=== PATIENT | male | born 1960 | race African-American/Black ===

== ENCOUNTER 2016-07-03 15:50 | Inpatient (IN) | payer MEDICARE, OTHER ==
[~2016-07-03] VITALS: Ht 165.1 cm; Wt 59.0 kg
[2016-07-03 17:58] LABS: BASO % 1 % (0-3); EOS % 2 % (0-3); HEMATOCRIT 41.5 % (39.0-53.0); HEMOGLOBIN 13.6 g/dL (13.0-17.5); LYMPH # 2.4 x10^3/uL (1.0-4.8); LYMPH % 40 % (24-48); MEAN CORPUSCULAR HEMOGLOBIN 28 pg (25-35); MEAN CORPUSCULAR HGB CONC 33 g/dL (31-37); MEAN CORPUSCULAR VOLUME 87 fL (79-100); MONO % 9 % (0-9); NEUT % 48 % (31-73); PLATELET COUNT 214 x10^3/uL (140-400); RED CELL DISTRIBUTION WIDTH 14.3 % (11.5-14.5); WHITE BLOOD COUNT 5.9 x10^3/uL (4.0-11.0)
[2016-07-03] MEDS ORDERED: IV NORMAL SALINE 1000ML BAG 1,000 ML IV SCH ×2 (18:00→20:00)
--- NOTE | 2016-07-03 18:07 | PHYS DOC ---
Past Medical History Past Medical History: Anxiety, Constipation, CVA, Depression, GERD, High Cholesterol, Hypertension Past Surgical History: No Surgical History Alcohol Use: None Drug Use: None Adult General Chief Complaint Chief Complaint: CONSTIPATION HPI HPI Patient is a 55 year old male who presents by EMS from nursing facility for concern of ileus versus bowel obstruction. He has a few days of progressive abdominal distention as well as constipation. They have tried laxatives with some small watery stool output, but no large bowel movement. He has had 2 abdominal x-rays by outside facility documenting concern for ileus. The nursing facility and doctor have been trying to convince him to come to the hospital for the past few days, but he has been refusing until now. He denies abdominal pain, nausea or vomiting, dysuria, fever or chills, chest pain, cough. Does admit to constipation with small amounts of diarrhea after laxative medications. History was obtained from patient and his doctor. Review of Systems Review of Systems Constitutional: Denies fever or chills [] Eyes: Denies change in visual acuity, redness, or eye pain [] HENT: Denies nasal congestion or sore throat [] Respiratory: Denies cough or shortness of breath [] Cardiovascular: No additional information not addressed in HPI [] GI: Denies abdominal pain, nausea, vomiting, bloody stools or diarrhea [] : Denies dysuria or hematuria [] Musculoskeletal: Denies back pain or joint pain [] Integument: Denies rash or skin lesions [] Neurologic: Denies headache, focal weakness or sensory changes [] Endocrine: Denies polyuria or polydipsia [] Current Medications Current Medications Current Medications Medications (Trade) Dose Ordered Sig/Jm Start Time Stop Time Status Last Admin Dose Admin Sodium Chloride (Iv Sodium Chloride 0.9% 1000ml Bag) 1,000 ml @ 100 mls/hr Q10H 07/03/16 18:00 07/03/16 19:53 DC Allergies Allergies Allergies Coded Allergies Type Severity Reaction Last Updated Verified No Known Drug Allergies 07/03/16 No Physical Exam Physical Exam Constitutional: Well developed, well nourished, no acute distress, non-toxic appearance. [] HENT: Normocephalic, atraumatic, bilateral external ears normal, oropharynx moist,, nose normal. [] Eyes: PERRLA, EOMI. [] Neck: Normal range of motion, supple. [] Cardiovascular:Heart rate regular rhythm [] Lungs & Thorax: Bilateral breath sounds clear to auscultation [] Abdomen: Bowel sounds high pitched, soft, no tenderness, distended, no guarding or rebound. [] Skin: Warm, dry, no erythema, no rash. [] Back: No tenderness, no CVA tenderness. [] Extremities: Chronic contracture of RUE, weakness in all 4 limbs since CVA, no edema. [] Neurologic: Alert and oriented X 3, normal sensory function. [] Psychologic: Affect normal, judgement normal, mood normal. [] Current Patient Data Vital Signs Vital Signs Date Time Temp Pulse Resp B/P Pulse Ox O2 Delivery O2 Flow Rate FiO2 07/03/16 17:57 69 16 147/82 95 Room Air 07/03/16 15:56 98.6 98.6 Lab Values Laboratory Tests Test 07/03/16 17:45 White Blood Count 5.9x10^3/uL (4.0-11.0) Red Blood Count 4.80x10^6/uL (4.30-5.70) Hemoglobin 13.6g/dL (13.0-17.5) Hematocrit 41.5% (39.0-53.0) Mean Corpuscular Volume 87fL (79-100) Mean Corpuscular Hemoglobin 28pg (25-35) Mean Corpuscular Hemoglobin Concent 33g/dL (31-37) Red Cell Distribution Width 14.3% (11.5-14.5) Platelet Count 214x10^3/uL (140-400) Neutrophils (%) (Auto) 48% (31-73) Lymphocytes (%) (Auto) 40% (24-48) Monocytes (%) (Auto) 9% (0-9) Eosinophils (%) (Auto) 2% (0-3) Basophils (%) (Auto) 1% (0-3) Neutrophils # (Auto) 2.8x10^3uL (1.8-7.7) Lymphocytes # (Auto) 2.4x10^3/uL (1.0-4.8) Monocytes # (Auto) 0.5x10^3/uL (0.0-1.1) Eosinophils # (Auto) 0.1x10^3/uL (0.0-0.7) Basophils # (Auto) 0.0x10^3/uL (0.0-0.2) Sodium Level 146mmol/L (136-145) H Potassium Level 2.9mmol/L (3.5-5.1) *L Chloride Level 106mmol/L (98-107) Carbon Dioxide Level 31mmol/L (21-32) Anion Gap 9 (6-14) Blood Urea Nitrogen 13mg/dL (8-26) Creatinine 0.9mg/dL (0.7-1.3) Estimated GFR (Cockcroft-Gault) 105.2 Glucose Level 91mg/dL (70-99) Lactic Acid Level 1.0mmol/L (0.4-2.0) Calcium Level 9.3mg/dL (8.5-10.1) Total Bilirubin 0.6mg/dL (0.2-1.0) Direct Bilirubin 0.1mg/dL (0.0-0.2) Aspartate Amino Transferase (AST) 20U/L (15-37) Alanine Aminotransferase (ALT) 18U/L (16-63) Alkaline Phosphatase 107U/L (46-116) Total Protein 7.4g/dL (6.4-8.2) Albumin 3.8g/dL (3.4-5.0) Lipase 156U/L (73-393) Laboratory Tests 07/03/16 17:45 Laboratory Tests 07/03/16 17:45 Radiology/Procedures Radiology/Procedures CT abdomen and pelvis with IV contrast IMPRESSION 1. Severe distention of the colon to the level of sigmoid colon is present. Appearance of the sigmoid colon raises possibility of sigmoid volvulus. 2. Results discussed with emergency department staff, Dr. Mukherjee, at 1855 hours. Electronically signed by: Blayne Mason MD (Jul 03, 2016 18:56:06) Course & Med Decision Making Course & Med Decision Making Pertinent Labs and Imaging studies reviewed. (See chart for details) Laboratory evaluation significant for hypokalemia, which will be replaced IV. Imaging concerning for sigmoid volvulus as above. Discussed case with Dr. Zamarripa, general surgery, who recommends GI consultation. Discussed case with Dr. Mena, gastroenterology, who recommends placement in the ICU and he will see him tomorrow for suspicion of likely chronic intermittent volvulus related to chronic constipation. He remains asymptomatic with stable vitals at this time. Discussed case with Dr. Fox, who will admit. Dragon Disclaimer Dragon Disclaimer This electronic medical record was generated, in whole or in part, using a voice recognition dictation system. Departure Departure Impression: Primary Impression: Sigmoid volvulus Additional Impression: Hypokalemia Disposition: ADMITTED INPATIENT Condition: CRITICAL Referrals: KIRT FOX MD (PCP) Problem Qualifiers Edgar MUKHERJEE MD Jul 03, 2016 18:07
[2016-07-03] MEDS ORDERED: ACETAMINOPHEN 325 MG TABLET. PO PRN (18:15)
[2016-07-03] MEDS ORDERED: ONDANSETRON PF 4 MG/2 ML VIAL. IV PRN (18:15)
[2016-07-03 18:17] LABS: ALBUMIN 3.8 g/dL (3.4-5.0); CALCIUM 9.3 mg/dL (8.5-10.1); CREATININE 0.9 mg/dL (0.7-1.3); DIRECT BILIRUBIN 0.1 mg/dL (0.0-0.2); GFR 105.2; TOTAL BILIRUBIN 0.6 mg/dL (0.2-1.0); TOTAL PROTEIN 7.4 g/dL (6.4-8.2)
[2016-07-03 18:24] LABS: POTASSIUM 2.9 mmol/L (3.5-5.1)
[2016-07-03 18:25] LABS: BILIRUBIN,URINE NEGATIVE (NEG); GLUCOSE,URINE NEGATIVE (NEG); NITRITE,URINE NEGATIVE (NEG); PH,URINE 6.5; PROTEIN,URINE NEGATIVE (NEG-TRACE)
[2016-07-03] MEDS ORDERED: IOHEXOL 300 MG/ML 75 ML VIAL IV ONE (18:30)
[2016-07-03] MEDS ORDERED: CONTRAST GIVEN MC PRN (18:30)
[2016-07-03 18:36] LABS: BACTERIA,URINE 0 /HPF (0-FEW); RBC,URINE 0 /HPF (0-2)
--- NOTE | 2016-07-03 18:57 | RAD ---
PROCEDURE CT abdomen pelvis with intravenous contrast. HISTORY Abdominal pain and distention. TECHNIQUE After administration of intravenous contrast only, 75 mL Omnipaque 300, CT of the abdomen and pelvis was performed. Exposure: One or more of the following individualized dose reduction techniques were utilized for this examination: 1. Automated exposure control. 2. Adjustment of the mA and/or kV according to patient size. 3. Use of iterative reconstruction technique. COMPARISON None. FINDINGS Evaluation of enteric structures may be limited by lack of oral contrast. Liver, spleen, pancreas, gallbladder, and bilateral adrenal glands are unremarkable. Bilateral kidneys enhance symmetrically. Aortic atherosclerosis is seen. Urinary bladder is unremarkable. The colon is severely distended with loops of sigmoid colon measuring up to 12 centimeters in diameter. Small amount of stool is seen in the rectum which has a relatively normal size. There may be twisting and "whorling" of the distal sigmoid colon near the rectum such that sigmoid volvulus is possible. No perforation is identified at this time. Appendix is without evidence of inflammation. IMPRESSION 1. Severe distention of the colon to the level of sigmoid colon is present. Appearance of the sigmoid colon raises possibility of sigmoid volvulus. 2. Results discussed with emergency department staff, Dr. iHll, at 1855 hours. Electronically signed by: Blayne Mason MD (Jul 03, 2016 18:56:06)
--- NOTE | 2016-07-04 03:20 | ACF ---
Admit Criteria Forms Admit Criteria Forms Admit Criteria Forms HYPONATREMIA; HYPERNATREMIA; HYPOKALEMIA; HYPERKALEMIA; HYPOCALCEMIA; HYPERCALCEMIA Clinical Indications for Inpatient Care (Place 'X' for any and all applicable criteria): Ongoing inpatient care may be indicated for ANY ONE of the following [G](1)(2)(3 )(5): [ ]I. Hyponatremia with ANY ONE of the following: [ ]a) Sodium less than 130 mEq/L (mmol/L) (new) (6)(22) [ ]b) Sodium less than 135 mEq/L (mmol/L) with ANY ONE of the following: [ ]i) Severe medical etiology requiring inpatient management (eg, heart failure, hypovolemia) [ ]ii) Altered mental status [ ]iii) Seizures [ ]II. Hypernatremia with ANY ONE of the following: [ ]a) Sodium greater than 155 mEq/L (mmol/L) [ ]b) Sodium greater than 150 mEq/L (mmol/L) with ANY ONE of the following: [ ] i) Altered mental status [ ]ii) Seizures [ ]iii) Severe medical etiology (eg, hypovolemia, diabetes insipidus) [ ]iv) Severe weakness [ ]v) Severe medical etiology (eg, hemolysis, infection, drug overdose) [X]III. Hypokalemia with ANY ONE of the following: [ ]a) Potassium less than 2.5 mEq/L (mmol/L) despite outpatient and emergency treatment [X]b) Potassium less than 3.0 mEq/L (mmol/L) with ANY ONE of the following: [ ]i) Weakness [ ]ii) Cardiac abnormality (eg, arrhythmia, conduction disturbance) [ ]iii) Cardiac ischemia [ ]iv) Ileus [ ]v) Ongoing medical cause requiring inpatient management. ( e.g., acute renal wasting, SIADH) [X]vi) Other severe symptoms [ ] IV. Hyperkalemia with ANY ONE of the following: [ ]a) Potassium greater than 6.5 mEq/L (mmol/L) [ ]b) Potassium greater than 5 mEq/L (mmol/L) with ANY ONE of the following: [ ]i) Severe ECG findings [H] [ ]ii) Acute worsening of renal failure (creatinine greater than 2.5 mg/dL (221 micromoles/L) or significant elevation for age and size) [ ] V. Hypocalcemia with ANY ONE of the following: [ ]a) Calcium less than 7 mg/dL (1.75 mmol/L) despite outpatient and emergency treatment(19) [ ]b) Calcium less than 8 mg/dL (2 mmol/L) with significant symptoms or findings; examples include: [ ]i) Cardiac abnormality (eg, arrhythmia or conduction disturbance) [ ]ii) Altered mental status [ ]iii) Seizures [ ]iv) Breathing difficulty [ ]v) Muscle spasms [ ]. Hypercalcemia with ANY ONE of the following: [ ]a) Calcium greater than 14 mg/dL (3.5 mmol/L) [ ]b) Calcium greater than 12 mg/dL (3 mmol/L) with ANY ONE of the following: [ ]i) Significant dehydration or hypovolemia as indicated by ANY ONE of the following(2): [ ]1. Clinically significant dehydration as indicated by ANY ONE of the following: [ ]A. Acute loss of weight from baseline (5% of body weight in adults, 9% in pediatric patients) [ ]B. Hemodynamic instability [ ]C. Acute renal failure [ ]D. Serum sodium greater than 150 mEq/L (mmol/L) [ ]2) Dehydration that is persistent indicated by ALL of the following: [ ]A. Oral rehydration therapy not tolerated or insufficient to adequately correct dehydration [ ]B. Appropriate intravenous treatment (eg, fluids ) does not readily correct dehydration ie, after 12 to 24 hours of treatment) [ ]ii) Significant symptoms or findings; examples include: [ ]1) Altered mental status [ ]2) Cardiac abnormality (eg, arrhythmia, conduction disturbance) [ ]3) Cardiac abnormality (eg, arrhythmia, conduction disturbance) The original [facility] content created by [employer] has been revised. The portions of the content which have been revised are identified through the use of italic text or in bold, and [facility] has neither reviewed nor approved the modified material. All other unmodified content is copyright [facility] [employer] Please see references footnoted in the original [facility] edition 2015 ANJELICA MARIE Jul 04, 2016 03:20
--- NOTE | 2016-07-04 07:53 | PDOC2 ---
GI CONSULT Reason For Consult: Sigmoid volvulus HPI: HPI: Much of history from chart and staff. 55 y/ AA male brought to ER from nursing facility w/ increased abdominal distention, constipation, and possible ileus on x-rays. Apparently was given laxatives at the facility that produced watery stools. Per RN in ER (held while awaiting ICU bed), has continued w/ watery and "gritty" stools overnight. He denies abdominal pain and n/v. He tells me his usual bowel pattern is 1 stool QOD. Denies bleeding. No previous colonoscopy. PMH: PMH: CVA, HTN, HLD, anxiety/depression Social History: ALCOHOL: none Drugs: None ROS: Somewhat difficult to obtain. GEN: Denies fevers, chills, sweats HEENT: Denies sore throat CV: Denies chest pain RESP: Denies shortness of air GI: Per HPI : Denies hematuria ENDO: Denies weight changes NEURO: Denies dizziness MSK: +weakness SKIN: Denies pruritus VItals: Vitals: Vital Signs Date Time Temp Pulse Resp B/P Pulse Ox O2 Delivery O2 Flow Rate FiO2 07/04/16 06:45 95 134/75 9 Room Air 07/03/16 18:35 16 07/03/16 15:56 98.6 98.6 Labs: Labs: Laboratory Tests Test 07/03/16 17:45 07/03/16 18:12 White Blood Count 5.9x10^3/uL (4.0-11.0) Red Blood Count 4.80x10^6/uL (4.30-5.70) Hemoglobin 13.6g/dL (13.0-17.5) Hematocrit 41.5% (39.0-53.0) Mean Corpuscular Volume 87fL (79-100) Mean Corpuscular Hemoglobin 28pg (25-35) Mean Corpuscular Hemoglobin Concent 33g/dL (31-37) Red Cell Distribution Width 14.3% (11.5-14.5) Platelet Count 214x10^3/uL (140-400) Neutrophils (%) (Auto) 48% (31-73) Lymphocytes (%) (Auto) 40% (24-48) Monocytes (%) (Auto) 9% (0-9) Eosinophils (%) (Auto) 2% (0-3) Basophils (%) (Auto) 1% (0-3) Neutrophils # (Auto) 2.8x10^3uL (1.8-7.7) Lymphocytes # (Auto) 2.4x10^3/uL (1.0-4.8) Monocytes # (Auto) 0.5x10^3/uL (0.0-1.1) Eosinophils # (Auto) 0.1x10^3/uL (0.0-0.7) Basophils # (Auto) 0.0x10^3/uL (0.0-0.2) Sodium Level 146mmol/L (136-145) Potassium Level 2.9mmol/L (3.5-5.1) Chloride Level 106mmol/L (98-107) Carbon Dioxide Level 31mmol/L (21-32) Anion Gap 9 (6-14) Blood Urea Nitrogen 13mg/dL (8-26) Creatinine 0.9mg/dL (0.7-1.3) Estimated GFR (Cockcroft-Gault) 105.2 Glucose Level 91mg/dL (70-99) Lactic Acid Level 1.0mmol/L (0.4-2.0) Calcium Level 9.3mg/dL (8.5-10.1) Total Bilirubin 0.6mg/dL (0.2-1.0) Direct Bilirubin 0.1mg/dL (0.0-0.2) Aspartate Amino Transf (AST/SGOT) 20U/L (15-37) Alanine Aminotransferase (ALT/SGPT) 18U/L (16-63) Alkaline Phosphatase 107U/L (46-116) Total Protein 7.4g/dL (6.4-8.2) Albumin 3.8g/dL (3.4-5.0) Lipase 156U/L (73-393) Urine Collection Type U cath Urine Color Yellow Urine Clarity Clear Urine pH 6.5 Urine Specific [place] 1.020 Urine Protein Negativemg/dL (NEG-TRACE) Urine Glucose (UA) Negativemg/dL (NEG) Urine Ketones (Stick) Tracemg/dL (NEG) Urine Blood Negative (NEG) Urine Nitrite Negative (NEG) Urine Bilirubin Negative (NEG) Urine Urobilinogen Dipstick 1.0mg/dL (0.2 mg/dL) Urine Leukocyte Esterase Trace (NEG) Urine RBC 0/HPF (0-2) Urine WBC 1-4/HPF (0-4) Urine Transitional Epithelial Cells Few/LPF Urine Bacteria 0/HPF (0-FEW) Urine Hyaline Casts Moderate/HPF Urine Mucus Marked/LPF Allergies: Coded Allergies: No Known Drug Allergies (Unverified , 07/03/16) Medications: Current Medications Medications (Trade) Dose Ordered Sig/Mj Route PRN Reason Start Time Stop Time Status Last Admin Dose Admin Potassium Chloride/Sodium Chloride (KCl 20 Meq-NS 1,000 ml Iv Soln) 1,000 ml @ 125 mls/hr 1X ONCE IV 07/03/16 18:30 07/04/16 02:29 DC 07/03/16 18:16 Iohexol 75 ml 75 ml 1X ONCE IV 07/03/16 18:30 07/03/16 18:31 DC 07/03/16 18:23 Sodium Chloride (Iv Sodium Chloride 0.9% 1000ml Bag) 1,000 ml @ 1,000 mls/hr Q1H IV 07/03/16 20:00 07/03/16 20:59 DC 07/03/16 19:00 Imaging: Imaging: CT A/P IMPRESSION 1. Severe distention of the colon to the level of sigmoid colon is present. Appearance of the sigmoid colon raises possibility of sigmoid volvulus. PE: GEN: NAD HEENT: Atraumatic, PERRL LUNGS: CTAB anteriorly HEART: RRR ABD: BS tympanic, distended, non-tender EXTREMITY: No edema SKIN: No rashes, no jaundice NEURO/PSYCH: answers questions appropriately, somewhat difficult to understand A/P: A/P: Abd distention, constipation -noted at nursing facility w/ no relief from laxatives, brought to ER -h/o constipation -having watery stools in ER Abnormal CT A/P, possible sigmoid volvulus -as above CRC screen -no previous colonoscopy H/o CVA -- D/w Dr. Mena, GI lab. Proceed w/ tap water enemas prior to 'scope w/ possible decompression this afternoon. RANDOLPH TYSON Jul 04, 2016 07:53
--- NOTE | 2016-07-04 09:24 | PDOC2 ---
TENNILLE GUTIÉRREZ [employer] 07/04/16 0924: CONSULT Date of Consult Date of Consult DATE: 07/04/16 TIME: 09:17 Reason for Consult Reason for Consult: sigmoid volvulus Referring Physician Referring Physician: ER Identification/Chief Complaint Chief Complaint abdominal distention Source Source: Chart review, Patient History of Present Illness Reason for Visit: From [facility], had increased abdominal distention and watery stools from laxatives, xrays taken were concerning for ileus. Hx of cva, difficulty with speech. He denies pain Past Medical History Cardiovascular: HTN, Hyperlipidemia CENTRAL NERVOUS SYSTEM: CVA GI: GERD Psych: Anxiety, Depression Past Surgical History Past Surgical History: No pertinent history Family History Family History: Family History Unknown Social History No ALCOHOL: none Drugs: None Lives: [facility] Current Problem List Problem List Problems Medical Problems: (1) Abdominal pain Status: Acute (2) Hypokalemia Status: Acute (3) Ileus Status: Acute (4) Sigmoid volvulus Status: Acute Current Medications Current Medications Current Medications Sodium Chloride (Iv Sodium Chloride 0.9% 1000ml Bag) 1,000 ml @ 100 mls/hr Q10H IV ; Start 07/03/16 at 18:00; Stop 07/03/16 at 19:53; Status DC Ondansetron HCl (Zofran) 4 mg PRN Q8HRS PRN IV NAUSEA/VOMITING; Start 07/03/16 at 18:15; Stop 07/04/16 at 18:14 Acetaminophen 650 mg 650 mg PRN Q4HRS PRN PO FEVER; Start 07/03/16 at 18:15; Stop 07/04/16 at 18:14 Potassium Chloride/Sodium Chloride (KCl 20 Meq-NS 1,000 ml Iv Soln) 1,000 ml @ 125 mls/hr 1X ONCE IV Last administered on 07/03/16t 18:16; Start 07/03/16 at 18:30; Stop 07/04/16 at 02:29; Status DC Iohexol (Omnipaque 300 Mg/ml) 75 ml 1X ONCE IV Last administered on 07/03/16t 18:23; Start 07/03/16 at 18:30; Stop 07/03/16 at 18:31; Status DC Info 1 each 1 each PRN DAILY PRN MC SEE COMMENTS; Start 07/03/16 at 18:30; Stop 07/05/16 at 18:29 Sodium Chloride (Iv Sodium Chloride 0.9% 1000ml Bag) 1,000 ml @ 1,000 mls/hr Q1H IV Last administered on 07/03/16t 19:00; Start 07/03/16 at 20:00; Stop at 20:59; Status DC Allergies Allergies: Coded Allergies: No Known Drug Allergies (Unverified , 07/03/16) ROS Review of System difficult to obtain, reliability poor General: No: Chills, Other (fevers) PSYCHOLOGICAL ROS: YES: Anxiety, Depression Eyes: No Blurry vision, No Double vision HEENT: No: Heacaches, Sore Throat Hematological and Lymphatic: No: Bleeding Problems, Blood Clots Respiratory: No: Cough, Shortness of breath Cardiovascular: No Chest Pain, No Palpitations Genitourinary: No Dysuria, No Hematuria Neurological: Yes Speech Problems, No Tremors Skin: No Pruritus, No Rash Physical Exam General: Alert, Cooperative, No acute distress, Other (difficult speech, however appears to answer approriately ) HEENT: PERRLA, Mucous membr. moist/pink Lungs: Clear to auscultation, Normal air movement Heart: Regular rate, Normal S1, Normal S2, No murmurs Abdomen: Soft, Other (Distended, nontender) Extremities: No clubbing, No cyanosis Skin: No rashes, No breakdown MUSCULOSKELETAL: No deformity, No swelling Vitals VITALS Vital Signs Date Time Temp Pulse Resp B/P Pulse Ox O2 Delivery O2 Flow Rate FiO2 07/04/16 06:45 95 134/75 9 Room Air 07/03/16 18:35 16 07/03/16 15:56 98.6 98.6 Labs Labs Laboratory Tests Test 07/03/16 17:45 07/03/16 18:12 White Blood Count 5.9x10^3/uL (4.0-11.0) Red Blood Count 4.80x10^6/uL (4.30-5.70) Hemoglobin 13.6g/dL (13.0-17.5) Hematocrit 41.5% (39.0-53.0) Mean Corpuscular Volume 87fL (79-100) Mean Corpuscular Hemoglobin 28pg (25-35) Mean Corpuscular Hemoglobin Concent 33g/dL (31-37) Red Cell Distribution Width 14.3% (11.5-14.5) Platelet Count 214x10^3/uL (140-400) Neutrophils (%) (Auto) 48% (31-73) Lymphocytes (%) (Auto) 40% (24-48) Monocytes (%) (Auto) 9% (0-9) Eosinophils (%) (Auto) 2% (0-3) Basophils (%) (Auto) 1% (0-3) Neutrophils # (Auto) 2.8x10^3uL (1.8-7.7) Lymphocytes # (Auto) 2.4x10^3/uL (1.0-4.8) Monocytes # (Auto) 0.5x10^3/uL (0.0-1.1) Eosinophils # (Auto) 0.1x10^3/uL (0.0-0.7) Basophils # (Auto) 0.0x10^3/uL (0.0-0.2) Sodium Level 146mmol/L (136-145) Potassium Level 2.9mmol/L (3.5-5.1) Chloride Level 106mmol/L (98-107) Carbon Dioxide Level 31mmol/L (21-32) Anion Gap 9 (6-14) Blood Urea Nitrogen 13mg/dL (8-26) Creatinine 0.9mg/dL (0.7-1.3) Estimated GFR (Cockcroft-Gault) 105.2 Glucose Level 91mg/dL (70-99) Lactic Acid Level 1.0mmol/L (0.4-2.0) Calcium Level 9.3mg/dL (8.5-10.1) Total Bilirubin 0.6mg/dL (0.2-1.0) Direct Bilirubin 0.1mg/dL (0.0-0.2) Aspartate Amino Transf (AST/SGOT) 20U/L (15-37) Alanine Aminotransferase (ALT/SGPT) 18U/L (16-63) Alkaline Phosphatase 107U/L (46-116) Total Protein 7.4g/dL (6.4-8.2) Albumin 3.8g/dL (3.4-5.0) Lipase 156U/L (73-393) Urine Collection Type U cath Urine Color Yellow Urine Clarity Clear Urine pH 6.5 Urine Specific [place] 1.020 Urine Protein Negativemg/dL (NEG-TRACE) Urine Glucose (UA) Negativemg/dL (NEG) Urine Ketones (Stick) Tracemg/dL (NEG) Urine Blood Negative (NEG) Urine Nitrite Negative (NEG) Urine Bilirubin Negative (NEG) Urine Urobilinogen Dipstick 1.0mg/dL (0.2 mg/dL) Urine Leukocyte Esterase Trace (NEG) Urine RBC 0/HPF (0-2) Urine WBC 1-4/HPF (0-4) Urine Transitional Epithelial Cells Few/LPF Urine Bacteria 0/HPF (0-FEW) Urine Hyaline Casts Moderate/HPF Urine Mucus Marked/LPF Laboratory Tests Test 07/03/16 17:45 07/03/16 18:12 White Blood Count 5.9x10^3/uL (4.0-11.0) Red Blood Count 4.80x10^6/uL (4.30-5.70) Hemoglobin 13.6g/dL (13.0-17.5) Hematocrit 41.5% (39.0-53.0) Mean Corpuscular Volume 87fL (79-100) Mean Corpuscular Hemoglobin 28pg (25-35) Mean Corpuscular Hemoglobin Concent 33g/dL (31-37) Red Cell Distribution Width 14.3% (11.5-14.5) Platelet Count 214x10^3/uL (140-400) Neutrophils (%) (Auto) 48% (31-73) Lymphocytes (%) (Auto) 40% (24-48) Monocytes (%) (Auto) 9% (0-9) Eosinophils (%) (Auto) 2% (0-3) Basophils (%) (Auto) 1% (0-3) Neutrophils # (Auto) 2.8x10^3uL (1.8-7.7) Lymphocytes # (Auto) 2.4x10^3/uL (1.0-4.8) Monocytes # (Auto) 0.5x10^3/uL (0.0-1.1) Eosinophils # (Auto) 0.1x10^3/uL (0.0-0.7) Basophils # (Auto) 0.0x10^3/uL (0.0-0.2) Sodium Level 146mmol/L (136-145) Potassium Level 2.9mmol/L (3.5-5.1) Chloride Level 106mmol/L (98-107) Carbon Dioxide Level 31mmol/L (21-32) Anion Gap 9 (6-14) Blood Urea Nitrogen 13mg/dL (8-26) Creatinine 0.9mg/dL (0.7-1.3) Estimated GFR (Cockcroft-Gault) 105.2 Glucose Level 91mg/dL (70-99) Lactic Acid Level 1.0mmol/L (0.4-2.0) Calcium Level 9.3mg/dL (8.5-10.1) Total Bilirubin 0.6mg/dL (0.2-1.0) Direct Bilirubin 0.1mg/dL (0.0-0.2) Aspartate Amino Transf (AST/SGOT) 20U/L (15-37) Alanine Aminotransferase (ALT/SGPT) 18U/L (16-63) Alkaline Phosphatase 107U/L (46-116) Total Protein 7.4g/dL (6.4-8.2) Albumin 3.8g/dL (3.4-5.0) Lipase 156U/L (73-393) Urine Collection Type U cath Urine Color Yellow Urine Clarity Clear Urine pH 6.5 Urine Specific [place] 1.020 Urine Protein Negativemg/dL (NEG-TRACE) Urine Glucose (UA) Negativemg/dL (NEG) Urine Ketones (Stick) Tracemg/dL (NEG) Urine Blood Negative (NEG) Urine Nitrite Negative (NEG) Urine Bilirubin Negative (NEG) Urine Urobilinogen Dipstick 1.0mg/dL (0.2 mg/dL) Urine Leukocyte Esterase Trace (NEG) Urine RBC 0/HPF (0-2) Urine WBC 1-4/HPF (0-4) Urine Transitional Epithelial Cells Few/LPF Urine Bacteria 0/HPF (0-FEW) Urine Hyaline Casts Moderate/HPF Urine Mucus Marked/LPF Assessment/Plan Assessment/Plan sigmoid volvulus on CT hypokalemia--k replaced in ER Hx of CVA, HTN, hyperlipemia reviewed with GI, plans for decompression today will review with TAMMY Fisher MD 07/04/16 1136: CONSULT Allergies Allergies: Coded Allergies: No Known Drug Allergies (Unverified , 07/03/16) Assessment/Plan Assessment/Plan Reviewed, X rays reviewed; suspect colonic ileus, volvulus possible; GI consulted, planning evaluation with colonoscopy TENNILLE GUTIÉRREZ APRN Jul 04, 2016 09:24 TAMMY TOM MD Jul 04, 2016 11:36
[2016-07-04 11:15] VITALS: BP 110/73
--- NOTE | 2016-07-04 13:01 | HP ---
ADMIT DATE: 07/03/2016 HISTORY OF PRESENT ILLNESS: The patient is a 55-year-old -Serbian male patient, a resident at [facility] in [place], who apparently was noted by the nursing staff there to have extremely distended abdomen ____ he was also constipated, but there was no nausea or vomiting. The patient apparently denied any abdominal pain. We did actually investigate him at the alf and had a KUB done, which showed that he has moderate colonic dilatation consistent with ileus, small bowel loops are unremarkable. There is no soft tissue masses, significant pathological calcification. I did actually recommend that the patient be transferred to the hospital for further evaluation; however, the patient himself used to put him on a clear liquid diet, was given Dulcolax suppository as well as MiraLax and mag citrate and apparently had had multiple bowel movements; however, his abdomen continued to be markedly distended and we did repeat his KUB, which continued to be showing colonic dilatation and initially the patient has consistently refused to come to the hospital. Yesterday, he agreed and was brought to the Emergency Room of [facility] Emergency Room where he was evaluated and has had CT scan done, which apparently showed severe distention of the colon to the level of the sigmoid colon. Appearance of the sigmoid colon, there is a possibility of sigmoid volvulus. The patient was apparently kept n.p.o. and the GI and surgical consult were obtained. The patient himself has consistently denied any nausea or vomiting. Denied any abdominal pain. Apparently, had had some loose bowel movement at alf and also in the Emergency Room. PAST MEDICAL HISTORY: Significant for hypertension, cerebrovascular accident with right-sided hemiplegia, aphasia, gastroesophageal reflux disease, carotid artery stenosis with infarct, has chronic pain syndrome and insomnia. PAST SURGICAL HISTORY: Unremarkable. FAMILY HISTORY: Noncontributory. SOCIAL HISTORY: Used to live with his niece. He is an ex-smoker, heavy drinker. He used to work ____. ALLERGIES: He has no known drug allergies. MEDICATIONS: He is currently on following medications: He is on amlodipine 10 mg once a day, aspirin 81 mg once a day, atorvastatin calcium 20 mg at bedtime, baclofen 10 mg 3 times a day, bisacodyl suppositories ____ 24 hours as needed for constipation, multivitamin with mineral one tablet once a day, clonidine patch 0.2 mg 24 hours once a week, Colace 100 mg twice a day, famotidine 20 mg twice a day, Lexapro 10 mg once a day, MiraLax 17 g twice a day, omega-3 fatty acids 1 capsule twice a day, Plavix 75 mg once a day, potassium chloride extended release 20 mEq once a day, Tylenol 650 mg every 6 hours as needed, vitamin D, ergocalciferol 50,000 units once a week, every Sunday. REVIEW OF SYSTEMS: As per history of present illness. PHYSICAL EXAMINATION: GENERAL: On arrival to the Emergency Room, he looked well and was clearly in no apparent respiratory distress. He was pale, but no jaundice, cyanosis or thyromegaly. No jugular venous distention. No limb edema. VITAL SIGNS: His heart rate was 64, blood pressure was 138/82, temperature was 98.6, respiratory rate was 16, and oxygen saturation was 96%. HEAD, EYES, EARS, NOSE AND THROAT: Normocephalic, atraumatic. NECK: Supple. HEART: Showed normal first and second heart sounds. No gallop, rub or murmur. CHEST: Clear to auscultation. No crepitation or rhonchi. ABDOMEN:. Markedly distended, soft, nontender. There is no guarding or rigidity. No organomegaly. Hernial orifices intact. Bowel sounds normal. NEUROLOGIC: He is awake, alert, has expressive aphasia with right-sided hemiplegia with fixed flexion contraction of his right upper and right lower extremity. He is mostly bedbound, chair bound. LABORATORY DATA: As of yesterday showed that his serum sodium was 141, potassium 2.9, chloride 102, bicarbonate 27, glucose 134, BUN 11, creatinine 0.8, his calcium was high at 10.1. Total protein was 7.3, albumin 4.5. Total bilirubin and alkaline phosphatase were normal. AST slightly elevated. His white cell count was 5300, hemoglobin 14, hematocrit 42, MCV 83, and platelet count 266,000. The CT scan of the abdomen and pelvis showed that he has severe distention of the colon to the level of sigmoid. Appearance of the sigmoid colon, there is a possibility of sigmoid volvulus. PLAN: To consult the surgical team and keep the patient n.p.o., start him on IV fluid and replenish his potassium. KIRT JAMA MD DR: AARON/wendy JOB#: [id number] / [id number]
[2016-07-04] MEDS: POTASSIUM CL 40MEQ D5-0.45NACL 1,000 ML IV SCH (14:00)
[2016-07-04 15:00] VITALS: BP 121/83
[2016-07-04 15:26] LABS: CREATININE 0.9 mg/dL (0.7-1.3); GFR 105.2
[2016-07-04 15:30] LABS: POTASSIUM 2.5 mmol/L (3.5-5.1)
[2016-07-04] MEDS: POTASSIUM CHLORIDE 10MEQ 100 ML IV SCH ×4 (17:34→22:40)
[2016-07-04 19:30] VITALS: BP 132/84
[2016-07-04 23:09] VITALS: BP 114/86
[2016-07-05] MEDS: POTASSIUM CL 40MEQ D5-0.45NACL 1,000 ML IV SCH
[2016-07-05 03:58] VITALS: BP 100/64
[2016-07-05] MEDS ORDERED: ASPI81TA2 PO (05:32)
[2016-07-05] MEDS ORDERED: AMLO10TA2 PO (05:32)
[2016-07-05] MEDS ORDERED: CLON1PAT10 TD (05:32)
[2016-07-05] MEDS ORDERED: ATOR20TA58 PO (05:32)
[2016-07-05] MEDS ORDERED: BISA10SU2 RC (05:32)
[2016-07-05] MEDS ORDERED: BACL10TA PO (05:32)
[2016-07-05] MEDS ORDERED: DOCU-27 PO (05:32)
[2016-07-05] MEDS ORDERED: MULT-690 PO (05:32)
[2016-07-05] MEDS ORDERED: POLY17PO5 PO (05:32)
[2016-07-05] MEDS ORDERED: FAMO20TA5 PO (05:32)
[2016-07-05] MEDS ORDERED: OMEG10005 PO (05:32)
[2016-07-05] MEDS ORDERED: ESCI10TA PO (05:32)
[2016-07-05 07:00] VITALS: BP 124/80
[2016-07-05 07:00] LABS: BASO % 1 % (0-3); EOS % 2 % (0-3); HEMATOCRIT 39.7 % (39.0-53.0); HEMOGLOBIN 13.2 g/dL (13.0-17.5); LYMPH % 34 % (24-48); MEAN CORPUSCULAR HEMOGLOBIN 29 pg (25-35); MEAN CORPUSCULAR HGB CONC 33 g/dL (31-37); MEAN CORPUSCULAR VOLUME 86 fL (79-100); MONO % 11 % (0-9); NEUT % 53 % (31-73); PLATELET COUNT 188 x10^3/uL (140-400); RED BLOOD COUNT 4.63 x10^6/uL (4.30-5.70); RED CELL DISTRIBUTION WIDTH 14.2 % (11.5-14.5); WHITE BLOOD COUNT 5.9 x10^3/uL (4.0-11.0)
[2016-07-05 07:24] LABS: ALBUMIN 3.3 g/dL (3.4-5.0); CALCIUM 8.7 mg/dL (8.5-10.1); CREATININE 0.9 mg/dL (0.7-1.3); GFR 105.2; TOTAL BILIRUBIN 0.6 mg/dL (0.2-1.0); TOTAL PROTEIN 6.7 g/dL (6.4-8.2)
[2016-07-05 07:27] LABS: POTASSIUM 2.7 mmol/L (3.5-5.1)
--- NOTE | 2016-07-05 08:10 | PDOC ---
PROGRESS NOTES Subjective Subjective colonoscopy not done, not consented Objective Objective Vital Signs Date Time Temp Pulse Resp B/P Pulse Ox O2 Delivery O2 Flow Rate FiO2 07/05/16 03:58 97.9 73 20 100/64 92 Room Air 97.9 Intake and Output 07/05/16 06:59 Intake Total 0 ml Balance 0 ml Intake Oral 0 ml # Voids 6 # Bowel Movements 2 Physical Exam Physical Exam pt alert, verbalizes "yes" "no", appears comfortable; abdomen with some distension, muscle spasticity Assessment Assessment Problems Medical Problems: (1) Abdominal pain Status: Acute (2) Hemiplegia affecting dominant side Status: Acute (3) Hypokalemia Status: Acute (4) Ileus Status: Acute (5) Sigmoid volvulus Status: Acute (6) Sigmoid volvulus Status: Acute Plan Plan of Care GI following, no surgical plans Comment Review of Relevant I have reviewed the following items danilo (where applicable) has been applied. Labs Laboratory Tests Test 07/03/16 17:45 07/03/16 18:12 07/04/16 15:10 07/05/16 06:21 White Blood Count 5.9x10^3/uL (4.0-11.0) 5.9x10^3/uL (4.0-11.0) Red Blood Count 4.80x10^6/uL (4.30-5.70) 4.63x10^6/uL (4.30-5.70) Hemoglobin 13.6g/dL (13.0-17.5) 13.2g/dL (13.0-17.5) Hematocrit 41.5% (39.0-53.0) 39.7% (39.0-53.0) Mean Corpuscular Volume 87fL (79-100) 86fL (79-100) Mean Corpuscular Hemoglobin 28pg (25-35) 29pg (25-35) Mean Corpuscular Hemoglobin Concent 33g/dL (31-37) 33g/dL (31-37) Red Cell Distribution Width 14.3% (11.5-14.5) 14.2% (11.5-14.5) Platelet Count 214x10^3/uL (140-400) 188x10^3/uL (140-400) Neutrophils (%) (Auto) 48% (31-73) 53% (31-73) Lymphocytes (%) (Auto) 40% (24-48) 34% (24-48) Monocytes (%) (Auto) 9% (0-9) 11% (0-9) Eosinophils (%) (Auto) 2% (0-3) 2% (0-3) Basophils (%) (Auto) 1% (0-3) 1% (0-3) Neutrophils # (Auto) 2.8x10^3uL (1.8-7.7) 3.1x10^3uL (1.8-7.7) Lymphocytes # (Auto) 2.4x10^3/uL (1.0-4.8) 2.0x10^3/uL (1.0-4.8) Monocytes # (Auto) 0.5x10^3/uL (0.0-1.1) 0.7x10^3/uL (0.0-1.1) Eosinophils # (Auto) 0.1x10^3/uL (0.0-0.7) 0.1x10^3/uL (0.0-0.7) Basophils # (Auto) 0.0x10^3/uL (0.0-0.2) 0.0x10^3/uL (0.0-0.2) Sodium Level 146mmol/L (136-145) 147mmol/L (136-145) 147mmol/L (136-145) Potassium Level 2.9mmol/L (3.5-5.1) 2.5mmol/L (3.5-5.1) 2.7mmol/L (3.5-5.1) Chloride Level 106mmol/L (98-107) 107mmol/L (98-107) 108mmol/L (98-107) Carbon Dioxide Level 31mmol/L (21-32) 28mmol/L (21-32) 30mmol/L (21-32) Anion Gap 9 (6-14) 12 (6-14) 9 (6-14) Blood Urea Nitrogen 13mg/dL (8-26) 8mg/dL (8-26) 8mg/dL (8-26) Creatinine 0.9mg/dL (0.7-1.3) 0.9mg/dL (0.7-1.3) 0.9mg/dL (0.7-1.3) Estimated GFR (Cockcroft-Gault) 105.2 105.2 105.2 Glucose Level 91mg/dL (70-99) 99mg/dL (70-99) 121mg/dL (70-99) Lactic Acid Level 1.0mmol/L (0.4-2.0) Calcium Level 9.3mg/dL (8.5-10.1) 9.0mg/dL (8.5-10.1) 8.7mg/dL (8.5-10.1) Total Bilirubin 0.6mg/dL (0.2-1.0) 0.6mg/dL (0.2-1.0) Direct Bilirubin 0.1mg/dL (0.0-0.2) Aspartate Amino Transf (AST/SGOT) 20U/L (15-37) 12U/L (15-37) Alanine Aminotransferase (ALT/SGPT) 18U/L (16-63) 15U/L (16-63) Alkaline Phosphatase 107U/L (46-116) 100U/L (46-116) Total Protein 7.4g/dL (6.4-8.2) 6.7g/dL (6.4-8.2) Albumin 3.8g/dL (3.4-5.0) 3.3g/dL (3.4-5.0) Lipase 156U/L (73-393) Urine Collection Type U cath Urine Color Yellow Urine Clarity Clear Urine pH 6.5 Urine Specific [place] 1.020 Urine Protein Negativemg/dL (NEG-TRACE) Urine Glucose (UA) Negativemg/dL (NEG) Urine Ketones (Stick) Tracemg/dL (NEG) Urine Blood Negative (NEG) Urine Nitrite Negative (NEG) Urine Bilirubin Negative (NEG) Urine Urobilinogen Dipstick 1.0mg/dL (0.2 mg/dL) Urine Leukocyte Esterase Trace (NEG) Urine RBC 0/HPF (0-2) Urine WBC 1-4/HPF (0-4) Urine Transitional Epithelial Cells Few/LPF Urine Bacteria 0/HPF (0-FEW) Urine Hyaline Casts Moderate/HPF Urine Mucus Marked/LPF BUN/Creatinine Ratio 9 (6-20) Albumin/Globulin Ratio 1.0 (1.0-1.7) Thyroid Stimulating Hormone (TSH) 0.367uIU/mL (0.358-3.74) Laboratory Tests Test 07/04/16 15:10 07/05/16 06:21 Sodium Level 147mmol/L (136-145) 147mmol/L (136-145) Potassium Level 2.5mmol/L (3.5-5.1) 2.7mmol/L (3.5-5.1) Chloride Level 107mmol/L (98-107) 108mmol/L (98-107) Carbon Dioxide Level 28mmol/L (21-32) 30mmol/L (21-32) Anion Gap 12 (6-14) 9 (6-14) Blood Urea Nitrogen 8mg/dL (8-26) 8mg/dL (8-26) Creatinine 0.9mg/dL (0.7-1.3) 0.9mg/dL (0.7-1.3) Estimated GFR (Cockcroft-Gault) 105.2 105.2 Glucose Level 99mg/dL (70-99) 121mg/dL (70-99) Calcium Level 9.0mg/dL (8.5-10.1) 8.7mg/dL (8.5-10.1) White Blood Count 5.9x10^3/uL (4.0-11.0) Red Blood Count 4.63x10^6/uL (4.30-5.70) Hemoglobin 13.2g/dL (13.0-17.5) Hematocrit 39.7% (39.0-53.0) Mean Corpuscular Volume 86fL (79-100) Mean Corpuscular Hemoglobin 29pg (25-35) Mean Corpuscular Hemoglobin Concent 33g/dL (31-37) Red Cell Distribution Width 14.2% (11.5-14.5) Platelet Count 188x10^3/uL (140-400) Neutrophils (%) (Auto) 53% (31-73) Lymphocytes (%) (Auto) 34% (24-48) Monocytes (%) (Auto) 11% (0-9) Eosinophils (%) (Auto) 2% (0-3) Basophils (%) (Auto) 1% (0-3) Neutrophils # (Auto) 3.1x10^3uL (1.8-7.7) Lymphocytes # (Auto) 2.0x10^3/uL (1.0-4.8) Monocytes # (Auto) 0.7x10^3/uL (0.0-1.1) Eosinophils # (Auto) 0.1x10^3/uL (0.0-0.7) Basophils # (Auto) 0.0x10^3/uL (0.0-0.2) BUN/Creatinine Ratio 9 (6-20) Total Bilirubin 0.6mg/dL (0.2-1.0) Aspartate Amino Transf (AST/SGOT) 12U/L (15-37) Alanine Aminotransferase (ALT/SGPT) 15U/L (16-63) Alkaline Phosphatase 100U/L (46-116) Total Protein 6.7g/dL (6.4-8.2) Albumin 3.3g/dL (3.4-5.0) Albumin/Globulin Ratio 1.0 (1.0-1.7) Thyroid Stimulating Hormone (TSH) 0.367uIU/mL (0.358-3.74) Microbiology 07/03/16 Urine Culture - Preliminary, Resulted 07/03/16 Urine Culture Result 1 (IMELDA) - Preliminary, Resulted Medications Current Medications Sodium Chloride (Iv Sodium Chloride 0.9% 1000ml Bag) 1,000 ml @ 100 mls/hr Q10H IV ; Start 07/03/16 at 18:00; Stop 07/03/16 at 19:53; Status DC Ondansetron HCl (Zofran) 4 mg PRN Q8HRS PRN IV NAUSEA/VOMITING; Start 07/03/16 at 18:15; Stop 07/04/16 at 18:14; Status DC Acetaminophen 650 mg 650 mg PRN Q4HRS PRN PO FEVER; Start 07/03/16 at 18:15; Stop 07/04/16 at 18:14; Status DC Potassium Chloride/Sodium Chloride (KCl 20 Meq-NS 1,000 ml Iv Soln) 1,000 ml @ 125 mls/hr 1X ONCE IV Last administered on 07/03/16t 18:16; Start 07/03/16 at 18:30; Stop 07/04/16 at 02:29; Status DC Iohexol (Omnipaque 300 Mg/ml) 75 ml 1X ONCE IV Last administered on 07/03/16 18:23; Start 07/03/16 at 18:30; Stop 07/03/16 at 18:31; Status DC Info 1 each 1 each PRN DAILY PRN MC SEE COMMENTS; Start 07/03/16 at 18:30; Stop 07/05/16 at 18:29 Sodium Chloride 1,000 ml @ 1,000 mls/hr Q1H IV Last administered on 07/03/16 19:00; Start 07/03/16 at 20:00; Stop 07/03/16 at 20:59; Status DC Potassium Chloride/Dextrose/ Sod Cl 1,000 ml @ 100 mls/hr Q10H IV Last administered on 07/04/16 14:00; Start 07/04/16 at 14:00 Potassium Chloride 100 ml @ 100 mls/hr Q1H IV Last administered on 07/04/16 22:40; Start 07/04/16 at 17:00; Stop 07/04/16 at 20:59; Status DC Potassium Chloride (KCl Premix 10meq) 100 ml @ 100 mls/hr Q1H IV ; Start at 08:00; Stop 07/05/16 at 11:59 Active Scripts Active Reported [place]-3 (Verona-3 Fatty Acids) 1,000 Mg Capsule 1,000 Mg PO BID Miralax (Polyethylene Glycol 3350) 17 Gm Powd.pack 1 Packet PO BID Escitalopram Oxalate 10 Mg Tablet 1 Tab PO DAILY Famotidine 20 Mg Tablet 20 Mg PO BID Colace (Docusate Sodium) 100 Mg Capsule 1 Cap PO BID Catapres-Tts 2 (Clonidine) 1 Each Patch.tdwk 1 Each TD QWE Centrum Silver Men Tablet (Multivit-Min/FA/Lycopen/Lutein) 1 Each Tablet 1 Each PO DAILY Bisacodyl 10 Mg Supp.rect 10 Mg RC PRN DAILY PRN Baclofen 10 Mg Tablet 1 Tab PO TID Atorvastatin Calcium 20 Mg Tablet 20 Mg PO HS Aspirin 81 Mg Tab.chew 1 Tab PO DAILY Amlodipine Besylate 10 Mg Tablet 10 Mg PO DAILY Vitals/I & O Vital Sign - Last 24 Hours 07/04/16 07/04/16 07/04/1617 08:45 09:45 10:40 11:00 Pulse 62 72 73 70 Resp 18 B/P 131/80 140/84 139/78 129/74 Pulse Ox 94 93 93 93 O2 Delivery Room Air Room Air Room Air Room Air 07/04/16 07/04/16 07/04/16 07/04/16 11:15 12:34 15:00 15:36 Temp 98.7 98.5 98.7 98.5 Pulse 76 90 81 Resp B/P 110/73 121/83 Pulse Ox 94 92 95 O2 Delivery Room Air Room Air Room Air Room Air 07/04/16 07/04/16 07/05/16 19:30 23:09 03:58 Temp 98.7 98.4 97.9 98.7 98.4 97.9 Pulse 107 87 73 Resp B/P 132/84 114/86 100/64 Pulse Ox 97 95 92 O2 Delivery Room Air Room Air Room Air Intake and Output 07/04/16 07/04/16 07/05/16 14:59 22:59 06:59 Intake Total 0 ml 0 ml Balance 0 ml 0 ml TAMMY TOM MD Jul 05, 2016 08:10
[2016-07-05] MEDS: POTASSIUM CHLORIDE 10MEQ 100 ML IV SCH ×4 (08:45→11:00)
[2016-07-05] MEDS: POTASSIUM CHLORIDE 20 MEQ TABLET.ER. PO SCH ×3 (10:24→18:46)
[2016-07-05] MEDS: POTASSIUM CHLORIDE 40 MEQ in IV DEXTROSE 5% 1,000 ML IV SCH ×3 (10:24→23:00)
[2016-07-05 11:02] VITALS: BP 125/64
--- NOTE | 2016-07-05 12:46 | PDOC ---
Objective: Objective: D/w Dr. Fox this morning - ok to feed (discussed low residue diet). Per RN - jelly-like stool yesterday, none today, more distended. Per aide - holding food in mouth from breakfast. Vital Signs: Vital Signs Date Time Temp Pulse Resp B/P Pulse Ox O2 Delivery O2 Flow Rate FiO2 07/05/16 11:02 97.4 69 18 125/64 93 Room Air 97.4 Labs: Laboratory Tests Test 07/04/16 15:10 07/05/16 06:21 Sodium Level 147mmol/L 147mmol/L Potassium Level 2.5mmol/L 2.7mmol/L Chloride Level 107mmol/L 108mmol/L Carbon Dioxide Level 28mmol/L 30mmol/L Anion Gap 12 9 Blood Urea Nitrogen 8mg/dL 8mg/dL Creatinine 0.9mg/dL 0.9mg/dL Estimated GFR (Cockcroft-Gault) 105.2 105.2 Glucose Level 99mg/dL 121mg/dL Calcium Level 9.0mg/dL 8.7mg/dL White Blood Count 5.9x10^3/uL Red Blood Count 4.63x10^6/uL Hemoglobin 13.2g/dL Hematocrit 39.7% Mean Corpuscular Volume 86fL Mean Corpuscular Hemoglobin 29pg Mean Corpuscular Hemoglobin Concent 33g/dL Red Cell Distribution Width 14.2% Platelet Count 188x10^3/uL Neutrophils (%) (Auto) 53% Lymphocytes (%) (Auto) 34% Monocytes (%) (Auto) 11% Eosinophils (%) (Auto) 2% Basophils (%) (Auto) 1% Neutrophils # (Auto) 3.1x10^3uL Lymphocytes # (Auto) 2.0x10^3/uL Monocytes # (Auto) 0.7x10^3/uL Eosinophils # (Auto) 0.1x10^3/uL Basophils # (Auto) 0.0x10^3/uL BUN/Creatinine Ratio 9 Total Bilirubin 0.6mg/dL Aspartate Amino Transf (AST/SGOT) 12U/L Alanine Aminotransferase (ALT/SGPT) 15U/L Alkaline Phosphatase 100U/L Total Protein 6.7g/dL Albumin 3.3g/dL Albumin/Globulin Ratio 1.0 Thyroid Stimulating Hormone (TSH) 0.367uIU/mL PE: GEN: NAD LUNGS: CTAB HEART: RRR ABD: BS quieter, distention stable, tighter NEURO/PSYCH: mumbles, says "no" to pain A/P: Abd distention, constipation, possible sigmoid volvulus -pt/DPOA declined enemas and colonoscopy w/ decompression 07/04 -- DC per primary. RANDOLPH TYSON Jul 05, 2016 12:46
[2016-07-05 13:56] LABS: CALCIUM 8.8 mg/dL (8.5-10.1); CREATININE 0.8 mg/dL (0.7-1.3); GFR 120.6
[2016-07-05 14:41] VITALS: BP 119/86
[2016-07-05 19:00] VITALS: BP 131/83
[2016-07-05 22:46] VITALS: BP 122/75
--- NOTE | 2016-07-06 05:03 | PN ---
DATE: 07/05/2016 SUBJECTIVE: The patient is resting, slightly propped up in bed, in no apparent distress. On questioning him, he denied any complaints. He has had no nausea or vomiting, no abdominal pain. He was evaluated by the surgical team and there is no evidence of any surgical abdomen. His potassium was low and continued to be low despite giving him on 40 mEq of potassium IV at the protocol and so adding 40 mEq in his IV fluid. PHYSICAL EXAMINATION: GENERAL: When I examined him, he looked pale, but not jaundiced, cyanosis, or thyromegaly. No jugular venous distension. No limb edema. VITAL SIGNS: His heart rate was 75, blood pressure was 124/80, temperature was 97.7, respiratory rate was 18 and oxygen saturation was 96%. HEAD, EYES, EARS, NOSE AND THROAT: Showed normocephalic, atraumatic. NECK: Supple. HEART: Showed normal first and second heart sounds. No gallop, rub or murmur. CHEST: Clear to auscultation. No crepitation or rhonchi. ABDOMEN: Distended, soft, nontender. No guarding or rigidity. No organomegaly. All hernial orifices intact. Bowel sounds normal. NEUROLOGIC: He is awake, alert, has expressive aphasia, although he answers yes and no, at times he has right-sided hemiplegia. His intake over the last 24 hours was 2000, output was recorded. LABORATORY DATA: This morning showed serum sodium 147, potassium of 2.7, chloride 108, bicarbonate 30, anion gap of 9, BUN of 8, creatinine 0.9, estimated GFR was 105 mL per minute. His glucose was 121, calcium was 8.7. Total bilirubin 0.6. AST, ALT, alkaline phosphatase were normal. Total protein was 6.7, albumin 3.3. His TSH is normal at 0.367. His white cell count was 5900, hemoglobin 13.2, hematocrit 39.7, MCV 86 and platelet count of 188,000. ASSESSMENT: 1. Abdominal distention and colonic ileus, compounded obviously by hypokalemia. He was seen by Dr. Zamarripa and apparently no surgical intervention recommended. The patient refused to have enemas to prepare his colon for colonoscopy yesterday. 2. Hypokalemia, obviously compounding the colonic ileus. He has also hypernatremia; my plan is to change IV fluid to D5 with 40 mEq of potassium chloride. Continue with potassium supplement. We will check his potassium again this afternoon. Continue with supplementation until his potassium and sodium normalized. I will discuss the case with the gastroenterology and see if Relistor is something that need to be reconsidered and/or bowel preparation to be given orally. KIRT JAMA MD DR: AARON/wendy JOB#: [id number] / [id number]
[2016-07-06 05:56] LABS: ALBUMIN 3.2 g/dL (3.4-5.0); ALBUMIN/GLOBULIN RATIO 0.9 (1.0-1.7); CALCIUM 8.6 mg/dL (8.5-10.1); CREATININE 0.8 mg/dL (0.7-1.3); GFR 120.6; POTASSIUM 3.4 mmol/L (3.5-5.1); TOTAL BILIRUBIN 0.5 mg/dL (0.2-1.0); TOTAL PROTEIN 6.7 g/dL (6.4-8.2)
[2016-07-06 06:01] LABS: BASO % 1 % (0-3); EOS % 3 % (0-3); HEMATOCRIT 39.6 % (39.0-53.0); HEMOGLOBIN 13.4 g/dL (13.0-17.5); LYMPH # 2.4 x10^3/uL (1.0-4.8); LYMPH % 43 % (24-48); MEAN CORPUSCULAR HEMOGLOBIN 29 pg (25-35); MEAN CORPUSCULAR HGB CONC 34 g/dL (31-37); MEAN CORPUSCULAR VOLUME 85 fL (79-100); MONO % 12 % (0-9); NEUT % 41 % (31-73); PLATELET COUNT 196 x10^3/uL (140-400); RED BLOOD COUNT 4.69 x10^6/uL (4.30-5.70); RED CELL DISTRIBUTION WIDTH 14.1 % (11.5-14.5); WHITE BLOOD COUNT 5.5 x10^3/uL (4.0-11.0)
[2016-07-06 07:00] VITALS: BP 137/80
--- NOTE | 2016-07-06 08:48 | PDOC ---
TENNILLE GUTIÉRREZ DYER ASSISTANT 07/06/16 0847: SURGICAL PROGRESS NOTE Subjective denies pain records show several stools Vital Signs Vital Signs Date Time Temp Pulse Resp B/P Pulse Ox O2 Delivery O2 Flow Rate FiO2 07/06/16 07:00 98.3 73 18 137/80 93 Room Air 98.3 I&O Intake and Output 07/06/16 07:00 Intake Total 100 ml Balance 100 ml Intake Oral 100 ml # Voids 5 # Bowel Movements 6 General: Cooperative, No acute distress Abdomen: Soft, Other (distended, nontender) Labs Laboratory Tests Test 07/04/16 14:30 07/04/16 15:10 07/05/16 06:21 07/05/16 13:30 Clostridium difficile Toxin (PCR) Negative (Negative) Sodium Level 147mmol/L (136-145) 147mmol/L (136-145) 145mmol/L (136-145) Potassium Level 2.5mmol/L (3.5-5.1) 2.7mmol/L (3.5-5.1) 3.0mmol/L (3.5-5.1) Chloride Level 107mmol/L (98-107) 108mmol/L (98-107) 107mmol/L (98-107) Carbon Dioxide Level 28mmol/L (21-32) 30mmol/L (21-32) 30mmol/L (21-32) Anion Gap 12 (6-14) 9 (6-14) 8 (6-14) Blood Urea Nitrogen 8mg/dL (8-26) 8mg/dL (8-26) 7mg/dL (8-26) Creatinine 0.9mg/dL (0.7-1.3) 0.9mg/dL (0.7-1.3) 0.8mg/dL (0.7-1.3) Estimated GFR (Cockcroft-Gault) 105.2 105.2 120.6 Glucose Level 99mg/dL (70-99) 121mg/dL (70-99) 137mg/dL (70-99) Calcium Level 9.0mg/dL (8.5-10.1) 8.7mg/dL (8.5-10.1) 8.8mg/dL (8.5-10.1) White Blood Count 5.9x10^3/uL (4.0-11.0) Red Blood Count 4.63x10^6/uL (4.30-5.70) Hemoglobin 13.2g/dL (13.0-17.5) Hematocrit 39.7% (39.0-53.0) Mean Corpuscular Volume 86fL (79-100) Mean Corpuscular Hemoglobin 29pg (25-35) Mean Corpuscular Hemoglobin Concent 33g/dL (31-37) Red Cell Distribution Width 14.2% (11.5-14.5) Platelet Count 188x10^3/uL (140-400) Neutrophils (%) (Auto) 53% (31-73) Lymphocytes (%) (Auto) 34% (24-48) Monocytes (%) (Auto) 11% (0-9) Eosinophils (%) (Auto) 2% (0-3) Basophils (%) (Auto) 1% (0-3) Neutrophils # (Auto) 3.1x10^3uL (1.8-7.7) Lymphocytes # (Auto) 2.0x10^3/uL (1.0-4.8) Monocytes # (Auto) 0.7x10^3/uL (0.0-1.1) Eosinophils # (Auto) 0.1x10^3/uL (0.0-0.7) Basophils # (Auto) 0.0x10^3/uL (0.0-0.2) BUN/Creatinine Ratio 9 (6-20) Total Bilirubin 0.6mg/dL (0.2-1.0) Aspartate Amino Transf (AST/SGOT) 12U/L (15-37) Alanine Aminotransferase (ALT/SGPT) 15U/L (16-63) Alkaline Phosphatase 100U/L (46-116) Total Protein 6.7g/dL (6.4-8.2) Albumin 3.3g/dL (3.4-5.0) Albumin/Globulin Ratio 1.0 (1.0-1.7) Thyroid Stimulating Hormone (TSH) 0.367uIU/mL (0.358-3.74) Test 07/06/16 04:53 07/06/16 04:55 Sodium Level 144mmol/L (136-145) Potassium Level 3.4mmol/L (3.5-5.1) Chloride Level 108mmol/L (98-107) Carbon Dioxide Level 28mmol/L (21-32) Anion Gap 8 (6-14) Blood Urea Nitrogen 4mg/dL (8-26) Creatinine 0.8mg/dL (0.7-1.3) Estimated GFR (Cockcroft-Gault) 120.6 BUN/Creatinine Ratio 5 (6-20) Glucose Level 115mg/dL (70-99) Calcium Level 8.6mg/dL (8.5-10.1) Total Bilirubin 0.5mg/dL (0.2-1.0) Aspartate Amino Transf (AST/SGOT) 12U/L (15-37) Alanine Aminotransferase (ALT/SGPT) 12U/L (16-63) Alkaline Phosphatase 98U/L (46-116) Total Protein 6.7g/dL (6.4-8.2) Albumin 3.2g/dL (3.4-5.0) Albumin/Globulin Ratio 0.9 (1.0-1.7) White Blood Count 5.5x10^3/uL (4.0-11.0) Red Blood Count 4.69x10^6/uL (4.30-5.70) Hemoglobin 13.4g/dL (13.0-17.5) Hematocrit 39.6% (39.0-53.0) Mean Corpuscular Volume 85fL (79-100) Mean Corpuscular Hemoglobin 29pg (25-35) Mean Corpuscular Hemoglobin Concent 34g/dL (31-37) Red Cell Distribution Width 14.1% (11.5-14.5) Platelet Count 196x10^3/uL (140-400) Neutrophils (%) (Auto) 41% (31-73) Lymphocytes (%) (Auto) 43% (24-48) Monocytes (%) (Auto) 12% (0-9) Eosinophils (%) (Auto) 3% (0-3) Basophils (%) (Auto) 1% (0-3) Neutrophils # (Auto) 2.3x10^3uL (1.8-7.7) Lymphocytes # (Auto) 2.4x10^3/uL (1.0-4.8) Monocytes # (Auto) 0.6x10^3/uL (0.0-1.1) Eosinophils # (Auto) 0.2x10^3/uL (0.0-0.7) Basophils # (Auto) 0.0x10^3/uL (0.0-0.2) Laboratory Tests Test 07/05/16 13:30 07/06/16 04:53 07/06/16 04:55 Sodium Level 145mmol/L (136-145) 144mmol/L (136-145) Potassium Level 3.0mmol/L (3.5-5.1) 3.4mmol/L (3.5-5.1) Chloride Level 107mmol/L (98-107) 108mmol/L (98-107) Carbon Dioxide Level 30mmol/L (21-32) 28mmol/L (21-32) Anion Gap 8 (6-14) 8 (6-14) Blood Urea Nitrogen 7mg/dL (8-26) 4mg/dL (8-26) Creatinine 0.8mg/dL (0.7-1.3) 0.8mg/dL (0.7-1.3) Estimated GFR (Cockcroft-Gault) 120.6 120.6 Glucose Level 137mg/dL (70-99) 115mg/dL (70-99) Calcium Level 8.8mg/dL (8.5-10.1) 8.6mg/dL (8.5-10.1) BUN/Creatinine Ratio 5 (6-20) Total Bilirubin 0.5mg/dL (0.2-1.0) Aspartate Amino Transf (AST/SGOT) 12U/L (15-37) Alanine Aminotransferase (ALT/SGPT) 12U/L (16-63) Alkaline Phosphatase 98U/L (46-116) Total Protein 6.7g/dL (6.4-8.2) Albumin 3.2g/dL (3.4-5.0) Albumin/Globulin Ratio 0.9 (1.0-1.7) White Blood Count 5.5x10^3/uL (4.0-11.0) Red Blood Count 4.69x10^6/uL (4.30-5.70) Hemoglobin 13.4g/dL (13.0-17.5) Hematocrit 39.6% (39.0-53.0) Mean Corpuscular Volume 85fL (79-100) Mean Corpuscular Hemoglobin 29pg (25-35) Mean Corpuscular Hemoglobin Concent 34g/dL (31-37) Red Cell Distribution Width 14.1% (11.5-14.5) Platelet Count 196x10^3/uL (140-400) Neutrophils (%) (Auto) 41% (31-73) Lymphocytes (%) (Auto) 43% (24-48) Monocytes (%) (Auto) 12% (0-9) Eosinophils (%) (Auto) 3% (0-3) Basophils (%) (Auto) 1% (0-3) Neutrophils # (Auto) 2.3x10^3uL (1.8-7.7) Lymphocytes # (Auto) 2.4x10^3/uL (1.0-4.8) Monocytes # (Auto) 0.6x10^3/uL (0.0-1.1) Eosinophils # (Auto) 0.2x10^3/uL (0.0-0.7) Basophils # (Auto) 0.0x10^3/uL (0.0-0.2) Problem List Problems Medical Problems: (1) Abdominal pain Status: Acute (2) Hemiplegia affecting dominant side Status: Acute (3) Hypokalemia Status: Acute (4) Ileus Status: Acute (5) Sigmoid volvulus Status: Acute (6) Sigmoid volvulus Status: Acute Assessment/Plan ileus vs sigmoid volvulus no endoscopy plans, DPOA declined on a regular diet, having stools no surgical plans Problems: TAMMY TOM MD 07/06/16 1116: SURGICAL PROGRESS NOTE Assessment/Plan Agree with above, will sign off Problems: TENNILLE GUTIÉRREZ APRN Jul 06, 2016 08:47 TAMMY TOM MD Jul 06, 2016 11:16
[2016-07-06] MEDS: POTASSIUM CHLORIDE 40 MEQ in IV DEXTROSE 5% 1,000 ML IV SCH ×2 (10:45→23:02)
[2016-07-06 10:53] VITALS: BP 143/87
[2016-07-06] MEDS: POTASSIUM CHLORIDE 20 MEQ TABLET.ER. PO SCH ×2 (12:05→15:44)
--- NOTE | 2016-07-06 13:04 | PDOC ---
Subjective: Subjective: Per pt - no pain. Objective: Objective: Per RN - "gritty" stools, eating okay, possible DC tomorrow. Vital Signs: Vital Signs Date Time Temp Pulse Resp B/P Pulse Ox O2 Delivery O2 Flow Rate FiO2 07/06/16 10:53 97.8 88 18 143/87 97 Room Air 97.8 Labs: Laboratory Tests Test 07/05/16 13:30 07/06/16 04:53 07/06/16 04:55 Sodium Level 145mmol/L 144mmol/L Potassium Level 3.0mmol/L 3.4mmol/L Chloride Level 107mmol/L 108mmol/L Carbon Dioxide Level 30mmol/L 28mmol/L Anion Gap 8 8 Blood Urea Nitrogen 7mg/dL 4mg/dL Creatinine 0.8mg/dL 0.8mg/dL Estimated GFR (Cockcroft-Gault) 120.6 120.6 Glucose Level 137mg/dL 115mg/dL Calcium Level 8.8mg/dL 8.6mg/dL BUN/Creatinine Ratio 5 Total Bilirubin 0.5mg/dL Aspartate Amino Transf (AST/SGOT) 12U/L Alanine Aminotransferase (ALT/SGPT) 12U/L Alkaline Phosphatase 98U/L Total Protein 6.7g/dL Albumin 3.2g/dL Albumin/Globulin Ratio 0.9 White Blood Count 5.5x10^3/uL Red Blood Count 4.69x10^6/uL Hemoglobin 13.4g/dL Hematocrit 39.6% Mean Corpuscular Volume 85fL Mean Corpuscular Hemoglobin 29pg Mean Corpuscular Hemoglobin Concent 34g/dL Red Cell Distribution Width 14.1% Platelet Count 196x10^3/uL Neutrophils (%) (Auto) 41% Lymphocytes (%) (Auto) 43% Monocytes (%) (Auto) 12% Eosinophils (%) (Auto) 3% Basophils (%) (Auto) 1% Neutrophils # (Auto) 2.3x10^3uL Lymphocytes # (Auto) 2.4x10^3/uL Monocytes # (Auto) 0.6x10^3/uL Eosinophils # (Auto) 0.2x10^3/uL Basophils # (Auto) 0.0x10^3/uL PE: GEN: NAD LUNGS: CTAB HEART: RRR ABD: stable distention, BS+, non-tender NEURO/PSYCH: answers yes/no OTHER: family present A/P: Abd distention, constipation, sigmoid volvulus -pt/DPOA declined enemas and colonoscopy w/ decompression 07/04 Hypokalemia - improved -- Will add Miralax. DC per primary. RANDOLPH TYSON Jul 06, 2016 13:04
[2016-07-06 14:51] VITALS: BP 149/71
[2016-07-06] MEDS: POLYETHYLENE GLYCOL 3350 17 GM PACKET. PO SCH (15:44)
[2016-07-06 19:00] VITALS: BP 167/56
[2016-07-06 19:55] LABS: CALCIUM 9.2 mg/dL (8.5-10.1); GFR 93.2; POTASSIUM 3.4 mmol/L (3.5-5.1)
[2016-07-06 23:56] VITALS: BP 138/92
[2016-07-07 03:02] VITALS: BP 141/79
--- NOTE | 2016-07-07 04:18 | PN ---
DATE: 07/06/2016 SUBJECTIVE: The patient is resting slightly propped up the bed, no apparent distress. He denied any complaint, in particular denied any nausea, vomiting. Denied any abdominal pain. He continued to have loose bowel movement. He was started on a low residue diet and tolerating that well. Had about 50% of his breakfast this morning. His serum potassium has finally risen to within acceptable range at 3.4 and he continues to be on IV fluid with potassium. When the nursing staff did not voice any concern, he was seen by the surgical team as well as the GI and the DPOA refused bowel preparation for colonoscopy for decompression. PHYSICAL EXAMINATION: GENERAL: When I examined him this afternoon, he looked well and was clearly in no apparent respiratory distress. VITAL SIGNS: His heart rate was 88, blood pressure was 143/87, temperature was 97, respiratory rate was 18 and oxygen saturation was 97% on room air. HEAD, EYES, EARS, NOSE AND THROAT: Showed normocephalic, atraumatic. NECK: Supple. HEART: Showed normal first and second heart sounds with no gallop, rub or murmur. CHEST: Clear to auscultation. No crepitation or rhonchi. ABDOMEN: Distended, soft with tympanitic pain on percussion. There is no guarding or rigidity. No organomegaly. All hernial orifices intact. Bowel sounds normal. NEUROLOGIC: He is awake, alert, aphasic, has right-sided hemiplegia. His intake over the last 24 hours was incompletely recorded. LABORATORY DATA: Showed a serum sodium 144, potassium 3.4, chloride 108, bicarbonate 28, anion gap of 8, BUN 4, creatinine 0.8, estimated GFR was 120 mL per minute. His glucose was 115, calcium was 8.6. Total bilirubin, AST, ALT, alkaline phosphatase were normal. Total protein was 6.7, albumin 3.2. His TSH was 0.367. White cell count was 5500, hemoglobin 13, hematocrit 39, MCV 85 and platelet count of 196,000. ASSESSMENT: Colonic ileus versus sigmoid volvulus; hypokalemia, resolving; right-sided hemiplegia. The patient is tolerating his low residue diet without any problem. His potassium is up to 3.4 declined. We will replace the potassium again today and check his labs tomorrow. If he continued to tolerate his food and has no symptoms, we will discharge him back to [facility]. KIRT JAMA MD DR: AARON/wendy JOB#: [id number] / [id number]
[2016-07-07] MEDS: ONDANSETRON PF 4 MG/2 ML VIAL. IV PRN ×2 (04:54→07:37)
--- NOTE | 2016-07-07 05:31 | RAD ---
PROCEDURE KUB. HISTORY Abdominal pain, nausea, vomiting. COMPARISON CT abdomen pelvis with contrast, 4 days ago. FINDINGS Marked dilation of the colon is again seen. There are multiple air-filled small bowel loops. No obvious pneumoperitoneum. IMPRESSION Unchanged marked distention of colon. Please refer to previous CT report for further details. Electronically signed by: Michael Elliott MD (Jul 07, 2016 05:29:49)
[2016-07-07 06:20] LABS: CALCIUM 9.2 mg/dL (8.5-10.1); CREATININE 0.9 mg/dL (0.7-1.3); GFR 105.2; POTASSIUM 3.1 mmol/L (3.5-5.1)
[2016-07-07 07:00] VITALS: BP 138/85
[2016-07-07] MEDS: POLYETHYLENE GLYCOL 3350 17 GM PACKET. PO SCH (09:00)
[2016-07-07 11:00] VITALS: BP 158/98
--- NOTE | 2016-07-07 11:36 | PDOC ---
Subjective: Subjective: Seen earlier this morning. Pt alone in room, says uncomfortable. Objective: Vital Signs: Vital Signs Date Time Temp Pulse Resp B/P Pulse Ox O2 Delivery O2 Flow Rate FiO2 07/07/16 08:00 Room Air 07/07/16 07:00 99.0 97 20 138/85 90 99.0 Labs: Laboratory Tests Test 07/06/16 19:08 07/07/16 05:00 Sodium Level 145mmol/L 145mmol/L Potassium Level 3.4mmol/L 3.1mmol/L Chloride Level 107mmol/L 107mmol/L Carbon Dioxide Level 29mmol/L 27mmol/L Anion Gap 9 11 Blood Urea Nitrogen 3mg/dL 3mg/dL Creatinine 1.0mg/dL 0.9mg/dL Estimated GFR (Cockcroft-Gault) 93.2 105.2 Glucose Level 117mg/dL 105mg/dL Calcium Level 9.2mg/dL 9.2mg/dL PE: GEN: NAD LUNGS: clear anteriorly HEART: RRR ABD: more distended, firm, uncomfortable NEURO/PSYCH: alert, answers A/P: Abd distention, constipation, sigmoid volvulus -pt/DPOA declined enemas and colonoscopy w/ decompression 07/04 Vomiting -- D/w Dr. Fox - w/ increased distention and vomiting, family and pt now request colonoscopy w/ decompression. Will plan for today at 5:00 p.m. NPO, 2 tap water enemas. D/w GI lab. RANDOLPH TYSON Jul 07, 2016 11:35 TAMMY DO MD Jul 07, 2016 11:56
[2016-07-07] MEDS ORDERED: MAGNESIUM SULFATE 2GM 50 ML IV PRN (11:45)
--- NOTE | 2016-07-07 11:52 | PN ---
DATE: 07/07/2016 SUBJECTIVE: The patient is resting slightly propped up, not feeling well. He has had recurrent bouts of nausea and vomiting. He is complaining of abdominal pain. His abdomen is markedly distended, worse than yesterday. I have spoken with the radiologist and he apparently had sigmoid volvulus that requires decompression and then probably surgical intervention. I explained to his sister that they have 2 options, either to allow us to treat him aggressively and do the colonoscopy and even surgical treatment or if they want to do anything, he will eventually aspirate and . The decision is we are happy to expect that apparently her sister and himself agreed to do the barium enemas and also the colonoscopies. PHYSICAL EXAMINATION: GENERAL: When I examined him this morning, he was clearly distressed, pale, but not jaundice, cyanosis or thyromegaly. No jugular venous distention. No arm edema. VITAL SIGNS: His heart rate was 97, blood pressure 138/85, temperature was 99, respiratory rate was 20, and oxygen saturation was 90%. HEAD, EYES, EARS, NOSE AND THROAT: Showed normocephalic, atraumatic. NECK: Supple. HEART: Showed normal first and second heart sounds, no gallop, rub or murmur. CHEST: Clear to auscultation, no crepitation or rhonchi. ABDOMEN: Markedly distended with some diffuse tenderness. No guarding or rigidity. No organomegaly. Hernial orifices intact. Bowel sounds are sluggish. NEUROLOGIC: He has aphasia and right-sided hemiplegia. His intake and output incompletely recorded. His lab work this morning showed a serum sodium of 145, potassium 3.1, chloride 107, bicarbonate 27, anion gap of 11, BUN 3, creatinine 0.9, estimated GFR was 105 mL per minute. His glucose 105, calcium was 9.2. His white cell count was 5500, hemoglobin was 13.4, hematocrit 39.6, MCV 85 and platelet count ,000. ASSESSMENT: Marked distention of his abdomen due to sigmoid volvulus. The patient will be kept n.p.o., continue with IV fluids. I spoke with Dr. Mena and his sister and to the patient, and both the patient and his sister agreed to go ahead with the colonoscopy and decompression. KIRT JAMA MD DR: Teresita JOB#: [id number] / [id number]
[2016-07-07] MEDS: POTASSIUM CHLORIDE 40 MEQ in IV DEXTROSE 5% 1,000 ML IV SCH ×2 (11:56→23:12)
[2016-07-07 15:00] VITALS: BP 115/93
[2016-07-07] MEDS ORDERED: LIDOCAINE 2% PF Vial for OR 5 ML VIAL. ONE (16:52)
[2016-07-07] MEDS ORDERED: PROPOFOL 20 ML IV ONE (16:52)
--- NOTE | 2016-07-07 17:15 | PDOC4 ---
Operative Note Operative Note Colonoscopy with decompression Meds propofol per anesthesia Pre-op dx abd pain/sigmoid volvulus Post-op dx extent splenic flexure internal hemorrhoids sigmoid volvulus s/p decompression Plan miralax bowel prep for surgical resection TAMMY DO MD Jul 07, 2016 17:15
[2016-07-07] MEDS ORDERED: POLYETHYLENE GLYCOL 3350 238 GM POWDER PO ONE (17:30)
[2016-07-07] MEDS: POTASSIUM CHLORIDE 10MEQ 100 ML IV PRN ×3 (18:10→23:14)
[2016-07-07 19:00] VITALS: BP 147/90
[2016-07-07 23:44] VITALS: BP 149/86
[2016-07-08] MEDS: POTASSIUM CHLORIDE 10MEQ 100 ML IV PRN (00:54)
[2016-07-08 03:06] VITALS: BP 138/76
[2016-07-08 06:57] LABS: CALCIUM 8.5 mg/dL (8.5-10.1); CREATININE 0.8 mg/dL (0.7-1.3); GFR 120.6; POTASSIUM 3.6 mmol/L (3.5-5.1)
[2016-07-08 07:00] VITALS: BP 131/84
[2016-07-08] MEDS: POTASSIUM CHLORIDE 40 MEQ in IV DEXTROSE 5% 1,000 ML IV SCH ×2 (08:02→19:55)
[2016-07-08] MEDS: POLYETHYLENE GLYCOL 3350 17 GM PACKET. PO SCH (09:00)
[2016-07-08 11:00] VITALS: BP 142/91
--- NOTE | 2016-07-08 11:29 | PDOC ---
Subjective: Subjective: feels good. Admits to one BM since decompression Objective: Vital Signs: Vital Signs Date Time Temp Pulse Resp B/P Pulse Ox O2 Delivery O2 Flow Rate FiO2 07/08/16 07:00 98.9 77 20 131/84 97 Room Air 98.9 Labs: Laboratory Tests Test 07/08/16 06:19 Sodium Level 143mmol/L (136-145) Potassium Level 3.6mmol/L (3.5-5.1) Chloride Level 107mmol/L (98-107) Carbon Dioxide Level 28mmol/L (21-32) Anion Gap 8 (6-14) Blood Urea Nitrogen 3mg/dL (8-26) Creatinine 0.8mg/dL (0.7-1.3) Estimated GFR (Cockcroft-Gault) 120.6 Glucose Level 106mg/dL (70-99) Calcium Level 8.5mg/dL (8.5-10.1) Physical Exam: Physical Exam: GEN: NAD HEENT: OP clear CV: S1S2 without murmurs, rubs, or gallops RESP: CTAB without wheezing, rhonchi, or crackles ABD: NABS, SNT/ND EXT: No edema Assessment & Plan: Assessment : A/P: Abd distention, constipation, sigmoid volvulus resolved with enemas and colonoscopy w/ decompression 07/07 Plan: resolved volvulus Problems: VÍCTOR THACKER MD Jul 08, 2016 11:29
--- NOTE | 2016-07-08 11:52 | PDOC ---
PROGRESS NOTES Subjective Subjective feels well, having stools Objective Objective Vital Signs Date Time Temp Pulse Resp B/P Pulse Ox O2 Delivery O2 Flow Rate FiO2 07/08/16 08:30 Room Air 07/08/16 07:00 98.9 77 20 131/84 97 98.9 Intake and Output 07/08/16 07:00 Intake Total 838 ml Balance 838 ml Intake Oral 838 ml # Voids 6 # Bowel Movements 7 Physical Exam Abdomen: Soft, No tenderness General: Alert HEENT: Atraumatic, PERRLA Lungs: Clear to auscultation Assessment Assessment Problems Medical Problems: (1) Abdominal pain Status: Acute (2) Hemiplegia affecting dominant side Status: Acute (3) Hypokalemia Status: Acute (4) Ileus Status: Acute (5) Sigmoid volvulus Status: Acute (6) Sigmoid volvulus Status: Acute Plan Plan of Care Improvement after colonoscopy and decompression; agree that surgery would help prevent recurrence; I attempted to call family member Dian to discuss, left message on voicemail. Will revisit when family present. Comment Review of Relevant I have reviewed the following items danilo (where applicable) has been applied. Labs Laboratory Tests Test 07/06/16 19:08 07/07/16 05:00 07/08/16 06:19 Sodium Level 145mmol/L (136-145) 145mmol/L (136-145) 143mmol/L (136-145) Potassium Level 3.4mmol/L (3.5-5.1) 3.1mmol/L (3.5-5.1) 3.6mmol/L (3.5-5.1) Chloride Level 107mmol/L (98-107) 107mmol/L (98-107) 107mmol/L (98-107) Carbon Dioxide Level 29mmol/L (21-32) 27mmol/L (21-32) 28mmol/L (21-32) Anion Gap 9 (6-14) 11 (6-14) 8 (6-14) Blood Urea Nitrogen 3mg/dL (8-26) 3mg/dL (8-26) 3mg/dL (8-26) Creatinine 1.0mg/dL (0.7-1.3) 0.9mg/dL (0.7-1.3) 0.8mg/dL (0.7-1.3) Estimated GFR (Cockcroft-Gault) 93.2 105.2 120.6 Glucose Level 117mg/dL (70-99) 105mg/dL (70-99) 106mg/dL (70-99) Calcium Level 9.2mg/dL (8.5-10.1) 9.2mg/dL (8.5-10.1) 8.5mg/dL (8.5-10.1) Laboratory Tests Test 07/08/16 06:19 Sodium Level 143mmol/L (136-145) Potassium Level 3.6mmol/L (3.5-5.1) Chloride Level 107mmol/L (98-107) Carbon Dioxide Level 28mmol/L (21-32) Anion Gap 8 (6-14) Blood Urea Nitrogen 3mg/dL (8-26) Creatinine 0.8mg/dL (0.7-1.3) Estimated GFR (Cockcroft-Gault) 120.6 Glucose Level 106mg/dL (70-99) Calcium Level 8.5mg/dL (8.5-10.1) Microbiology 07/03/16 Urine Culture - Final, Complete 07/03/16 Urine Culture Result 1 (IMELDA) - Final, Complete Medications Current Medications Sodium Chloride (Iv Sodium Chloride 0.9% 1000ml Bag) 1,000 ml @ 100 mls/hr Q10H IV ; Start 07/03/16 at 18:00; Stop 07/03/16 at 19:53; Status DC Ondansetron HCl (Zofran) 4 mg PRN Q8HRS PRN IV NAUSEA/VOMITING; Start 07/03/16 at 18:15; Stop 07/04/16 at 18:14; Status DC Acetaminophen 650 mg 650 mg PRN Q4HRS PRN PO FEVER; Start 07/03/16 at 18:15; Stop 07/04/16 at 18:14; Status DC Potassium Chloride/Sodium Chloride (KCl 20 Meq-NS 1,000 ml Iv Soln) 1,000 ml @ 125 mls/hr 1X ONCE IV Last administered on 07/03/16t 18:16; Start 07/03/16 at 18:30; Stop 07/04/16 at 02:29; Status DC Iohexol (Omnipaque 300 Mg/ml) 75 ml 1X ONCE IV Last administered on 07/03/16 18:23; Start 07/03/16 at 18:30; Stop 07/03/16 at 18:31; Status DC Info 1 each 1 each PRN DAILY PRN MC SEE COMMENTS; Start 07/03/16 at 18:30; Stop 07/05/16 at 18:29; Status DC Sodium Chloride 1,000 ml @ 1,000 mls/hr Q1H IV Last administered on 07/03/16 19:00; Start 07/03/16 at 20:00; Stop 07/03/16 at 20:59; Status DC Potassium Chloride/Dextrose/ Sod Cl 1,000 ml @ 100 mls/hr Q10H IV Last administered on 07/04/16 14:00; Start 07/04/16 at 14:00; Stop 07/05/16 at 09:24 ; Status DC Potassium Chloride 100 ml @ 100 mls/hr Q1H IV Last administered on 07/04/16 22:40; Start 07/04/16 at 17:00; Stop 07/04/16 at 20:59; Status DC Potassium Chloride 100 ml @ 100 mls/hr Q1H IV Last administered on 07/05/16 08:45; Start 07/05/16 at 08:00; Stop 07/05/16 at 11:59; Status DC Potassium Chloride/Dextrose 1,020 ml @ 100 mls/hr [id number] IV Last administered on 07/08/16 08:02; Start 07/05/16 at 10:00 Potassium Chloride (Klor-Con) 40 meq Q2HR PO Last administered on 07/05/16 18: 46; Start 07/05/16 at 10:00; Stop 07/05/16 at 14:01; Status DC Potassium Chloride (Klor-Con) 40 meq Q3HRS PO Last administered on 07/06/16 15 :44; Start 07/06/16 at 12:00; Stop 07/06/16 at 15:01; Status DC Polyethylene Glycol (miraLAX PACKET) 17 gm DAILY PO Last administered on 15:44; Start 07/06/16 at 13:30 Ondansetron HCl 4 mg 4 mg PRN Q4HRS PRN IV NAUSEA/VOMITING Last administered on 07/07/16 07:37; Start 07/07/16 at 04:45 Potassium Chloride 100 ml @ 100 mls/hr Q1H PRN IV FOR KCL 3.0 OR LESS; Start 07/07/16 at 11:45 Magnesium Sulfate/ Dextrose 50 ml @ 25 mls/hr PRN 1X PRN IV SEE LAB; Start at 11:45 Potassium Chloride 100 ml @ 100 mls/hr Q1H PRN IV FOR KCL 3.1 - 3.5 Last administered on 07/08/16 00:54; Start 07/07/16 at 11:45; Stop 07/08/16 at 00:54 ; Status DC Propofol (Diprivan) 20 ml @ As Directed STK-MED ONCE IV ; Start 07/07/16 at 16: 52; Stop 07/07/16 at 16:53; Status DC Lidocaine HCl (Lidocaine Pf 2% Vial) 5 ml STK-MED ONCE .ROUTE ; Start 07/07/16 at 16:52; Stop 07/07/16 at 16:53; Status DC Polyethylene Glycol (miraLAX Powder BULK BOTTLE) 238 gm 1X ONCE PO Last administered on 07/07/16 20:55; Start 07/07/16 at 17:30; Stop 07/07/16 at 17:31 ; Status DC Enoxaparin Sodium (Lovenox 40mg Syringe) 40 mg Q24H SQ ; Start 07/08/16 at 10:00 Active Scripts Active Reported Tasley-3 (Tasley-3 Fatty Acids) 1,000 Mg Capsule 1,000 Mg PO BID Miralax (Polyethylene Glycol 3350) 17 Gm Powd.pack 1 Packet PO BID Escitalopram Oxalate 10 Mg Tablet 1 Tab PO DAILY Famotidine 20 Mg Tablet 20 Mg PO BID Colace (Docusate Sodium) 100 Mg Capsule 1 Cap PO BID Catapres-Tts 2 (Clonidine) 1 Each Patch.tdwk 1 Each TD QWE Centrum Silver Men Tablet (Multivit-Min/FA/Lycopen/Lutein) 1 Each Tablet 1 Each PO DAILY Bisacodyl 10 Mg Supp.rect 10 Mg RC PRN DAILY PRN Baclofen 10 Mg Tablet 1 Tab PO TID Atorvastatin Calcium 20 Mg Tablet 20 Mg PO HS Aspirin 81 Mg Tab.chew 1 Tab PO DAILY Amlodipine Besylate 10 Mg Tablet 10 Mg PO DAILY Vitals/I & O Vital Sign - Last 24 Hours 07/07/16 07/07/16 07/07/16 07/07/16 15:00 16:17 16:19 17:10 Temp 98.9 99.2 98.4 98.9 99.2 98.4 Pulse 109 104 104 94 Resp 20 20 20 B/P 115/93 114/63 Pulse Ox 91 94 94 98 O2 Delivery Room Air Room Air 07/07/16 07/07/16 07/07/16 07/07/16 17:20 17:27 17:35 19:00 Temp 98.4 98.4 98.4 97.7 98.4 98.4 98.4 97.7 Pulse 100 100 99 86 Resp 20 20 20 B/P 143/81 134/76 142/79 147/90 Pulse Ox 96 96 96 95 O2 Delivery Room Air Room Air Room Air Room Air 07/07/16 07/07/16 07/07/16 07/08/16 19:00 20:00 23:44 03:06 Temp 97.7 97.5 97.0 97.7 97.5 97.0 Pulse 86 79 82 Resp 20 18 18 B/P 147/90 149/86 138/76 Pulse Ox 95 97 93 O2 Delivery Room Air Room Air Room Air Room Air 07/08/16 07/08/16 07:00 08:30 Temp 98.9 98.9 Pulse 77 Resp 20 B/P 131/84 Pulse Ox 97 O2 Delivery Room Air Room Air Intake and Output 07/07/16 07/07/16 07/08/16 15:00 23:00 07:00 Intake Total 118 ml 0 ml 720 ml Balance 118 ml 0 ml 720 ml TAMMY TOM MD Jul 08, 2016 11:52
[2016-07-08] MEDS: ENOXAPARIN 40 MG/0.4 ML DISP.SYRIN. SQ SCH (12:26)
[2016-07-08 15:00] VITALS: BP 126/88
[2016-07-08 19:59] VITALS: BP 155/95
[2016-07-08 23:59] VITALS: BP 150/93
[2016-07-09 03:59] VITALS: BP 130/85
--- NOTE | 2016-07-09 05:51 | PN ---
DATE: 07/08/2016 SUBJECTIVE: The patient is resting slightly propped up in bed, awake, alert. His abdomen is much less distended, soft. He underwent a colonoscopy with decompression for his sigmoid volvulus. He is ____ to drink MiraLax bowel prep for surgical resection. The family was informed that without surgery this will continue to recur and apparently they are thinking about it. PHYSICAL EXAMINATION: GENERAL: When I examined him this morning, he looked well and was clearly in no apparent respiratory distress, pale, but no jaundice, cyanosis, or thyromegaly. No jugular venous distention. No limb edema. VITAL SIGNS: His heart rate was 77, blood pressure 131/84, temperature was 98.9, respiratory rate was 20, and oxygen saturation was 97% on room air. HEAD, EYES, EARS, NOSE AND THROAT: Showed normocephalic, atraumatic. NECK: Supple. HEART: Showed normal first and second heart sounds with no gallop, rub or murmur. CHEST: Clear to auscultation. No crepitation or rhonchi. ABDOMEN: Much much less distended, soft, nontender. No guarding or rigidity. No organomegaly. Hernial orifices intact. Bowel sounds normal. NEUROLOGIC: He is awake, alert, aphasic with right-sided hemiplegia. His intake over the last 24 hours was 838, output was incompletely recorded. LABORATORY DATA: This morning showed a serum sodium 143, potassium 3.6, chloride 107, bicarbonate 28, anion gap of 8, BUN 3, creatinine 0.8, estimated GFR was 120 mL per minute. His glucose 106, calcium was 8.5. His white cell count was 5500, hemoglobin 13, hematocrit 39, MCV 85 and platelet count of 196,000. ASSESSMENT: Sigmoid volvulus, status post decompression. PLAN: To keep the patient n.p.o., continue with IV fluid. I will arrange for him to have a Doppler ultrasound of both lower extremities and if there is no evidence of any DVT, will start him on SCDs. KIRT JAMA MD DR: AARON/wendy JOB#: [id number] / [id number]
[2016-07-09 06:44] LABS: BASO % 1 % (0-3); EOS % 4 % (0-3); HEMATOCRIT 40.8 % (39.0-53.0); HEMOGLOBIN 13.7 g/dL (13.0-17.5); LYMPH # 1.3 x10^3/uL (1.0-4.8); LYMPH % 32 % (24-48); MEAN CORPUSCULAR HEMOGLOBIN 28 pg (25-35); MEAN CORPUSCULAR HGB CONC 34 g/dL (31-37); MEAN CORPUSCULAR VOLUME 84 fL (79-100); MONO % 12 % (0-9); NEUT % 51 % (31-73); PLATELET COUNT 223 x10^3/uL (140-400); RED BLOOD COUNT 4.84 x10^6/uL (4.30-5.70); WHITE BLOOD COUNT 4.1 x10^3/uL (4.0-11.0)
[2016-07-09 06:57] LABS: CALCIUM 8.9 mg/dL (8.5-10.1); CREATININE 0.8 mg/dL (0.7-1.3); GFR 120.6
[2016-07-09 07:00] VITALS: BP 131/87
[2016-07-09 07:01] LABS: POTASSIUM 2.9 mmol/L (3.5-5.1)
[2016-07-09] MEDS: POTASSIUM CHLORIDE 40 MEQ in IV DEXTROSE 5% 1,000 ML IV SCH ×2 (07:46→18:39)
[2016-07-09] MEDS: POTASSIUM CHLORIDE 10MEQ 100 ML IV PRN ×4 (07:47→11:45)
[2016-07-09] MEDS: POLYETHYLENE GLYCOL 3350 17 GM PACKET. PO SCH (09:00)
--- NOTE | 2016-07-09 09:39 | PDOC ---
PROGRESS NOTES Subjective Subjective pt comfortable, denies pain Objective Objective Vital Signs Date Time Temp Pulse Resp B/P Pulse Ox O2 Delivery O2 Flow Rate FiO2 07/09/16 07:00 98.6 94 22 131/87 97 Room Air 98.6 Intake and Output 07/09/16 07:00 Intake Total 1300 ml Balance 1300 ml Intake Oral 1300 ml # Voids 8 # Bowel Movements 6 Physical Exam Abdomen: Soft, No tenderness Assessment Assessment Problems Medical Problems: (1) Abdominal pain Status: Acute (2) Hemiplegia affecting dominant side Status: Acute (3) Hypokalemia Status: Acute (4) Ileus Status: Acute (5) Sigmoid volvulus Status: Acute (6) Sigmoid volvulus Status: Acute Plan Plan of Care I was able to speak to Dian and her brother; I explained the recommendation for a sigmoid colectomy due to the volvulus, to prevent recurrence. They understand and seem inclined to proceed. They will discuss further as a family , but I will add on to OR schedule tomorrow in case they wish to proceed. Comment Review of Relevant I have reviewed the following items danilo (where applicable) has been applied. Labs Laboratory Tests Test 07/08/16 06:19 07/09/16 05:05 Sodium Level 143mmol/L (136-145) 143mmol/L (136-145) Potassium Level 3.6mmol/L (3.5-5.1) 2.9mmol/L (3.5-5.1) Chloride Level 107mmol/L (98-107) 105mmol/L (98-107) Carbon Dioxide Level 28mmol/L (21-32) 27mmol/L (21-32) Anion Gap 8 (6-14) 11 (6-14) Blood Urea Nitrogen 3mg/dL (8-26) 2mg/dL (8-26) Creatinine 0.8mg/dL (0.7-1.3) 0.8mg/dL (0.7-1.3) Estimated GFR (Cockcroft-Gault) 120.6 120.6 Glucose Level 106mg/dL (70-99) 99mg/dL (70-99) Calcium Level 8.5mg/dL (8.5-10.1) 8.9mg/dL (8.5-10.1) White Blood Count 4.1x10^3/uL (4.0-11.0) Red Blood Count 4.84x10^6/uL (4.30-5.70) Hemoglobin 13.7g/dL (13.0-17.5) Hematocrit 40.8% (39.0-53.0) Mean Corpuscular Volume 84fL (79-100) Mean Corpuscular Hemoglobin 28pg (25-35) Mean Corpuscular Hemoglobin Concent 34g/dL (31-37) Red Cell Distribution Width 14.0% (11.5-14.5) Platelet Count 223x10^3/uL (140-400) Neutrophils (%) (Auto) 51% (31-73) Lymphocytes (%) (Auto) 32% (24-48) Monocytes (%) (Auto) 12% (0-9) Eosinophils (%) (Auto) 4% (0-3) Basophils (%) (Auto) 1% (0-3) Neutrophils # (Auto) 2.1x10^3uL (1.8-7.7) Lymphocytes # (Auto) 1.3x10^3/uL (1.0-4.8) Monocytes # (Auto) 0.5x10^3/uL (0.0-1.1) Eosinophils # (Auto) 0.2x10^3/uL (0.0-0.7) Basophils # (Auto) 0.0x10^3/uL (0.0-0.2) Laboratory Tests Test 07/09/16 05:05 White Blood Count 4.1x10^3/uL (4.0-11.0) Red Blood Count 4.84x10^6/uL (4.30-5.70) Hemoglobin 13.7g/dL (13.0-17.5) Hematocrit 40.8% (39.0-53.0) Mean Corpuscular Volume 84fL (79-100) Mean Corpuscular Hemoglobin 28pg (25-35) Mean Corpuscular Hemoglobin Concent 34g/dL (31-37) Red Cell Distribution Width 14.0% (11.5-14.5) Platelet Count 223x10^3/uL (140-400) Neutrophils (%) (Auto) 51% (31-73) Lymphocytes (%) (Auto) 32% (24-48) Monocytes (%) (Auto) 12% (0-9) Eosinophils (%) (Auto) 4% (0-3) Basophils (%) (Auto) 1% (0-3) Neutrophils # (Auto) 2.1x10^3uL (1.8-7.7) Lymphocytes # (Auto) 1.3x10^3/uL (1.0-4.8) Monocytes # (Auto) 0.5x10^3/uL (0.0-1.1) Eosinophils # (Auto) 0.2x10^3/uL (0.0-0.7) Basophils # (Auto) 0.0x10^3/uL (0.0-0.2) Sodium Level 143mmol/L (136-145) Potassium Level 2.9mmol/L (3.5-5.1) Chloride Level 105mmol/L (98-107) Carbon Dioxide Level 27mmol/L (21-32) Anion Gap 11 (6-14) Blood Urea Nitrogen 2mg/dL (8-26) Creatinine 0.8mg/dL (0.7-1.3) Estimated GFR (Cockcroft-Gault) 120.6 Glucose Level 99mg/dL (70-99) Calcium Level 8.9mg/dL (8.5-10.1) Microbiology 07/03/16 Urine Culture - Final, Complete 07/03/16 Urine Culture Result 1 (IMELDA) - Final, Complete Medications Current Medications Sodium Chloride (Iv Sodium Chloride 0.9% 1000ml Bag) 1,000 ml @ 100 mls/hr Q10H IV ; Start 07/03/16 at 18:00; Stop 07/03/16 at 19:53; Status DC Ondansetron HCl (Zofran) 4 mg PRN Q8HRS PRN IV NAUSEA/VOMITING; Start 07/03/16 at 18:15; Stop 07/04/16 at 18:14; Status DC Acetaminophen 650 mg 650 mg PRN Q4HRS PRN PO FEVER; Start 07/03/16 at 18:15; Stop 07/04/16 at 18:14; Status DC Potassium Chloride/Sodium Chloride (KCl 20 Meq-NS 1,000 ml Iv Soln) 1,000 ml @ 125 mls/hr 1X ONCE IV Last administered on 07/03/16 18:16; Start 07/03/16 at 18:30; Stop 07/04/16 at 02:29; Status DC Iohexol (Omnipaque 300 Mg/ml) 75 ml 1X ONCE IV Last administered on 07/03/16 18:23; Start 07/03/16 at 18:30; Stop 07/03/16 at 18:31; Status DC Info 1 each 1 each PRN DAILY PRN MC SEE COMMENTS; Start 07/03/16 at 18:30; Stop 07/05/16 at 18:29; Status DC Sodium Chloride 1,000 ml @ 1,000 mls/hr Q1H IV Last administered on 07/03/16 19:00; Start 07/03/16 at 20:00; Stop 07/03/16 at 20:59; Status DC Potassium Chloride/Dextrose/ Sod Cl 1,000 ml @ 100 mls/hr Q10H IV Last administered on 07/04/16 14:00; Start 07/04/16 at 14:00; Stop 07/05/16 at 09:24 ; Status DC Potassium Chloride 100 ml @ 100 mls/hr Q1H IV Last administered on 07/04/16 22:40; Start 07/04/16 at 17:00; Stop 07/04/16 at 20:59; Status DC Potassium Chloride 100 ml @ 100 mls/hr Q1H IV Last administered on 07/05/16 08:45; Start 07/05/16 at 08:00; Stop 07/05/16 at 11:59; Status DC Potassium Chloride/Dextrose 1,020 ml @ 100 mls/hr [id number] IV Last administered on 07/09/16 07:46; Start 07/05/16 at 10:00 Potassium Chloride (Klor-Con) 40 meq Q2HR PO Last administered on 07/05/16 18: 46; Start 07/05/16 at 10:00; Stop 07/05/16 at 14:01; Status DC Potassium Chloride (Klor-Con) 40 meq Q3HRS PO Last administered on 07/06/16 15 :44; Start 07/06/16 at 12:00; Stop 07/06/16 at 15:01; Status DC Polyethylene Glycol (miraLAX PACKET) 17 gm DAILY PO Last administered on 15:44; Start 07/06/16 at 13:30 Ondansetron HCl 4 mg 4 mg PRN Q4HRS PRN IV NAUSEA/VOMITING Last administered on 07/07/16 07:37; Start 07/07/16 at 04:45 Potassium Chloride 100 ml @ 100 mls/hr Q1H PRN IV FOR KCL 3.0 OR LESS Last administered on 07/09/16 08:57; Start 07/07/16 at 11:45 Magnesium Sulfate/ Dextrose 50 ml @ 25 mls/hr PRN 1X PRN IV SEE LAB; Start at 11:45 Potassium Chloride 100 ml @ 100 mls/hr Q1H PRN IV FOR KCL 3.1 - 3.5 Last administered on 07/08/16 00:54; Start 07/07/16 at 11:45; Stop 07/08/16 at 00:54 ; Status DC Propofol (Diprivan) 20 ml @ As Directed STK-MED ONCE IV ; Start 07/07/16 at 16: 52; Stop 07/07/16 at 16:53; Status DC Lidocaine HCl (Lidocaine Pf 2% Vial) 5 ml STK-MED ONCE .ROUTE ; Start 07/07/16 at 16:52; Stop 07/07/16 at 16:53; Status DC Polyethylene Glycol (miraLAX Powder BULK BOTTLE) 238 gm 1X ONCE PO Last administered on 07/07/16 20:55; Start 07/07/16 at 17:30; Stop 07/07/16 at 17:31 ; Status DC Enoxaparin Sodium (Lovenox 40mg Syringe) 40 mg Q24H SQ Last administered on 12:26; Start 07/08/16 at 10:00 Active Scripts Active Reported [place]-3 ([place]-3 Fatty Acids) 1,000 Mg Capsule 1,000 Mg PO BID Miralax (Polyethylene Glycol 3350) 17 Gm Powd.pack 1 Packet PO BID Escitalopram Oxalate 10 Mg Tablet 1 Tab PO DAILY Famotidine 20 Mg Tablet 20 Mg PO BID Colace (Docusate Sodium) 100 Mg Capsule 1 Cap PO BID Catapres-Tts 2 (Clonidine) 1 Each Patch.tdwk 1 Each TD QWE Centrum Silver Men Tablet (Multivit-Min/FA/Lycopen/Lutein) 1 Each Tablet 1 Each PO DAILY Bisacodyl 10 Mg Supp.rect 10 Mg RC PRN DAILY PRN Baclofen 10 Mg Tablet 1 Tab PO TID Atorvastatin Calcium 20 Mg Tablet 20 Mg PO HS Aspirin 81 Mg Tab.chew 1 Tab PO DAILY Amlodipine Besylate 10 Mg Tablet 10 Mg PO DAILY Vitals/I & O Vital Sign - Last 24 Hours 07/08/16 07/08/16 07/08/16 07/08/16 11:00 15:00 19:59 20:00 Temp 98.2 98.4 96.6 98.2 98.4 96.6 Pulse 86 84 85 Resp 22 20 20 B/P 142/91 126/88 155/95 Pulse Ox 97 96 95 O2 Delivery Room Air Room Air Room Air Room Air 07/08/16 07/09/16 07/09/16 23:59 03:59 07:00 Temp 97.7 97.9 98.6 97.7 97.9 98.6 Pulse 79 61 94 Resp 20 20 22 B/P 150/93 130/85 131/87 Pulse Ox 96 94 97 O2 Delivery Room Air Room Air Room Air Intake and Output 07/08/16 07/08/16 07/09/16 15:00 23:00 07:00 Intake Total 360 ml 740 ml 200 ml Balance 360 ml 740 ml 200 ml TAMMY TOM MD Jul 09, 2016 09:39
[2016-07-09] MEDS: ENOXAPARIN 40 MG/0.4 ML DISP.SYRIN. SQ SCH (10:00)
[2016-07-09 11:00] VITALS: BP 142/94
[2016-07-09 11:52] LABS: MAGNESIUM 1.9 mg/dL (1.8-2.4)
[2016-07-09] MEDS: NEOMYCIN SULFATE 500 MG TABLET PO SCH ×3 (14:06→21:50)
[2016-07-09] MEDS: ERYTHROMYCIN BASE 250 MG TABLET PO SCH ×3 (14:06→21:50)
[2016-07-09 14:38] VITALS: BP 150/85
[2016-07-09] MEDS: POTASSIUM CHLORIDE 10MEQ 100 ML IV SCH ×4 (16:30→20:12)
[2016-07-09 19:00] VITALS: BP 159/118
[2016-07-09 23:00] VITALS: BP 149/99
[2016-07-10] VITALS (10 sets, daily range): BP systolic 116–168; BP diastolic 80–107
--- NOTE | 2016-07-10 02:02 | PN ---
DATE: 07/09/2016 SUBJECTIVE: The patient is resting, slightly propped up in bed, in no apparent distress. On questioning him, he denied any complaint. Nursing staff are concerned that his potassium is low at 2.9 and he is already on electrolyte replacement protocol. His family was apparently contacted and they are coming here to meet with the surgeon at around 2:30 in the afternoon. He has had a colonoscopy and decompression, but obviously without surgery this will recur. On questioning him this morning, he denied any complaint. OBJECTIVE: GENERAL: When I examined him, he looked pale, but not jaundiced, cyanosed. No thyromegaly. No jugular venous distention. No limb edema. VITAL SIGNS: His heart rate was 94, blood pressure 131/87, temperature was 98.6, respiratory rate was 22 and oxygen saturation was 97%. The rest of the clinical examination is stable. His abdomen is slightly more distended today than yesterday. He is apparently on a clear liquid diet. LABORATORY DATA: His intake was 1300, no output was recorded. His lab work this morning showed serum sodium of 143, potassium 2.9, chloride 105, bicarbonate 27, anion gap of 11, BUN 2, creatinine 0.8. Estimated GFR was 120 mL per minute. His glucose 199 and calcium was 8.9. His white cell count was 4100, hemoglobin 13.7, hematocrit 40, MCV 84 and platelet count 223,000. ASSESSMENT AND PLAN: Abdominal pain due to sigmoid volvulus, status post colonoscopy and decompression, hypertension, left-sided cerebrovascular accident, left-sided hemiplegia and aphasia and the surgeon apparently recommended sigmoid colectomy due to volvulus to prevent recurrence. The family will be meeting with the surgeon this afternoon to discuss . KIRT JAMA MD DR: AARON/wendy JOB#: [id number] / [id number]
[2016-07-10] MEDS: POTASSIUM CHLORIDE 40 MEQ in IV DEXTROSE 5% 1,000 ML IV SCH ×3 (04:16→22:43)
[2016-07-10 05:47] LABS: CALCIUM 9.2 mg/dL (8.5-10.1); CREATININE 0.8 mg/dL (0.7-1.3); GFR 120.6
[2016-07-10] MEDS: POLYETHYLENE GLYCOL 3350 17 GM PACKET. PO SCH (08:26)
[2016-07-10] MEDS: ENOXAPARIN 40 MG/0.4 ML DISP.SYRIN. SQ SCH (08:26)
[2016-07-10] MEDS: ONDANSETRON PF 4 MG/2 ML VIAL. IV PRN (08:27)
[2016-07-10] MEDS ORDERED: LIDOCAINE 2% 100 MG/5 ML DISP.SYRIN. ONE (09:16)
[2016-07-10] MEDS ORDERED: PROPOFOL 100 ML IV ONE (09:16)
[2016-07-10] MEDS ORDERED: ROCURONIUM 50 MG/5 ML VIAL. ONE (09:16)
[2016-07-10] MEDS ORDERED: FENTANYL PF 100 MCG/2 ML VIAL. ONE ×4 (09:16→13:12)
[2016-07-10] MEDS ORDERED: CEFAZOLIN 2GM PREMIX 50 ML IV ONE (09:45)
[2016-07-10] MEDS ORDERED: METRONIDAZOLE 500mg PREMIX 100 ML IV ONE (09:45)
[2016-07-10] MEDS ORDERED: DESFLURANE 61 TO 120 MINUTES IH ONE (10:20)
[2016-07-10] MEDS ORDERED: DEXAMETHASONE SOD PHOS 20 MG/5 ML VIAL. ONE (10:20)
[2016-07-10] MEDS ORDERED: PHENYLEPHRINE in 0.9% NACL PF 1 MG/10 ML DISP.SYRIN. IV ONE (10:34)
[2016-07-10] MEDS ORDERED: ONDANSETRON PF 4 MG/2 ML VIAL. ONE (11:44)
[2016-07-10] MEDS ORDERED: NEOSTIGMINE METHYLSULFATE 5 MG/5 ML SYRINGE. ONE (11:44)
[2016-07-10] MEDS ORDERED: GLYCOPYRROLATE 1 MG/5 ML VIAL. ONE (11:44)
--- NOTE | 2016-07-10 12:40 | PDOC ---
Subjective: Subjective: Out for surgery. Objective: Vital Signs: Vital Signs Date Time Temp Pulse Resp B/P Pulse Ox O2 Delivery O2 Flow Rate FiO2 07/10/16 09:16 98.2 90 17 138/89 94 Room Air 98.2 Labs: Laboratory Tests Test 07/09/16 15:00 07/10/16 04:55 Potassium Level 3.4mmol/L 4.0mmol/L Sodium Level 142mmol/L Chloride Level 105mmol/L Carbon Dioxide Level 21mmol/L Anion Gap 16 Blood Urea Nitrogen 2mg/dL Creatinine 0.8mg/dL Estimated GFR (Cockcroft-Gault) 120.6 Glucose Level 102mg/dL Calcium Level 9.2mg/dL Magnesium Level 2.0mg/dL Imaging: Colonoscopy with decompression 07/07/16: extent splenic flexure, internal hemorrhoids, sigmoid volvulus s/p decompression PE: no exam A/P: Sigmoid volvulus s/p decompression 07/07 -- Sigmoidectomy today. Will follow. RANDOLPH TYSON Jul 10, 2016 12:40
[2016-07-10] MEDS ORDERED: IV RINGERS,LACTATED 1000ML 1,000 ML IV SCH (12:50)
[2016-07-10] MEDS ORDERED: HYDROMORPHONE 2 MG/ML VIAL. ONE (12:55)
[2016-07-10] MEDS: FENTANYL PF 100 MCG/2 ML VIAL. IV PRN ×4 (12:57→13:35)
[2016-07-10] MEDS ORDERED: PROCHLORPERAZINE 10 MG/2 ML VIAL. IV PRN (13:00)
[2016-07-10] MEDS ORDERED: LIDOCAINE 1% 1 ML SYRINGE. ID PRN (13:00)
[2016-07-10] MEDS: HYDROMORPHONE 2 MG/ML VIAL. IV PRN ×8 (13:00→14:41)
[2016-07-10] MEDS ORDERED: FENTANYL PF 100 MCG/2 ML VIAL. IV PRN (13:00)
--- NOTE | 2016-07-10 13:10 | PDOC4 ---
Operative Note Operative Note Operative Note: Preoperative Diagnosis: Sigmoid volvulus Postoperative Diagnosis: Same Procedure: Sigmoid colon resection Surgeon: Dallin [employer]: Claribel LOWERY Anesthesia: Gen. EBL: 50 mL Specimen: Sigmoid colon to pathology Drains: None Complications: None Indication: The patient is a 55-year-old male who was admitted with findings of a sigmoid colon volvulus. He underwent colonoscopic decompression and now is ready for a definitive surgical resection. The details and risks of surgery were discussed with the patient's family. The risks include bleeding, infection , anastomotic leak, pain, visceral injury, anesthetic risk, potential need for additional surgery or procedure. They understand and would like to proceed. Description: The patient was taken to the operating room and placed supine on the operating table. Gen. anesthesia was performed the abdomen was prepped with ChloraPrep and draped in a standard surgical manner. A lower vertical midline incision was made with a scalpel and carried superior to the umbilicus. Cautery dissection was carried down to the fascia. The fascia and peritoneum were then divided and the abdominal cavity was entered. Initial inspection showed the expected redundant and dilated sigmoid consistent with prior volvulus. The descending colon and rectum were uninvolved. There were no signs of bowel ischemia or inflammation. We proceeded with the resection. The sigmoid colon was divided proximally at the level of the distal descending colon with a NIMCO-75 stapling device. The distal sigmoid was also divided near the junction of the rectum with a NIMCO-75 stapling device. The mesentery of the involved colon was dissected. Blood vessels were sequentially dissected free, ligated with 2-0 Vicryl, and divided. The LigaSure device also assisted with mesenteric dissection. The entire sigmoid colon was then excised and sent to pathology for evaluation. An end-to-end 2 layer handsewn anastomosis was then constructed. The posterior seromuscular layer was developed first with interrupted 3-0 Vicryl sutures. The staple lines were then excised. The next layer was then constructed with 3-0 PDS in a running locked fashion. The anterior seromuscular layer was completed with interrupted 3-0 Vicryl. The anastomosis appeared widely patent with no undue tension. Hemostasis was good as well. The pelvis is irrigated with sterile saline which was then suctioned. No other gross abnormalities were seen. The fascia was then closed with a running 1 PDS suture. A 3/8 inch [place] drain was left in subcutaneous space which exited inferiorly. This was secured to the skin with 3-0 Vicryl. The skin was then closed over the drain with a running 4-0 Monocryl suture. A sterile dressing was then applied. The patient tolerated the procedure well and was sent to the recovery room in stable condition. At the end of the case all counts were correct. TAMMY TOM MD Jul 10, 2016 13:10
[2016-07-10] MEDS ORDERED: MORPHINE SULFATE 2 MG/ML DISP.SYRIN. ONE (13:12)
[2016-07-10] MEDS: MORPHINE SULFATE 2 MG/ML DISP.SYRIN. IV PRN ×4 (13:14→13:48)
[2016-07-10] MEDS ORDERED: HYDROMORPHONE 2 MG/ML VIAL. IVP PRN ×2 (13:15→13:20)
[2016-07-11 03:00] VITALS: BP 132/81
[2016-07-11 05:01] LABS: BASO % 0 % (0-3); EOS % 0 % (0-3); HEMATOCRIT 39.8 % (39.0-53.0); HEMOGLOBIN 13.2 g/dL (13.0-17.5); LYMPH # 0.7 x10^3/uL (1.0-4.8); LYMPH % 6 % (24-48); MEAN CORPUSCULAR HEMOGLOBIN 28 pg (25-35); MEAN CORPUSCULAR HGB CONC 33 g/dL (31-37); MEAN CORPUSCULAR VOLUME 85 fL (79-100); MONO % 4 % (0-9); NEUT % 90 % (31-73); PLATELET COUNT 246 x10^3/uL (140-400); RED BLOOD COUNT 4.66 x10^6/uL (4.30-5.70); RED CELL DISTRIBUTION WIDTH 14.3 % (11.5-14.5); WHITE BLOOD COUNT 10.7 x10^3/uL (4.0-11.0)
[2016-07-11 06:06] LABS: CALCIUM 9.3 mg/dL (8.5-10.1); CREATININE 0.9 mg/dL (0.7-1.3); GFR 105.2; POTASSIUM 5.3 mmol/L (3.5-5.1)
[2016-07-11 07:00] VITALS: BP 143/92
[2016-07-11] MEDS: POLYETHYLENE GLYCOL 3350 17 GM PACKET. PO SCH (08:35)
[2016-07-11] MEDS: POTASSIUM CHLORIDE 40 MEQ in IV DEXTROSE 5% 1,000 ML IV SCH (08:48)
[2016-07-11 10:04] VITALS: BP 129/83
[2016-07-11] MEDS: ENOXAPARIN 40 MG/0.4 ML DISP.SYRIN. SQ SCH (11:33)
[2016-07-11 12:12] LABS: ACANTHOCYTES FEW; BURR CELLS MOD; PLT ESTIMATE ADEQUATE (ADEQUATE); POIKILOCYTOSIS MOD
[2016-07-11] MEDS: IV DEXTROSE 5 %-0.45 % NACL 1,000 ML IV SCH (14:06)
[2016-07-11] MEDS: HYDROMORPHONE 2 MG/ML VIAL. IVP PRN (14:07)
--- NOTE | 2016-07-11 14:07 | PDOC ---
Subjective: Subjective: Says passed gas. Objective: Objective: Per RN - doing okay, no complaints of pain. Vital Signs: Vital Signs Date Time Temp Pulse Resp B/P Pulse Ox O2 Delivery O2 Flow Rate FiO2 07/11/16 10:04 98.4 103 20 129/83 93 Room Air 98.4 07/10/16 17:30 2.0 Labs: Laboratory Tests Test 07/11/16 04:02 07/11/16 04:07 White Blood Count 10.7x10^3/uL Red Blood Count 4.66x10^6/uL Hemoglobin 13.2g/dL Hematocrit 39.8% Mean Corpuscular Volume 85fL Mean Corpuscular Hemoglobin 28pg Mean Corpuscular Hemoglobin Concent 33g/dL Red Cell Distribution Width 14.3% Platelet Count 246x10^3/uL Neutrophils (%) (Auto) 90% Lymphocytes (%) (Auto) 6% Monocytes (%) (Auto) 4% Eosinophils (%) (Auto) 0% Basophils (%) (Auto) 0% Neutrophils # (Auto) 9.6x10^3uL Lymphocytes # (Auto) 0.7x10^3/uL Monocytes # (Auto) 0.4x10^3/uL Eosinophils # (Auto) 0.0x10^3/uL Basophils # (Auto) 0.0x10^3/uL Segmented Neutrophils % 88% Lymphocytes % 10% Atypical Lymphocytes % (Manual) 1% Monocytes % 1% Platelet Estimate Adequate Poikilocytosis Mod Freddy Cells Mod Acanthocytes Few Sodium Level 139mmol/L Potassium Level 5.3mmol/L Chloride Level 104mmol/L Carbon Dioxide Level 27mmol/L Anion Gap 8 Blood Urea Nitrogen 8mg/dL Creatinine 0.9mg/dL Estimated GFR (Cockcroft-Gault) 105.2 Glucose Level 139mg/dL Calcium Level 9.3mg/dL PE: GEN: NAD LUNGS: CTAB HEART: RRR ABD: some tenderness over bandage NEURO/PSYCH: answers yes/no A/P: S/p sigmoid colon resection 07/10/16 -- Diet per surgery. RANDOLPH TYSON Jul 11, 2016 14:07
[2016-07-11 14:24] VITALS: BP 158/95
--- NOTE | 2016-07-11 14:38 | PDOC ---
TENNILLE GUTIÉRREZ [employer] ANALYST 07/11/16 1438: SURGICAL PROGRESS NOTE Subjective denies pain, nausea or emesis Vital Signs Vital Signs Date Time Temp Pulse Resp B/P Pulse Ox O2 Delivery O2 Flow Rate FiO2 07/11/16 14:24 99.0 103 20 158/95 91 Room Air 99.0 07/10/16 17:30 2.0 I&O Intake and Output 07/11/16 07:00 Intake Total 2550 ml Output Total 2800 ml Balance -250 ml Intake Oral 0 ml IV Total 2550 ml Output Urine Total 2800 ml PATIENT HAS A THOMAS: Yes (dc thomas pod 2) General: Alert, Cooperative, No acute distress Abdomen: Soft, Other (dressing dry, incisional TTP) Labs Laboratory Tests Test 07/09/16 15:00 07/10/16 04:55 07/11/16 04:02 07/11/16 04:07 Potassium Level 3.4mmol/L (3.5-5.1) 4.0mmol/L (3.5-5.1) 5.3mmol/L (3.5-5.1) Sodium Level 142mmol/L (136-145) 139mmol/L (136-145) Chloride Level 105mmol/L (98-107) 104mmol/L (98-107) Carbon Dioxide Level 21mmol/L (21-32) 27mmol/L (21-32) Anion Gap 16 (6-14) 8 (6-14) Blood Urea Nitrogen 2mg/dL (8-26) 8mg/dL (8-26) Creatinine 0.8mg/dL (0.7-1.3) 0.9mg/dL (0.7-1.3) Estimated GFR (Cockcroft-Gault) 120.6 105.2 Glucose Level 102mg/dL (70-99) 139mg/dL (70-99) Calcium Level 9.2mg/dL (8.5-10.1) 9.3mg/dL (8.5-10.1) Magnesium Level 2.0mg/dL (1.8-2.4) White Blood Count 10.7x10^3/uL (4.0-11.0) Red Blood Count 4.66x10^6/uL (4.30-5.70) Hemoglobin 13.2g/dL (13.0-17.5) Hematocrit 39.8% (39.0-53.0) Mean Corpuscular Volume 85fL (79-100) Mean Corpuscular Hemoglobin 28pg (25-35) Mean Corpuscular Hemoglobin Concent 33g/dL (31-37) Red Cell Distribution Width 14.3% (11.5-14.5) Platelet Count 246x10^3/uL (140-400) Neutrophils (%) (Auto) 90% (31-73) Lymphocytes (%) (Auto) 6% (24-48) Monocytes (%) (Auto) 4% (0-9) Eosinophils (%) (Auto) 0% (0-3) Basophils (%) (Auto) 0% (0-3) Neutrophils # (Auto) 9.6x10^3uL (1.8-7.7) Lymphocytes # (Auto) 0.7x10^3/uL (1.0-4.8) Monocytes # (Auto) 0.4x10^3/uL (0.0-1.1) Eosinophils # (Auto) 0.0x10^3/uL (0.0-0.7) Basophils # (Auto) 0.0x10^3/uL (0.0-0.2) Segmented Neutrophils % 88% (35-66) Lymphocytes % 10% (24-48) Atypical Lymphocytes % (Manual) 1% (0-0) Monocytes % 1% (0-10) Platelet Estimate Adequate (ADEQUATE) Poikilocytosis Mod Freddy Cells Mod Acanthocytes Few Laboratory Tests Test 07/11/16 04:02 07/11/16 04:07 White Blood Count 10.7x10^3/uL (4.0-11.0) Red Blood Count 4.66x10^6/uL (4.30-5.70) Hemoglobin 13.2g/dL (13.0-17.5) Hematocrit 39.8% (39.0-53.0) Mean Corpuscular Volume 85fL (79-100) Mean Corpuscular Hemoglobin 28pg (25-35) Mean Corpuscular Hemoglobin Concent 33g/dL (31-37) Red Cell Distribution Width 14.3% (11.5-14.5) Platelet Count 246x10^3/uL (140-400) Neutrophils (%) (Auto) 90% (31-73) Lymphocytes (%) (Auto) 6% (24-48) Monocytes (%) (Auto) 4% (0-9) Eosinophils (%) (Auto) 0% (0-3) Basophils (%) (Auto) 0% (0-3) Neutrophils # (Auto) 9.6x10^3uL (1.8-7.7) Lymphocytes # (Auto) 0.7x10^3/uL (1.0-4.8) Monocytes # (Auto) 0.4x10^3/uL (0.0-1.1) Eosinophils # (Auto) 0.0x10^3/uL (0.0-0.7) Basophils # (Auto) 0.0x10^3/uL (0.0-0.2) Segmented Neutrophils % 88% (35-66) Lymphocytes % 10% (24-48) Atypical Lymphocytes % (Manual) 1% (0-0) Monocytes % 1% (0-10) Platelet Estimate Adequate (ADEQUATE) Poikilocytosis Mod Fisher Cells Mod Acanthocytes Few Sodium Level 139mmol/L (136-145) Potassium Level 5.3mmol/L (3.5-5.1) Chloride Level 104mmol/L (98-107) Carbon Dioxide Level 27mmol/L (21-32) Anion Gap 8 (6-14) Blood Urea Nitrogen 8mg/dL (8-26) Creatinine 0.9mg/dL (0.7-1.3) Estimated GFR (Cockcroft-Gault) 105.2 Glucose Level 139mg/dL (70-99) Calcium Level 9.3mg/dL (8.5-10.1) Problem List Problems Medical Problems: (1) Abdominal pain Status: Acute (2) Hemiplegia affecting dominant side Status: Acute (3) Hypokalemia Status: Acute (4) Ileus Status: Acute (5) Sigmoid volvulus Status: Acute (6) Sigmoid volvulus Status: Acute Assessment/Plan POD#1 sigmoid resection NPO, bowel rest, wait return of bowel function Problems: TAMMY TOM MD 07/11/16 1634: SURGICAL PROGRESS NOTE Assessment/Plan Agree with above Problems: TENNILLE GUTIÉRERZ APRN Jul 11, 2016 14:38 ATMMY TOM MD Jul 11, 2016 16:34
[2016-07-11 21:01] VITALS: BP 143/84
[2016-07-11 23:00] VITALS: BP 170/98
[2016-07-12] MEDS: IV DEXTROSE 5 %-0.45 % NACL 1,000 ML IV SCH ×3 (01:01→23:38)
[2016-07-12 03:00] VITALS: BP 144/92
[2016-07-12] MEDS: HYDROMORPHONE 2 MG/ML VIAL. IVP PRN (03:52)
[2016-07-12 04:29] LABS: BASO # 0.1 x10^3/uL (0.0-0.2); BASO % 1 % (0-3); EOS % 0 % (0-3); HEMOGLOBIN 13.6 g/dL (13.0-17.5); LYMPH % 9 % (24-48); MEAN CORPUSCULAR HEMOGLOBIN 28 pg (25-35); MEAN CORPUSCULAR HGB CONC 33 g/dL (31-37); MEAN CORPUSCULAR VOLUME 86 fL (79-100); MONO % 8 % (0-9); NEUT % 83 % (31-73); PLATELET COUNT 249 x10^3/uL (140-400); RED BLOOD COUNT 4.78 x10^6/uL (4.30-5.70); RED CELL DISTRIBUTION WIDTH 14.4 % (11.5-14.5); WHITE BLOOD COUNT 11.7 x10^3/uL (4.0-11.0)
[2016-07-12 04:44] LABS: ALBUMIN 3.4 g/dL (3.4-5.0); ALBUMIN/GLOBULIN RATIO 0.9 (1.0-1.7); CALCIUM 9.3 mg/dL (8.5-10.1); CREATININE 0.9 mg/dL (0.7-1.3); GFR 105.2; MAGNESIUM 1.9 mg/dL (1.8-2.4); POTASSIUM 4.1 mmol/L (3.5-5.1); TOTAL BILIRUBIN 0.4 mg/dL (0.2-1.0); TOTAL PROTEIN 7.2 g/dL (6.4-8.2)
--- NOTE | 2016-07-12 05:28 | PN ---
DATE: 07/11/2016 SUBJECTIVE: The patient is resting slightly propped up comfortably, in no apparent respiratory distress. He denied any abdominal pain. Denied any nausea, vomiting. He thinks he has passed some gas. The nursing staff did not voice any concern and stated he has an uneventful night, still n.p.o. His lab work showed that his potassium has risen to 5.3, so his IV fluid was discontinued and was changed to D5 half normal. PHYSICAL EXAMINATION: GENERAL: When I saw him this afternoon, he looked well and was clearly in no apparent respiratory distress, pale, but no jaundice, cyanosis or thyromegaly. No jugular venous distention. No limb edema. VITAL SIGNS: His heart rate was 103, blood pressure was 129/83, temperature was 98.4, respiratory rate was 20, and oxygen saturation was 93%. HEAD, EYES, EARS, NOSE AND THROAT: Showed normocephalic, atraumatic. NECK: Supple. HEART: Showed normal first and second heart sounds with no gallop, rub or murmur. CHEST: Clear to auscultation. No crepitation or rhonchi. ABDOMEN: Distended, soft, nontender. Midline incision covered with dressing. There is no guarding or rigidity. No organomegaly. Bowel sounds normal. NEUROLOGIC: He has aphasia and right-sided hemiplegia. His intake was 2550, output was 2800. LABORATORY DATA: This morning showed a serum sodium 139, potassium 5.3, chloride 104, bicarbonate 27, anion gap of 8, BUN 8, creatinine 0.9, estimated GFR was 105 mL per minute. His glucose was 139. Calcium was 9.3, white cell count was 10,700, hemoglobin 13, hematocrit 39, MCV 85, and platelet count 246,000. ASSESSMENT: 1. Sigmoid volvulus, status post colonoscopy and decompression. The patient underwent sigmoid colon resection. 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 2. Gastroesophageal reflux disease. 3. Carotid artery stenosis with infarct. 4. Chronic pain syndrome and insomnia. PLAN: I did change IV fluid to D5 half normal 100 mL per hour. Continue with pain management and continue with DVT prophylaxis. I will repeat all his lab works and await surgical team evaluation to see whether he is allowed to get placed on a clear liquid diet. KIRT JAMA MD DR: Teresita JOB#: [id number] / [id number]
[2016-07-12 07:00] VITALS: BP 129/88
[2016-07-12] MEDS: POLYETHYLENE GLYCOL 3350 17 GM PACKET. PO SCH (09:00)
--- NOTE | 2016-07-12 10:07 | PDOC ---
PROGRESS NOTES Subjective Subjective states he's comfortable, claims to be passing gas, no stool Objective Objective Vital Signs Date Time Temp Pulse Resp B/P Pulse Ox O2 Delivery O2 Flow Rate FiO2 07/12/16 07:00 97.4 84 129/88 97 Room Air 97.4 07/12/16 05:06 20 07/11/16 20:15 2.0 Intake and Output 07/12/16 07:00 Intake Total 0 ml Output Total 2600 ml Balance -2600 ml Intake Oral 0 ml Output Urine Total 2600 ml Physical Exam Abdomen: Soft (mildly distended) Assessment Assessment Problems Medical Problems: (1) Abdominal pain Status: Acute (2) Hemiplegia affecting dominant side Status: Acute (3) Hypokalemia Status: Acute (4) Ileus Status: Acute (5) Sigmoid volvulus Status: Acute (6) Sigmoid volvulus Status: Acute Plan Plan of Care continue IVF, possible clears tomorrow Comment Review of Relevant I have reviewed the following items danilo (where applicable) has been applied. Labs Laboratory Tests Test 07/11/16 04:02 07/11/16 04:07 07/12/16 04:15 White Blood Count 10.7x10^3/uL (4.0-11.0) 11.7x10^3/uL (4.0-11.0) Red Blood Count 4.66x10^6/uL (4.30-5.70) 4.78x10^6/uL (4.30-5.70) Hemoglobin 13.2g/dL (13.0-17.5) 13.6g/dL (13.0-17.5) Hematocrit 39.8% (39.0-53.0) 41.0% (39.0-53.0) Mean Corpuscular Volume 85fL (79-100) 86fL (79-100) Mean Corpuscular Hemoglobin 28pg (25-35) 28pg (25-35) Mean Corpuscular Hemoglobin Concent 33g/dL (31-37) 33g/dL (31-37) Red Cell Distribution Width 14.3% (11.5-14.5) 14.4% (11.5-14.5) Platelet Count 246x10^3/uL (140-400) 249x10^3/uL (140-400) Neutrophils (%) (Auto) 90% (31-73) 83% (31-73) Lymphocytes (%) (Auto) 6% (24-48) 9% (24-48) Monocytes (%) (Auto) 4% (0-9) 8% (0-9) Eosinophils (%) (Auto) 0% (0-3) 0% (0-3) Basophils (%) (Auto) 0% (0-3) 1% (0-3) Neutrophils # (Auto) 9.6x10^3uL (1.8-7.7) 9.7x10^3uL (1.8-7.7) Lymphocytes # (Auto) 0.7x10^3/uL (1.0-4.8) 1.0x10^3/uL (1.0-4.8) Monocytes # (Auto) 0.4x10^3/uL (0.0-1.1) 0.9x10^3/uL (0.0-1.1) Eosinophils # (Auto) 0.0x10^3/uL (0.0-0.7) 0.0x10^3/uL (0.0-0.7) Basophils # (Auto) 0.0x10^3/uL (0.0-0.2) 0.1x10^3/uL (0.0-0.2) Segmented Neutrophils % 88% (35-66) Lymphocytes % 10% (24-48) Atypical Lymphocytes % (Manual) 1% (0-0) Monocytes % 1% (0-10) Platelet Estimate Adequate (ADEQUATE) Poikilocytosis Mod Freddy Cells Mod Acanthocytes Few Sodium Level 139mmol/L (136-145) 141mmol/L (136-145) Potassium Level 5.3mmol/L (3.5-5.1) 4.1mmol/L (3.5-5.1) Chloride Level 104mmol/L (98-107) 103mmol/L (98-107) Carbon Dioxide Level 27mmol/L (21-32) 30mmol/L (21-32) Anion Gap 8 (6-14) 8 (6-14) Blood Urea Nitrogen 8mg/dL (8-26) 11mg/dL (8-26) Creatinine 0.9mg/dL (0.7-1.3) 0.9mg/dL (0.7-1.3) Estimated GFR (Cockcroft-Gault) 105.2 105.2 Glucose Level 139mg/dL (70-99) 120mg/dL (70-99) Calcium Level 9.3mg/dL (8.5-10.1) 9.3mg/dL (8.5-10.1) BUN/Creatinine Ratio 12 (6-20) Magnesium Level 1.9mg/dL (1.8-2.4) Total Bilirubin 0.4mg/dL (0.2-1.0) Aspartate Amino Transf (AST/SGOT) 20U/L (15-37) Alanine Aminotransferase (ALT/SGPT) 15U/L (16-63) Alkaline Phosphatase 96U/L (46-116) Total Protein 7.2g/dL (6.4-8.2) Albumin 3.4g/dL (3.4-5.0) Albumin/Globulin Ratio 0.9 (1.0-1.7) Laboratory Tests Test 07/12/16 04:15 White Blood Count 11.7x10^3/uL (4.0-11.0) Red Blood Count 4.78x10^6/uL (4.30-5.70) Hemoglobin 13.6g/dL (13.0-17.5) Hematocrit 41.0% (39.0-53.0) Mean Corpuscular Volume 86fL (79-100) Mean Corpuscular Hemoglobin 28pg (25-35) Mean Corpuscular Hemoglobin Concent 33g/dL (31-37) Red Cell Distribution Width 14.4% (11.5-14.5) Platelet Count 249x10^3/uL (140-400) Neutrophils (%) (Auto) 83% (31-73) Lymphocytes (%) (Auto) 9% (24-48) Monocytes (%) (Auto) 8% (0-9) Eosinophils (%) (Auto) 0% (0-3) Basophils (%) (Auto) 1% (0-3) Neutrophils # (Auto) 9.7x10^3uL (1.8-7.7) Lymphocytes # (Auto) 1.0x10^3/uL (1.0-4.8) Monocytes # (Auto) 0.9x10^3/uL (0.0-1.1) Eosinophils # (Auto) 0.0x10^3/uL (0.0-0.7) Basophils # (Auto) 0.1x10^3/uL (0.0-0.2) Sodium Level 141mmol/L (136-145) Potassium Level 4.1mmol/L (3.5-5.1) Chloride Level 103mmol/L (98-107) Carbon Dioxide Level 30mmol/L (21-32) Anion Gap 8 (6-14) Blood Urea Nitrogen 11mg/dL (8-26) Creatinine 0.9mg/dL (0.7-1.3) Estimated GFR (Cockcroft-Gault) 105.2 BUN/Creatinine Ratio 12 (6-20) Glucose Level 120mg/dL (70-99) Calcium Level 9.3mg/dL (8.5-10.1) Magnesium Level 1.9mg/dL (1.8-2.4) Total Bilirubin 0.4mg/dL (0.2-1.0) Aspartate Amino Transf (AST/SGOT) 20U/L (15-37) Alanine Aminotransferase (ALT/SGPT) 15U/L (16-63) Alkaline Phosphatase 96U/L (46-116) Total Protein 7.2g/dL (6.4-8.2) Albumin 3.4g/dL (3.4-5.0) Albumin/Globulin Ratio 0.9 (1.0-1.7) Microbiology 07/03/16 Urine Culture - Final, Complete 07/03/16 Urine Culture Result 1 (IMELDA) - Final, Complete Medications Current Medications Sodium Chloride (Iv Sodium Chloride 0.9% 1000ml Bag) 1,000 ml @ 100 mls/hr Q10H IV ; Start 07/03/16 at 18:00; Stop 07/03/16 at 19:53; Status DC Ondansetron HCl (Zofran) 4 mg PRN Q8HRS PRN IV NAUSEA/VOMITING; Start 07/03/16 at 18:15; Stop 07/04/16 at 18:14; Status DC Acetaminophen 650 mg 650 mg PRN Q4HRS PRN PO FEVER; Start 07/03/16 at 18:15; Stop 07/04/16 at 18:14; Status DC Potassium Chloride/Sodium Chloride (KCl 20 Meq-NS 1,000 ml Iv Soln) 1,000 ml @ 125 mls/hr 1X ONCE IV Last administered on 07/03/16 18:16; Start 07/03/16 at 18:30; Stop 07/04/16 at 02:29; Status DC Iohexol (Omnipaque 300 Mg/ml) 75 ml 1X ONCE IV Last administered on 07/03/16 18:23; Start 07/03/16 at 18:30; Stop 07/03/16 at 18:31; Status DC Info 1 each 1 each PRN DAILY PRN MC SEE COMMENTS; Start 07/03/16 at 18:30; Stop 07/05/16 at 18:29; Status DC Sodium Chloride 1,000 ml @ 1,000 mls/hr Q1H IV Last administered on 07/03/16 19:00; Start 07/03/16 at 20:00; Stop 07/03/16 at 20:59; Status DC Potassium Chloride/Dextrose/ Sod Cl 1,000 ml @ 100 mls/hr Q10H IV Last administered on 07/04/16 14:00; Start 07/04/16 at 14:00; Stop 07/05/16 at 09:24 ; Status DC Potassium Chloride 100 ml @ 100 mls/hr Q1H IV Last administered on 07/04/16 22:40; Start 07/04/16 at 17:00; Stop 07/04/16 at 20:59; Status DC Potassium Chloride 100 ml @ 100 mls/hr Q1H IV Last administered on 07/05/16 08:45; Start 07/05/16 at 08:00; Stop 07/05/16 at 11:59; Status DC Potassium Chloride/Dextrose 1,020 ml @ 100 mls/hr [id number] IV Last administered on 07/10/16 22:43; Start 07/05/16 at 10:00; Stop 07/11/16 at 16:53 ; Status DC Potassium Chloride (Klor-Con) 40 meq Q2HR PO Last administered on 07/05/16 18: 46; Start 07/05/16 at 10:00; Stop 07/05/16 at 14:01; Status DC Potassium Chloride (Klor-Con) 40 meq Q3HRS PO Last administered on 07/06/16 15 :44; Start 07/06/16 at 12:00; Stop 07/06/16 at 15:01; Status DC Polyethylene Glycol (miraLAX PACKET) 17 gm DAILY PO Last administered on 15:44; Start 07/06/16 at 13:30 Ondansetron HCl 4 mg 4 mg PRN Q4HRS PRN IV NAUSEA/VOMITING Last administered on 07/10/16 08:27; Start 07/07/16 at 04:45 Potassium Chloride 100 ml @ 100 mls/hr Q1H PRN IV FOR KCL 3.0 OR LESS Last administered on 07/09/16 11:45; Start 07/07/16 at 11:45; Stop 07/09/16 at 11:46 ; Status DC Magnesium Sulfate/ Dextrose 50 ml @ 25 mls/hr PRN 1X PRN IV SEE LAB; Start at 11:45 Potassium Chloride 100 ml @ 100 mls/hr Q1H PRN IV FOR KCL 3.1 - 3.5 Last administered on 07/08/16 00:54; Start 07/07/16 at 11:45; Stop 07/08/16 at 00:54 ; Status DC Propofol (Diprivan) 20 ml @ As Directed STK-MED ONCE IV ; Start 07/07/16 at 16: 52; Stop 07/07/16 at 16:53; Status DC Lidocaine HCl (Lidocaine Pf 2% Vial) 5 ml STK-MED ONCE .ROUTE ; Start 07/07/16 at 16:52; Stop 07/07/16 at 16:53; Status DC Polyethylene Glycol (miraLAX Powder BULK BOTTLE) 238 gm 1X ONCE PO Last administered on 07/07/16 20:55; Start 07/07/16 at 17:30; Stop 07/07/16 at 17:31 ; Status DC Enoxaparin Sodium (Lovenox 40mg Syringe) 40 mg Q24H SQ Last administered on 11:33; Start 07/08/16 at 10:00 Neomycin Sulfate (Neomycin Sulfate) 500 mg TID@14,15,22 PO Last administered on 07/09/16 21:50; Start 07/09/16 at 14:00; Stop 07/09/16 at 22:01; Status DC Erythromycin 500 mg 500 mg TID@14,15,22 PO Last administered on 07/09/16 21:50 ; Start 07/09/16 at 14:00; Stop 07/09/16 at 22:01; Status DC Cefazolin Sodium/ Dextrose 50 ml @ 100 mls/hr 1X ONCE IV Last administered on 07/10/16 10:09; Start 07/10/16 at 09:45; Stop 07/10/16 at 10:14; Status DC Metronidazole 100 ml @ 100 mls/hr 1X PERIOP ONCE IV Last administered on 07/10 10:25; Start 07/10/16 at 09:45; Stop 07/10/16 at 10:44; Status DC Potassium Chloride (KCl Premix 10meq) 100 ml @ 100 mls/hr Q1H IV Last administered on 07/09/16 20:12; Start 07/09/16 at 17:00; Stop 07/09/16 at 20:59 ; Status DC Lidocaine HCl 100 mg 100 mg STK-MED ONCE .ROUTE ; Start 07/10/16 at 09:16; Stop 07/10/16 at 09:17; Status DC Propofol (Diprivan) 100 ml @ As Directed STK-MED ONCE IV ; Start 07/10/16 at 09 :16; Stop 07/10/16 at 09:17; Status DC Fentanyl Citrate (Fentanyl 2ml Vial) 100 mcg STK-MED ONCE .ROUTE ; Start at 09:16; Stop 07/10/16 at 09:17; Status DC Rocuronium [place] (Zemuron) 50 mg STK-MED ONCE .ROUTE ; Start 07/10/16 at 09:16 ; Stop 07/10/16 at 09:17; Status DC Dexamethasone Sodium Phosphate (Decadron) 20 mg STK-MED ONCE .ROUTE ; Start at 10:20; Stop 07/10/16 at 10:21; Status DC Desflurane (Suprane) 60 ml STK-MED ONCE IH ; Start 07/10/16 at 10:20; Stop 07/10 at 10:21; Status DC Phenylephrine HCl 1 mg STK-MED ONCE IV ; Start 07/10/16 at 10:34; Stop 07/10/16 at 10:35; Status DC Fentanyl Citrate (Fentanyl 2ml Vial) 25 mcg PRN Q5MIN PRN IV MILD PAIN; Start 07/10/16 at 13:00; Stop 07/10/16 at 20:00; Status DC Fentanyl Citrate (Fentanyl 2ml Vial) 50 mcg PRN Q5MIN PRN IV MODERATE PAIN Last administered on 07/10/16 13:35; Start 07/10/16 at 13:00; Stop 07/10/16 at 20:00; Status DC Morphine Sulfate 1 mg 1 mg PRN Q10MIN PRN IV SEVERE PAIN Last administered on 13:48; Start 07/10/16 at 13:00; Stop 07/10/16 at 20:00; Status DC Lactated Ringer's (Iv Lactated Ringers) 1,000 ml @ 30 mls/hr Q24H IV Last administered on 07/10/16 09:50; Start 07/10/16 at 12:50; Stop 07/11/16 at 00:49 ; Status DC Lidocaine HCl 2 ml 1X PRN PRN ID IV START; Start 07/10/16 at 13:00; Stop at 20:00; Status DC Hydromorphone HCl (Dilaudid) 0.5 mg PRN Q10MIN PRN IV SEV PAIN,Second choice Last administered on 07/10/16 13:36; Start 07/10/16 at 13:00; Stop 07/10/16 at 20:00; Status DC Prochlorperazine Edisylate (Compazine) 5 mg PACU PRN PRN IV NAUSEA Last administered on 07/10/16 14:05; Start 07/10/16 at 13:00; Stop 07/10/16 at 20:00 ; Status DC Hydromorphone HCl (Dilaudid) 0.2-0.5 PRN Q3HRS PRN IVP PAIN; Start 07/10/16 at 13:15; Stop 07/10/16 at 13:20; Status DC Hydromorphone HCl (Dilaudid) 0.2 mg PRN Q3HRS PRN IVP PAIN; Start 07/10/16 at 13:20 Hydromorphone HCl (Dilaudid) 0.5 mg PRN Q3HRS PRN IVP PAIN Last administered on 07/12/16 03:52; Start 07/10/16 at 13:30 Hydromorphone HCl (Dilaudid) 1 mg PACU PRN PRN IV PAIN Last administered on 14:41; Start 07/10/16 at 14:00 Ondansetron HCl (Zofran) 4 mg STK-MED ONCE .ROUTE ; Start 07/10/16 at 11:44; Stop 07/11/16 at 09:52; Status DC Glycopyrrolate (Robinul) 1 mg STK-MED ONCE .ROUTE ; Start 07/10/16 at 11:44; Stop 07/11/16 at 09:52; Status DC Neostigmine Methylsulfate 5 mg STK-MED ONCE .ROUTE ; Start 07/10/16 at 11:44; Stop 07/11/16 at 09:52; Status DC Fentanyl Citrate (Fentanyl 2ml Vial) 100 mcg STK-MED ONCE .ROUTE ; Start at 11:52; Stop 07/11/16 at 09:52; Status DC Hydromorphone HCl (Dilaudid) 2 mg STK-MED ONCE .ROUTE ; Start 07/10/16 at 12:55 ; Stop 07/11/16 at 09:54; Status DC Fentanyl Citrate (Fentanyl 2ml Vial) 100 mcg STK-MED ONCE .ROUTE ; Start at 12:55; Stop 07/11/16 at 09:54; Status DC Fentanyl Citrate (Fentanyl 2ml Vial) 100 mcg STK-MED ONCE .ROUTE ; Start at 13:12; Stop 07/11/16 at 09:54; Status DC Morphine Sulfate 2 mg 2 mg STK-MED ONCE .ROUTE ; Start 07/10/16 at 13:12; Stop 07/11/16 at 09:54; Status DC Dextrose/Sodium Chloride (Iv D5% - 1/2 NS) 1,000 ml @ 100 mls/hr Q10H IV Last administered on 07/12/16 01:01; Start 07/11/16 at 12:45 Active Scripts Active Reported Rosman-3 (Rosman-3 Fatty Acids) 1,000 Mg Capsule 1,000 Mg PO BID Miralax (Polyethylene Glycol 3350) 17 Gm Powd.pack 1 Packet PO BID Escitalopram Oxalate 10 Mg Tablet 1 Tab PO DAILY Famotidine 20 Mg Tablet 20 Mg PO BID Colace (Docusate Sodium) 100 Mg Capsule 1 Cap PO BID Catapres-Tts 2 (Clonidine) 1 Each Patch.tdwk 1 Each TD QWE Centrum Silver Men Tablet (Multivit-Min/FA/Lycopen/Lutein) 1 Each Tablet 1 Each PO DAILY Bisacodyl 10 Mg Supp.rect 10 Mg RC PRN DAILY PRN Baclofen 10 Mg Tablet 1 Tab PO TID Atorvastatin Calcium 20 Mg Tablet 20 Mg PO HS Aspirin 81 Mg Tab.chew 1 Tab PO DAILY Amlodipine Besylate 10 Mg Tablet 10 Mg PO DAILY Vitals/I & O Vital Sign - Last 24 Hours 07/11/16 07/11/16 07/11/16 07/11/16 14:07 14:24 14:45 20:15 Temp 99.0 99.0 Pulse 103 Resp 20 B/P 158/95 Pulse Ox 91 O2 Delivery Room Air Room Air Room Air Room Air O2 Flow Rate 2.0 07/11/16 07/11/16 07/12/16 07/12/16 21:01 23:00 03:00 03:52 Temp 98.2 98.0 98.5 98.2 98.0 98.5 Pulse 103 84 93 Resp 18 18 18 20 B/P 143/84 170/98 144/92 Pulse Ox 94 91 92 O2 Delivery Room Air Room Air 07/12/16 07/12/16 05:06 07:00 Temp 97.4 97.4 Pulse 84 Resp 20 B/P 129/88 Pulse Ox 97 O2 Delivery Room Air Intake and Output 07/11/16 07/11/16 07/12/16 15:00 23:00 07:00 Intake Total 0 ml 0 ml Output Total 1400 ml 1200 ml Balance -1400 ml -1200 ml TAMMY TOM MD Jul 12, 2016 10:07
[2016-07-12] MEDS: ENOXAPARIN 40 MG/0.4 ML DISP.SYRIN. SQ SCH (10:58)
[2016-07-12 11:00] VITALS: BP 145/90
--- NOTE | 2016-07-12 12:19 | PDOC ---
Subjective: Subjective: Doing okay. Pain better. Objective: Objective: Per RN - stable. Vital Signs: Vital Signs Date Time Temp Pulse Resp B/P Pulse Ox O2 Delivery O2 Flow Rate FiO2 07/12/16 11:00 97.4 77 18 145/90 90 Room Air 97.4 07/11/16 20:15 2.0 Labs: Laboratory Tests Test 07/12/16 04:15 White Blood Count 11.7x10^3/uL Red Blood Count 4.78x10^6/uL Hemoglobin 13.6g/dL Hematocrit 41.0% Mean Corpuscular Volume 86fL Mean Corpuscular Hemoglobin 28pg Mean Corpuscular Hemoglobin Concent 33g/dL Red Cell Distribution Width 14.4% Platelet Count 249x10^3/uL Neutrophils (%) (Auto) 83% Lymphocytes (%) (Auto) 9% Monocytes (%) (Auto) 8% Eosinophils (%) (Auto) 0% Basophils (%) (Auto) 1% Neutrophils # (Auto) 9.7x10^3uL Lymphocytes # (Auto) 1.0x10^3/uL Monocytes # (Auto) 0.9x10^3/uL Eosinophils # (Auto) 0.0x10^3/uL Basophils # (Auto) 0.1x10^3/uL Sodium Level 141mmol/L Potassium Level 4.1mmol/L Chloride Level 103mmol/L Carbon Dioxide Level 30mmol/L Anion Gap 8 Blood Urea Nitrogen 11mg/dL Creatinine 0.9mg/dL Estimated GFR (Cockcroft-Gault) 105.2 BUN/Creatinine Ratio 12 Glucose Level 120mg/dL Calcium Level 9.3mg/dL Magnesium Level 1.9mg/dL Total Bilirubin 0.4mg/dL Aspartate Amino Transf (AST/SGOT) 20U/L Alanine Aminotransferase (ALT/SGPT) 15U/L Alkaline Phosphatase 96U/L Total Protein 7.2g/dL Albumin 3.4g/dL Albumin/Globulin Ratio 0.9 PE: GEN: NAD LUNGS: clear anteriorly HEART: RRR ABD: vaguely tender NEURO/PSYCH: answers yes/no A/P: S/p sigmoid colon resection 07/10/16 -- Possibly to start clears tomorrow per surgery. RANDOLPH TYSON Jul 12, 2016 12:19
[2016-07-12] MEDS: HYDROMORPHONE 2 MG/ML VIAL. IV PRN (12:52)
--- NOTE | 2016-07-12 13:42 | PATHOLOGY ---
PATHOLOGY REPORT * * * * * * * * FINAL DIAGNOSIS: Segment of colon and attached mesocolon, sigmoid colon segmental resection: - Marked dilatation and congestion of colon, consistent with volvulus. - Hyperplastic polyps, multiple. - Seventeen mesocolic lymph nodes showing focal reactive changes. COMMENT: There is marked dilatation and congestion of the colon consistent with volvulus. The mucosa and fibromuscular wall of the colon appear viable. There are multiple slightly raised sessile hyperplastic polyps. There is no evidence of malignancy. (JPM:csd; d/t: 07/12/2016) REPORT ELECTRONICALLY SIGNED BY: Isaiah Hernandez M.D. DATE/TIME: 07/12/2016 13:41 * * * * * * * * GROSS PATHOLOGY: The specimen is received in formalin, labeled "Amilcar Ritchie and sigmoid colon." Received is a markedly distended, dilated, and unoriented segment of colon measuring 31.4 cm in diameter. The diameter ranges from 9.5-12.7 cm. There is up to 5.2 cm in length of attached pericolic fat. The specimen displays 2 stapled margins, which grossly appear viable. The colonic serosa is pink-floyd, well vascularized, and displays adhesions. The specimen was previously opened to reveal multiple floyd, sessile, and polypoid lesions ranging from 0.2-0.9 cm in greatest dimension. The remaining mucosa is floyd-brown and flattened, with slight loss of the usual architectural folds. The wall is thickened and measures 0.4 cm. dissection of the pericolic fat reveals multiple pink-floyd lymph nodes ranging from 0.3-0.8 cm in greatest dimension. [employer] Professional sections are submitted as follows: A1-A2 undesignated margins, en face A3-A4 polypoid lesions, representatively submitted A5-A7 multiple intact and possible lymph nodes (TTL; 07/11/2016) INITIAL CPT CODE(S): 77046 Professional services performed by [facility] at [facility] [address] [place] [id number] Technical services performed by [facility] at [address] [place] [address], [address], [place] [address]. SPECIMEN(S) RECEIVED: A.Sigmoid colon CLINICAL HISTORY: Sigmoid volvulus PATIENT: AMILCAR RITCHIE /AGE: 3 1960 (Age: 55) PATIENT #: [id number] ALT CASE #: SPECIMEN COLLECTION DATE: 07/10/2016 SPECIMEN RECEIVED DATE: 07/10/2016 [facility] - [id number] [place] [address] - PHONE: [phone] * * * END OF REPORT * * *
[2016-07-12 15:00] VITALS: BP 144/89
[2016-07-12 19:00] VITALS: BP 138/91
[2016-07-12 23:16] VITALS: BP 147/94
[2016-07-13 03:03] VITALS: BP 148/96
--- NOTE | 2016-07-13 06:41 | PN ---
DATE: 07/12/2016 SUBJECTIVE: The patient is resting, slightly propped up in bed, in no apparent respiratory distress. He is awake, alert. Denied any complaint, in particular denied any nausea, vomiting. Denied any abdominal pain. PHYSICAL EXAMINATION: GENERAL: When I asked him, he said he did pass flatus. When I examined him, he looked pale, but no jaundice, cyanosis, or thyromegaly. No jugular venous distention. No limb edema. VITAL SIGNS: His heart rate was 90, blood pressure 144/89, temperature was 97.4, respiratory rate was 18 and oxygen saturation was 90% on room air. HEAD, EYES, EARS, NOSE AND THROAT: Showed normocephalic, atraumatic. NECK: Supple. HEART: Showed normal first and second heart sounds with no gallop, rub or murmur. CHEST: Clear to auscultation. No crepitation or rhonchi. ABDOMEN: Distended, soft. There is no guarding or rigidity. No organomegaly. Hernial orifices intact. Bowel sounds normal. NEUROLOGIC: He is awake, alert, has left middle cerebral artery territory infarct with right-sided hemiplegia and aphasia. His intake over the last 24 hours was 2550, output was 2800. LABORATORY DATA: As of this morning showed a serum sodium 141, potassium 4.1, chloride 103, bicarbonate 30, anion gap of 8, BUN 11, creatinine 0.9, estimated GFR was 105 mL per minute. His glucose was 120, calcium was 9.3, and magnesium was 1.9. Total bilirubin, AST, ALT, alkaline phosphatase were normal. Total protein was 7.2, albumin 3.4. His white cell count was 11,700; hemoglobin 13.6; hematocrit 41; MCV 86 and platelet count of 249,000. ASSESSMENT: 1. Sigmoid volvulus, status post colonoscopy and decompression after which the patient underwent sigmoid colon resection. 2. Hypertension, seems to be well controlled. 3. 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 4. Gastroesophageal reflux disease. 5. Carotid artery stenosis with infarct. 6. Chronic pain syndrome. 7. Hypokalemia that has finally resolved. PLAN: To continue with IV fluid and hopefully start him on a clear liquid diet tomorrow. KIRT JAMA MD DR: AARON/wendy JOB#: [id number] / [id number]
[2016-07-13 07:00] VITALS: BP 145/90
[2016-07-13] MEDS: HYDROMORPHONE 2 MG/ML VIAL. IVP PRN (07:33)
[2016-07-13 08:08] LABS: CALCIUM 8.7 mg/dL (8.5-10.1); CREATININE 0.8 mg/dL (0.7-1.3); GFR 120.6; POTASSIUM 3.3 mmol/L (3.5-5.1)
[2016-07-13] MEDS: POLYETHYLENE GLYCOL 3350 17 GM PACKET. PO SCH (09:26)
[2016-07-13] MEDS: IV DEXTROSE 5 %-0.45 % NACL 1,000 ML IV SCH ×3 (09:27→20:25)
[2016-07-13] MEDS: ENOXAPARIN 40 MG/0.4 ML DISP.SYRIN. SQ SCH (09:27)
[2016-07-13 10:55] VITALS: BP 145/97
--- NOTE | 2016-07-13 11:30 | PDOC ---
Subjective: Subjective: Pt w/o complaints. Objective: Objective: Per RN - tolerating clears, had a mucousy stool with a little blood. Vital Signs: Vital Signs Date Time Temp Pulse Resp B/P Pulse Ox O2 Delivery O2 Flow Rate FiO2 07/13/16 10:55 98.4 85 18 145/97 94 Room Air 98.4 Labs: Laboratory Tests Test 07/13/16 07:15 Sodium Level 142mmol/L Potassium Level 3.3mmol/L Chloride Level 104mmol/L Carbon Dioxide Level 29mmol/L Anion Gap 9 Blood Urea Nitrogen 7mg/dL Creatinine 0.8mg/dL Estimated GFR (Cockcroft-Gault) 120.6 Glucose Level 98mg/dL Calcium Level 8.7mg/dL PE: GEN: NAD ABD: soft, non-tender NEURO/PSYCH: alert, answers yes/no A/P: S/p sigmoid colon resection 07/10/16 -- Doing well post-op, diet per surg. RANDOLPH TYSON Jul 13, 2016 11:30
--- NOTE | 2016-07-13 11:45 | PDOC ---
TENNILLE GUTIÉRREZ [employer] 07/13/16 1145: SURGICAL PROGRESS NOTE Subjective denies pain had a bm per nurse Vital Signs Vital Signs Date Time Temp Pulse Resp B/P Pulse Ox O2 Delivery O2 Flow Rate FiO2 07/13/16 10:55 98.4 85 18 145/97 94 Room Air 98.4 I&O Intake and Output 07/13/16 07:00 Intake Total 1484 ml Output Total 1600 ml Balance -116 ml Intake Oral 320 ml IV Total 1164 ml Output Urine Total 1600 ml PATIENT HAS A THOMAS: Yes (dc) General: Alert, Oriented X3, Cooperative, No acute distress Abdomen: Soft, Other (incision c/d/i, no erythema ) Labs Laboratory Tests Test 07/12/16 04:15 07/13/16 07:15 White Blood Count 11.7x10^3/uL (4.0-11.0) Red Blood Count 4.78x10^6/uL (4.30-5.70) Hemoglobin 13.6g/dL (13.0-17.5) Hematocrit 41.0% (39.0-53.0) Mean Corpuscular Volume 86fL (79-100) Mean Corpuscular Hemoglobin 28pg (25-35) Mean Corpuscular Hemoglobin Concent 33g/dL (31-37) Red Cell Distribution Width 14.4% (11.5-14.5) Platelet Count 249x10^3/uL (140-400) Neutrophils (%) (Auto) 83% (31-73) Lymphocytes (%) (Auto) 9% (24-48) Monocytes (%) (Auto) 8% (0-9) Eosinophils (%) (Auto) 0% (0-3) Basophils (%) (Auto) 1% (0-3) Neutrophils # (Auto) 9.7x10^3uL (1.8-7.7) Lymphocytes # (Auto) 1.0x10^3/uL (1.0-4.8) Monocytes # (Auto) 0.9x10^3/uL (0.0-1.1) Eosinophils # (Auto) 0.0x10^3/uL (0.0-0.7) Basophils # (Auto) 0.1x10^3/uL (0.0-0.2) Sodium Level 141mmol/L (136-145) 142mmol/L (136-145) Potassium Level 4.1mmol/L (3.5-5.1) 3.3mmol/L (3.5-5.1) Chloride Level 103mmol/L (98-107) 104mmol/L (98-107) Carbon Dioxide Level 30mmol/L (21-32) 29mmol/L (21-32) Anion Gap 8 (6-14) 9 (6-14) Blood Urea Nitrogen 11mg/dL (8-26) 7mg/dL (8-26) Creatinine 0.9mg/dL (0.7-1.3) 0.8mg/dL (0.7-1.3) Estimated GFR (Cockcroft-Gault) 105.2 120.6 BUN/Creatinine Ratio 12 (6-20) Glucose Level 120mg/dL (70-99) 98mg/dL (70-99) Calcium Level 9.3mg/dL (8.5-10.1) 8.7mg/dL (8.5-10.1) Magnesium Level 1.9mg/dL (1.8-2.4) Total Bilirubin 0.4mg/dL (0.2-1.0) Aspartate Amino Transf (AST/SGOT) 20U/L (15-37) Alanine Aminotransferase (ALT/SGPT) 15U/L (16-63) Alkaline Phosphatase 96U/L (46-116) Total Protein 7.2g/dL (6.4-8.2) Albumin 3.4g/dL (3.4-5.0) Albumin/Globulin Ratio 0.9 (1.0-1.7) Laboratory Tests Test 07/13/16 07:15 Sodium Level 142mmol/L (136-145) Potassium Level 3.3mmol/L (3.5-5.1) Chloride Level 104mmol/L (98-107) Carbon Dioxide Level 29mmol/L (21-32) Anion Gap 9 (6-14) Blood Urea Nitrogen 7mg/dL (8-26) Creatinine 0.8mg/dL (0.7-1.3) Estimated GFR (Cockcroft-Gault) 120.6 Glucose Level 98mg/dL (70-99) Calcium Level 8.7mg/dL (8.5-10.1) Problem List Problems Medical Problems: (1) Abdominal pain Status: Acute (2) Hemiplegia affecting dominant side Status: Acute (3) Hypokalemia Status: Acute (4) Ileus Status: Acute (5) Sigmoid volvulus Status: Acute (6) Sigmoid volvulus Status: Acute Assessment/Plan s/p sigmoid resection clears, slowly advance dc thomas Problems: TAMMY TOM MD 07/13/16 1406: SURGICAL PROGRESS NOTE Assessment/Plan Agree with above Problems: TENNILLE GUTIÉRREZ APRN Jul 13, 2016 11:45 TAMMY TOM MD Jul 13, 2016 14:06
[2016-07-13 15:33] VITALS: BP 146/110
[2016-07-13] MEDS: POTASSIUM CHLORIDE 20 MEQ TABLET.ER. PO SCH ×2 (17:25→20:19)
[2016-07-13 19:00] VITALS: BP 139/97
[2016-07-13 23:00] VITALS: BP 146/98
[2016-07-14] VITALS (7 sets, daily range): BP systolic 116–151; BP diastolic 58–98
[2016-07-14 05:48] LABS: CALCIUM 8.7 mg/dL (8.5-10.1); CREATININE 0.8 mg/dL (0.7-1.3); GFR 120.6; POTASSIUM 3.5 mmol/L (3.5-5.1)
--- NOTE | 2016-07-14 08:30 | PDOC ---
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 SELLER 07/14/16 0830: SURGICAL PROGRESS NOTE Subjective on clears, 3 Bms documented nurse can not tell me how he is tolerating clears he denies n/v Vital Signs Vital Signs Date Time Temp Pulse Resp B/P Pulse Ox O2 Delivery O2 Flow Rate FiO2 07/14/16 03:00 98.5 105 18 121/93 94 98.5 07/13/16 20:00 Room Air I&O Intake and Output 07/14/16 07:00 Intake Total 720 ml Output Total 2000 ml Balance -1280 ml Intake Oral 720 ml Output Urine Total 2000 ml # Voids 4 # Bowel Movements 3 General: Alert, Cooperative, No acute distress Abdomen: Soft, Other (mild distention, incision c/d/i, no erythema ) Labs Laboratory Tests Test 07/13/16 07:15 07/14/16 05:05 Sodium Level 142mmol/L (136-145) 141mmol/L (136-145) Potassium Level 3.3mmol/L (3.5-5.1) 3.5mmol/L (3.5-5.1) Chloride Level 104mmol/L (98-107) 105mmol/L (98-107) Carbon Dioxide Level 29mmol/L (21-32) 27mmol/L (21-32) Anion Gap 9 (6-14) 9 (6-14) Blood Urea Nitrogen 7mg/dL (8-26) 3mg/dL (8-26) Creatinine 0.8mg/dL (0.7-1.3) 0.8mg/dL (0.7-1.3) Estimated GFR (Cockcroft-Gault) 120.6 120.6 Glucose Level 98mg/dL (70-99) 106mg/dL (70-99) Calcium Level 8.7mg/dL (8.5-10.1) 8.7mg/dL (8.5-10.1) Laboratory Tests Test 07/14/16 05:05 Sodium Level 141mmol/L (136-145) Potassium Level 3.5mmol/L (3.5-5.1) Chloride Level 105mmol/L (98-107) Carbon Dioxide Level 27mmol/L (21-32) Anion Gap 9 (6-14) Blood Urea Nitrogen 3mg/dL (8-26) Creatinine 0.8mg/dL (0.7-1.3) Estimated GFR (Cockcroft-Gault) 120.6 Glucose Level 106mg/dL (70-99) Calcium Level 8.7mg/dL (8.5-10.1) Problem List Problems Medical Problems: (1) Abdominal pain Status: Acute (2) Hemiplegia affecting dominant side Status: Acute (3) Hypokalemia Status: Acute (4) Ileus Status: Acute (5) Sigmoid volvulus Status: Acute (6) Sigmoid volvulus Status: Acute Assessment/Plan s/p resection clears today, asked nurse to document how pt tolerates--if tolerating advance tomorrow tmax 100.3, added PT/OT for increased activity Problems: TAMMY TOM MD 07/14/16 1216: SURGICAL PROGRESS NOTE Assessment/Plan Reviewed, agree with above Problems: TENNILLE GUTIÉRREZ APRN Jul 14, 2016 08:30 TAMMY TOM MD Jul 14, 2016 12:16
[2016-07-14] MEDS: POLYETHYLENE GLYCOL 3350 17 GM PACKET. PO SCH (09:51)
[2016-07-14] MEDS: POTASSIUM CHLORIDE 20 MEQ TABLET.ER. PO SCH ×4 (09:51→21:08)
[2016-07-14] MEDS: ENOXAPARIN 40 MG/0.4 ML DISP.SYRIN. SQ SCH (09:52)
[2016-07-14] MEDS: IV DEXTROSE 5 %-0.45 % NACL 1,000 ML IV SCH ×2 (09:58→20:52)
--- NOTE | 2016-07-14 11:25 | PN ---
DATE: 07/13/2016 SUBJECTIVE: The patient is resting slightly propped up in bed, awake, alert, in no apparent distress. On questioning him, he denied any complaint, in particular denied any abdominal pain. Denied nausea or vomiting. Did have a bowel movement and he is now on a clear liquid diet. PHYSICAL EXAMINATION: GENERAL: When I saw him this afternoon, he looked well, slightly pale, but no jaundice, cyanosis or thyromegaly. No jugular venous distention. No lower limb edema. VITAL SIGNS: Her heart rate was 85, blood pressure was 145/97, temperature was 98.4, respiratory rate was 18 and oxygen saturation was 94%. HEAD, EYES, EARS, NOSE AND THROAT: Showed normocephalic, atraumatic. NECK: Supple. HEART: Showed normal first and second heart sounds with no gallop, rub or murmur. CHEST: Clear to auscultation. No crepitation or rhonchi. ABDOMEN: Distended, soft, nontender. No guarding or rigidity. No organomegaly. Hernial orifices intact. Bowel sounds normal. 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 His intake over the last 24 hours was 1500, output was 1600. LABORATORY DATA: As of this morning, his serum sodium was 142, potassium 3.3, chloride 104, bicarbonate 29, anion gap of 9, BUN 7, creatinine 0.8, estimated GFR was 120 mL per minute. His glucose was 98, calcium was 8.7, white cell count was 11,700; hemoglobin 14, hematocrit 41, MCV 86 and platelet count 249,000 with a manual differential showed 83% polymorphs, 9% lymphocytes, and 8% monocytes. ASSESSMENT: 1. Sigmoid volvulus, status post colonoscopy with decompression and eventually sigmoid colectomy with end-to-end anastomosis. 2. Right middle cerebral artery territory infarct with right-sided hemiplegia, aphasia. 3. Hypokalemia. Serum potassium of 3.3. The patient was seen by the surgical team and apparently started on a clear liquid diet and advance as tolerated. PLAN: I will continue with electrolyte replacement protocol intravenously today and once he is on a regular diet, we will put him on oral potassium. KIRT JAMA MD DR: Teresita JOB#: [id number] / [id number]
[2016-07-14] MEDS ORDERED: IV NORMAL SALINE 500ML BAG 500 ML IV ONE (11:30)
--- NOTE | 2016-07-14 13:26 | PDOC ---
Subjective: Subjective: Doing okay, having BMs. Objective: Vital Signs: Vital Signs Date Time Temp Pulse Resp B/P Pulse Ox O2 Delivery O2 Flow Rate FiO2 07/14/16 12:54 73 116/58 07/14/16 11:20 98.4 18 93 Room Air 98.4 Labs: Laboratory Tests Test 07/14/16 05:05 Sodium Level 141mmol/L Potassium Level 3.5mmol/L Chloride Level 105mmol/L Carbon Dioxide Level 27mmol/L Anion Gap 9 Blood Urea Nitrogen 3mg/dL Creatinine 0.8mg/dL Estimated GFR (Cockcroft-Gault) 120.6 Glucose Level 106mg/dL Calcium Level 8.7mg/dL PE: GEN: NAD ABD: BS+, non-tender NEURO/PSYCH: appropriate A/P: S/p sigmoid colon resection 07/10/16 -- Continue same, diet per surg. RANDOLPH TYSON Jul 14, 2016 13:26
[2016-07-15 03:59] VITALS: BP 141/84
--- NOTE | 2016-07-15 04:59 | PN ---
DATE: SUBJECTIVE: The patient is resting slightly propped up in bed, in no apparent respiratory distress. He is awake and alert. On questioning him, he denied any complaint, in particular, nausea or vomiting. Denied any abdominal pain. He has had a bowel movement and passing flatus. He is tolerating his clear liquid diet. Apparently, the plan is for him to have ____ tomorrow according to the surgical team. OBJECTIVE: GENERAL: When I examined him, he looked well and was clearly in no apparent respiratory distress, ____ no jaundice, cyanosis or thyromegaly. No jugular venous distention. No limb edema. VITAL SIGNS: His heart rate was 103, blood pressure was 125/90, temperature was 98.4, respiratory rate 16, and oxygen saturation was 91%. The rest of clinical examination is unremarkable. His intake was 1500, output was 1600. LABORATORY DATA: His lab work showed a white cell count of 11,700, hemoglobin 13, hematocrit 41, MCV 86 and platelet count of 249,000. His chemistry showed a serum sodium 141, potassium 3.5, chloride 105, bicarbonate 27, anion gap 9, BUN 3, creatinine 0.8, estimated GFR was 120 mL per minute. His glucose was 106 and calcium was 8.7. ASSESSMENT: 1. Sigmoid volvulus, status post colonoscopy and decompression for which the patient underwent sigmoid colon resection. 2. Hypertension, seems to be well controlled. 3. Left middle cerebral artery territory infarct, left side hemiplegia and aphasia. 4. Gastroesophageal reflux disease. 5. Carotid artery stenosis with infarct. 6. Chronic pain syndrome. 7. Hypokalemia, that has finally resolved. PLAN: Continue with IV fluids and potassium supplement. Hopefully, will advance his diet tomorrow and will discharge him back to [facility]. KIRT JAMA MD DR: AARON/wendy JOB#: [id number] / [id number]
[2016-07-15 06:50] LABS: BASO % 1 % (0-3); EOS % 3 % (0-3); HEMATOCRIT 38.1 % (39.0-53.0); LYMPH % 27 % (24-48); MEAN CORPUSCULAR HEMOGLOBIN 29 pg (25-35); MEAN CORPUSCULAR HGB CONC 34 g/dL (31-37); MEAN CORPUSCULAR VOLUME 84 fL (79-100); MONO % 12 % (0-9); NEUT % 58 % (31-73); PLATELET COUNT 249 x10^3/uL (140-400); RED BLOOD COUNT 4.56 x10^6/uL (4.30-5.70); RED CELL DISTRIBUTION WIDTH 14.2 % (11.5-14.5); WHITE BLOOD COUNT 7.5 x10^3/uL (4.0-11.0)
[2016-07-15 06:57] LABS: CALCIUM 8.7 mg/dL (8.5-10.1); CREATININE 0.8 mg/dL (0.7-1.3); GFR 120.6; POTASSIUM 3.6 mmol/L (3.5-5.1)
[2016-07-15] MEDS: IV DEXTROSE 5 %-0.45 % NACL 1,000 ML IV SCH (06:59)
[2016-07-15 07:15] VITALS: BP 130/84
--- NOTE | 2016-07-15 08:57 | PDOC ---
SURGICAL PROGRESS NOTE Subjective no complaints tolerating diet having stools Vital Signs Vital Signs Date Time Temp Pulse Resp B/P Pulse Ox O2 Delivery O2 Flow Rate FiO2 07/15/16 07:46 Room Air 07/15/16 07:15 97.4 93 18 130/84 96 97.4 07/14/16 15:00 2.0 I&O Intake and Output 07/15/16 07:00 Intake Total 480 ml Balance 480 ml Intake Oral 480 ml # Voids 5 # Bowel Movements 4 General: Cooperative, No acute distress Abdomen: Soft, Other (incision c/d/i, no erythema ) Labs Laboratory Tests Test 07/14/16 05:05 07/15/16 06:19 Sodium Level 141mmol/L (136-145) 141mmol/L (136-145) Potassium Level 3.5mmol/L (3.5-5.1) 3.6mmol/L (3.5-5.1) Chloride Level 105mmol/L (98-107) 106mmol/L (98-107) Carbon Dioxide Level 27mmol/L (21-32) 26mmol/L (21-32) Anion Gap 9 (6-14) 9 (6-14) Blood Urea Nitrogen 3mg/dL (8-26) 4mg/dL (8-26) Creatinine 0.8mg/dL (0.7-1.3) 0.8mg/dL (0.7-1.3) Estimated GFR (Cockcroft-Gault) 120.6 120.6 Glucose Level 106mg/dL (70-99) 110mg/dL (70-99) Calcium Level 8.7mg/dL (8.5-10.1) 8.7mg/dL (8.5-10.1) White Blood Count 7.5x10^3/uL (4.0-11.0) Red Blood Count 4.56x10^6/uL (4.30-5.70) Hemoglobin 13.0g/dL (13.0-17.5) Hematocrit 38.1% (39.0-53.0) Mean Corpuscular Volume 84fL (79-100) Mean Corpuscular Hemoglobin 29pg (25-35) Mean Corpuscular Hemoglobin Concent 34g/dL (31-37) Red Cell Distribution Width 14.2% (11.5-14.5) Platelet Count 249x10^3/uL (140-400) Neutrophils (%) (Auto) 58% (31-73) Lymphocytes (%) (Auto) 27% (24-48) Monocytes (%) (Auto) 12% (0-9) Eosinophils (%) (Auto) 3% (0-3) Basophils (%) (Auto) 1% (0-3) Neutrophils # (Auto) 4.3x10^3uL (1.8-7.7) Lymphocytes # (Auto) 2.0x10^3/uL (1.0-4.8) Monocytes # (Auto) 0.9x10^3/uL (0.0-1.1) Eosinophils # (Auto) 0.2x10^3/uL (0.0-0.7) Basophils # (Auto) 0.0x10^3/uL (0.0-0.2) Laboratory Tests Test 07/15/16 06:19 White Blood Count 7.5x10^3/uL (4.0-11.0) Red Blood Count 4.56x10^6/uL (4.30-5.70) Hemoglobin 13.0g/dL (13.0-17.5) Hematocrit 38.1% (39.0-53.0) Mean Corpuscular Volume 84fL (79-100) Mean Corpuscular Hemoglobin 29pg (25-35) Mean Corpuscular Hemoglobin Concent 34g/dL (31-37) Red Cell Distribution Width 14.2% (11.5-14.5) Platelet Count 249x10^3/uL (140-400) Neutrophils (%) (Auto) 58% (31-73) Lymphocytes (%) (Auto) 27% (24-48) Monocytes (%) (Auto) 12% (0-9) Eosinophils (%) (Auto) 3% (0-3) Basophils (%) (Auto) 1% (0-3) Neutrophils # (Auto) 4.3x10^3uL (1.8-7.7) Lymphocytes # (Auto) 2.0x10^3/uL (1.0-4.8) Monocytes # (Auto) 0.9x10^3/uL (0.0-1.1) Eosinophils # (Auto) 0.2x10^3/uL (0.0-0.7) Basophils # (Auto) 0.0x10^3/uL (0.0-0.2) Sodium Level 141mmol/L (136-145) Potassium Level 3.6mmol/L (3.5-5.1) Chloride Level 106mmol/L (98-107) Carbon Dioxide Level 26mmol/L (21-32) Anion Gap 9 (6-14) Blood Urea Nitrogen 4mg/dL (8-26) Creatinine 0.8mg/dL (0.7-1.3) Estimated GFR (Cockcroft-Gault) 120.6 Glucose Level 110mg/dL (70-99) Calcium Level 8.7mg/dL (8.5-10.1) Problem List Problems Medical Problems: (1) Abdominal pain Status: Acute (2) Hemiplegia affecting dominant side Status: Acute (3) Hypokalemia Status: Acute (4) Ileus Status: Acute (5) Sigmoid volvulus Status: Acute (6) Sigmoid volvulus Status: Acute Assessment/Plan s/p resection advance diet dc planning when medically stable Problems: TENNILLE GUTIÉRREZ APRN Jul 15, 2016 08:57
[2016-07-15] MEDS: ENOXAPARIN 40 MG/0.4 ML DISP.SYRIN. SQ SCH (09:40)
[2016-07-15] MEDS: POTASSIUM CHLORIDE 20 MEQ TABLET.ER. PO SCH ×2 (09:40→13:36)
[2016-07-15] MEDS: POLYETHYLENE GLYCOL 3350 17 GM PACKET. PO SCH (09:40)
[2016-07-15 11:21] VITALS: BP 135/87
[2016-07-15] MEDS ORDERED: POTA20TA82 PO (12:47)
[2016-07-15 15:16] VITALS: BP 134/87
--- NOTE | 2016-07-15 21:39 | DS ---
DATE OF DISCHARGE: 07/15/2016 HOSPITAL COURSE: The patient is a 55-year-old -[place] male patient, a resident at [facility] who was admitted because of progressive abdominal distention with recurrent bouts of nausea and vomiting. He was evaluated and was found to have sigmoid volvulus for which he underwent colonoscopy and decompression. Eventually he underwent sigmoid colon resection with end-to-end anastomosis. He did actually very well postoperatively. Initially was kept n.p.o. with IV fluid. We started him on a clear liquid diet and advanced diet as tolerated and is doing very well. He had denied any nausea, vomiting. Denied any abdominal pain. He has had bowel movement and passing flatus. I was consulted Dr. Rosario and from medical point of view, he seem to be stable and a decision was made to discharge him back to [facility] to go on a low residue diet. Continue with all his other medication. PHYSICAL EXAMINATION: GENERAL: When I saw him this afternoon, he looked well and was clearly in no apparent respiratory distress, slightly pale, but no jaundice, cyanosis, or thyromegaly. No jugular venous distention. No limb edema. VITAL SIGNS: Her heart rate was 98, blood pressure 135/87, temperature was 97.9, respiratory rate was 18, and oxygen saturation was 97%. HEAD, EYES, EARS, NOSE, AND THROAT: Showed normocephalic, atraumatic. NECK: Supple. HEART: Showed normal first and second heart sounds with no gallop, rub, or murmur. CHEST: Clear to auscultation. No crepitation or rhonchi. ABDOMEN: Distended, soft, nontender. No guarding or rigidity. No organomegaly. Hernial orifices intact. Bowel sounds normal. NEUROLOGIC: He has left middle cerebral artery territory infarct with right-sided hemiplegia and dysphagia. His intake was 720, output was 2000. LABORATORY DATA: His lab work this morning showed a white cell count 7500, hemoglobin 13, hematocrit 38, MCV 84, and platelet count 249,000 with normal manual differential. His chemistry showed a serum sodium 141, potassium 3.6, chloride 106, bicarbonate 26, anion gap of 9, BUN 4, creatinine 0.8, estimated GFR was 150 mL/minute. His glucose was 110 and calcium was 8.7. FINAL DISCHARGE DIAGNOSES: 1. Sigmoid volvulus, status post colonoscopy with decompression after which he underwent sigmoid colon resection with end-to-end anastomosis. 2. Profound hypokalemia, resolved. His most recent serum potassium is 3.6. 3. Hypertension, seems to be well controlled. 4. 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 5. Gastroesophageal reflux disease. 6. Carotid artery disease with infarct. 7. Chronic pain syndrome. KIRT JAMA MD DR: AARON/wendy JOB#: [id number] / [id number]
--- NOTE | 2016-07-16 00:02 | PN ---
DATE: 07/15/2016 SUBJECTIVE: The patient is resting, slightly propped up in bed, has tolerated his liquid diet and today was started on a low residue diet and so far has done well, has no episodes of nausea or vomiting, no abdominal pain. PHYSICAL EXAMINATION: GENERAL: When I examined him this afternoon, he looked well and was clearly in no apparent respiratory distress, pale, but ____ no jaundice, cyanosis, ____ or thyromegaly. No jugular venous distention. No limb edema. VITAL SIGNS: His heart rate was 98, blood pressure 135/87, temperature was 97.9, respiratory rate was 18 and oxygen saturation was 97% on room air. HEAD, EYES, EARS, NOSE AND THROAT: Showed normocephalic, atraumatic. NECK: Supple. HEART: Showed normal first and second sounds. No gallop, rub or murmur. CHEST: Clear to auscultation, no crepitation or rhonchi. ABDOMEN: Slightly distended, soft, nontender. No guarding or rigidity. No organomegaly. Hernial orifices intact. Bowel sounds normal. 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 His intake over the last 24 hours was 720, output was 3000. LABORATORY DATA: As of this morning showed a white cell count of 7500, hemoglobin 13, hematocrit 38, MCV 84 and platelet count 249,000. His chemistry showed a serum sodium of 141, potassium 3.6, chloride 106, bicarbonate 26, anion gap of 9, BUN 4, creatinine 0.8. Estimated GFR was 120 mL per minute. His glucose was 110. Calcium was 8.7. ASSESSMENT: 1. Sigmoid volvulus, status post colonoscopy and decompression after which he underwent sigmoid colon resection with end-to-end anastomosis. 2. Hypokalemia, resolved. 3. Hypertension, seems to be well controlled. 4. Left middle cerebral artery territory infarct with ____-sided hemiplegia and aphasia. 5. Gastroesophageal reflux disease. 6. Carotid artery stenosis with infarct. 7. Chronic pain syndrome. PLAN: To advance the diet as tolerated. If he is tolerating diet, we will be able to discharge him back to [facility]. KIRT JAMA MD DR: AARON/wendy JOB#: [id number] / [id number]
== END 2016-07-15 15:16 | DRG 330 ==
LOC: ER 15:50 → ED HOLD 18:00 → 5 SOUTH 07-04 11:38
PROVIDERS: ADMIT Internal Medicine; ATTEND Internal Medicine
PROC: 0D7N8ZZ Dilation of Sigmoid Colon, Via Natural or Artificial Opening Endoscopic (ICD-10-PCS; 2016-07-07)
PROC: 0DTN0ZZ Resection of Sigmoid Colon, Open Approach (ICD-10-PCS; principal; 2016-07-10 10:00)
DX: K56.2 Volvulus (principal); E87.0 Hyperosmolality and hypernatremia; I69.354 Hemiplegia and hemiparesis following cerebral infarction affecting left non-dominant side; E87.6 Hypokalemia; E78.00 Pure hypercholesterolemia, unspecified; E78.5 Hyperlipidemia, unspecified; F32.9 Major depressive disorder, single episode, unspecified; F41.9 Anxiety disorder, unspecified; G47.00 Insomnia, unspecified; G89.4 Chronic pain syndrome; I10 Essential (primary) hypertension; I65.29 Occlusion and stenosis of unspecified carotid artery; K56.7 Ileus, unspecified; K21.9 Gastro-esophageal reflux disease without esophagitis; K64.8 Other hemorrhoids; Z87.891 Personal history of nicotine dependence
CPT/HCPCS: 36415; 74000; 74177; 80048; 80053; 80076; 81001; 83605; 83690; 83735; 84132; 84443; 85007; 85027; 87086; 87324; 87641; 88307; 96360; 96361; J0690; J0780; J1100; J1170; J1650; J2270; J2370; J2405; J2704; J2710; J3010; J3480; J3490; J7030; J7042; J7120; Q9967; 99285-25

== ENCOUNTER 2021-10-02 10:30 | Inpatient (IN) | payer MEDICARE, OTHER ==
[~2021-10-02] VITALS: Ht 170.2 cm; Wt 57.9 kg
[~2021-10-02 10:30] MED LIST: AMLO-187 PO; ASPI-630 PO; ATOR20TA58 PO; BACL10TA PO; BISA10SU4 RC; CLON1PAT10 TD; DOCU-109 PO; ESCITALOPRAM OX10 MG PO; FAMO20TA5 PO; MULT-690 PO; OMEG10005 PO; POLY17PO29 PO; POTA20TA4 PO
[2021-10-02 11:54] LABS: BASO % 1 % (0-3); EOS # 0.1 x10^3/uL (0.0-0.7); EOS % 2 % (0-3); HEMATOCRIT 41.8 % (39.0-53.0); HEMOGLOBIN 14.1 g/dL (13.0-17.5); LYMPH % 17 % (24-48); MEAN CORPUSCULAR HEMOGLOBIN 30 pg (25-35); MEAN CORPUSCULAR HGB CONC 34 g/dL (31-37); MEAN CORPUSCULAR VOLUME 89 fL (79-100); MONO # 0.5 x10^3/uL (0.0-1.1); MONO % 9 % (0-9); NEUT # 4.2 x10^3/uL (1.8-7.7); NEUT % 71 % (31-73); PLATELET COUNT 210 x10^3/uL (140-400); RED BLOOD COUNT 4.68 x10^6/uL (4.30-5.70); RED CELL DISTRIBUTION WIDTH 14.6 % (11.5-14.5)
--- NOTE | 2021-10-02 12:04 | EKG ---
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
--- NOTE | 2021-10-02 12:04 | RAD ---
EXAM: Chest, single view. HISTORY: Mental status changes. COMPARISON: 07/07/2016 FINDINGS: A frontal view of the chest is obtained. There is dextro positioning of the heart, stable i n appearance. There is no infiltrate, pleural effusion or pneumothorax. There are chronic appearing i nterstitial changes. There is severe gaseous distention of loops of bowel within the upper abdomen. IMPRESSION: 1. No acute pulmonary finding. 2. Stable slight dextro positioning of the heart, a component which is accentuated due to patient pos itioning. 3. Severely distended air-filled bowel within the upper abdomen. Electronically signed by: Ledy Chand MD (10/02/2021 12:01 PM) [id number]
[2021-10-02 12:06] LABS: CALCIUM 9.3 mg/dL (8.5-10.1); CREATININE 0.9 mg/dL (0.7-1.3); GFR 103.1; POTASSIUM 5.1 mmol/L (3.5-5.1)
[2021-10-02 12:11] LABS: ALBUMIN 3.7 g/dL (3.4-5.0); ALBUMIN/GLOBULIN RATIO 1.1 (1.0-1.7); MAGNESIUM 2.2 mg/dL (1.8-2.4); TOTAL BILIRUBIN 0.3 mg/dL (0.2-1.0); TOTAL PROTEIN 7.2 g/dL (6.4-8.2)
--- NOTE | 2021-10-02 12:19 | RAD ---
EXAM: Head CT without contrast. HISTORY: Altered mental status. TECHNIQUE: Computed tomographic images of the head were obtained without contrast. *One or more of the following individualized dose reduction techniques were utilized for this examina tion: 1. Automated exposure control. 2. Adjustment of the mA and/or kV according to patient size. 3. Use of iterative reconstruction technique. COMPARISON: None. FINDINGS: There is extensive decreased attenuation throughout the bilateral frontal and parietal lobe s likely due to the combination of chronic infarcts and chronic white matter changes. This limits jasmyne luation for acute infarcts. There is cerebral atrophy. There is no midline shift. There is no hydroce phalus. There is no suspicious calvarial lesion. There is a left maxillary sinus air-fluid level, par tially included on the [id number]. The mastoid air cells are clear. There are left sided craniotom y changes. IMPRESSION: 1. Extensive decreased attenuation throughout the frontal and parietal white matter, likely due to th e combination of chronic infarcts and extensive chronic white matter changes. This can be seen with a dvanced chronic small vessel disease or prior brain radiation. Correlate with clinical history. 2. Cerebral atrophy. 3. Note is made that MRI is more sensitive for acute infarction. 4. Left sided craniotomy changes. Electronically signed by: Ledy Chand MD (10/02/2021 12:17 PM) [id number]
[2021-10-02] MEDS ORDERED: IV NORMAL SALINE 1000ML BAG 1,000 ML IV ONE (12:30)
[2021-10-02] MEDS ORDERED: CONTRAST GIVEN. MC PRN (13:30)
[2021-10-02] MEDS ORDERED: IOHEXOL 350 MG/ML 100 ML VIAL. IV ONE (13:30)
--- NOTE | 2021-10-02 14:05 | RAD ---
CTA Chest and CT abdomen and pelvis with contrast: Clinical History: Reason: elevated ddimer/and abdominal distention Axial helical images of the chest abdomen and pelvis were obtained after the administration of 100 cc of IV Omnipaque 350 contrast. CTA of the chest with contrast: Images of the chest were timed appropriately for a pulmonary arterial study. Conventional axial alexandrea nstruction was performed in addition to coronal, sagittal and bilateral oblique MIP (maximum intensit y projection). This study was ordered to detect possible pulmonary embolism. There are no filling defects to suggest pulmonary embolism. The more peripheral subsegmental pulmonary arteries are not well opacified limiting our sensitivity f or small peripheral pulmonary emboli. The lungs and pleural margins are clear. There is no mediastinal or hilar lymphadenopathy. The thoracic aorta appears normal. Impression: 1. No evidence of pulmonary embolism. 2. No significant findings. End of impression CT OF THE ABDOMEN AND PELVIS WITH IV CONTRAST. Oral contrast: No. The colon is distended with air and stool. The appendix is normal. There is atherosclerotic disease o f the aorta without aneurysm. There is a clot in the left femoral vein. Liver: Unremarkable Spleen: Unremarkable Pancreas: Unremarkable Adrenal Glands: Unremarkable Kidneys: Unremarkable There is no mass or lymphadenopathy. There is no free air. There is no free fluid. The urinary bladder appears normal. Impression: 1. Colonic ileus. 2. Left femoral vein DVT. End Impression PQRS Compliance Statement: One or more of the following individualized dose reduction techniques were utilized for this examinat ion: 1. Automated exposure control 2. Adjustment of the mA and/or kV according to patient size 3. Use of iterative reconstruction technique Electronically signed by: Jeb Ortiz III, MD (10/02/2021 2:03 PM) [facility]
--- NOTE | 2021-10-02 15:09 | PHYS DOC ---
Past Medical History Past Medical History: Anxiety, Constipation, CVA, Depression, GERD, High Cholesterol, Hypertension Additional Past Medical Histor: [facility] Past Surgical History: Other Additional Past Surgical Histo: [facility] Smoking Status: Former Smoker Alcohol Use: None Drug Use: None General Adult EDM: Chief Complaint: ALTERED MENTAL STATUS HPI: HPI: Patient is a 61 year old male who presents from jail after suffering a 10-minute loss of consciousness. Patient was noted to have low blood pressure. Patient recovered after 10 minutes and returned to baseline. Patient was transported by EMS to the hospital. Seen and evaluated by myself. Hemodynamically stable, mentally at baseline. No further events. Review of Systems: Review of Systems: Unable to assess due to mental status Heart Score: C/O Chest Pain: No Risk Factors: Risk Factors: DM, Current or recent (<one month) smoker, HTN, HLP, family history of CAD, obesity. Risk Scores: Score 0 - 3: 2.5% MACE over next 6 weeks - Discharge Home Score 4 - 6: 20.3% MACE over next 6 weeks - Admit for Clinical Observation Score 7 - 10: 72.7% MACE over next 6 weeks - Early Invasive Strategies Current Medications: Current Medications Medications (Trade) Dose Ordered Sig/Mj Start Time Stop Time Status Last Admin Dose Admin Enoxaparin Sodium (Lovenox 80mg Syringe) 80 mg 1X ONCE 10/02/21 15:15 10/02/21 15:16 UNV Info (CONTRAST GIVEN -- Rx MONITORING) 1 each PRN DAILY PRN 10/02/21 13:30 10/04/21 13:29 Iohexol (Omnipaque 350 Mg/ml) 100 ml 1X ONCE 10/02/21 13:30 10/02/21 13:31 DC 10/02/21 13:44 100 ML Sodium Chloride 1,000 ml @ 1,000 mls/hr 1X ONCE 10/02/21 12:30 10/02/21 13:29 DC 10/02/21 12:30 1,000 MLS/HR Allergies: Allergies: Allergies Coded Allergies Type Severity Reaction Last Updated Verified No Known Drug Allergies 07/04/16 No Physical Exam: PE: Constitutional: Thin, contracted, no acute distress, non-toxic appearance. [] HENT: Normocephalic, atraumatic, bilateral external ears normal, oropharynx moist, no oral exudates, nose normal. [] Eyes: PERRLA, EOMI, conjunctiva normal, no discharge. [] Neck: Normal range of motion, no tenderness, supple, no stridor. [] Cardiovascular:Heart rate regular rhythm, no murmur [] Lungs & Thorax: Bilateral breath sounds clear to auscultation [] Abdomen: Bowel sounds normal, soft, mild to moderate tenderness, moderate distention, no masses, no pulsatile masses. [] Skin: Warm, dry, no erythema, no rash. [] Back: No tenderness, no CVA tenderness. [] Extremities: No tenderness, no cyanosis, no clubbing, no edema. [] Neurologic: Alert and oriented X 1, contractures noted bilaterally, patient at baseline [] Psychologic: Affect normal, judgement normal, mood normal. [] Current Patient Data: Labs: Laboratory Tests Test 10/02/21 11:46 White Blood Count 6.0 x10^3/uL (4.0-11.0) Red Blood Count 4.68 x10^6/uL (4.30-5.70) Hemoglobin 14.1 g/dL (13.0-17.5) Hematocrit 41.8 % (39.0-53.0) Mean Corpuscular Volume 89 fL (79-100) Mean Corpuscular Hemoglobin 30 pg (25-35) Mean Corpuscular Hemoglobin Concent 34 g/dL (31-37) Red Cell Distribution Width 14.6 % (11.5-14.5) H Platelet Count 210 x10^3/uL (140-400) Neutrophils (%) (Auto) 71 % (31-73) Lymphocytes (%) (Auto) 17 % (24-48) L Monocytes (%) (Auto) 9 % (0-9) Eosinophils (%) (Auto) 2 % (0-3) Basophils (%) (Auto) 1 % (0-3) Neutrophils # (Auto) 4.2 x10^3/uL (1.8-7.7) Lymphocytes # (Auto) 1.0 x10^3/uL (1.0-4.8) Monocytes # (Auto) 0.5 x10^3/uL (0.0-1.1) Eosinophils # (Auto) 0.1 x10^3/uL (0.0-0.7) Basophils # (Auto) 0.0 x10^3/uL (0.0-0.2) D-Dimer (Mara) 1.34 ug/mlFEU (0.00-0.50) H Sodium Level 144 mmol/L (136-145) Potassium Level 5.1 mmol/L (3.5-5.1) Chloride Level 108 mmol/L (98-107) H Carbon Dioxide Level 27 mmol/L (21-32) Anion Gap 9 (6-14) Blood Urea Nitrogen 9 mg/dL (8-26) Creatinine 0.9 mg/dL (0.7-1.3) Estimated GFR (Cockcroft-Gault) 103.1 BUN/Creatinine Ratio 10 (6-20) Glucose Level 87 mg/dL (70-99) Calcium Level 9.3 mg/dL (8.5-10.1) Magnesium Level 2.2 mg/dL (1.8-2.4) Total Bilirubin 0.3 mg/dL (0.2-1.0) Aspartate Amino Transferase (AST) 12 U/L (15-37) L Alanine Aminotransferase (ALT) 17 U/L (16-63) Alkaline Phosphatase 111 U/L (46-116) Troponin I High Sensitivity 6 ng/L (4-75) RI-Bjj-S-Type Natriuretic Peptide 57 pg/mL (0-124) Total Protein 7.2 g/dL (6.4-8.2) Albumin 3.7 g/dL (3.4-5.0) Albumin/Globulin Ratio 1.1 (1.0-1.7) Lipase 130 U/L (73-393) Thyroid Stimulating Hormone (TSH) 0.515 uIU/mL (0.358-3.74) Laboratory Tests 10/02/21 11:46 Laboratory Tests 10/02/21 11:46 Vital Signs: Vital Signs Date Time Temp Pulse Resp B/P (MAP) Pulse Ox O2 Delivery O2 Flow Rate FiO2 10/02/21 13:28 74 20 116/77 (90) 98 Room Air 10/02/21 10:47 97.6 97.6 EKG: EKG: [] Radiology/Procedures: Radiology/Procedures: CTA Chest and CT abdomen and pelvis with contrast: Clinical History: Reason: elevated ddimer/and abdominal distention Axial helical images of the chest abdomen and pelvis were obtained after the administration of 100 cc of IV Omnipaque 350 contrast. CTA of the chest with contrast: Images of the chest were timed appropriately for a pulmonary arterial study. Conventional axial reconstruction was performed in addition to coronal, sagittal and bilateral oblique MIP (maximum intensity projection). This study was ordered to detect possible pulmonary embolism. There are no filling defects to suggest pulmonary embolism. The more peripheral subsegmental pulmonary arteries are not well opacified limiting our sensitivity for small peripheral pulmonary emboli. The lungs and pleural margins are clear. There is no mediastinal or hilar lymphadenopathy. The thoracic aorta appears normal. Impression: 1. No evidence of pulmonary embolism. 2. No significant findings. End of impression CT OF THE ABDOMEN AND PELVIS WITH IV CONTRAST. Oral contrast: No. The colon is distended with air and stool. The appendix is normal. There is atherosclerotic disease of the aorta without aneurysm. There is a clot in the left femoral vein. Liver: Unremarkable Spleen: Unremarkable Pancreas: Unremarkable Adrenal Glands: Unremarkable Kidneys: Unremarkable There is no mass or lymphadenopathy. There is no free air. There is no free fluid. The urinary bladder appears normal. Impression: 1. Colonic ileus. 2. Left femoral vein DVT. End Impression PQRS Compliance Statement: One or more of the following individualized dose reduction techniques were utilized for this examination: 1. Automated exposure control 2. Adjustment of the mA and/or kV according to patient size 3. Use of iterative reconstruction technique Electronically signed by: Jeb Ortiz III, MD (10/02/2021 2:03 PM) [facility] Impression: Acute DVT, colonic ileus, syncope Course & Med Decision Making: Course & Med Decision Making Pertinent Labs and Imaging studies reviewed. (See chart for details) 61-year-old male with multiple medical chronic problems, seen and evaluated by myself, patient with syncope and no DVT seen on CT scan. 1 L normal saline given, patient started on Lovenox full dose, unknown if patient is having pulmonary embolus causing syncope. Patient also has colonic ileus, last diagnosed in 2017, patient required a colonoscopy to decompress his colon. Patient is distended and has mild to moderate tenderness. With a combination of syncope, DVT and colonic ileus, I decided to admit the patient to the service of Dr. Fox. I spoke to GI who stated they would be willing to perform a colonoscopy during hospitalization. Patient admitted in hemodynamically stable condition. I spoke with the POA to confirm that this is the patient's wishes. Patient is full code. Aisha Disclaimer: Aisha Disclaimer: This electronic medical record was generated, in whole or in part, using a voice recognition dictation system. Departure Departure Impression: Primary Impression: Ileus Additional Impression: DVT (deep venous thrombosis) Disposition: ADMITTED INPATIENT Condition: GOOD CARRI TONY MD October 02, 2021 15:09
[2021-10-02 19:00] VITALS: BP 129/75
[2021-10-02] MEDS ORDERED: ONDANSETRON PF 4 MG/2 ML VIAL. IVP PRN (20:00)
[2021-10-02] MEDS ORDERED: NIFE30TA2 PO (20:01)
[2021-10-02] MEDS ORDERED: HYDR-2868 PO (20:01)
[2021-10-02] MEDS ORDERED: FAMO10TA26 PO (20:01)
[2021-10-02] MEDS ORDERED: CLOP75TA57 PO (20:01)
[2021-10-02] MEDS: IV NORMAL SALINE 1000ML BAG 1,000 ML IV SCH (22:18)
[2021-10-02 23:00] VITALS: BP 145/70
[2021-10-03 03:00] VITALS: BP 154/86
[2021-10-03] MEDS: IV NORMAL SALINE 1000ML BAG 1,000 ML IV SCH ×2 (05:40→17:30)
[2021-10-03 07:00] VITALS: BP 156/75
--- NOTE | 2021-10-03 09:47 | PDOC2 ---
GI CONSULT Date of Service: DATE: 10/03/21 TIME: 09:47 Reason For Consult: colonic ileus HPI: HPI: 61 y/o male brought to ER w/ LOC and hypotension. CT A/P showed colonic ileus and left femoral vein DVT. No stools today per nursing. Pt (not entirely trustworthy historian) reports he stooled yesterday and today and might have vomited two days ago. Denies abdominal pain. D/w Dr. Fox - neurology to see? 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 Pepcid, Miralax, Colace, Dulcolax, Plavix on summary list in chart. PMH: PMH: HTN, CVA w/ right-sided hemiplegia, aphasia, carotid artery stenosis, chronic pain, insomnia, depression, anxiety sigmoidectomy FH: Family History: Other (difficult to obtain) Social History: Smoke: Quit ALCOHOL: other (heavy in past per records) ROS: Difficult to obtain, see HPI. Vitals: Vitals: Vital Signs Date Time Temp Pulse Resp B/P (MAP) Pulse Ox O2 Delivery O2 Flow Rate FiO2 10/03/21 07:00 97.4 65 18 156/75 (102) 93 Room Air 97.4 Labs: Labs: Laboratory Tests Test 10/02/21 11:46 10/02/21 15:10 10/02/21 17:42 White Blood Count 6.0 x10^3/uL (4.0-11.0) Red Blood Count 4.68 x10^6/uL (4.30-5.70) Hemoglobin 14.1 g/dL (13.0-17.5) Hematocrit 41.8 % (39.0-53.0) Mean Corpuscular Volume 89 fL (79-100) Mean Corpuscular Hemoglobin 30 pg (25-35) Mean Corpuscular Hemoglobin Concent 34 g/dL (31-37) Red Cell Distribution Width 14.6 % (11.5-14.5) Platelet Count 210 x10^3/uL (140-400) Neutrophils (%) (Auto) 71 % (31-73) Lymphocytes (%) (Auto) 17 % (24-48) Monocytes (%) (Auto) 9 % (0-9) Eosinophils (%) (Auto) 2 % (0-3) Basophils (%) (Auto) 1 % (0-3) Neutrophils # (Auto) 4.2 x10^3/uL (1.8-7.7) Lymphocytes # (Auto) 1.0 x10^3/uL (1.0-4.8) Monocytes # (Auto) 0.5 x10^3/uL (0.0-1.1) Eosinophils # (Auto) 0.1 x10^3/uL (0.0-0.7) Basophils # (Auto) 0.0 x10^3/uL (0.0-0.2) D-Dimer (Mara) 1.34 ug/mlFEU (0.00-0.50) Sodium Level 144 mmol/L (136-145) Potassium Level 5.1 mmol/L (3.5-5.1) Chloride Level 108 mmol/L (98-107) Carbon Dioxide Level 27 mmol/L (21-32) Anion Gap 9 (6-14) Blood Urea Nitrogen 9 mg/dL (8-26) Creatinine 0.9 mg/dL (0.7-1.3) Estimated GFR (Cockcroft-Gault) 103.1 BUN/Creatinine Ratio 10 (6-20) Glucose Level 87 mg/dL (70-99) Calcium Level 9.3 mg/dL (8.5-10.1) Magnesium Level 2.2 mg/dL (1.8-2.4) Total Bilirubin 0.3 mg/dL (0.2-1.0) Aspartate Amino Transf (AST/SGOT) 12 U/L (15-37) Alanine Aminotransferase (ALT/SGPT) 17 U/L (16-63) Alkaline Phosphatase 111 U/L (46-116) Troponin I High Sensitivity 6 ng/L (4-75) 7 ng/L (4-75) 8 ng/L (4-75) OV-Dex-J-Type Natriuretic Peptide 57 pg/mL (0-124) Total Protein 7.2 g/dL (6.4-8.2) Albumin 3.7 g/dL (3.4-5.0) Albumin/Globulin Ratio 1.1 (1.0-1.7) Lipase 130 U/L (73-393) Thyroid Stimulating Hormone (TSH) 0.515 uIU/mL (0.358-3.74) Allergies: Coded Allergies: No Known Drug Allergies (Unverified , 07/04/16) Medications: Current Medications Medications (Trade) Dose Ordered Sig/Mj Route PRN Reason Start Time Stop Time Status Last Admin Dose Admin Sodium Chloride 1,000 ml @ 1,000 mls/hr 1X ONCE IV 10/02/21 12:30 10/02/21 13:29 DC 10/02/21 12:30 Iohexol (Omnipaque 350 Mg/ml) 100 ml 1X ONCE IV 10/02/21 13:30 10/02/21 13:31 DC 10/02/21 13:44 Enoxaparin Sodium (Lovenox 80mg Syringe) 80 mg 1X ONCE SQ 10/02/21 15:15 10/02/21 15:16 DC 10/02/21 16:11 Sodium Chloride 1,000 ml @ 100 mls/hr Q10H IV 10/02/21 19:15 10/03/21 05:40 Imaging: Imaging: KUB IMPRESSION: 1. No acute pulmonary finding. 2. Stable slight dextro positioning of the heart, a component which is accentuated due to patient positioning. 3. Severely distended air-filled bowel within the upper abdomen. Head CT IMPRESSION: 1. Extensive decreased attenuation throughout the frontal and parietal white matter, likely due to the combination of chronic infarcts and extensive chronic white matter changes. This can be seen with advanced chronic small vessel d isease or prior brain radiation. Correlate with clinical history. 2. Cerebral atrophy. 3. Note is made that MRI is more sensitive for acute infarction. 4. Left sided craniotomy changes. C/A/P CT Impression: 1. Colonic ileus. 2. Left femoral vein DVT. KUB 10/03 pending PE: GEN: NAD HEENT: Atraumatic, PERRL LUNGS: CTAB HEART: RRR ABD: mildly distended, BS+, soft, non-tender EXTREMITY: RUE contracture SKIN: No rashes, no jaundice NEURO/PSYCH: A & O, calm A/P: A/P: LOC, hypotension Abnormal CT - possible colonic ileus, left femoral vein DVT H/o sigmoid volvulus s/p sigmoidectomy H/o CVA w/ right-sided hemiplegia and aphasia -- Difficult history, but doesn't seem like brought to ER for any GI symptoms. D/w Dr. Mena - NPO for now, observe. Interval KUB pending. RANDOLPH TYSON October 03, 2021 09:47
[2021-10-03] MEDS ORDERED: BISACODYL 10 MG SUPP.RECT. RC PRN (10:15)
[2021-10-03 11:00] VITALS: BP 152/54
[2021-10-03 15:00] VITALS: BP 171/73
[2021-10-03 16:03] LABS: HEMATOCRIT 40.8 % (39.0-53.0); HEMOGLOBIN 13.7 g/dL (13.0-17.5); RED BLOOD COUNT 4.61 x10^6/uL (4.30-5.70); RED CELL DISTRIBUTION WIDTH 14.1 % (11.5-14.5); WHITE BLOOD COUNT 4.8 x10^3/uL (4.0-11.0)
[2021-10-03 16:28] LABS: ALBUMIN 3.6 g/dL (3.4-5.0); CALCIUM 8.8 mg/dL (8.5-10.1); CREATININE 0.8 mg/dL (0.7-1.3); GFR 118.1; POTASSIUM 3.9 mmol/L (3.5-5.1); TOTAL BILIRUBIN 0.6 mg/dL (0.2-1.0); TOTAL PROTEIN 7.2 g/dL (6.4-8.2)
[2021-10-03 19:00] VITALS: BP 167/105
[2021-10-03 23:04] VITALS: BP 165/97
[2021-10-04] MEDS ORDERED: cloNIDine TTS-2 1 PATCH PATCH TD SCH (00:25)
[2021-10-04] MEDS: IV NORMAL SALINE 1000ML BAG 1,000 ML IV SCH ×3 (03:17→23:12)
[2021-10-04 07:00] VITALS: BP 149/88
--- NOTE | 2021-10-04 07:46 | HP ---
DATE OF SERVICE: 10/03/2021 ADMIT DATE: 10/02/2021 HISTORY OF PRESENT ILLNESS: The patient is a 61-year-old male patient, resident at [facility], who was sent to the Emergency Room of [facility] as he had about 10 minutes loss of consciousness. The patient was noted to be hypotensive with a systolic pressure of only 50 according to nursing staff. The patient did not bite his tongue nor did he become incontinent of bowel or bladder and after 10 minutes, he returned back to baseline. By the time he arrived to the Emergency Room, he was hemodynamically stable, mentally at baseline. He is known to have left middle cerebral artery territory infarct with right side hemiplegia and aphasia. He was extensively investigated in the Emergency Room and has had lab work that was mostly unremarkable. He did have a CT scan of the head, which showed extensive decreased attenuation throughout the frontal and parietal white matter, likely due to a combination of chronic infarct and extensive chronic white matter changes, this can be seen with advanced chronic small vessel disease or prior brain radiation, has also cerebral atrophy and left-sided craniotomy changes. His chest x-ray was basically unremarkable and he has a CT scan of the chest, abdomen and pelvis, which showed that the patient has colonic ileus and left femoral vein DVT. However, his chest CT showed no evidence of pulmonary embolism and no significant finding and his CT scan of the abdomen was also unremarkable except for colonic ileus. The patient was admitted, kept n.p.o., started on IV fluid. We did consult the Gastroenterology team for further evaluation and treatment. PAST MEDICAL HISTORY: Significant for hypertension, cerebrovascular accident with right-sided hemiplegia, aphasia, gastroesophageal reflux disease, carotid artery stenosis, chronic pain syndrome, and insomnia. PAST SURGICAL HISTORY: Significant for left-sided craniotomy and he also had sigmoid colon resection. ALLERGIES: He has no known drug allergies. MEDICATIONS: He is currently on following medications: He is on baclofen 10 mg 3 times a day, Plavix 75 mg once a day, atorvastatin calcium 20 mg at bedtime, clonidine patch TTS every Sunday, hydralazine 25 mg twice a day, nifedipine extended release 30 mg once a day, potassium chloride 20 mEq 3 times a day, bisacodyl 10 mg suppositories daily p.r.n. for constipation, Colace 100 mg twice a day, polyethylene glycol 17 grams daily, famotidine 10 mg at bedtime, multivitamin with mineral 1 tablet once a day. FAMILY HISTORY: Noncontributory. SOCIAL HISTORY: The patient is a resident at [facility]. He is an ex-smoker and ex-heavy drinker. He is retired. REVIEW OF SYSTEMS: On questioning, the patient denied any nausea or vomiting. Denied any abdominal pain. PHYSICAL EXAMINATION: GENERAL: On arrival to the Emergency Room, he looked well and was clearly in no apparent respiratory distress. No pallor, jaundice, cyanosis or thyromegaly. No jugular venous distention. No lower limb edema. VITAL SIGNS: His heart rate was 74, blood pressure was 116/77, temperature 97.6, respiratory rate 20, and oxygen saturation was 98%. HEAD, EYES, EARS, NOSE AND THROAT: Normocephalic, atraumatic. NECK: Supple. HEART: Normal first and second heart sounds. No gallop, rub or murmur. CHEST: Clear to auscultation, no crepitation or rhonchi. ABDOMEN: Distended, soft, nontender. NEUROLOGIC: He was awake, alert. He has right-sided hemiplegia and expressive aphasia. LABORATORY DATA: On arrival showed white cell count of 6000, hemoglobin 14, hematocrit 42, MCV 89 and platelet count 210,000 with normal manual differential. His chemistry on arrival showed a serum sodium 144, potassium 5.1, chloride 108, bicarbonate 27, anion gap of 9, BUN 9, creatinine 0.9, estimated GFR was 103 mL per minute. His glucose was 87, calcium was 9.3, magnesium 2.2. Total bilirubin, AST, ALT, alkaline phosphatase were normal. Total protein 7.2, albumin 3.7 and serum lipase was normal at 130. His D-dimer was slightly elevated at 1.34. Urinalysis essentially unremarkable. The CT scan of the chest, abdomen and pelvis showed no evidence of pulmonary embolism. CT scan of the abdomen and pelvis showed the colon is distended with air and stool. The appendix is normal. There is atherosclerotic disease of the aorta without aneurysm. There is a clot in the left femoral vein. The liver, spleen, pancreas, adrenals and kidneys are all unremarkable. There is no mass or lymphadenopathy. There is no free air, no free fluid. The urinary bladder appears normal. ASSESSMENT AND PLAN: The patient was admitted with colonic ileus, was kept n.p.o., started on IV antibiotic. I did consult the Gastroenterology team to assist in the management. I will repeat his KUB today and we will decide on further management accordingly. AARON/ARIANNA/SUZY DR: Teresita TID: [id number]
--- NOTE | 2021-10-04 07:47 | RAD ---
XR ABDOMEN 1V History: Follow-up on colonic ileus. Comparison: None. Technique: Supine portable radiograph of the abdomen and pelvis Findings: Bowel gas pattern: Gaseous filled colonic and small bowel loops throughout the visualized portions of the abdomen. Markedly dilated colonic lumen. Free air: No supine evidence for free air. Abnormal calcifications: None. Bones: Mild degenerative changes of the hips. No acute findings. Other: None. Impression: 1. Persistent gaseous distention of the colon and diffuse gas-filled bowel loops throughout the abdo men. Electronically signed by: Buck Grande MD (10/03/2021 12:57 PM) [id number]
--- NOTE | 2021-10-04 09:07 | PN ---
DATE: 10/04/2021 SUBJECTIVE: The patient is resting, slightly propped up in bed, in no apparent distress. On questioning him, he denied any complaint in particular. Denied any nausea or vomiting. Denied any abdominal pain; however, he claimed that he has bowel movement; however, nursing staff has no recorded confirmation of him having bowel movement. PHYSICAL EXAMINATION: GENERAL: When I examined him, he was pale, not jaundiced or cyanosed. No thyromegaly. No jugular venous distention. No lower limb edema. VITAL SIGNS: His heart rate was 83, blood pressure was 149/88, temperature was 98.3, respiratory rate was 18 and oxygen saturation was 94%. HEAD, EYES, EARS, NOSE AND THROAT: Normocephalic, atraumatic. NECK: Supple. HEART: Normal first and second heart sounds. No gallop or murmur. CHEST: Clear to auscultation, no crepitation or rhonchi. ABDOMEN: Distended, soft, nontender. NEUROLOGIC: He has aphasia and right-sided hemiplegia. His intake and output are incompletely recorded. LABORATORY DATA: This morning showed a serum sodium 140, potassium 3.9, chloride 106, bicarbonate 21, anion gap of 13, BUN 7, creatinine 0.8, estimated GFR was 118 mL per minute. His glucose was 71, calcium was 8.8, magnesium was 2.2. Total bilirubin, AST, ALT, alkaline phosphatase were normal. Lactate dehydrogenase was normal at 130. Total protein 7.2, albumin 3.6. His white cell count was 4.8, hemoglobin 14, hematocrit 41, MCV 89 and platelet count 215,000. ASSESSMENT: Abdominal distention, marked colonic ileus that has not resolved yet. PLAN: Continue with the n.p.o. status. Continue with IV fluid. I did start him on Lovenox as he has also left lower extremity deep vein thrombosis, hypertension, for which I started him on clonidine TTS patch. I will repeat his CT scan of the abdomen and pelvis and decide on further management accordingly. AARON/ARIANNA DR: Teresita TID: [id number]
--- NOTE | 2021-10-04 09:42 | PDOC ---
Date of Service: DATE: 10/04/21 TIME: 09:38 Subjective: Subjective: Denies pain, says he stooled. Objective: Objective: D/w nurse - no stool. Vital Signs: Vital Signs Date Time Temp Pulse Resp B/P (MAP) Pulse Ox O2 Delivery O2 Flow Rate FiO2 10/04/21 07:00 98.3 83 18 149/88 (108) 94 Room Air 98.3 Imaging: KUB 10/03 Impression: 1. Persistent gaseous distention of the colon and diffuse gas-filled bowel loops throughout the abdomen. CT A/P 10/04 PE: GEN: NAD LUNGS: CTAB HEART: RRR ABD: stable in appearance - mildly distended, quiet BS+, non-tender NEURO/PSYCH: A & O A/P: LOC, hypotension - brought to ER for this Possible colonic ileus H/o sigmoid volvulus s/p sigmoidectomy H/o CVA w/ right-sided hemiplegia and aphasia -- D/w Dr. Fox who ordered interval CT - await this and try Dulcolax suppository. Justicifation of Admission Dx: Justifications for Admission: Justification of Admission Dx: Yes RANDOLPH TYSON October 04, 2021 09:42
[2021-10-04] MEDS ORDERED: BISACODYL 10 MG SUPP.RECT. PR ONE (09:45)
--- NOTE | 2021-10-04 10:03 | RAD ---
EXAMINATION: CT abdomen and pelvis no acute osseous process or suspicious lesion. Postsurgical change s of ventral abdominal wall. Foci of gas along the anterior abdominal wall subcutaneous fat, likely r elated to injection medication. INDICATION:61 years, Male, worsening abdominal pain and distention. TECHNIQUE: Axial CT images of the abdomen and pelvis were obtained. Coronal and sagittal reformatted performed. COMPARISON: CT dated 07/03/2016. Exposure: One or more of the following individualized dose reduction techniques were utilized for thi s examination: 1. Automated exposure control 2. Adjustment of the mA and/or kV according to patient size 3. Use of iterative reconstruction technique. FINDINGS: Calcified granuloma in the left lung base. Subsegmental atelectasis in bibasilar lungs. Within the limitation of noncontrast exam, Gaseous distention of the descending and distal transverse colon, measuring up to 9.0 cm in maximum d iameter. The remaining colon is not distended. No small bowel dilation. Appendix is normal. No suspic ious focal hepatic lesion. High density content in the gallbladder, likely vicarious excretion from e arlier IV contrast exam. No biliary ductal dilation. Unremarkable spleen. Diffuse atrophic pancreas. No adrenal nodule. No hydronephrosis in either kidney. Punctate (2 mm) nonobstructing right nephrolit hiasis. No lymphadenopathy in the abdomen or pelvis by size criteria. No pneumoperitoneum or ascites. Normal caliber abdominal aorta. Unremarkable urinary bladder. Prostamegaly indents bladder base. No suspicious osseous lesion. No acute osseous process. Multilevel degenerative changes in the spine. Postsurgical changes along the anterior abdominal wall. Foci of gas seen in the subcutaneous tissue of the left anterior abdominal wall, likely related to injection medication. IMPRESSION: 1. Gaseous distention of the descending and distal transverse colon. No small bowel dilation. 2. Punctate nonobstructing right nephrolithiasis. 3. Prostamegaly. Correlate with PSA level. Electronically signed by: Hunter Craft MD (10/04/2021 10:00 AM) [id number]
[2021-10-04 11:00] VITALS: BP 158/90
[2021-10-04 15:00] VITALS: BP 150/93
--- NOTE | 2021-10-04 16:30 | NUR ---
SS following for discharge planning. SS reviewed pt chart and discussed with pt RN. Pt is resident from [facility], ; fax [phone]. Pt is currently on room air. GI following. CT today. Pt on clear liquid diet. Clinical updates sent to [facility]. Rapid COVID19 test requested by placement. SS will continue to follow for discharge planning.
[2021-10-04] MEDS: LUBIPROSTONE 24 MCG CAPSULE PO SCH (17:04)
[2021-10-04 19:00] VITALS: BP 153/87
[2021-10-04 23:00] VITALS: BP 157/98
[2021-10-05] VITALS (7 sets, daily range): BP systolic 147–172; BP diastolic 87–112
[2021-10-05] MEDS ORDERED: DIGOXIN IV 500 MCG/2 ML AMPUL. IV ONE (01:15)
--- NOTE | 2021-10-05 02:01 | EKG ---
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
[2021-10-05 02:49] LABS: BASO # 0.1 x10^3/uL (0.0-0.2); BASO % 1 % (0-3); EOS % 0 % (0-3); HEMOGLOBIN 13.5 g/dL (13.0-17.5); LYMPH # 0.8 x10^3/uL (1.0-4.8); LYMPH % 8 % (24-48); MEAN CORPUSCULAR HEMOGLOBIN 30 pg (25-35); MEAN CORPUSCULAR HGB CONC 34 g/dL (31-37); MEAN CORPUSCULAR VOLUME 88 fL (79-100); MONO # 0.6 x10^3/uL (0.0-1.1); MONO % 7 % (0-9); NEUT # 7.9 x10^3/uL (1.8-7.7); NEUT % 84 % (31-73); PLATELET COUNT 203 x10^3/uL (140-400); RED BLOOD COUNT 4.54 x10^6/uL (4.30-5.70); WHITE BLOOD COUNT 9.4 x10^3/uL (4.0-11.0)
[2021-10-05 02:59] LABS: CALCIUM 8.5 mg/dL (8.5-10.1); CREATININE 0.8 mg/dL (0.7-1.3); GFR 118.1; POTASSIUM 3.5 mmol/L (3.5-5.1)
--- NOTE | 2021-10-05 02:59 | RAD ---
XR CHEST 1V, XR ABDOMEN 1V 10/05/2021 2:37 AM INDICATION: Tachypnea COMPARISON: 10/02/2021, CT abdomen/pelvis 10/05/2019 TECHNIQUE: Portable frontal view of the chest is provided. Single supine view the abdomen is provided . FINDINGS: The cardiomediastinal silhouette is within normal limits. Lungs are clear. Mild tortuosity of the tho racic aorta. There are no significant pleural effusions. There is no pulmonary vascular congestion. No pneumothora x. No suspicious osseous abnormality. Colonic interposition along the right hemidiaphragm. Dilated large bowel loops in the left lower quadrant measuring up to 11.1 cm. Dilated small bowel loo ps are identified measuring up to 2.4 cm. No definite free intraperitoneal air. IMPRESSION: There is no acute cardiopulmonary process. Dilated large bowel loops measuring up to 11.1 cm, stable from prior CT abdomen/pelvis 10/04/2021. Electronically signed by: María Chamorro MD (10/05/2021 2:56 AM) [facility]
[2021-10-05 03:14] LABS: ALBUMIN 3.5 g/dL (3.4-5.0); MAGNESIUM 1.4 mg/dL (1.8-2.4); TOTAL BILIRUBIN 0.8 mg/dL (0.2-1.0); TOTAL PROTEIN 6.9 g/dL (6.4-8.2)
[2021-10-05] MEDS: fentaNYL PF VIAL 100 MCG/2 ML VIAL IVP PRN (03:23)
[2021-10-05] MEDS ORDERED: IV NORMAL SALINE 1000ML BAG 1,000 ML IV ONE (04:00)
[2021-10-05] MEDS ORDERED: MAGNESIUM SULFATE 2GM 50 ML IV ONE (04:15)
[2021-10-05] MEDS: LUBIPROSTONE 24 MCG CAPSULE PO SCH ×3 (08:00→17:00)
--- NOTE | 2021-10-05 08:58 | PDOC ---
Date of Service: DATE: 10/05/21 TIME: 08:53 Objective: Objective: D/w nurse - one moderate soft stool yesterday, three smears. Some coughing with liquids (diet at home is puree w/ thin liquids), also tachycardia. Didn't want Amitiza this morning. Vital Signs: Vital Signs Date Time Temp Pulse Resp B/P (MAP) Pulse Ox O2 Delivery O2 Flow Rate FiO2 10/05/21 07:00 97.5 123 20 157/94 (115) 92 97.5 10/05/21 03:53 Room Air Labs: Laboratory Tests Test 10/05/21 02:30 White Blood Count 9.4 x10^3/uL Red Blood Count 4.54 x10^6/uL Hemoglobin 13.5 g/dL Hematocrit 40.0 % Mean Corpuscular Volume 88 fL Mean Corpuscular Hemoglobin 30 pg Mean Corpuscular Hemoglobin Concent 34 g/dL Red Cell Distribution Width 14.0 % Platelet Count 203 x10^3/uL Neutrophils (%) (Auto) 84 % Lymphocytes (%) (Auto) 8 % Monocytes (%) (Auto) 7 % Eosinophils (%) (Auto) 0 % Basophils (%) (Auto) 1 % Neutrophils # (Auto) 7.9 x10^3/uL Lymphocytes # (Auto) 0.8 x10^3/uL Monocytes # (Auto) 0.6 x10^3/uL Eosinophils # (Auto) 0.0 x10^3/uL Basophils # (Auto) 0.1 x10^3/uL Sodium Level 141 mmol/L Potassium Level 3.5 mmol/L Chloride Level 107 mmol/L Carbon Dioxide Level 22 mmol/L Anion Gap 12 Blood Urea Nitrogen 7 mg/dL Creatinine 0.8 mg/dL Estimated GFR (Cockcroft-Gault) 118.1 BUN/Creatinine Ratio 9 Glucose Level 105 mg/dL Lactic Acid Level 1.3 mmol/L Calcium Level 8.5 mg/dL Magnesium Level 1.4 mg/dL Total Bilirubin 0.8 mg/dL Aspartate Amino Transf (AST/SGOT) 18 U/L Alanine Aminotransferase (ALT/SGPT) 20 U/L Alkaline Phosphatase 102 U/L Troponin I High Sensitivity 14 ng/L Total Protein 6.9 g/dL Albumin 3.5 g/dL Albumin/Globulin Ratio 1.0 Prostate Specific Antigen 0.72 ng/mL Imaging: CXR and KUB 10/05 There is no acute cardiopulmonary process. Dilated large bowel loops measuring up to 11.1 cm, stable from prior CT abdomen/pelvis 10/04/2021. CT A/P 10/04 IMPRESSION: 1. Gaseous distention of the descending and distal transverse colon. No small bowel dilation. 2. Punctate nonobstructing right nephrolithiasis. 3. Prostamegaly. Correlate with PSA level. 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 Continue current regimen GI-ellington (Amitiza, suppositories). Suspect imaging findings are chronic. Nursing concerns for coughing w/ liquids and tachycardia - defer to primary - not a good PEG candidate. Justicifation of Admission Dx: Justifications for Admission: Justification of Admission Dx: Yes RANDOLPH TYSON October 05, 2021 08:58
[2021-10-05] MEDS: BISACODYL 10 MG SUPP.RECT. RC SCH (10:00)
--- NOTE | 2021-10-05 10:03 | PDOC2 ---
CONSULT Date of Consult Date of Consult DATE: 10/05/21 TIME: 09:50 Reason for Consult Reason for Consult: dilated bowels Referring Physician Referring Physician: Dr Fox Identification/Chief Complaint Chief Complaint LOC Source Source: Chart review, Patient History of Present Illness Reason for Visit: Patient is a poor historian, most history obtained from chart review Admitted with short LOC, altered mental status ER evaluation found a colonic ileus, DVT THere was some possible emesis at home, unknown for sure Currently denies pain or nausea moderate stool yesterday per nursing staff hx of sigmoid resection for volvulus in 2017 Past Medical History Cardiovascular: HTN, Hyperlipidemia CENTRAL NERVOUS SYSTEM: CVA GI: GERD Psych: Anxiety, Depression Past Surgical History Past Surgical History: Colon Resection Family History Family History: Family History Unknown Social History Quit ALCOHOL: other (heavy in past per records) Lives: Residential Current Problem List Problem List Problems Medical Problems: (1) DVT (deep venous thrombosis) Status: Acute (2) Ileus Status: Acute Current Medications Current Medications Current Medications Sodium Chloride 1,000 ml @ 1,000 mls/hr 1X ONCE IV Last administered on 10/02/21at 12:30; Start 10/02/21 at 12:30; Stop 10/02/21 at 13:29; Status DC Iohexol (Omnipaque 350 Mg/ml) 100 ml 1X ONCE IV Last administered on 10/02/21at 13:44; Start 10/02/21 at 13:30; Stop 10/02/21 at 13:31; Status DC Info (CONTRAST GIVEN -- Rx MONITORING) 1 each PRN DAILY PRN MC SEE COMMENTS; Start 10/02/21 at 13:30; Stop 10/04/21 at 13:29; Status DC Enoxaparin Sodium (Lovenox 80mg Syringe) 80 mg 1X ONCE SQ Last administered on 10/02/21at 16:11; Start 10/02/21 at 15:15; Stop 10/02/21 at 15:16; Status DC Sodium Chloride 1,000 ml @ 100 mls/hr Q10H IV Last administered on 10/04/21at 23:12; Start 10/02/21 at 19:15 Fentanyl Citrate (Fentanyl 2ml Vial) 50 mcg PRN Q3HRS PRN IVP PAIN Last administered on 10/05/21at 03:23; Start 10/02/21 at 20:00 Ondansetron HCl (Zofran) 4 mg PRN Q6HRS PRN IVP NAUSEA/VOMITING; Start 10/02/21 at 20:00 Bisacodyl (Dulcolax Supp) 10 mg PRN DAILY PRN RC CONSTIPATION; Start 10/03/21 at 10:15; Stop 10/05/21 at 09:14; Status DC Clonidine HCl (Catapres Tts-2) 1 patch We TD Last administered on 10/04/21at 08:27; Start 10/04/21 at 00:25 Enoxaparin Sodium (Lovenox 80mg Syringe) 70 mg Q12HR SQ Last administered on 10/05/21at 08:23; Start 10/03/21 at 11:00 Bisacodyl (Dulcolax Supp) 10 mg 1X ONCE ID Last administered on 10/04/21at 10:27; Start 10/04/21 at 09:45; Stop 10/04/21 at 09:46; Status DC Lubiprostone (Amitiza) 24 mcg BIDWMEALS PO Last administered on 10/05/21at 08:23; Start 10/04/21 at 17:00 Digoxin (Lanoxin) 500 mcg 1X ONCE IV ; Start 10/05/21 at 01:15; Stop 10/05/21 at 01:16; Status DC Magnesium Sulfate 50 ml @ 25 mls/hr 1X ONCE IV Last administered on 10/05/21at 04:12; Start 10/05/21 at 04:15; Stop 10/05/21 at 06:14; Status DC Sodium Chloride 1,000 ml @ 1,000 mls/hr 1X ONCE IV Last administered on 10/05/21at 04:11; Start 10/05/21 at 04:00; Stop 10/05/21 at 04:59; Status DC Bisacodyl (Dulcolax Supp) 10 mg DAILY RC ; Start 10/05/21 at 10:00 Active Scripts Active Potassium Chloride (Potassium Chloride) 20 Meq Tablet.er 20 Meq PO TID 30 Days Reported Procardia Xl (Nifedipine) 30 Mg Tab.er.24 1 Tab PO DAILY Plavix (Clopidogrel Bisulfate) 75 Mg Tablet 75 Mg PO HS Hydralazine Hcl 25 Mg Tablet 1 Tab PO BID PRN for sbp >160 Pepcid Ac (Famotidine) 10 Mg Tablet 10 Mg PO HS Miralax (Polyethylene Glycol 3350) 17 Gm Powd.pack 1 Packet PO BID Colace (Docusate Sodium) 100 Mg Capsule 1 Cap PO BID Catapres-Tts 2 (Clonidine) 1 Each Patch.tdwk 1 Each TD QWE Centrum Silver Men Tablet (Multivit-Min/FA/Lycopen/Lutein) 1 Each Tablet 1 Each PO DAILY Bisacodyl 10 Mg Supp.rect 10 Mg RC PRN DAILY PRN Baclofen 10 Mg Tablet 1 Tab PO TID Atorvastatin Calcium 20 Mg Tablet 20 Mg PO HS Allergies Allergies: Coded Allergies: No Known Drug Allergies (Unverified , 07/04/16) ROS Review of System only pertinent + in HPI, pt denied any + findings, however poor historian Physical Exam General: Cooperative, No acute distress HEENT: Atraumatic, Mucous membr. moist/pink Lungs: Normal air movement Heart: Other (tachy) Abdomen: Soft, No tenderness Extremities: No clubbing, No edema Skin: No rashes, No breakdown Neuro: Sensation intact Psych/Mental Status: Mood NL MUSCULOSKELETAL: No swelling Vitals VITALS Vital Signs Date Time Temp Pulse Resp B/P (MAP) Pulse Ox O2 Delivery O2 Flow Rate FiO2 10/05/21 07:00 97.5 123 20 157/94 (115) 92 97.5 10/05/21 03:53 Room Air Labs Labs Laboratory Tests Test 10/03/21 15:30 10/05/21 02:30 White Blood Count 4.8 x10^3/uL (4.0-11.0) 9.4 x10^3/uL (4.0-11.0) Red Blood Count 4.61 x10^6/uL (4.30-5.70) 4.54 x10^6/uL (4.30-5.70) Hemoglobin 13.7 g/dL (13.0-17.5) 13.5 g/dL (13.0-17.5) Hematocrit 40.8 % (39.0-53.0) 40.0 % (39.0-53.0) Mean Corpuscular Volume 89 fL (79-100) 88 fL (79-100) Mean Corpuscular Hemoglobin 30 pg (25-35) 30 pg (25-35) Mean Corpuscular Hemoglobin Concent 34 g/dL (31-37) 34 g/dL (31-37) Red Cell Distribution Width 14.1 % (11.5-14.5) 14.0 % (11.5-14.5) Platelet Count 215 x10^3/uL (140-400) 203 x10^3/uL (140-400) Sodium Level 140 mmol/L (136-145) 141 mmol/L (136-145) Potassium Level 3.9 mmol/L (3.5-5.1) 3.5 mmol/L (3.5-5.1) Chloride Level 106 mmol/L (98-107) 107 mmol/L (98-107) Carbon Dioxide Level 21 mmol/L (21-32) 22 mmol/L (21-32) Anion Gap 13 (6-14) 12 (6-14) Blood Urea Nitrogen 7 mg/dL (8-26) 7 mg/dL (8-26) Creatinine 0.8 mg/dL (0.7-1.3) 0.8 mg/dL (0.7-1.3) Estimated GFR (Cockcroft-Gault) 118.1 118.1 BUN/Creatinine Ratio 9 (6-20) 9 (6-20) Glucose Level 71 mg/dL (70-99) 105 mg/dL (70-99) Calcium Level 8.8 mg/dL (8.5-10.1) 8.5 mg/dL (8.5-10.1) Total Bilirubin 0.6 mg/dL (0.2-1.0) 0.8 mg/dL (0.2-1.0) Aspartate Amino Transf (AST/SGOT) 12 U/L (15-37) 18 U/L (15-37) Alanine Aminotransferase (ALT/SGPT) 18 U/L (16-63) 20 U/L (16-63) Alkaline Phosphatase 111 U/L (46-116) 102 U/L (46-116) Lactate Dehydrogenase 130 U/L (85-227) Total Protein 7.2 g/dL (6.4-8.2) 6.9 g/dL (6.4-8.2) Albumin 3.6 g/dL (3.4-5.0) 3.5 g/dL (3.4-5.0) Albumin/Globulin Ratio 1.0 (1.0-1.7) 1.0 (1.0-1.7) Neutrophils (%) (Auto) 84 % (31-73) Lymphocytes (%) (Auto) 8 % (24-48) Monocytes (%) (Auto) 7 % (0-9) Eosinophils (%) (Auto) 0 % (0-3) Basophils (%) (Auto) 1 % (0-3) Neutrophils # (Auto) 7.9 x10^3/uL (1.8-7.7) Lymphocytes # (Auto) 0.8 x10^3/uL (1.0-4.8) Monocytes # (Auto) 0.6 x10^3/uL (0.0-1.1) Eosinophils # (Auto) 0.0 x10^3/uL (0.0-0.7) Basophils # (Auto) 0.1 x10^3/uL (0.0-0.2) Lactic Acid Level 1.3 mmol/L (0.4-2.0) Magnesium Level 1.4 mg/dL (1.8-2.4) Troponin I High Sensitivity 14 ng/L (4-75) Prostate Specific Antigen 0.72 ng/mL (0.00-4.00) Laboratory Tests Test 10/05/21 02:30 White Blood Count 9.4 x10^3/uL (4.0-11.0) Red Blood Count 4.54 x10^6/uL (4.30-5.70) Hemoglobin 13.5 g/dL (13.0-17.5) Hematocrit 40.0 % (39.0-53.0) Mean Corpuscular Volume 88 fL (79-100) Mean Corpuscular Hemoglobin 30 pg (25-35) Mean Corpuscular Hemoglobin Concent 34 g/dL (31-37) Red Cell Distribution Width 14.0 % (11.5-14.5) Platelet Count 203 x10^3/uL (140-400) Neutrophils (%) (Auto) 84 % (31-73) Lymphocytes (%) (Auto) 8 % (24-48) Monocytes (%) (Auto) 7 % (0-9) Eosinophils (%) (Auto) 0 % (0-3) Basophils (%) (Auto) 1 % (0-3) Neutrophils # (Auto) 7.9 x10^3/uL (1.8-7.7) Lymphocytes # (Auto) 0.8 x10^3/uL (1.0-4.8) Monocytes # (Auto) 0.6 x10^3/uL (0.0-1.1) Eosinophils # (Auto) 0.0 x10^3/uL (0.0-0.7) Basophils # (Auto) 0.1 x10^3/uL (0.0-0.2) Sodium Level 141 mmol/L (136-145) Potassium Level 3.5 mmol/L (3.5-5.1) Chloride Level 107 mmol/L (98-107) Carbon Dioxide Level 22 mmol/L (21-32) Anion Gap 12 (6-14) Blood Urea Nitrogen 7 mg/dL (8-26) Creatinine 0.8 mg/dL (0.7-1.3) Estimated GFR (Cockcroft-Gault) 118.1 BUN/Creatinine Ratio 9 (6-20) Glucose Level 105 mg/dL (70-99) Lactic Acid Level 1.3 mmol/L (0.4-2.0) Calcium Level 8.5 mg/dL (8.5-10.1) Magnesium Level 1.4 mg/dL (1.8-2.4) Total Bilirubin 0.8 mg/dL (0.2-1.0) Aspartate Amino Transf (AST/SGOT) 18 U/L (15-37) Alanine Aminotransferase (ALT/SGPT) 20 U/L (16-63) Alkaline Phosphatase 102 U/L (46-116) Troponin I High Sensitivity 14 ng/L (4-75) Total Protein 6.9 g/dL (6.4-8.2) Albumin 3.5 g/dL (3.4-5.0) Albumin/Globulin Ratio 1.0 (1.0-1.7) Prostate Specific Antigen 0.72 ng/mL (0.00-4.00) Assessment/Plan Assessment/Plan colonic ilues, multiple chronic medical issues, now with DVT, tachycardia GI following medical management no current surgical indications TENNILLE GUTIÉRREZ TONE ARTIST APPRENTICE October 05, 2021 10:03
[2021-10-05] MEDS ORDERED: POTASSIUM CL 40MEQ D5-0.45NACL 1,000 ML IV SCH (10:15)
--- NOTE | 2021-10-05 13:03 | NUR ---
SS following up with discharge planning. SS reviewed pt chart and discussed with pt RN. Pt is resident from [facility], ; fax [phone], and is currently on room air. GI following. Surgery consulted. SS will continue to follow for discharge planning.
--- NOTE | 2021-10-05 13:20 | PN ---
DATE: 10/05/2021 SUBJECTIVE: The patient is resting, slightly up in bed, in no apparent respiratory distress. He is awake, alert. On questioning him, denied any abdominal pain. Denied any nausea, vomiting. He apparently has multiple loose bowel movements. I did actually a rectal exam, which showed the rectal vault is empty. His repeat chest x-ray continued to show markedly dilated large bowel loops, measuring up to 11.1 cm, stable from prior CT abdomen. He developed marked tachycardia last night and the only abnormality was hypomagnesemia. His chest x-ray showed the cardiomediastinal silhouette is within normal limits. Lungs are clear. Mild tortuosity in the thoracic aorta. There are no significant pleural effusion. There is no pulmonary vascular congestion, no pneumothorax. His white cell count is normal as well as hemoglobin, hematocrit and platelets. His sodium is 141, potassium 3.5. He is well hydrated. The only abnormality was hypomagnesemia 1.4 for which he received 2 grams of magnesium sulfate. His troponin I high sensitivity was only 14 days and his TSH was 0.515, which is well within normal range. PHYSICAL EXAMINATION: GENERAL: When I saw him this morning, he was resting slightly propped up in bed, in no apparent respiratory distress. No pallor, jaundice, or cyanosis. No lymphadenopathy, no thyromegaly, no jugular venous distention. No lower limb edema. VITAL SIGNS: His heart rate was 123, blood pressure was 157/94, temperature 97.5, respiratory rate was 20 and oxygen saturation was 92%. HEAD, EYES, EARS, NOSE, AND THROAT: Normocephalic, atraumatic. NECK: Supple. HEART: Showed normal first and second heart sounds. No gallop, rub or murmur. CHEST: Showed central trachea, equal bilateral expansion, air entry, vesicular breath sounds. No crepitation or rhonchi. ABDOMEN: Distended, soft, nontender. There is no guarding or rigidity. No organomegaly. All hernial orifice intact. Bowel sounds normal. NEUROLOGIC: He has aphasia and right-sided hemiplegia. His intake and output are incompletely recorded. LABORATORY DATA: His lab work this morning showed a white cell count of 9.4, hemoglobin 13.5, hematocrit 40, MCV 88 and platelet count 203,000 with normal manual differential. His chemistry showed a serum sodium 141, potassium 3.5, chloride 107, bicarbonate 22, anion gap of 12, BUN 7, creatinine 0.8. Estimated GFR was 118 mL per minute. His glucose 105, calcium was 8.5, magnesium was 1.4. Total bilirubin, AST, ALT, alkaline phosphatase were normal. His total protein 6.9, albumin was 3.5. His prostate specific antigen was 0.72. ASSESSMENT: 1. Abdominal distention with marked colonic ileus that has not resolved. 2. Sinus tachycardia, the cause of which is not really very clear to me. 3. Hypomagnesemia, for which we treated him with 2 grams of magnesium sulfate. 4. The patient has multiple other medical problems including: A. Hypertension. B. Cerebrovascular accident with right-sided hemiplegia, aphasia. 5. Gastroesophageal reflux disease. 6. Carotid artery stenosis. PLAN: My plan is to change his IV fluid to D5 half normal with potassium chloride and consult the speech and language pathologist to assist with his safe for him to swallow. I will repeat his labs again this afternoon and tomorrow morning. CRISTY DR: Teresita TID: [id number]
--- NOTE | 2021-10-05 13:57 | EKG ---
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
[2021-10-05 14:45] LABS: CALCIUM 8.5 mg/dL (8.5-10.1); CREATININE 1.1 mg/dL (0.7-1.3); GFR 81.8; MAGNESIUM 2.2 mg/dL (1.8-2.4); POTASSIUM 3.5 mmol/L (3.5-5.1)
[2021-10-06 03:00] VITALS: BP 140/80
[2021-10-06 03:35] LABS: HEMATOCRIT 38.6 % (39.0-53.0); HEMOGLOBIN 13.2 g/dL (13.0-17.5); RED BLOOD COUNT 4.4 x10^6/uL (4.30-5.70); RED CELL DISTRIBUTION WIDTH 13.7 % (11.5-14.5); WHITE BLOOD COUNT 7.7 x10^3/uL (4.0-11.0)
[2021-10-06 03:50] LABS: CALCIUM 8.5 mg/dL (8.5-10.1); CREATININE 0.8 mg/dL (0.7-1.3); GFR 118.1; POTASSIUM 3.6 mmol/L (3.5-5.1)
[2021-10-06 07:00] VITALS: BP 156/84
[2021-10-06] MEDS: LUBIPROSTONE 24 MCG CAPSULE PO SCH ×2 (07:44→17:00)
--- NOTE | 2021-10-06 09:53 | PDOC ---
Date of Service: DATE: 10/06/21 TIME: 09:48 Subjective: Subjective: Denies pain. Objective: Objective: 2 stools charted - d/w nurse - occurred overnight, unclear details. D/w speech yesterday - see their eval below. Vital Signs: Vital Signs Date Time Temp Pulse Resp B/P (MAP) Pulse Ox O2 Delivery O2 Flow Rate FiO2 10/06/21 07:00 97.5 61 16 156/84 (108) 94 97.5 10/06/21 03:00 Room Air Labs: Laboratory Tests Test 10/05/21 13:58 10/06/21 03:10 Sodium Level 145 mmol/L 141 mmol/L Potassium Level 3.5 mmol/L 3.6 mmol/L Chloride Level 110 mmol/L 109 mmol/L Carbon Dioxide Level 21 mmol/L 24 mmol/L Anion Gap 14 8 Blood Urea Nitrogen 5 mg/dL 3 mg/dL Creatinine 1.1 mg/dL 0.8 mg/dL Estimated GFR (Cockcroft-Gault) 81.8 118.1 Glucose Level 154 mg/dL 97 mg/dL Calcium Level 8.5 mg/dL 8.5 mg/dL Magnesium Level 2.2 mg/dL 2.0 mg/dL White Blood Count 7.7 x10^3/uL Red Blood Count 4.40 x10^6/uL Hemoglobin 13.2 g/dL Hematocrit 38.6 % Mean Corpuscular Volume 88 fL Mean Corpuscular Hemoglobin 30 pg Mean Corpuscular Hemoglobin Concent 34 g/dL Red Cell Distribution Width 13.7 % Platelet Count 198 x10^3/uL Imaging: CORRUGATED BOX MACHINE OPERATOR Bedside Swallow Eval: Pt demo's moderate oropharyngeal dysphagia w/ atyipcal continuous mouth opening & closing and possible pharyngeal dysfunction which result in s/s aspiration w/ puree and thin liquids. Unclear if atypical behavior is acute or chronic, as it was reportedly not present yesterday. Currently appears at high risk for aspiration w/ all PO intake. Duration of need for NPO undetermined. See full report in Interventions. Recommendations: NPO w/ aggressive oral care. Will continue CORRUGATED BOX MACHINE OPERATOR f/u to determine safety of resumption of PO intake. NPO precautions posted in pt's rm. 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 Abnormal swallow eval yesterday, now NPO (so Amitiza not an option). Has suppositories ordered, try Relistor. Not a PEG candidate. Justicifation of Admission Dx: Justifications for Admission: Justification of Admission Dx: Yes RANDOLPH TYSON October 06, 2021 09:53
--- NOTE | 2021-10-06 10:47 | PDOC ---
SURGICAL PROGRESS NOTE DATE: 10/06/21 TIME: 10:45 Subjective documented stools pt denies pain, nausea Vital Signs Vital Signs Date Time Temp Pulse Resp B/P (MAP) Pulse Ox O2 Delivery O2 Flow Rate FiO2 10/06/21 07:00 97.5 61 16 156/84 (108) 94 97.5 10/06/21 03:00 Room Air I&O Intake and Output 10/06/21 07:00 Intake Total 1600 ml Balance 1600 ml Intake IV Total 1600 ml # Voids 7 # Bowel Movements 2 General: Cooperative Abdomen: Soft, No tenderness Labs Laboratory Tests Test 10/05/21 02:30 10/05/21 13:58 10/06/21 03:10 White Blood Count 9.4 x10^3/uL (4.0-11.0) 7.7 x10^3/uL (4.0-11.0) Red Blood Count 4.54 x10^6/uL (4.30-5.70) 4.40 x10^6/uL (4.30-5.70) Hemoglobin 13.5 g/dL (13.0-17.5) 13.2 g/dL (13.0-17.5) Hematocrit 40.0 % (39.0-53.0) 38.6 % (39.0-53.0) Mean Corpuscular Volume 88 fL (79-100) 88 fL (79-100) Mean Corpuscular Hemoglobin 30 pg (25-35) 30 pg (25-35) Mean Corpuscular Hemoglobin Concent 34 g/dL (31-37) 34 g/dL (31-37) Red Cell Distribution Width 14.0 % (11.5-14.5) 13.7 % (11.5-14.5) Platelet Count 203 x10^3/uL (140-400) 198 x10^3/uL (140-400) Neutrophils (%) (Auto) 84 % (31-73) Lymphocytes (%) (Auto) 8 % (24-48) Monocytes (%) (Auto) 7 % (0-9) Eosinophils (%) (Auto) 0 % (0-3) Basophils (%) (Auto) 1 % (0-3) Neutrophils # (Auto) 7.9 x10^3/uL (1.8-7.7) Lymphocytes # (Auto) 0.8 x10^3/uL (1.0-4.8) Monocytes # (Auto) 0.6 x10^3/uL (0.0-1.1) Eosinophils # (Auto) 0.0 x10^3/uL (0.0-0.7) Basophils # (Auto) 0.1 x10^3/uL (0.0-0.2) Sodium Level 141 mmol/L (136-145) 145 mmol/L (136-145) 141 mmol/L (136-145) Potassium Level 3.5 mmol/L (3.5-5.1) 3.5 mmol/L (3.5-5.1) 3.6 mmol/L (3.5-5.1) Chloride Level 107 mmol/L (98-107) 110 mmol/L (98-107) 109 mmol/L (98-107) Carbon Dioxide Level 22 mmol/L (21-32) 21 mmol/L (21-32) 24 mmol/L (21-32) Anion Gap 12 (6-14) 14 (6-14) 8 (6-14) Blood Urea Nitrogen 7 mg/dL (8-26) 5 mg/dL (8-26) 3 mg/dL (8-26) Creatinine 0.8 mg/dL (0.7-1.3) 1.1 mg/dL (0.7-1.3) 0.8 mg/dL (0.7-1.3) Estimated GFR (Cockcroft-Gault) 118.1 81.8 118.1 BUN/Creatinine Ratio 9 (6-20) Glucose Level 105 mg/dL (70-99) 154 mg/dL (70-99) 97 mg/dL (70-99) Lactic Acid Level 1.3 mmol/L (0.4-2.0) Calcium Level 8.5 mg/dL (8.5-10.1) 8.5 mg/dL (8.5-10.1) 8.5 mg/dL (8.5-10.1) Magnesium Level 1.4 mg/dL (1.8-2.4) 2.2 mg/dL (1.8-2.4) 2.0 mg/dL (1.8-2.4) Total Bilirubin 0.8 mg/dL (0.2-1.0) Aspartate Amino Transf (AST/SGOT) 18 U/L (15-37) Alanine Aminotransferase (ALT/SGPT) 20 U/L (16-63) Alkaline Phosphatase 102 U/L (46-116) Troponin I High Sensitivity 14 ng/L (4-75) Total Protein 6.9 g/dL (6.4-8.2) Albumin 3.5 g/dL (3.4-5.0) Albumin/Globulin Ratio 1.0 (1.0-1.7) Prostate Specific Antigen 0.72 ng/mL (0.00-4.00) Laboratory Tests Test 10/05/21 13:58 10/06/21 03:10 Sodium Level 145 mmol/L (136-145) 141 mmol/L (136-145) Potassium Level 3.5 mmol/L (3.5-5.1) 3.6 mmol/L (3.5-5.1) Chloride Level 110 mmol/L (98-107) 109 mmol/L (98-107) Carbon Dioxide Level 21 mmol/L (21-32) 24 mmol/L (21-32) Anion Gap 14 (6-14) 8 (6-14) Blood Urea Nitrogen 5 mg/dL (8-26) 3 mg/dL (8-26) Creatinine 1.1 mg/dL (0.7-1.3) 0.8 mg/dL (0.7-1.3) Estimated GFR (Cockcroft-Gault) 81.8 118.1 Glucose Level 154 mg/dL (70-99) 97 mg/dL (70-99) Calcium Level 8.5 mg/dL (8.5-10.1) 8.5 mg/dL (8.5-10.1) Magnesium Level 2.2 mg/dL (1.8-2.4) 2.0 mg/dL (1.8-2.4) White Blood Count 7.7 x10^3/uL (4.0-11.0) Red Blood Count 4.40 x10^6/uL (4.30-5.70) Hemoglobin 13.2 g/dL (13.0-17.5) Hematocrit 38.6 % (39.0-53.0) Mean Corpuscular Volume 88 fL (79-100) Mean Corpuscular Hemoglobin 30 pg (25-35) Mean Corpuscular Hemoglobin Concent 34 g/dL (31-37) Red Cell Distribution Width 13.7 % (11.5-14.5) Platelet Count 198 x10^3/uL (140-400) Problem List Problems Medical Problems: (1) DVT (deep venous thrombosis) Status: Acute (2) Ileus Status: Acute Assessment/Plan npo, unable to pass swallow repeat xr gi following Justicifation of Admission Dx: Justifications for Admission: Justification of Admission Dx: Yes TENNILLE GUTIÉRREZ [employer] October 06, 2021 10:47
[2021-10-06 10:53] VITALS: BP 140/78
[2021-10-06] MEDS ORDERED: cloNIDine TTS-3 1 PATCH PATCH.TDWK TD SCH (11:00)
[2021-10-06] MEDS ORDERED: METHYLNALTREXONE 12 MG/0.6 ML VIAL. SQ ONE (11:00)
--- NOTE | 2021-10-06 12:14 | PN ---
DATE: 10/06/2021 SUBJECTIVE: The patient is resting, slightly propped up in bed, in no apparent respiratory distress. He denied any complaint, in particular, no nausea, no vomiting, no abdominal pain. He was evaluated by the speech therapist and apparently failed his swallowing evaluation. He was seen by the Gastroenterology team and acute abdomen series were ordered, not done yet. PHYSICAL EXAMINATION: GENERAL: When I examined him, he looked well and was clearly in no apparent respiratory distress, pale, but not jaundiced or cyanosed. No thyromegaly. No jugular venous distention. No lower limb edema. VITAL SIGNS: His heart rate was 63, blood pressure was 140/78, temperature 97.7, respiratory rate was 18 and oxygen saturation was 95%. HEAD, EYES, EARS, NOSE AND THROAT: Normocephalic, atraumatic. NECK: Supple. HEART: Showed normal first and second heart sounds. No gallop, rub or murmur. CHEST: Clear to auscultation, no crepitation or rhonchi. ABDOMEN: Distended, soft, nontender, no guarding or rigidity. No organomegaly. All hernial orifices are intact. Bowel sounds are normal. NEUROLOGIC: He is awake, alert, has right-sided hemiplegia and aphasia, now dysphagia. His intake was 1025. No output was recorded. LABORATORY DATA: This morning showed a serum sodium 141, potassium 3.6, chloride 109, bicarbonate 24, anion gap of 8, BUN 3, creatinine 0.8, estimated GFR was 118 mL per minute. His glucose 97, calcium was 8.5, magnesium 2. White cell count was 7.7, hemoglobin 13, hematocrit 38, MCV 88 and platelet count 198,000. ASSESSMENT: 1. Abdominal distention with marked colonic ileus that has not resolved. 2. Sinus tachycardia, the cause of which is not clear, resolved. 3. Hypomagnesemia, for which we treated him with 2 grams of magnesium sulfate and the serum magnesium is normalized. 4. Dysphagia. The patient apparently has failed his swallowing evaluation. 5. The patient has multiple other medical problems including: A. Hypertension. B. Gastroesophageal reflux disease. C. Carotid artery stenosis. D. Left middle cerebral artery territory infarct with right-sided hemiplegia, aphasia and now dysphagia. PLAN: Start him on Clinimix. I also increased his clonidine to TTS 3 patch and obviously if he continues to fail his swallowing, we will consult the Gastroenterology team to consider a PEG tube placement. NICOLE DR: Teresita TID: [id number]
[2021-10-06] MEDS: AA 4.25 %/CALCIUM/LYTES/D5W 1,000 ML IV SCH (12:24)
[2021-10-06] MEDS: BISACODYL 10 MG SUPP.RECT. RC SCH (12:25)
--- NOTE | 2021-10-06 13:04 | NUR ---
SS following up with discharge planning. SS reviewed pt chart and discussed with pt RN. Pt is resident from [facility], ; fax [phone], and is currently on room air. GI and Surgery following. NPO. Clinimix. Pt failed swallow study. Per GI, not a PEG candidate. SS will continue to follow for discharge planning.
--- NOTE | 2021-10-06 13:15 | RAD ---
XR ABDOMEN COMP ACUTE History: Colonic ileus Comparison: 10/05/2021. CT abdomen and pelvis 10/04/2021 Technique: Frontal chest with upright and supine radiographs of the abdomen and pelvis. Findings: Chest: No new airspace consolidation. Redemonstrated is elevation of the left diaphragm with gas-fill ed bowel loops. Bowel gas pattern: Persistent diffuse gaseous distention of the small bowel and massive gaseous diste ntion of the sigmoid colon. Free air: None. Abnormal calcifications: Atherosclerotic vascular calcifications. Bones: Degenerative changes of bilateral hips. Other: None. Impression: 1. Persistent marked gaseous distention of the sigmoid colon and gas-filled bowel loops throughout t he abdomen. 2. No acute cardiopulmonary findings. Electronically signed by: Buck Grande MD (10/06/2021 1:13 PM) [id number]
--- NOTE | 2021-10-06 14:45 | PDOC2 ---
LAURA WILSON SERVICE ORDER EXPEDITER 10/06/21 1445: CARDIAC CONSULT DATE OF CONSULT Date of Consult DATE: 10/06/21 TIME: 14:38 REASON FOR CONSULT Reason for Consult: colonic ileus, possible neostigmine REFERRING PHYSICIAN Referring Physician: NANCY Wall SOURCE Source: Chart review, Patient HISTORY OF PRESENT ILLNESS HISTORY OF PRESENT ILLNESS This is a 61 yo female who presented from nursing facility secondary to period of unresponsiveness and hypotension. CT A/P showed colonic ileus and left femoral vein DVT. GI team considering initiation of neostigmine, but would like cardiac evaluation prior given presentations of loss of consciousness, hypotension, and tachycardia. Patient is unable to tell me what brought him into the ED. He denies any dizziness, diaphoresis, chest pain, or shortness of air. Telemetry review; patient has period of sinus tachycardia, which has sinus resolved. Blood pressure also low end upon arrival, but is now adequate. Denies any recent cardiac history. Does have history of a stroke with right-sided hemiplegia and aphasia. PAST MEDICAL HISTORY Cardiovascular: HTN, Other (carotid artery stenosi) CENTRAL NERVOUS SYSTEM: CVA ( right-sided hemiplegia, aphasia) GI: GERD, Other (sigmoid volvulus s/p underwent sigmoidectomy.) Psych: Anxiety, Depression PAST SURGICAL HISTORY Past Surgical History: Other ( sigmoidectomy.) FAMILY HISTORY Family History: Family History Unknown SOCIAL HISTORY Smoke: Quit ALCOHOL: none Drugs: None Lives: Intermediate CURRENT MEDICATIONS CURRENT MEDICATIONS Current Medications Medications (Trade) Dose Ordered Sig/Mj Route PRN Reason Start Time Stop Time Status Last Admin Dose Admin Clonidine HCl (Catapres Tts-3) 1 patch WEEKLY TD 10/06/21 11:00 10/06/21 12:27 Amino Acids/ Electrolytes/ Dextrose 1,000 ml @ 80 mls/hr [id number] IV 10/06/21 10:45 10/06/21 12:24 ALLERGIES ALLERGIES: Coded Allergies: No Known Drug Allergies (Unverified , 07/04/16) ROS Review of System 14 point ROS conducted with pertinent positives noted above in HPI, although limited PHYSICAL EXAM General: Alert, Cooperative, No acute distress HEENT: Atraumatic, Mucous membr. moist/pink Lungs: Other (diminished bases) Heart: Regular rate Abdomen: Soft Extremities: No edema Neuro: Sensation intact, Other (aphasia, right-sided hemiplegia ) Psych/Mental Status: Mood NL MUSCULOSKELETAL: Osteoarthritic changes both hands VITALS/I&O VITALS/I&O: Vital Signs Date Time Temp Pulse Resp B/P (MAP) Pulse Ox O2 Delivery O2 Flow Rate FiO2 10/06/21 10:53 97.7 63 18 140/78 (98) 95 97.7 10/06/21 03:00 Room Air I & O 10/05/21 10/05/21 10/06/21 15:00 23:00 07:00 Intake Total 600 ml 1000 ml Balance 600 ml 1000 ml LABS Lab: Laboratory Tests Test 10/06/21 03:10 White Blood Count 7.7 x10^3/uL (4.0-11.0) Red Blood Count 4.40 x10^6/uL (4.30-5.70) Hemoglobin 13.2 g/dL (13.0-17.5) Hematocrit 38.6 % (39.0-53.0) L Mean Corpuscular Volume 88 fL (79-100) Mean Corpuscular Hemoglobin 30 pg (25-35) Mean Corpuscular Hemoglobin Concent 34 g/dL (31-37) Red Cell Distribution Width 13.7 % (11.5-14.5) Platelet Count 198 x10^3/uL (140-400) Sodium Level 141 mmol/L (136-145) Potassium Level 3.6 mmol/L (3.5-5.1) Chloride Level 109 mmol/L (98-107) H Carbon Dioxide Level 24 mmol/L (21-32) Anion Gap 8 (6-14) Blood Urea Nitrogen 3 mg/dL (8-26) L Creatinine 0.8 mg/dL (0.7-1.3) Estimated GFR (Cockcroft-Gault) 118.1 Glucose Level 97 mg/dL (70-99) Calcium Level 8.5 mg/dL (8.5-10.1) Magnesium Level 2.0 mg/dL (1.8-2.4) Laboratory Tests 10/06/21 03:10 Laboratory Tests 10/06/21 03:10 ASSESSMENT/PLAN ASSESSMENT/PLAN 1. Loss of consciousness; details unclear. reportedly up to 10 mins in duration. Was noted to be hypotensive. Mental status at baseline when he became coherent. Will obtain baseline echo given risk factors 2. Hypotension; POA; now adequate s/p IVFs 3. Sinus tachycardia; physiologic. now resolved. Rhythm has been stable for > 24hrs 4. Colonic ileus; GI considering neostigmine- will monitor for arrhythmias. 5. H/o sigmoid volvulus s/p sigmoidectomy 6. H/o CVA w/ right-sided hemiplegia and aphasia 7. Hypertension; clonidine patch ordered YULIANA MAE MD 10/06/211916: CARDIAC CONSULT ASSESSMENT/PLAN ASSESSMENT/PLAN Patient seen and examined. Agree with NUCLEAR ENGINEERING TECHNICIAN's assessment and plan. Syncope possibly secondary to hypotension Sinus tachycardia most probably physiologic No other arrhythmias noted Check 2D echo to assess LVF OK to use neostigmine for colonic ileus from cardiac standpoint Thank you for your consultation LAURA WILSON APRN October 06, 2021 14:45 YULIANA MAE MD October 06, 2021 19:17
[2021-10-06 15:00] VITALS: BP 137/71
[2021-10-06] MEDS ORDERED: GLYCOPYRROLATE 1 MG/5 ML VIAL. IV PRN (16:15)
[2021-10-06] MEDS ORDERED: NEOSTIGMINE IV ONE (16:30)
[2021-10-06] MEDS ORDERED: NORMAL SALINE IV ONE (16:30)
[2021-10-06 19:00] VITALS: BP 157/91
[2021-10-06 23:00] VITALS: BP 138/91
[2021-10-07] MEDS: AA 4.25 %/CALCIUM/LYTES/D5W 1,000 ML IV SCH ×2 (02:00→15:44)
[2021-10-07 03:00] VITALS: BP 118/74
[2021-10-07 07:00] VITALS: BP 130/55
[2021-10-07] MEDS: LUBIPROSTONE 24 MCG CAPSULE PO SCH ×2 (07:36→17:56)
--- NOTE | 2021-10-07 09:01 | PDOC ---
Date of Service: DATE: 10/07/21 TIME: 08:57 Subjective: Subjective: Denies pain. Objective: Objective: D/w nurse - two soft stools prior to neostigmine, then large watery stool. Vital Signs: Vital Signs Date Time Temp Pulse Resp B/P (MAP) Pulse Ox O2 Delivery O2 Flow Rate FiO2 10/07/21 07:00 97.9 63 18 130/55 (80) 91 Room Air 97.9 PE: GEN: NAD LUNGS: CTAB HEART: RRR ABD: mild distention - stable, pretty quiet, non-tender NEURO/PSYCH: awake and alert A/P: Colonic ileus - stooling post suppository, Relistor, neostigmine H/o sigmoid volvulus s/p sigmoidectomy H/o CVA w/ right-sided hemiplegia and aphasia -- Appreciate cardiology help. Awaiting interval x-ray. Will review next steps with Dr. Mena. Justicifation of Admission Dx: Justifications for Admission: Justification of Admission Dx: Yes RANDOLPH TYSON October 07, 2021 09:01
--- NOTE | 2021-10-07 09:11 | PDOC ---
SURGICAL PROGRESS NOTE DATE: 10/07/21 TIME: 09:10 Subjective Patient doing well no complaints states he is not hungry Vital Signs Vital Signs Date Time Temp Pulse Resp B/P (MAP) Pulse Ox O2 Delivery O2 Flow Rate FiO2 10/07/21 07:00 97.9 63 18 130/55 (80) 91 Room Air 97.9 I&O Intake and Output 10/07/21 07:00 Output Total 0 ml Balance 0 ml Output Urine Total 0 ml # Voids 4 # Bowel Movements 2 General: Alert, Oriented X3, Cooperative, No acute distress Abdomen: Normal bowel sounds, Soft, No tenderness Labs Laboratory Tests Test 10/05/21 13:58 10/06/21 03:10 Sodium Level 145 mmol/L (136-145) 141 mmol/L (136-145) Potassium Level 3.5 mmol/L (3.5-5.1) 3.6 mmol/L (3.5-5.1) Chloride Level 110 mmol/L (98-107) 109 mmol/L (98-107) Carbon Dioxide Level 21 mmol/L (21-32) 24 mmol/L (21-32) Anion Gap 14 (6-14) 8 (6-14) Blood Urea Nitrogen 5 mg/dL (8-26) 3 mg/dL (8-26) Creatinine 1.1 mg/dL (0.7-1.3) 0.8 mg/dL (0.7-1.3) Estimated GFR (Cockcroft-Gault) 81.8 118.1 Glucose Level 154 mg/dL (70-99) 97 mg/dL (70-99) Calcium Level 8.5 mg/dL (8.5-10.1) 8.5 mg/dL (8.5-10.1) Magnesium Level 2.2 mg/dL (1.8-2.4) 2.0 mg/dL (1.8-2.4) White Blood Count 7.7 x10^3/uL (4.0-11.0) Red Blood Count 4.40 x10^6/uL (4.30-5.70) Hemoglobin 13.2 g/dL (13.0-17.5) Hematocrit 38.6 % (39.0-53.0) Mean Corpuscular Volume 88 fL (79-100) Mean Corpuscular Hemoglobin 30 pg (25-35) Mean Corpuscular Hemoglobin Concent 34 g/dL (31-37) Red Cell Distribution Width 13.7 % (11.5-14.5) Platelet Count 198 x10^3/uL (140-400) Problem List Problems Medical Problems: (1) DVT (deep venous thrombosis) Status: Acute (2) Ileus Status: Acute Assessment/Plan Patient states he is passing gas had a bowel movement yesterday per patient. Benign exam, no further surgical recommendations Justicifation of Admission Dx: Justifications for Admission: Justification of Admission Dx: Yes SHALONDA HAWKINS MD October 07, 2021 09:11
[2021-10-07] MEDS: BISACODYL 10 MG SUPP.RECT. RC SCH (10:10)
--- NOTE | 2021-10-07 10:48 | PDOC ---
CHRIS PEÑALOZA APRN 10/07/21 1048: CARDIO Progress Notes Date and Time Date of Service 10/07/2021 Time of Evaluation 1040 Subjective Subjective: No Chest Pain, No shortness of breath, No Palpitations Vitals Vitals Vital Signs Date Time Temp Pulse Resp B/P (MAP) Pulse Ox O2 Delivery O2 Flow Rate FiO2 10/07/21 07:00 97.9 63 18 130/55 (80) 91 Room Air 97.9 Weight Weight [ ] Input and Output Intake and Output Intake and Output 10/07/21 07:00 Output Total 0 ml Balance 0 ml Output Urine Total 0 ml # Voids 4 # Bowel Movements 2 Physical Exam HEENT: Neck Supple W Full Motion Chest: Symmetric LUNGS: Other (diminished ) Heart: RRR (SR/ST) Abdomen: Soft N/T Extremities: No Calf Tenderness Neurology: alert, oriented, follow commands Assessment Assessment 1. Suspect syncope: echo pending 2. Hypotension; POA; resolved after IV hydration 3. Sinus tachycardia; physiologic. now resolved. Got bradycardic in the 40s per staff with neostigmine otherwise tolerated treatment. Maintaining SR/ST 4. Colonic ileus; improving per GI/GS 5. H/o sigmoid volvulus s/p sigmoidectomy 6. H/o CVA w/ right-sided hemiplegia and aphasia 7. Hypertension; clonidine patch ordered Justicifation of Admission Dx: Justifications for Admission: Justification of Admission Dx: Yes YULIANA MAE MD 10/07/21 1717: CARDIO Progress Notes Assessment Assessment Patient seen and examined. Agree with GUARDIAN FAMILY MEMBER's assessment and plan. Syncope possibly secondary to hypotension Sinus tachycardia most probably physiologic No other arrhythmias noted Tolerating neostigmine. CHRIS PEÑALOZA APRN October 07, 2021 10:48 YULIANA MAE MD October 07, 2021 17:17
[2021-10-07 11:00] VITALS: BP 145/82
--- NOTE | 2021-10-07 11:48 | PN ---
DATE: 10/07/2021 SUBJECTIVE: The patient is resting, slightly up in bed, in no apparent respiratory distress. He is awake, alert. On questioning him, he denied any complaint. He has had acute abdomen series that continues to show persistently marked gaseous distention of the sigmoid colon and gas filled bowel loops throughout the abdomen. He unfortunately failed his swallowing evaluation yesterday. He was evaluated by Dr. Amador and his impression that permanent distention would likely be on it resolved with diverting colostomy and a PEG tube can be placed sometime later if ostomy is needed. PHYSICAL EXAMINATION: GENERAL: When I examined him this morning, he looked well and was clearly in no apparent respiratory distress. He was pale, but not jaundiced, cyanosed, no lymphadenopathy, no thyromegaly, no jugular venous distention. No lower limb edema. VITAL SIGNS: His heart rate was 63, blood pressure is 130/55, temperature was 97.9, respiratory rate was 18 and oxygen saturation was 91% on room air. HEAD, EYES, EARS, NOSE, AND THROAT: Normocephalic, atraumatic. NECK: Supple. HEART: Normal first and second heart sounds. No gallop, rub or murmur. CHEST: Clear to auscultation. No crepitation or rhonchi. ABDOMEN: Distended, soft, nontender, no guarding or rigidity. No organomegaly. All hernial orifice intact. Bowel sounds normal. NEUROLOGIC: He has left middle cerebral artery territory infarct with right-sided hemiplegia, aphasia and dysphagia. His intake was 1600, no output was recorded. LABORATORY DATA: As of yesterday, his white cell count was 7.7, hemoglobin 13, hematocrit 39, MCV 88 and platelet count of 198,000. His chemistry showed a serum sodium 141, potassium 3.6, chloride 109, bicarbonate 24, anion gap of 8, BUN 3, creatinine 0.8. Estimated GFR was 118 mL per minute. His glucose was 97, calcium was 8.5, magnesium was 2. ASSESSMENT: 1. Abdominal distention with marked chronic ileus likely due to pseudoobstruction syndrome or [place] syndrome. 2. Sinus tachycardia that has resolved. 3. Hypomagnesemia, resolved. His most recent serum magnesium is 2 mg/dL. 4. Dysphagia. Unfortunately, the patient has failed his swallowing evaluation. 5. The patient has multiple other medical problems including: A. Hypertension. B. Gastroesophageal reflux disease. C. Carotid artery stenosis. D. Left middle cerebral artery territory infarct with right-sided hemiplegia, aphasia and dysphagia. PLAN: To repeat his swallowing evaluation. If it fail again, we will probably put a PICC line and start him on TPN. Discussed with the surgical team and the need for diverting colostomy. CRISTY DR: Teresita TID: [id number]
[2021-10-07 15:00] VITALS: BP 145/96
--- NOTE | 2021-10-07 15:21 | RAD ---
EXAM: XR ABDOMEN COMP ACUTE 10/07/2021 1:12 PM CLINICAL INDICATION: Colonic ileus, sigmoid distention COMPARISON: Abdominal radiograph 10/06/2021 and 10/05/2021 TECHNIQUE: AP supine and upright view of the abdomen. PA view of the chest. FINDINGS: There is increased gaseous distention of bowel in the left upper quadrant and mid abdomen. Bowel left upper quadrant with now measures up to 10 cm in diameter. There is gaseous distention of the rest of the small bowel and colon. No definite pneumoperitoneum. The heart is normal in size. Pro minent mediastinum is unchanged in likely partially due to patient rotation. There are mild opacities in the left lung base. The lungs are hypoexpanded. No pleural effusion or pneumothorax. IMPRESSION: Worsened gaseous distention of the colon measuring up to 10 cm in the left upper quadran t. Consider CT to further evaluate if indicated. Electronically signed by: Eladia Zavala MD (10/07/2021 3:18 PM) [id number]
[2021-10-07] MEDS: fentaNYL PF VIAL 100 MCG/2 ML VIAL IVP PRN (16:39)
[2021-10-07 19:00] VITALS: BP 124/54
[2021-10-07 23:00] VITALS: BP 128/89
[2021-10-08] MEDS: AA 4.25 %/CALCIUM/LYTES/D5W 1,000 ML IV SCH ×2 (01:52→14:27)
[2021-10-08 03:00] VITALS: BP 142/70
[2021-10-08 07:00] VITALS: BP 148/64
[2021-10-08] MEDS: LUBIPROSTONE 24 MCG CAPSULE PO SCH ×2 (09:02→17:14)
[2021-10-08] MEDS: BISACODYL 10 MG SUPP.RECT. RC SCH (09:02)
--- NOTE | 2021-10-08 09:22 | PDOC ---
PROGRESS NOTES Date of Service: DATE: 10/08/21 TIME: 09:21 Subjective Subjective No new complaints. Tolerating clear liquid diet. Objective Objective Vital Signs Date Time Temp Pulse Resp B/P (MAP) Pulse Ox O2 Delivery O2 Flow Rate FiO2 10/08/21 07:00 98.1 71 16 148/64 (92) 93 Room Air 98.1 Intake and Output 10/08/21 07:00 Intake Total 0 ml Balance 0 ml Intake Oral 0 ml # Voids 3 Physical Exam Abdomen: Normal bowel sounds, Soft, No tenderness Heart: Regular rate Extremities: No edema General: Alert, Oriented X3, Cooperative, No acute distress HEENT: Atraumatic, Mucous membr. moist/pink Lungs: Other (diminished bases) MUSCULOSKELETAL: Osteoarthritic changes both hands Neuro: Sensation intact, Other (aphasia, right-sided hemiplegia ) Psych/Mental Status: Mood NL Skin: No rashes, No breakdown Assessment Assessment 1. Syncope: Most probably secondary to hypotension 2. Hypotension; POA; resolved after IV hydration 3. Sinus tachycardia; physiologic. now resolved. 4. Colonic ileus; improving, tolerating clear liquids 5. H/o sigmoid volvulus s/p sigmoidectomy 6. H/o CVA w/ right-sided hemiplegia and aphasia 7. Hypertension; better controlled Plan Plan of Care Problems Medical Problems: (1) DVT (deep venous thrombosis) Status: Acute (2) Ileus Status: Acute Comment Review of Relevant I have reviewed the following items danilo (where applicable) has been applied. Medications Current Medications Enoxaparin Sodium (Lovenox 60mg Syringe) 60 mg Q12HR SQ Last administered on 10/08/21at 09:02; Start 10/07/21 at 21:00 Vitals/I & O Vital Sign - Last 24 Hours 10/07/21 10/07/21 10/07/21 10/07/21 11:00 15:00 16:39 18:06 Temp 98.6 98.4 98.6 98.4 Pulse 69 94 Resp 18 18 B/P (MAP) 145/82 (103) 145/96 (112) Pulse Ox 92 93 93 93 O2 Delivery Room Air Room Air Room Air Room Air 10/07/21 10/07/21 10/07/21 10/08/21 19:00 20:00 23:00 03:00 Temp 99.2 98.2 98.4 99.2 98.2 98.4 Pulse 119 85 71 Resp 20 20 18 B/P (MAP) 124/54 (77) 128/89 (102) 142/70 (94) Pulse Ox 93 92 94 O2 Delivery Room Air Room Air Room Air Room Air 10/08/21 07:00 Temp 98.1 98.1 Pulse 71 Resp 16 B/P (MAP) 148/64 (92) Pulse Ox 93 O2 Delivery Room Air Intake and Output 10/07/21 10/07/21 10/08/21 15:00 23:00 07:00 Intake Total 0 ml Balance 0 ml YULIANA MAE MD October 08, 2021 09:21
--- NOTE | 2021-10-08 10:19 | PN ---
DATE: 10/08/2021 SUBJECTIVE: The patient apparently did well on his swallowing evaluation. He is now on a clear liquid diet that he is tolerating without any problem. He did have a bowel movement. On questioning him, he denied any complaint. The nursing staff did not voice any concern. PHYSICAL EXAMINATION: GENERAL: When I examined him, there was no pallor, jaundice, cyanosis or thyromegaly. No jugular venous distention. No limb edema. VITAL SIGNS: His heart rate was 71, blood pressure 148/64, temperature 98.1, respiratory rate was 16 and oxygen saturation was 93% on room air. HEAD, EYES, EARS, NOSE, AND THROAT: Normocephalic, atraumatic. NECK: Supple. HEART: Normal first and second heart sounds. No gallop or murmur. CHEST: Showed central trachea, equal bilateral chest expansion, air entry, vesicular breath sounds. No crepitation or rhonchi. ABDOMEN: Distended, soft, nontender. Definitely no guarding or rigidity. No organomegaly. All hernial orifices intact. Bowel sounds normal. NEUROLOGIC: He has aphasia and right-sided hemiplegia. His dysphagia is resolving. His intake and output are incompletely recorded. LABORATORY DATA: Showed a serum sodium 141, potassium 3.6, chloride 109, bicarbonate 24, anion gap of 8, BUN 3, creatinine 0.8. Estimated GFR was 118 mL per minute. His glucose 97, calcium was 8.5, magnesium 2. ASSESSMENT: 1. Abdominal distention with marked colonic ileus, likely due to pseudoobstruction syndrome or Burton syndrome. 2. Sinus tachycardia that has resolved. 3. Hypomagnesemia, resolved. His most recent serum magnesium is 2 mg/dL. 4. Dysphagia that is improving. Apparently, the patient is now on clear liquid diet that he is tolerating very well. 5. The patient has multiple other medical problems including: A. Hypertension. B. Gastroesophageal reflux disease. C. Carotid artery stenosis. D. Left middle cerebral artery territory infarct with right-sided hemiplegia, aphasia and dysphagia. PLAN: To continue with TPN for now. Advance diet as tolerated and hopefully discharge him back to [facility] on Sunday. AARON/JASPREET DR: AARON/wendy TID: [id number]
[2021-10-08 11:24] VITALS: BP 158/74
[2021-10-08 15:12] VITALS: BP 153/84
[2021-10-08 19:00] VITALS: BP 176/79
[2021-10-08 23:00] VITALS: BP 152/65
[2021-10-09] MEDS: AA 4.25 %/CALCIUM/LYTES/D5W 1,000 ML IV SCH ×2 (02:58→14:15)
[2021-10-09 03:00] VITALS: BP 141/97
[2021-10-09 07:00] VITALS: BP 139/89
[2021-10-09 07:53] LABS: BASO % 0 % (0-3); EOS # 0.1 x10^3/uL (0.0-0.7); EOS % 2 % (0-3); HEMATOCRIT 39.8 % (39.0-53.0); HEMOGLOBIN 13.6 g/dL (13.0-17.5); LYMPH # 1.2 x10^3/uL (1.0-4.8); LYMPH % 15 % (24-48); MEAN CORPUSCULAR HEMOGLOBIN 30 pg (25-35); MEAN CORPUSCULAR HGB CONC 34 g/dL (31-37); MEAN CORPUSCULAR VOLUME 88 fL (79-100); MONO # 0.9 x10^3/uL (0.0-1.1); MONO % 11 % (0-9); NEUT # 5.8 x10^3/uL (1.8-7.7); NEUT % 73 % (31-73); PLATELET COUNT 231 x10^3/uL (140-400); RED CELL DISTRIBUTION WIDTH 14.2 % (11.5-14.5)
[2021-10-09 08:10] LABS: CREATININE 1.1 mg/dL (0.7-1.3); GFR 81.8; POTASSIUM 4.8 mmol/L (3.5-5.1)
--- NOTE | 2021-10-09 09:06 | PDOC ---
PROGRESS NOTES Date of Service: DATE: 10/09/21 TIME: 09:06 Subjective Subjective No new complaints Objective Objective Vital Signs Date Time Temp Pulse Resp B/P (MAP) Pulse Ox O2 Delivery O2 Flow Rate FiO2 10/09/21 07:00 98.0 76 16 139/89 (106) 96 Room Air 98.0 Intake and Output 10/09/21 07:00 Intake Total 2265 ml Balance 2265 ml Intake Oral 650 ml IV Total 1615 ml # Voids 8 # Bowel Movements 1 Physical Exam Abdomen: Normal bowel sounds, Soft, No tenderness Heart: Regular rate Extremities: No edema General: Alert, Oriented X3, Cooperative, No acute distress HEENT: Atraumatic, Mucous membr. moist/pink Lungs: Other (diminished bases) MUSCULOSKELETAL: Osteoarthritic changes both hands Neuro: Sensation intact, Other (aphasia, right-sided hemiplegia ) Psych/Mental Status: Mood NL Skin: No rashes, No breakdown Assessment Assessment 1. Syncope: Most probably secondary to hypotension 2. Hypotension; resolved after IV hydration 3. Sinus tachycardia; physiologic. now resolved. 4. Colonic ileus; improving, tolerating clear liquids 5. H/o sigmoid volvulus s/p sigmoidectomy 6. H/o CVA w/ right-sided hemiplegia and aphasia 7. Hypertension; better controlled Plan Plan of Care Problems Medical Problems: (1) DVT (deep venous thrombosis) Status: Acute (2) Ileus Status: Acute Comment Review of Relevant I have reviewed the following items danilo (where applicable) has been applied. Labs Laboratory Tests Test 10/08/21 11:04 10/09/21 06:26 Glucose (Fingerstick) 125 mg/dL (70-99) White Blood Count 8.0 x10^3/uL (4.0-11.0) Red Blood Count 4.50 x10^6/uL (4.30-5.70) Hemoglobin 13.6 g/dL (13.0-17.5) Hematocrit 39.8 % (39.0-53.0) Mean Corpuscular Volume 88 fL (79-100) Mean Corpuscular Hemoglobin 30 pg (25-35) Mean Corpuscular Hemoglobin Concent 34 g/dL (31-37) Red Cell Distribution Width 14.2 % (11.5-14.5) Platelet Count 231 x10^3/uL (140-400) Neutrophils (%) (Auto) 73 % (31-73) Lymphocytes (%) (Auto) 15 % (24-48) Monocytes (%) (Auto) 11 % (0-9) Eosinophils (%) (Auto) 2 % (0-3) Basophils (%) (Auto) 0 % (0-3) Neutrophils # (Auto) 5.8 x10^3/uL (1.8-7.7) Lymphocytes # (Auto) 1.2 x10^3/uL (1.0-4.8) Monocytes # (Auto) 0.9 x10^3/uL (0.0-1.1) Eosinophils # (Auto) 0.1 x10^3/uL (0.0-0.7) Basophils # (Auto) 0.0 x10^3/uL (0.0-0.2) Sodium Level 139 mmol/L (136-145) Potassium Level 4.8 mmol/L (3.5-5.1) Chloride Level 106 mmol/L (98-107) Carbon Dioxide Level 21 mmol/L (21-32) Anion Gap 12 (6-14) Blood Urea Nitrogen 32 mg/dL (8-26) Creatinine 1.1 mg/dL (0.7-1.3) Estimated GFR (Cockcroft-Gault) 81.8 Glucose Level 106 mg/dL (70-99) Calcium Level 9.0 mg/dL (8.5-10.1) Vitals/I & O Vital Sign - Last 24 Hours 10/08/21 10/08/21 10/08/21 10/08/21 11:24 15:12 19:00 23:00 Temp 98.4 98.8 98.5 98.7 98.4 98.8 98.5 98.7 Pulse 85 78 79 70 Resp 20 20 20 20 B/P (MAP) 158/74 (102) 153/84 (107) 176/79 (111) 152/65 (94) Pulse Ox 95 96 93 94 O2 Delivery Room Air Room Air Room Air Room Air 10/09/21 10/09/21 03:00 07:00 Temp 98.8 98.0 98.8 98.0 Pulse 70 76 Resp 20 16 B/P (MAP) 141/97 (112) 139/89 (106) Pulse Ox 94 96 O2 Delivery Room Air Room Air Intake and Output 10/08/21 10/08/21 10/09/21 15:00 23:00 07:00 Intake Total 1350 ml 915 ml Balance 1350 ml 915 ml YULIANA MAE MD October 09, 2021 09:06
[2021-10-09] MEDS: BISACODYL 10 MG SUPP.RECT. RC SCH (09:30)
[2021-10-09] MEDS: LUBIPROSTONE 24 MCG CAPSULE PO SCH ×2 (09:30→17:12)
[2021-10-09 11:00] VITALS: BP 156/106
[2021-10-09 15:00] VITALS: BP 153/63
--- NOTE | 2021-10-09 17:29 | NUR ---
Pt PIV in right hand infiltrated. Hand swollen and painful. IV removed. This RN attempted to start PIV in L forearm, pt resisted and refused to let RN try to insert needle. Pt tolerating PO diet and having good intake. Tentative discharge tomorrow. Will continue to monitor.
--- NOTE | 2021-10-09 17:36 | PN ---
DATE: 10/09/2021 SUBJECTIVE: The patient is resting, slightly propped up in bed, in no apparent respiratory distress. On questioning him, he denied any complaint, in particular, denied any nausea or vomiting. Denied any abdominal pain. Nursing staff did not voice any concerns, stated that he tolerated his full liquid diet yesterday and he is scheduled to have his diet advanced today. PHYSICAL EXAMINATION: GENERAL: When I examined him, he looked pale, but not jaundiced or cyanosed. No lymphadenopathy, no thyromegaly, no jugular venous distention, no limb edema. VITAL SIGNS: His heart rate was 70, blood pressure was 141/97, temperature was 98.8, respiratory rate 20, and oxygen saturation was 94%. HEAD, EYES, EARS, NOSE AND THROAT: Showed normocephalic, atraumatic. NECK: Supple. HEART: Normal first and second heart sounds. No gallop or murmur. CHEST: Clear to auscultation. No crepitation or rhonchi. ABDOMEN: Distended, soft, and nontender. No guarding or rigidity. No organomegaly. All hernial orifice intact. Bowel sounds normal. NEUROLOGIC: He has right-sided hemiplegia, aphasia. His dysphagia is improving. His intake and output is incompletely recorded. LABORATORY WORK: This morning showed a white cell count of 8000, hemoglobin 13.6, hematocrit 39, MCV 88 and platelet count 231,000 with normal manual differential. His chemistry showed a serum sodium 139, potassium 4.8, chloride 106, bicarbonate 21, anion gap of 12, BUN 32, creatinine 1.1. Estimated GFR was 81 mL per minute. His glucose was 106, calcium was 9. ASSESSMENT: 1. Abdominal distention with marked colonic ileus, likely due to pseudoobstruction syndrome or Latanya syndrome. 2. Sinus tachycardia, it has resolved. 3. Hypomagnesemia, resolved. His most recent serum magnesium is 2 mg/dL. 4. Dysphagia, that is improving currently. The patient is now on full liquid diet that he is tolerating well and he is scheduled to have diet advanced this morning. 5. The patient has multiple other medical problems including: A. Hypertension. B. Gastroesophageal reflux disease. C. Carotid artery stenosis. D. Left middle cerebral artery territory infarct with right-sided hemiplegia, aphasia and dysphagia. E. Deep venous thrombosis of his left lower extremity, for which he is on Lovenox. PLAN: To advance diet as tolerated. We will switch him to Eliquis. Meanwhile, continue with TPN for now and once his intake is adequate, we will discontinue the TPN and hopefully discharge him back to [facility]. SANTA DR: Teresita TID: [id number]
[2021-10-09 19:00] VITALS: BP 146/57
[2021-10-09 23:00] VITALS: BP 145/97
[2021-10-10] MEDS: AA 4.25 %/CALCIUM/LYTES/D5W 1,000 ML IV SCH (02:15)
[2021-10-10 03:00] VITALS: BP 135/66
[2021-10-10 07:00] VITALS: BP 140/71
[2021-10-10 07:14] LABS: CALCIUM 8.7 mg/dL (8.5-10.1); CREATININE 1.4 mg/dL (0.7-1.3); GFR 61.9; POTASSIUM 4.6 mmol/L (3.5-5.1)
[2021-10-10] MEDS: BISACODYL 10 MG SUPP.RECT. RC SCH (09:39)
[2021-10-10] MEDS: LUBIPROSTONE 24 MCG CAPSULE PO SCH (09:39)
[2021-10-10] MEDS ORDERED: APIXABAN 5 MG TABLET. PO ONE (10:00)
[2021-10-10] MEDS ORDERED: ANTI-COAG MONITOR BY PHARMACY. MC PRN (10:00)
--- NOTE | 2021-10-10 10:36 | PDOC ---
Date of Service: DATE: 10/10/21 TIME: 10:29 Subjective: Subjective: Denies pain. Objective: Objective: D/w nurse - stooled 10/08, tolerating diet. D/w Dr. Fox - possible DC if back to his usual diet. Reviewed med list - getting Amitiza, suppositories stopped. Vital Signs: Vital Signs Date Time Temp Pulse Resp B/P (MAP) Pulse Ox O2 Delivery O2 Flow Rate FiO2 10/10/21 07:00 97.9 71 18 140/71 (94) 94 Room Air 97.9 Labs: Laboratory Tests Test 10/09/21 12:30 10/10/21 06:20 Coronavirus (COVID-19)(PCR) Not detected Sodium Level 139 mmol/L Potassium Level 4.6 mmol/L Chloride Level 106 mmol/L Carbon Dioxide Level 24 mmol/L Anion Gap 9 Blood Urea Nitrogen 37 mg/dL Creatinine 1.4 mg/dL Estimated GFR (Cockcroft-Gault) 61.9 Glucose Level 106 mg/dL Calcium Level 8.7 mg/dL Imaging: KUB 10/07 IMPRESSION: Worsened gaseous distention of the colon measuring up to 10 cm in the left upper quadrant. Consider CT to further evaluate if indicated. PE: GEN: NAD LUNGS: CTAB HEART: RRR ABD: quiet BS, stable mild distention, non-tender NEURO/PSYCH: awake and alert, answers yes/no questions A/P: Colonic ileus H/o CVA w/ right-sided hemiplegia, aphasia, dysphagia H/o sigmoid volvulus s/p sigmoidectomy -- Dc per primary. Chronic issue/imaging findings - tolerating diet, has stooled. Getting Amitiza - continue this or consider regular use of Relistor, suppositories, etc. May need to consider diverting ostomy in future. Justicifation of Admission Dx: Justifications for Admission: Justification of Admission Dx: Yes RANDOLPH TYSON October 10, 2021 10:36
--- NOTE | 2021-10-10 10:49 | NUR ---
SS following up with discharge planning. SS reviewed pt chart and discussed with pt RN. Pt is currently on room air. COVID19 negative. Pt is LTC resident from [facility], ; fax [phone]. Discharge orders received for return to facility. Clinical updates and discharge orders sent to [facility]. Pt will discharge today and go to [facility] between 1500 and 1530 via stretcher. Pt and pt's RN notified.
[2021-10-10 11:00] VITALS: BP 101/68
--- NOTE | 2021-10-10 11:33 | PDOC ---
LAURA WILSON BANDAR 10/10/21 1133: CARDIO Progress Notes Date and Time Date of Service 10/10/21 Time of Evaluation 1130 Subjective Subjective: No Chest Pain, No shortness of breath, No Palpitations Vitals Vitals Vital Signs Date Time Temp Pulse Resp B/P (MAP) Pulse Ox O2 Delivery O2 Flow Rate FiO2 10/10/21 07:00 97.9 71 18 140/71 (94) 94 Room Air 97.9 Weight Weight [ ] Input and Output Intake and Output Intake and Output 10/10/21 07:00 Intake Total 1335 ml Balance 1335 ml Intake Oral 100 ml IV Total 1235 ml # Voids 5 Laboratory Labs Laboratory Tests Test 10/09/21 12:30 10/10/21 06:20 Coronavirus (COVID-19)(PCR) Not detected (NOT DETECTD) Sodium Level 139 mmol/L (136-145) Potassium Level 4.6 mmol/L (3.5-5.1) Chloride Level 106 mmol/L (98-107) Carbon Dioxide Level 24 mmol/L (21-32) Anion Gap 9 (6-14) Blood Urea Nitrogen 37 mg/dL (8-26) Creatinine 1.4 mg/dL (0.7-1.3) Estimated GFR (Cockcroft-Gault) 61.9 Glucose Level 106 mg/dL (70-99) Calcium Level 8.7 mg/dL (8.5-10.1) Physical Exam HEENT: Neck Supple W Full Motion Chest: Symmetric LUNGS: Other (diminished ) Heart: RRR (heart tones regular ) Abdomen: Soft N/T Extremities: No Calf Tenderness Neurology: alert, oriented, follow commands, other (aphasia ) Assessment Assessment 1. Syncope: Most probably secondary to hypotension. no acute events were noted on tele. 2. Hypotension; resolved after IV hydration 3. Sinus tachycardia; physiologic. now resolved. presently off tele 4. Colonic ileus; improving, treated with neostigmine. tolerating diet. continue as per GI 5. H/o sigmoid volvulus s/p sigmoidectomy 6. H/o CVA w/ right-sided hemiplegia and aphasia 7. Hypertension; better controlled Justicifation of Admission Dx: Justifications for Admission: Justification of Admission Dx: Yes YULIANA MAE MD 10/10/21 8602: CARDIO Progress Notes Assessment Assessment Patient seen and examined. Agree with SALES CLOSER's assessment and plan as stated above LAURA WILSON APRN October 10, 2021 11:33 YULIANA MAE MD October 10, 2021 18:18
[2021-10-10 15:00] VITALS: BP 121/64
== END 2021-10-10 15:40 | DRG 300 ==
LOC: ER 10:30 → 5 NORTH 16:24
PROVIDERS: ADMIT Internal Medicine; ATTEND Internal Medicine
DX: I82.412 Acute embolism and thrombosis of left femoral vein (principal); K56.7 Ileus, unspecified; I69.351 Hemiplegia and hemiparesis following cerebral infarction affecting right dominant side; E78.00 Pure hypercholesterolemia, unspecified; E78.5 Hyperlipidemia, unspecified; E83.42 Hypomagnesemia; F32.A Depression, unspecified; F41.9 Anxiety disorder, unspecified; G47.00 Insomnia, unspecified; G89.4 Chronic pain syndrome; I10 Essential (primary) hypertension; I65.29 Occlusion and stenosis of unspecified carotid artery; I69.320 Aphasia following cerebral infarction; I70.0 Atherosclerosis of aorta; K21.9 Gastro-esophageal reflux disease without esophagitis; K59.81 Ogilvie syndrome; N20.0 Calculus of kidney; Z79.01 Long term (current) use of anticoagulants; Z87.891 Personal history of nicotine dependence; Z93.3 Colostomy status; I95.9 Hypotension, unspecified
CPT/HCPCS: 36415; 70450; 71045; 71275; 74018; 74022; 74176; 74177; 80048; 80053; 82962; 83605; 83615; 83690; 83735; 83880; 84443; 84484; 85025; 85027; 85379; 93005; 96360; 96372; G0103; J1650; J2212; J2405; J2710; J3010; J3475; J3480; J3490; J7030; Q9967; U0003; 92526-GN; 92610-GN; 99285-25; G0378

== ENCOUNTER 2021-10-12 06:37 | Inpatient (IN) | payer MEDICARE, OTHER ==
[~2021-10-12] VITALS: Ht 175.3 cm; Wt 59.3 kg
[~2021-10-12 06:37] MED LIST changes: +CLOP75TA57 PO; +FAMO10TA26 PO; +HYDR-2868 PO; +NIFE30TA2 PO
--- NOTE | 2021-10-12 06:51 | ED.ADGEN ---
Past Medical History Past Medical History: Anxiety, Constipation, CVA, Depression, GERD, High Cholesterol, Hypertension Additional Past Medical Histor: SEE [facility] Past Surgical History: Other Additional Past Surgical Histo: SEE [facility] Smoking Status: Never Smoker Alcohol Use: None Drug Use: None General Adult EDM: Chief Complaint: GI PROBLEM HPI: HPI: Patient is a 61-year-old male who arrives via EMS with reports of abdominal distention. Patient resides in a nursing facility and has had problems with constipation previously. It is been reported the patient has not had a bowel movement in 2 days and has had gradual distention. Patient does have a history of a CVA which leaves him very debilitated. Despite this, he denies pain of any kind. He further denies fevers or medical events otherwise. He is awake, alert and at his functional baseline. Review of Systems: Review of Systems: Constitutional: Denies fever or chills. [] Eyes: Denies change in visual acuity. [] HENT: Denies nasal congestion or sore throat. [] Respiratory: Denies cough or shortness of breath. [] Cardiovascular: Denies chest pain or edema. [] GI: Reports abdominal distention as well as constipation. Denies abdominal pain, nausea, vomiting, bloody stools or diarrhea. [] : Denies dysuria. [] Musculoskeletal: Denies back pain or joint pain. [] Integument: Denies rash. [] Neurologic: Denies headache, focal weakness or sensory changes. [] Endocrine: Denies polyuria or polydipsia. [] Lymphatic: Denies swollen glands. [] Psychiatric: Denies depression or anxiety. [] Current Medications: Current Medications Medications (Trade) Dose Ordered Sig/Mj Start Time Stop Time Status Last Admin Dose Admin Ondansetron HCl (Zofran) 4 mg PRN Q8HRS PRN 10/12/21 08:45 10/13/21 08:44 Piperacillin Sod/ Tazobactam Sod 4.5 gm/Dextrose 100 ml @ 200 mls/hr 1X ONCE 10/12/21 07:00 10/12/21 07:29 DC 10/12/21 07:15 200 MLS/HR Sodium Chloride 1,000 ml @ 1,000 mls/hr 1X ONCE 10/12/21 07:30 10/12/21 08:29 DC 10/12/21 08:09 1,000 MLS/HR Allergies: Allergies: Allergies Coded Allergies Type Severity Reaction Last Updated Verified No Known Drug Allergies 10/12/21 No Physical Exam: PE: Constitutional: Frail-appearing. Well nourished, no acute distress, non-toxic appearance. [] HENT: Normocephalic, atraumatic, bilateral external ears normal, oropharynx moist, no oral exudates, nose normal. [] Eyes: PERRLA, EOMI, conjunctiva normal, no discharge. [] Neck: Normal range of motion, no tenderness, supple, no stridor. [] Cardiovascular:Heart rate regular rhythm, no murmur [] Lungs & Thorax: Bilateral breath sounds clear to auscultation [] Abdomen: Abdominal distention. Bowel sounds normal, soft, no tenderness, no masses, no pulsatile masses. [] Skin: Warm, dry, no erythema, no rash. [] Back: No tenderness, no CVA tenderness. [] Extremities: No tenderness, no cyanosis, no clubbing, ROM intact, no edema. [] Neurologic: Clinical appearance consistent with previous CVA. Alert and oriented X 3, normal motor function, normal sensory function. [] Psychologic: Affect normal, judgement normal, mood normal. [] Current Patient Data: Labs: Laboratory Tests Test 10/12/21 07:00 10/12/21 07:40 10/12/21 07:55 White Blood Count 12.0 x10^3/uL (4.0-11.0) H Red Blood Count 4.20 x10^6/uL (4.30-5.70) L Hemoglobin 12.4 g/dL (13.0-17.5) L Hematocrit 37.1 % (39.0-53.0) L Mean Corpuscular Volume 88 fL (79-100) Mean Corpuscular Hemoglobin 29 pg (25-35) Mean Corpuscular Hemoglobin Concent 33 g/dL (31-37) Red Cell Distribution Width 14.4 % (11.5-14.5) Platelet Count 327 x10^3/uL (140-400) Neutrophils (%) (Auto) 84 % (31-73) H Lymphocytes (%) (Auto) 6 % (24-48) L Monocytes (%) (Auto) 10 % (0-9) H Eosinophils (%) (Auto) 0 % (0-3) Basophils (%) (Auto) 0 % (0-3) Neutrophils # (Auto) 10.1 x10^3/uL (1.8-7.7) H Lymphocytes # (Auto) 0.7 x10^3/uL (1.0-4.8) L Monocytes # (Auto) 1.2 x10^3/uL (0.0-1.1) H Eosinophils # (Auto) 0.0 x10^3/uL (0.0-0.7) Basophils # (Auto) 0.0 x10^3/uL (0.0-0.2) Lactic Acid Level 1.0 mmol/L (0.4-2.0) Troponin I High Sensitivity 10 ng/L (4-75) Urine Collection Type U cath Urine Color (Auto) Yellow Urine Turbidity Hazy Urine pH (Auto) 5.5 (<5.0-8.0) Urine Specific [place] 1.011 (1.000-1.030) Urine Protein (Auto) Negative mg/dL (Negative) Urine Glucose (Auto)(UA) Negative mg/dL (Negative) Urine Ketones (Auto) Negative mg/dL (Negative) Urine Blood (Auto) Large (Negative) Urine Nitrite Negative (Negative) Urine Bilirubin (Auto) Negative (Negative) Urine Urobilinogen (Auto) Normal mg/dL (Normal) Urine Leukocyte Esterase (Auto) Negative (Negative) Urine RBC 20-40 /HPF (0-2) Urine WBC 1-4 /HPF (0-4) Urine Amorphous Sediment Present /HPF Urine Bacteria Few /HPF (0-FEW) Urine Mucus Slight /LPF Sodium Level 141 mmol/L (136-145) Potassium Level 4.2 mmol/L (3.5-5.1) Chloride Level 106 mmol/L (98-107) Carbon Dioxide Level 21 mmol/L (21-32) Anion Gap 14 (6-14) Blood Urea Nitrogen 60 mg/dL (8-26) H Creatinine 2.7 mg/dL (0.7-1.3) H Estimated GFR (Cockcroft-Gault) 29.0 BUN/Creatinine Ratio 22 (6-20) H Glucose Level 169 mg/dL (70-99) H Calcium Level 9.4 mg/dL (8.5-10.1) Total Bilirubin 0.6 mg/dL (0.2-1.0) Aspartate Amino Transferase (AST) 15 U/L (15-37) Alanine Aminotransferase (ALT) 51 U/L (16-63) Alkaline Phosphatase 86 U/L (46-116) Total Protein 7.6 g/dL (6.4-8.2) Albumin 3.1 g/dL (3.4-5.0) L Albumin/Globulin Ratio 0.7 (1.0-1.7) L Lipase 47 U/L (73-393) L Laboratory Tests 10/12/21 07:00 Laboratory Tests 10/12/21 07:55 Vital Signs: Vital Signs Date Time Temp Pulse Resp B/P (MAP) Pulse Ox O2 Delivery O2 Flow Rate FiO2 10/12/21 06:53 98.0 118 28 153/93 (113) 94 Room Air 98.0 EKG: EKG: EKG was obtained at 8:37 AM and reveals a normal sinus rhythm with a ventricular rate of 92 bpm. There are nonspecific T wave changes in the lateral leads present. There are no acute ST/T wave changes to denote ischemia. No STEMI is present. Heart Score: C/O Chest Pain: No Risk Factors: Risk Factors: DM, Current or recent (<one month) smoker, HTN, HLP, family history of CAD, obesity. Risk Scores: Score 0 - 3: 2.5% MACE over next 6 weeks - Discharge Home Score 4 - 6: 20.3% MACE over next 6 weeks - Admit for Clinical Observation Score 7 - 10: 72.7% MACE over next 6 weeks - Early Invasive Strategies Radiology/Procedures: Radiology/Procedures: [][facility] [address] [place] [address] IMAGING REPORT Signed PATIENT: JADA RITCHIE ACCOUNT: [id number] : 1960 LOCATION: ER AGE: 61 SEX: M EXAM STATUS: REG ER ORD. PHYSICIAN: CONOR STEWARD DO REASON: Abdominal distention PROCEDURE: CT ABDOMEN PELVIS WO CONTRAST CT ABDOMEN+PELVIS WO History: Reason: Abdominal distention / Spl. Instructions: / History: Technique: Noncontrast examination of the abdomen and pelvis. Coronal and sagittal reconstructions were performed. Exposure: One or more of the following individualized dose reduction techniques were utilized for this examination: 1. Automated exposure control 2. Adjustment of the mA and/or kV according to patient size 3. Use of iterative reconstruction technique. Comparison: October 04, 2021 Findings: Lower chest: Right lower lobe partial atelectasis. Additional scattered linear atelectasis within the lung bases. Abdomen and pelvis: The liver, spleen, adrenal glands and pancreas are unremarkable. Contracted gallbladder. Small nonobstructing right intrarenal calculus measures 0.4 cm. Mild bilateral hydronephrosis. No ureteral calculus. Decompressed urinary bladder with Cronin catheter in place. Mild bilateral perinephric stranding. Rectal wall thickening with adjacent fat stranding. There is severe distention of the sigmoid colon proximal to the rectal wall thickening. Severely distended descending and transverse colon. Appendix not well seen. No significant distention of small bowel. No pathologic lymphadenopathy. No ascites. Atheromatous plaque throughout the nonaneurysmal abdominal aorta and branch vessels. Bones: No pathologic osseous lesions. Impression: 1. Rectal wall thickening with adjacent inflammatory changes, may indicate proctitis. Recommend follow-up after treatment to exclude underlying mass. 2. Severe distention of the mid and distal colon to the level of the rectal wall thickening, may relate to ileus or partial obstruction. Recommend attention on follow-up. 3. Mild bilateral hydronephrosis. No obstructing urolithiasis. 4. Partial right lower lobe atelectasis. Electronically signed by: Saqib Rodriguez DO (10/12/2021 8:43 AM) [id number] DICTATED and SIGNED BY: SAQIB RODRIGUEZ DO DATE: 10/12/21829 Course & Med Decision Making: Course & Med Decision Making Pertinent Labs and Imaging studies reviewed. (See chart for details) Upon arrival the patient was taken directly to room 21. Following interview as well as examination, the patient is positive for SIRS and as a result of septic syndrome must be considered. IV access was established. Blood was obtained and imaging was ordered. IV fluids as well as antibiotics were administered. Upon return of the patient's blood work his lactic acid is well within normal limits and I do not believe he suffered from a sepsis syndrome. He has sustained what appears to be an acute kidney injury as his creatinine has doubled since his most recent visit which has been within the week. I do believe this is related to his acute urinary retention. CT imaging revealed inflammatory change in the rectal region. Additionally the patient has significant dilation of regions of his colon. Nonetheless the patient is moving stool as we speak and I suspect that he is not necessarily obstructed but rather these are findings consistent with his history of constipation and general debility i do believe he warrants admission to the hospital given his overall clinical picture. He has been admitted to Dr. Fox for further medical management. The patient understands this and has agreed to this. He states he feels much better now and is without discomfort of any kind. He is awaiting transport to the floor. [] Dragon Disclaimer: Dragon Disclaimer: This electronic medical record was generated, in whole or in part, using a voice recognition dictation system. Departure Departure Impression: Primary Impression: Acute kidney injury Additional Impressions: Acute urinary retention Constipation Disposition: ADMITTED INPATIENT Admitting Physician: Madi. Mcdaniel Condition: STABLE Referrals: KIRT FOX MD (PCP) Problem Qualifiers CONOR STEWARD DO October 12, 2021 06:51
[2021-10-12] MEDS ORDERED: PIPERACILLIN/TAZOBACTAM 4.5 GM in IV DEXTROSE 5% 100ML 100 ML IV ONE (07:00)
[2021-10-12 07:15] LABS: BASO % 0 % (0-3); EOS % 0 % (0-3); HEMATOCRIT 37.1 % (39.0-53.0); HEMOGLOBIN 12.4 g/dL (13.0-17.5); LYMPH # 0.7 x10^3/uL (1.0-4.8); LYMPH % 6 % (24-48); MEAN CORPUSCULAR HEMOGLOBIN 29 pg (25-35); MEAN CORPUSCULAR HGB CONC 33 g/dL (31-37); MEAN CORPUSCULAR VOLUME 88 fL (79-100); MONO # 1.2 x10^3/uL (0.0-1.1); MONO % 10 % (0-9); NEUT # 10.1 x10^3/uL (1.8-7.7); NEUT % 84 % (31-73); PLATELET COUNT 327 x10^3/uL (140-400); RED CELL DISTRIBUTION WIDTH 14.4 % (11.5-14.5)
[2021-10-12] MEDS ORDERED: IV NORMAL SALINE 1000ML BAG 1,000 ML IV ONE (07:30)
[2021-10-12 08:07] LABS: AMORPHOUS SEDIMENT,UR PRESENT /HPF; BACTERIA,URINE FEW /HPF (0-FEW); RBC,URINE 20-40 /HPF (0-2)
[2021-10-12 08:21] LABS: CALCIUM 9.4 mg/dL (8.5-10.1); CREATININE 2.7 mg/dL (0.7-1.3); POTASSIUM 4.2 mmol/L (3.5-5.1)
[2021-10-12 08:27] LABS: ALBUMIN 3.1 g/dL (3.4-5.0); ALBUMIN/GLOBULIN RATIO 0.7 (1.0-1.7); TOTAL BILIRUBIN 0.6 mg/dL (0.2-1.0); TOTAL PROTEIN 7.6 g/dL (6.4-8.2)
[2021-10-12] MEDS ORDERED: ONDANSETRON PF 4 MG/2 ML VIAL. IVP PRN (08:45)
--- NOTE | 2021-10-12 08:46 | RAD ---
CT ABDOMEN+PELVIS WO History: Reason: Abdominal distention / Spl. Instructions: / History: Technique: Noncontrast examination of the abdomen and pelvis. Coronal and sagittal reconstructions we re performed. Exposure: One or more of the following individualized dose reduction techniques were utilized for thi s examination: 1. Automated exposure control 2. Adjustment of the mA and/or kV according to patient size 3. Use of iterative reconstruction technique. Comparison: October 04, 2021 Findings: Lower chest: Right lower lobe partial atelectasis. Additional scattered linear atelectasis within the lung bases. Abdomen and pelvis: The liver, spleen, adrenal glands and pancreas are unremarkable. Contracted gallb ladder. Small nonobstructing right intrarenal calculus measures 0.4 cm. Mild bilateral hydronephrosis. No ure teral calculus. Decompressed urinary bladder with Cronin catheter in place. Mild bilateral perinephric stranding. Rectal wall thickening with adjacent fat stranding. There is severe distention of the sigmoid colon p roximal to the rectal wall thickening. Severely distended descending and transverse colon. Appendix n ot well seen. No significant distention of small bowel. No pathologic lymphadenopathy. No ascites. At heromatous plaque throughout the nonaneurysmal abdominal aorta and branch vessels. Bones: No pathologic osseous lesions. Impression: 1. Rectal wall thickening with adjacent inflammatory changes, may indicate proctitis. Recommend foll ow-up after treatment to exclude underlying mass. 2. Severe distention of the mid and distal colon to the level of the rectal wall thickening, may rel ate to ileus or partial obstruction. Recommend attention on follow-up. 3. Mild bilateral hydronephrosis. No obstructing urolithiasis. 4. Partial right lower lobe atelectasis. Electronically signed by: Saqib Rodriguez DO (10/12/2021 8:43 AM) [id number]
[2021-10-12 08:49] LABS: INFLUENZA A PATIENT NEGATIVE (NEGATIVE); INFLUENZA B PATIENT NEGATIVE (NEGATIVE)
--- NOTE | 2021-10-12 10:51 | HP ---
DATE OF SERVICE: 10/12/2021 ADMIT DATE: 10/12/2021 HISTORY OF PRESENT ILLNESS: The patient is a 61-year-old -[place] Citizen male patient who was residing at [facility] and who was actually discharged only yesterday after a prolonged stay in this hospital with seemed to be a colonic ileus for which he was seen by the Gastroenterology team as well as surgical team. He was treated with neostigmine as well as Amitiza and without much really improvement. He was kept n.p.o. initially and eventually had a video swallowing evaluation, was put back on a pureed diet, nectar thickened liquid and was discharged yesterday, only to come back again this morning with a complaint of abdominal distention and abdominal pain. The patient has left middle cerebral artery territory infarct, the right-sided hemiplegia and aphasia. The patient himself denied any abdominal pain; however, he was evaluated extensively in the Emergency Room and has had lab work and imaging studies. His lab work showed he has mild leukocytosis. His chemistry showed that his kidney function has dramatically worsened. His BUN is 60, creatinine 2.7. His CT scan of the abdomen and pelvis without contrast showed the patient has rectal wall thickening with adjacent inflammatory changes may indicate proctitis and the radiologist recommended to follow up after treatment to exclude underlying mass. He has also severe distention of the mid to distal colon to the level of the rectal wall thickening, may relate to ileus or partial obstruction. He has mild bilateral hydronephrosis. No obstructing urolithiasis and a partial right lower lobe atelectasis. He has a Cronin catheter placed and about 1500 mL of urine were drained and was admitted with again progressive abdominal distention due to colonic ileus versus partial obstruction. He also had acute kidney injury and urine retention for which he had an indwelling Cronin catheter. When I saw him, he was somewhat sleepy, but arousable and he did complain of mild abdominal discomfort. PAST MEDICAL HISTORY: Significant for hypertension, left middle cerebral artery territory infarct, right-sided hemiplegia, aphasia and dysphagia, gastroesophageal reflux disease, carotid artery stenosis, chronic pain syndrome, and insomnia. PAST SURGICAL HISTORY: Significant for left-sided craniotomy. He also had sigmoid colon resection after undergoing decompressive colonoscopy and sigmoidectomy. ALLERGIES: He has no known drug allergies. MEDICATIONS: He is currently on the following medications: He is on baclofen 10 mg 3 times a day, Plavix 75 mg once a day, atorvastatin calcium 20 mg at bedtime, clonidine TTS patch 0.2 mg every week, hydralazine 25 mg twice a day, nifedipine 30 mg once a day, potassium chloride 20 mEq 3 times a day, bisacodyl 10 mg suppository rectally daily p.r.n. for constipation, Colace 100 mg twice a day, polyethylene glycol 17 grams twice a day, famotidine 10 mg at bedtime and multivitamin with mineral 1 tablet once a day. FAMILY HISTORY: Noncontributory. SOCIAL HISTORY: He used to live with his sister. He is an ex-smoker and heavy alcohol drinker. Currently residing at [facility]. He is retired from the [employer]. REVIEW OF SYSTEMS: As per history of present illness. PHYSICAL EXAMINATION: GENERAL: On arrival to the Emergency Room, the patient looked somewhat lethargic, pale, not jaundiced, cyanosed, no lymphadenopathy, no thyromegaly, no jugular venous distention. No lower limb edema. VITAL SIGNS: His heart rate was 118, blood pressure is 153/93, temperature was 98, respiratory rate was 28 and oxygen saturation was 94% on room air. HEAD, EYES, EARS, NOSE, AND THROAT: Normocephalic, atraumatic. NECK: Supple. HEART: Showed normal first and second heart sounds. No gallop, rub or murmur. CHEST: Clear to auscultation, no crepitation or rhonchi. ABDOMEN: Distended, soft, nontender. NEUROLOGIC: He was somewhat lethargic, but arousable. All cranial nerves intact. He has right-sided hemiplegia and aphasia. LABORATORY DATA: His lab work on arrival showed a white cell count 12,000, hemoglobin 12.4, hematocrit 37, MCV 88 and platelet count 327,000 with normal manual differential. His chemistry showed a serum sodium 141, potassium 4.2, chloride 106, bicarbonate 21, anion gap of 14, BUN 60, creatinine 2.7. Estimated GFR was 29, glucose was 169. Lactic acid was 1, calcium was 9.4. Total bilirubin, AST, ALT, alkaline phosphatase were normal. Total protein 7.6, albumin 3.1, lipase of 47. Urinalysis essentially unremarkable. His coronavirus by rapid antigen testing and influenza A and B were negative. ASSESSMENT AND PLAN: 1. Marked abdominal distention due to colonic ileus versus partial obstruction. 2. Urine retention requiring indwelling Cronin catheter. 3. Acute kidney injury, likely due to obstructive nephropathy. 4. Left lower extremity deep vein thrombosis for which he was treated initially with Lovenox and he was discharged on Eliquis. My plan is to keep him n.p.o. Continue with IV fluid. Switch him to Lovenox and IV Protonix and I will consult the Gastroenterology team as well as the surgical team. CRISTY DR: Teresita TID: [id number]
[2021-10-12] MEDS ORDERED: PANTOPRAZOLE IV PUSH 40 MG VIAL. IVP ONE (11:00)
[2021-10-12] MEDS: IV DEXTROSE 5 %-0.45 % NACL 1,000 ML IV SCH ×2 (11:28→17:40)
[2021-10-12] MEDS: fentaNYL PF VIAL 100 MCG/2 ML VIAL IVP PRN (11:31)
--- NOTE | 2021-10-12 12:33 | PDOC2 ---
CONSULT Date of Consult Date of Consult DATE: 10/12/21 TIME: 12:30 History of Present Illness Reason for Visit: The patient is a 61 year old male who was recently admitted and discharged with findings of a colonic ileus. He was returned to the hospital with similar findings. The patient denies abdominal pain and states that his bowels are working. A CT scan showed colonic distension similar to his prior CT. Past Medical History Past Medical History hypertension, left middle cerebral artery territory infarct, right-sided hemiplegia, aphasia and dysphagia, gastroesophageal reflux disease, carotid artery stenosis, chronic pain syndrome, and insomnia. Cardiovascular: HTN, Other CENTRAL NERVOUS SYSTEM: CVA GI: GERD, Other Psych: Anxiety, Depression Past Surgical History Past Surgical History: Colon Resection, Other Family History Family History: Family History Unknown Social History ALCOHOL: none Drugs: None Lives: Alf Current Problem List Problem List Problems Medical Problems: (1) Acute kidney injury Status: Acute (2) Acute urinary retention Status: Acute (3) Constipation Status: Acute Current Medications Current Medications Current Medications Piperacillin Sod/ Tazobactam Sod 4.5 gm/Dextrose 100 ml @ 200 mls/hr 1X ONCE IV Last administered on 10/12/21at 07:15; Start 10/12/21 at 07:00; Stop 10/12/21 at 07:29; Status DC Sodium Chloride 1,000 ml @ 1,000 mls/hr 1X ONCE IV Last administered on 10/12/21at 08:09; Start 10/12/21 at 07:30; Stop 10/12/21 at 08:29; Status DC Ondansetron HCl (Zofran) 4 mg PRN Q8HRS PRN IVP NAUSEA/VOMITING Last adminis tered on 10/12/21at 11:31; Start 10/12/21 at 08:45; Stop 10/13/21 at 08:44 Clonidine HCl (Catapres Tts-2) 1 patch QWE TD ; Start 10/12/21 at 16:00 Dextrose/Sodium Chloride 1,000 ml @ 150 mls/hr Q6H40M IV Last administered on 10/12/21at 11:28; Start 10/12/21 at 11:00 Pantoprazole Sodium (PROTONIX VIAL for IV PUSH) 40 mg 1X ONCE IVP Last administered on 10/12/21at 11:29; Start 10/12/21 at 11:00; Stop 10/12/21 at 11:01; Status DC Pantoprazole Sodium (PROTONIX VIAL for IV PUSH) 40 mg DAILYAC IVP ; Start 10/13 at 07:30 Enoxaparin Sodium (Lovenox 80mg Syringe) 70 mg DAILY SQ ; Start 10/12/21 at 11:00 Fentanyl Citrate (Fentanyl 2ml Vial) 25 mcg PRN Q4HRS PRN IVP PAIN Last administered on 10/12/21at 11:31; Start 10/12/21 at 10:15 Ondansetron HCl (Zofran) 4 mg PRN Q4HRS PRN IVP NAUSEA/VOMITING; Start 10/12/21 at 10:15 Active Scripts Active Potassium Chloride (Potassium Chloride) 20 Meq Tablet.er 20 Meq PO TID 30 Days Reported Procardia Xl (Nifedipine) 30 Mg Tab.er.24 1 Tab PO DAILY Plavix (Clopidogrel Bisulfate) 75 Mg Tablet 75 Mg PO HS Hydralazine Hcl 25 Mg Tablet 1 Tab PO BID PRN for sbp >160 Pepcid Ac (Famotidine) 10 Mg Tablet 10 Mg PO HS Miralax (Polyethylene Glycol 3350) 17 Gm Powd.pack 1 Packet PO BID Colace (Docusate Sodium) 100 Mg Capsule 1 Cap PO BID Catapres-Tts 2 (Clonidine) 1 Each Patch.tdwk 1 Each TD QWE Centrum Silver Men Tablet (Multivit-Min/FA/Lycopen/Lutein) 1 Each Tablet 1 Each PO DAILY Bisacodyl 10 Mg Supp.rect 10 Mg RC PRN DAILY PRN Baclofen 10 Mg Tablet 1 Tab PO TID Atorvastatin Calcium 20 Mg Tablet 20 Mg PO HS Allergies Allergies: Coded Allergies: No Known Drug Allergies (Unverified , 10/12/21) ROS General: No: Chills, Night Sweats, Fatigue, Malaise, Appetite, Other PSYCHOLOGICAL ROS: No: Anxiety, Behavioral Disorder, Concentration difficultie, Decreased libido, Depression, Disorientation, Hallucinations, Hostility, Irritablity, Memory difficulties, Mood Swings, Obsessive thoughts, Physical abuse, Sexual abuse, Sleep disturbances, Suicidal ideation, Other Respiratory: No: Cough, Hemoptysis, Orthopnea, Pleuritic Pain, Shortness of breath, SOB with excertion, Sputum Changes, Stridor, Tachypnea, Wheezing, Other Cardiovascular: No Chest Pain, No Palpitations, No Orthopnea, No Paroxysmal Noc. Dyspnea, No Edema, No Lt Headedness, No Other Gastrointestinal: Yes Other (abdominal distension) Musculoskeletal: No Gait Disturbance, No Joint Pain, No Joint Stiffness, No Joint Swelling, No Muscle Pain, No Muscular Weakness, No Pain In:, No Swelling In:, No Other Skin: No Dry Skin, No Eczema, No Hair Changes, No Lumps, No Mole Changes, No Mottling, No Nail Changes, No Pruritus, No Rash, No Skin Lesion Changes, No Other, No Acne Physical Exam General: Alert HEENT: Atraumatic, PERRLA Abdomen: Other (markedly distended, tympanny, nontender) Extremities: No clubbing, No cyanosis Skin: No rashes Vitals VITALS Vital Signs Date Time Temp Pulse Resp B/P (MAP) Pulse Ox O2 Delivery O2 Flow Rate FiO2 10/12/21 11:31 18 96 Room Air 10/12/21 09:25 88 138/70 (92) 10/12/21 06:53 98.0 98.0 Labs Labs Laboratory Tests Test 10/12/21 07:00 10/12/21 07:40 10/12/21 07:55 10/12/21 08:26 White Blood Count 12.0 x10^3/uL (4.0-11.0) Red Blood Count 4.20 x10^6/uL (4.30-5.70) Hemoglobin 12.4 g/dL (13.0-17.5) Hematocrit 37.1 % (39.0-53.0) Mean Corpuscular Volume 88 fL (79-100) Mean Corpuscular Hemoglobin 29 pg (25-35) Mean Corpuscular Hemoglobin Concent 33 g/dL (31-37) Red Cell Distribution Width 14.4 % (11.5-14.5) Platelet Count 327 x10^3/uL (140-400) Neutrophils (%) (Auto) 84 % (31-73) Lymphocytes (%) (Auto) 6 % (24-48) Monocytes (%) (Auto) 10 % (0-9) Eosinophils (%) (Auto) 0 % (0-3) Basophils (%) (Auto) 0 % (0-3) Neutrophils # (Auto) 10.1 x10^3/uL (1.8-7.7) Lymphocytes # (Auto) 0.7 x10^3/uL (1.0-4.8) Monocytes # (Auto) 1.2 x10^3/uL (0.0-1.1) Eosinophils # (Auto) 0.0 x10^3/uL (0.0-0.7) Basophils # (Auto) 0.0 x10^3/uL (0.0-0.2) Lactic Acid Level 1.0 mmol/L (0.4-2.0) Troponin I High Sensitivity 10 ng/L (4-75) Urine Collection Type U cath Urine Color (Auto) Yellow Urine Turbidity Hazy Urine pH (Auto) 5.5 (<5.0-8.0) Urine Specific [place] 1.011 (1.000-1.030) Urine Protein (Auto) Negative mg/dL (Negative) Urine Glucose (Auto)(UA) Negative mg/dL (Negative) Urine Ketones (Auto) Negative mg/dL (Negative) Urine Blood (Auto) Large (Negative) Urine Nitrite Negative (Negative) Urine Bilirubin (Auto) Negative (Negative) Urine Urobilinogen (Auto) Normal mg/dL (Normal) Urine Leukocyte Esterase (Auto) Negative (Negative) Urine RBC 20-40 /HPF (0-2) Urine WBC 1-4 /HPF (0-4) Urine Amorphous Sediment Present /HPF Urine Bacteria Few /HPF (0-FEW) Urine Mucus Slight /LPF Sodium Level 141 mmol/L (136-145) Potassium Level 4.2 mmol/L (3.5-5.1) Chloride Level 106 mmol/L (98-107) Carbon Dioxide Level 21 mmol/L (21-32) Anion Gap 14 (6-14) Blood Urea Nitrogen 60 mg/dL (8-26) Creatinine 2.7 mg/dL (0.7-1.3) Estimated GFR (Cockcroft-Gault) 29.0 BUN/Creatinine Ratio 22 (6-20) Glucose Level 169 mg/dL (70-99) Calcium Level 9.4 mg/dL (8.5-10.1) Total Bilirubin 0.6 mg/dL (0.2-1.0) Aspartate Amino Transf (AST/SGOT) 15 U/L (15-37) Alanine Aminotransferase (ALT/SGPT) 51 U/L (16-63) Alkaline Phosphatase 86 U/L (46-116) Total Protein 7.6 g/dL (6.4-8.2) Albumin 3.1 g/dL (3.4-5.0) Albumin/Globulin Ratio 0.7 (1.0-1.7) Lipase 47 U/L (73-393) Influenza Type A Antigen Negative (NEGATIVE) Influenza Type B Antigen Negative (NEGATIVE) SARS-CoV-2 Antigen (Rapid) Negative (NEGATIVE) Laboratory Tests Test 10/12/21 07:00 10/12/21 07:40 10/12/21 07:55 10/12/21 08:26 White Blood Count 12.0 x10^3/uL (4.0-11.0) Red Blood Count 4.20 x10^6/uL (4.30-5.70) Hemoglobin 12.4 g/dL (13.0-17.5) Hematocrit 37.1 % (39.0-53.0) Mean Corpuscular Volume 88 fL (79-100) Mean Corpuscular Hemoglobin 29 pg (25-35) Mean Corpuscular Hemoglobin Concent 33 g/dL (31-37) Red Cell Distribution Width 14.4 % (11.5-14.5) Platelet Count 327 x10^3/uL (140-400) Neutrophils (%) (Auto) 84 % (31-73) Lymphocytes (%) (Auto) 6 % (24-48) Monocytes (%) (Auto) 10 % (0-9) Eosinophils (%) (Auto) 0 % (0-3) Basophils (%) (Auto) 0 % (0-3) Neutrophils # (Auto) 10.1 x10^3/uL (1.8-7.7) Lymphocytes # (Auto) 0.7 x10^3/uL (1.0-4.8) Monocytes # (Auto) 1.2 x10^3/uL (0.0-1.1) Eosinophils # (Auto) 0.0 x10^3/uL (0.0-0.7) Basophils # (Auto) 0.0 x10^3/uL (0.0-0.2) Lactic Acid Level 1.0 mmol/L (0.4-2.0) Troponin I High Sensitivity 10 ng/L (4-75) Urine Collection Type U cath Urine Color (Auto) Yellow Urine Turbidity Hazy Urine pH (Auto) 5.5 (<5.0-8.0) Urine Specific [place] 1.011 (1.000-1.030) Urine Protein (Auto) Negative mg/dL (Negative) Urine Glucose (Auto)(UA) Negative mg/dL (Negative) Urine Ketones (Auto) Negative mg/dL (Negative) Urine Blood (Auto) Large (Negative) Urine Nitrite Negative (Negative) Urine Bilirubin (Auto) Negative (Negative) Urine Urobilinogen (Auto) Normal mg/dL (Normal) Urine Leukocyte Esterase (Auto) Negative (Negative) Urine RBC 20-40 /HPF (0-2) Urine WBC 1-4 /HPF (0-4) Urine Amorphous Sediment Present /HPF Urine Bacteria Few /HPF (0-FEW) Urine Mucus Slight /LPF Sodium Level 141 mmol/L (136-145) Potassium Level 4.2 mmol/L (3.5-5.1) Chloride Level 106 mmol/L (98-107) Carbon Dioxide Level 21 mmol/L (21-32) Anion Gap 14 (6-14) Blood Urea Nitrogen 60 mg/dL (8-26) Creatinine 2.7 mg/dL (0.7-1.3) Estimated GFR (Cockcroft-Gault) 29.0 BUN/Creatinine Ratio 22 (6-20) Glucose Level 169 mg/dL (70-99) Calcium Level 9.4 mg/dL (8.5-10.1) Total Bilirubin 0.6 mg/dL (0.2-1.0) Aspartate Amino Transf (AST/SGOT) 15 U/L (15-37) Alanine Aminotransferase (ALT/SGPT) 51 U/L (16-63) Alkaline Phosphatase 86 U/L (46-116) Total Protein 7.6 g/dL (6.4-8.2) Albumin 3.1 g/dL (3.4-5.0) Albumin/Globulin Ratio 0.7 (1.0-1.7) Lipase 47 U/L (73-393) Influenza Type A Antigen Negative (NEGATIVE) Influenza Type B Antigen Negative (NEGATIVE) SARS-CoV-2 Antigen (Rapid) Negative (NEGATIVE) Assessment/Plan Assessment/Plan 61 year old male with colonic ileus, ?proctitis suggested on CT. GI consulted, await their recommendations; will review with GI TAMMY TOM MD October 12, 2021 12:33
--- NOTE | 2021-10-12 12:37 | PDOC ---
Date of Service: DATE: 10/12/21 TIME: 11:59 Subjective: Subjective: Please see GI consult note from 10/03 and following progress notes through 10/10. To Er last time for unresponsive and hypotension. Incidentally had abnormal imaging/sigmoid distention/concern for colonic ileus - suspected chronic imaging abnormalities - serial exams didn't show improvement, but he stooled w/ Dulcolax supp, Amitiza, Relistor, and neostigmine, was tolerating diet, etc. Back to ER again w/ abd distention and no stool x 2 days. In ER, Cronin placed with 150mL urine output, apparently improvement in abd distention, also had "diarrhea." He denies pain. Objective: Objective: Recent LLE DVT on Eliquis. Vital Signs: Vital Signs Date Time Temp Pulse Resp B/P (MAP) Pulse Ox O2 Delivery O2 Flow Rate FiO2 10/12/21 11:31 18 96 Room Air 10/12/21 09:25 88 138/70 (92) 10/12/21 06:53 98.0 98.0 Labs: Laboratory Tests Test 10/12/21 07:00 10/12/21 07:40 10/12/21 07:55 10/12/21 08:26 White Blood Count 12.0 x10^3/uL Red Blood Count 4.20 x10^6/uL Hemoglobin 12.4 g/dL Hematocrit 37.1 % Mean Corpuscular Volume 88 fL Mean Corpuscular Hemoglobin 29 pg Mean Corpuscular Hemoglobin Concent 33 g/dL Red Cell Distribution Width 14.4 % Platelet Count 327 x10^3/uL Neutrophils (%) (Auto) 84 % Lymphocytes (%) (Auto) 6 % Monocytes (%) (Auto) 10 % Eosinophils (%) (Auto) 0 % Basophils (%) (Auto) 0 % Neutrophils # (Auto) 10.1 x10^3/uL Lymphocytes # (Auto) 0.7 x10^3/uL Monocytes # (Auto) 1.2 x10^3/uL Eosinophils # (Auto) 0.0 x10^3/uL Basophils # (Auto) 0.0 x10^3/uL Lactic Acid Level 1.0 mmol/L Troponin I High Sensitivity 10 ng/L Urine Collection Type U cath Urine Color (Auto) Yellow Urine Turbidity Hazy Urine pH (Auto) 5.5 Urine Specific [place] 1.011 Urine Protein (Auto) Negative mg/dL Urine Glucose (Auto)(UA) Negative mg/dL Urine Ketones (Auto) Negative mg/dL Urine Blood (Auto) Large Urine Nitrite Negative Urine Bilirubin (Auto) Negative Urine Urobilinogen (Auto) Normal mg/dL Urine Leukocyte Esterase (Auto) Negative Urine RBC 20-40 /HPF Urine WBC 1-4 /HPF Urine Amorphous Sediment Present /HPF Urine Bacteria Few /HPF Urine Mucus Slight /LPF Sodium Level 141 mmol/L Potassium Level 4.2 mmol/L Chloride Level 106 mmol/L Carbon Dioxide Level 21 mmol/L Anion Gap 14 Blood Urea Nitrogen 60 mg/dL Creatinine 2.7 mg/dL Estimated GFR (Cockcroft-Gault) 29.0 BUN/Creatinine Ratio 22 Glucose Level 169 mg/dL Calcium Level 9.4 mg/dL Total Bilirubin 0.6 mg/dL Aspartate Amino Transf (AST/SGOT) 15 U/L Alanine Aminotransferase (ALT/SGPT) 51 U/L Alkaline Phosphatase 86 U/L Total Protein 7.6 g/dL Albumin 3.1 g/dL Albumin/Globulin Ratio 0.7 Lipase 47 U/L Influenza Type A Antigen Negative Influenza Type B Antigen Negative SARS-CoV-2 Antigen (Rapid) Negative Imaging: CT A/P 10/12 Findings: Lower chest: Right lower lobe partial atelectasis. Additional scattered linear atelectasis within the lung bases. Abdomen and pelvis: The liver, spleen, adrenal glands and pancreas are unremarkable. Contracted gallbladder. Small nonobstructing right intrarenal calculus measures 0.4 cm. Mild bilateral hydronephrosis. No ureteral calculus. Decompressed urinary bladder with Cronin catheter in place. Mild bilateral perinephric stranding. Rectal wall thickening with adjacent fat stranding. There is severe distention of the sigmoid colon proximal to the rectal wall thickening. Severely distended descending and transverse colon. Appendix not well seen. No significant distention of small bowel. No pathologic lymphadenopathy. No ascites. Ath eromatous plaque throughout the nonaneurysmal abdominal aorta and branch vessels. Bones: No pathologic osseous lesions. Impression: 1. Rectal wall thickening with adjacent inflammatory changes, may indicate proctitis. Recommend follow-up after treatment to exclude underlying mass. 2. Severe distention of the mid and distal colon to the level of the rectal wall thickening, may relate to ileus or partial obstruction. Recommend attention on follow-up. 3. Mild bilateral hydronephrosis. No obstructing urolithiasis. 4. Partial right lower lobe atelectasis. PE: GEN: NAD, chronically ill LUNGS: upper airway coarseness HEART: RRR ABD: more distended compared to earlier this week, a few gurgling bowel sounds, seems to flex when abdomen palpated but no obvious tenderness, has Cronin NEURO/PSYCH: awake and alert, answers yes/no questions A/P: Urinary retention, abdominal distention, h/o colonic ileus Leukocytosis, EDD Abnormal CT - rectal wall thickening with adjacent inflammatory changes, severe distention of the mid and distal colon to the level of the rectal wall thickening - may relate to ileus or partial obstruction, mild bilateral hydronephrosis H/o sigmoid volvulus s/p sigmoidectomy H/o CVA w/ right-sided hemiplegia and aphasia, dysphagia COVID negative -- Stooled when Cronin placed - observe, consider repeating Relistor, etc. D/w Dr. Mena - await surgery thoughts re: diverting colostomy. Consider urology opinion. Justicifation of Admission Dx: Justifications for Admission: Justification of Admission Dx: Yes RANDOLPH TYSON October 12, 2021 12:37
[2021-10-12 15:00] VITALS: BP 114/66
[2021-10-12 15:59] LABS: CALCIUM 8.9 mg/dL (8.5-10.1); CREATININE 1.9 mg/dL (0.7-1.3); GFR 43.5; POTASSIUM 4.1 mmol/L (3.5-5.1)
[2021-10-12] MEDS ORDERED: cloNIDine TTS-2 1 PATCH PATCH TD SCH (16:00)
[2021-10-12 19:00] VITALS: BP 120/70
[2021-10-12 23:30] VITALS: BP 126/81
[2021-10-13] VITALS (11 sets, daily range): BP systolic 105–180; BP diastolic 51–104
[2021-10-13] MEDS: IV DEXTROSE 5 %-0.45 % NACL 1,000 ML IV SCH ×2 (00:20→07:00)
[2021-10-13] MEDS: fentaNYL PF VIAL 100 MCG/2 ML VIAL IVP PRN (03:39)
[2021-10-13 06:41] LABS: HEMATOCRIT 35.4 % (39.0-53.0); HEMOGLOBIN 12.3 g/dL (13.0-17.5); RED BLOOD COUNT 4.04 x10^6/uL (4.30-5.70); RED CELL DISTRIBUTION WIDTH 14.4 % (11.5-14.5); WHITE BLOOD COUNT 6.7 x10^3/uL (4.0-11.0)
[2021-10-13 07:06] LABS: ALBUMIN 2.6 g/dL (3.4-5.0); ALBUMIN/GLOBULIN RATIO 0.6 (1.0-1.7); CALCIUM 8.7 mg/dL (8.5-10.1); CREATININE 1.1 mg/dL (0.7-1.3); GFR 81.8; POTASSIUM 3.4 mmol/L (3.5-5.1); TOTAL BILIRUBIN 0.6 mg/dL (0.2-1.0); TOTAL PROTEIN 6.7 g/dL (6.4-8.2)
--- NOTE | 2021-10-13 07:49 | EKG ---
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
--- NOTE | 2021-10-13 08:51 | PN ---
DATE: 10/13/2021 SUBJECTIVE: The patient is resting, slightly propped up in bed, in no apparent distress. On questioning him, he denied any complaint, in particular, denied any abdominal pain. Denied any nausea, vomiting. Nursing staff stated that he did complain of pain last night and was given IV fentanyl. PHYSICAL EXAMINATION: GENERAL: When I examined him this morning, he looked well and was clearly in no apparent respiratory distress. No pallor, jaundiced, or cyanosed, no thyromegaly. No jugular venous distention. No lower limb edema. VITAL SIGNS: His heart rate was 82, blood pressure 158/77, temperature was 98.5, respiratory rate 16, and oxygen saturation was 95% on room air. HEAD, EYES, EARS, NOSE, AND THROAT: Showed normocephalic, atraumatic. NECK: Supple. HEART: Showed normal first and second heart sounds. No gallop, rub or murmur. CHEST: Showed central trachea, equal bilateral chest expansion, air entry, vesicular breath sounds. No crepitation or rhonchi. ABDOMEN: Distended, soft, tympanitic percussion noted. No guarding or rigidity. No organomegaly. All hernial orifice intact. Bowel sounds normal. NEUROLOGIC: He has right-sided hemiplegia and aphasia. He has an indwelling Cronin catheter. His intake was incompletely recorded, output was [id number]. LABORATORY DATA: This morning showed a white cell count of 6.7, hemoglobin 12, hematocrit 35, MCV 88 and platelet count 260. Serum sodium was 145, potassium 3.4, chloride 108, bicarbonate 27, anion gap of 10, BUN 24, creatinine 1.1. Estimated GFR was 81 mL per minute. His glucose was 110, calcium was 8.7. Total bilirubin, AST, ALT, alkaline phosphatase were normal. Total protein 6.7, albumin 2.6. ASSESSMENT: 1. Marked abdominal distention due to colonic ileus versus partial obstruction. 2. Urinary retention requiring indwelling Cronin catheter. 3. Acute kidney injury, likely due to obstructive nephropathy. 4. Left lower extremity deep vein thrombosis for which he was treated initially with Lovenox and was discharged on Eliquis. 5. Left middle cerebral artery territory infarct with right-sided hemiplegia, aphasia and dysphagia. 6. Hypertension. PLAN: To continue with IV Protonix. Continue with Lovenox twice a day. I have switched his IV fluid to D5W with 40 mEq of potassium chloride as he has hypokalemia and his kidney function has normalized. AARON/MARGARET DR: Teresita TID: [id number]
[2021-10-13] MEDS: PANTOPRAZOLE IV PUSH 40 MG VIAL. IVP SCH (09:21)
[2021-10-13] MEDS: POTASSIUM CL 40MEQ IN 0.9%NACL 1,000 ML IV SCH ×2 (09:22→21:31)
--- NOTE | 2021-10-13 10:44 | PDOC ---
PROGRESS NOTES Date of Service DATE: 10/13/21 TIME: 10:43 Subjective Subjective comfortable, denies abdominal pain, stool yesterday; endoscopy planned today Objective Objective Vital Signs Date Time Temp Pulse Resp B/P (MAP) Pulse Ox O2 Delivery O2 Flow Rate FiO2 10/13/21 08:00 Room Air 10/13/21 07:00 98.5 76 18 128/93 (105) 96 98.5 Intake and Output 10/13/21 07:00 Intake Total 100 ml Output Total 3951 ml Balance -3851 ml Intake IV Total 100 ml Output Urine Total 3950 ml Stool Total 1 ml Physical Exam Abdomen: Soft (distended), No tenderness Extremities: No clubbing, No cyanosis General: Alert Lungs: Clear to auscultation Skin: No rashes, No breakdown Assessment Assessment Problems Medical Problems: (1) Acute kidney injury Status: Acute (2) Acute urinary retention Status: Acute (3) Constipation Status: Acute Plan Plan of Care Suspect colonic ileus, 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 Labs Laboratory Tests Test 10/12/21 07:00 10/12/21 07:40 10/12/21 07:55 10/12/21 08:26 White Blood Count 12.0 x10^3/uL (4.0-11.0) Red Blood Count 4.20 x10^6/uL (4.30-5.70) Hemoglobin 12.4 g/dL (13.0-17.5) Hematocrit 37.1 % (39.0-53.0) Mean Corpuscular Volume 88 fL (79-100) Mean Corpuscular Hemoglobin 29 pg (25-35) Mean Corpuscular Hemoglobin Concent 33 g/dL (31-37) Red Cell Distribution Width 14.4 % (11.5-14.5) Platelet Count 327 x10^3/uL (140-400) Neutrophils (%) (Auto) 84 % (31-73) Lymphocytes (%) (Auto) 6 % (24-48) Monocytes (%) (Auto) 10 % (0-9) Eosinophils (%) (Auto) 0 % (0-3) Basophils (%) (Auto) 0 % (0-3) Neutrophils # (Auto) 10.1 x10^3/uL (1.8-7.7) Lymphocytes # (Auto) 0.7 x10^3/uL (1.0-4.8) Monocytes # (Auto) 1.2 x10^3/uL (0.0-1.1) Eosinophils # (Auto) 0.0 x10^3/uL (0.0-0.7) Basophils # (Auto) 0.0 x10^3/uL (0.0-0.2) Lactic Acid Level 1.0 mmol/L (0.4-2.0) Troponin I High Sensitivity 10 ng/L (4-75) Urine Collection Type U cath Urine Color (Auto) Yellow Urine Turbidity Hazy Urine pH (Auto) 5.5 (<5.0-8.0) Urine Specific [place] 1.011 (1.000-1.030) Urine Protein (Auto) Negative mg/dL (Negative) Urine Glucose (Auto)(UA) Negative mg/dL (Negative) Urine Ketones (Auto) Negative mg/dL (Negative) Urine Blood (Auto) Large (Negative) Urine Nitrite Negative (Negative) Urine Bilirubin (Auto) Negative (Negative) Urine Urobilinogen (Auto) Normal mg/dL (Normal) Urine Leukocyte Esterase (Auto) Negative (Negative) Urine RBC 20-40 /HPF (0-2) Urine WBC 1-4 /HPF (0-4) Urine Amorphous Sediment Present /HPF Urine Bacteria Few /HPF (0-FEW) Urine Mucus Slight /LPF Sodium Level 141 mmol/L (136-145) Potassium Level 4.2 mmol/L (3.5-5.1) Chloride Level 106 mmol/L (98-107) Carbon Dioxide Level 21 mmol/L (21-32) Anion Gap 14 (6-14) Blood Urea Nitrogen 60 mg/dL (8-26) Creatinine 2.7 mg/dL (0.7-1.3) Estimated GFR (Cockcroft-Gault) 29.0 BUN/Creatinine Ratio 22 (6-20) Glucose Level 169 mg/dL (70-99) Calcium Level 9.4 mg/dL (8.5-10.1) Total Bilirubin 0.6 mg/dL (0.2-1.0) Aspartate Amino Transf (AST/SGOT) 15 U/L (15-37) Alanine Aminotransferase (ALT/SGPT) 51 U/L (16-63) Alkaline Phosphatase 86 U/L (46-116) Total Protein 7.6 g/dL (6.4-8.2) Albumin 3.1 g/dL (3.4-5.0) Albumin/Globulin Ratio 0.7 (1.0-1.7) Lipase 47 U/L (73-393) Influenza Type A Antigen Negative (NEGATIVE) Influenza Type B Antigen Negative (NEGATIVE) SARS-CoV-2 Antigen (Rapid) Negative (NEGATIVE) Test 10/12/21 15:33 10/13/21 06:05 Sodium Level 142 mmol/L (136-145) 145 mmol/L (136-145) Potassium Level 4.1 mmol/L (3.5-5.1) 3.4 mmol/L (3.5-5.1) Chloride Level 110 mmol/L (98-107) 108 mmol/L (98-107) Carbon Dioxide Level 21 mmol/L (21-32) 27 mmol/L (21-32) Anion Gap 11 (6-14) 10 (6-14) Blood Urea Nitrogen 44 mg/dL (8-26) 24 mg/dL (8-26) Creatinine 1.9 mg/dL (0.7-1.3) 1.1 mg/dL (0.7-1.3) Estimated GFR (Cockcroft-Gault) 43.5 81.8 Glucose Level 134 mg/dL (70-99) 110 mg/dL (70-99) Calcium Level 8.9 mg/dL (8.5-10.1) 8.7 mg/dL (8.5-10.1) White Blood Count 6.7 x10^3/uL (4.0-11.0) Red Blood Count 4.04 x10^6/uL (4.30-5.70) Hemoglobin 12.3 g/dL (13.0-17.5) Hematocrit 35.4 % (39.0-53.0) Mean Corpuscular Volume 88 fL (79-100) Mean Corpuscular Hemoglobin 30 pg (25-35) Mean Corpuscular Hemoglobin Concent 35 g/dL (31-37) Red Cell Distribution Width 14.4 % (11.5-14.5) Platelet Count 260 x10^3/uL (140-400) BUN/Creatinine Ratio 22 (6-20) Total Bilirubin 0.6 mg/dL (0.2-1.0) Aspartate Amino Transf (AST/SGOT) 31 U/L (15-37) Alanine Aminotransferase (ALT/SGPT) 42 U/L (16-63) Alkaline Phosphatase 72 U/L (46-116) Total Protein 6.7 g/dL (6.4-8.2) Albumin 2.6 g/dL (3.4-5.0) Albumin/Globulin Ratio 0.6 (1.0-1.7) Laboratory Tests Test 10/12/21 15:33 10/13/21 06:05 Sodium Level 142 mmol/L (136-145) 145 mmol/L (136-145) Potassium Level 4.1 mmol/L (3.5-5.1) 3.4 mmol/L (3.5-5.1) Chloride Level 110 mmol/L (98-107) 108 mmol/L (98-107) Carbon Dioxide Level 21 mmol/L (21-32) 27 mmol/L (21-32) Anion Gap 11 (6-14) 10 (6-14) Blood Urea Nitrogen 44 mg/dL (8-26) 24 mg/dL (8-26) Creatinine 1.9 mg/dL (0.7-1.3) 1.1 mg/dL (0.7-1.3) Estimated GFR (Cockcroft-Gault) 43.5 81.8 Glucose Level 134 mg/dL (70-99) 110 mg/dL (70-99) Calcium Level 8.9 mg/dL (8.5-10.1) 8.7 mg/dL (8.5-10.1) White Blood Count 6.7 x10^3/uL (4.0-11.0) Red Blood Count 4.04 x10^6/uL (4.30-5.70) Hemoglobin 12.3 g/dL (13.0-17.5) Hematocrit 35.4 % (39.0-53.0) Mean Corpuscular Volume 88 fL (79-100) Mean Corpuscular Hemoglobin 30 pg (25-35) Mean Corpuscular Hemoglobin Concent 35 g/dL (31-37) Red Cell Distribution Width 14.4 % (11.5-14.5) Platelet Count 260 x10^3/uL (140-400) BUN/Creatinine Ratio 22 (6-20) Total Bilirubin 0.6 mg/dL (0.2-1.0) Aspartate Amino Transf (AST/SGOT) 31 U/L (15-37) Alanine Aminotransferase (ALT/SGPT) 42 U/L (16-63) Alkaline Phosphatase 72 U/L (46-116) Total Protein 6.7 g/dL (6.4-8.2) Albumin 2.6 g/dL (3.4-5.0) Albumin/Globulin Ratio 0.6 (1.0-1.7) Microbiology 10/12/21 Blood Culture - Preliminary, Resulted NO GROWTH AFTER 1 DAY Medications Current Medications Piperacillin Sod/ Tazobactam Sod 4.5 gm/Dextrose 100 ml @ 200 mls/hr 1X ONCE IV Last administered on 10/12/21at 07:15; Start 10/12/21 at 07:00; Stop 10/12/21 at 07:29; Status DC Sodium Chloride 1,000 ml @ 1,000 mls/hr 1X ONCE IV Last administered on 10/12/21at 08:09; Start 10/12/21 at 07:30; Stop 10/12/21 at 08:29; Status DC Ondansetron HCl (Zofran) 4 mg PRN Q8HRS PRN IVP NAUSEA/VOMITING Last administered on 10/12/21at 11:31; Start 10/12/21 at 08:45; Stop 10/13/21 at 08:44; Status DC Clonidine HCl (Catapres Tts-2) 1 patch QWE TD Last administered on 10/12/21at 17:33; Start 10/12/21 at 16:00 Dextrose/Sodium Chloride 1,000 ml @ 150 mls/hr Q6H40M IV Last administered on 10/13/21at 07:00; Start 10/12/21 at 11:00; Stop 10/13/21 at 08:33; Status DC Pantoprazole Sodium (PROTONIX VIAL for IV PUSH) 40 mg 1X ONCE IVP Last administered on 10/12/21at 11:29; Start 10/12/21 at 11:00; Stop 10/12/21 at 11:01; Status DC Pantoprazole Sodium (PROTONIX VIAL for IV PUSH) 40 mg DAILYAC IVP Last administered on 10/13/21at 09:21; Start 10/13/21 at 07:30 Enoxaparin Sodium (Lovenox 80mg Syringe) 70 mg DAILY SQ ; Start 10/12/21 at 11:00 Fentanyl Citrate (Fentanyl 2ml Vial) 25 mcg PRN Q4HRS PRN IVP PAIN Last administered on 10/13/21at 03:39; Start 10/12/21 at 10:15 Ondansetron HCl (Zofran) 4 mg PRN Q4HRS PRN IVP NAUSEA/VOMITING; Start 10/12/21 at 10:15 Potassium Chloride/Sodium Chloride 1,000 ml @ 100 mls/hr Q10H IV Last administered on 10/13/21at 09:22; Start 10/13/21 at 09:00 Active Scripts Active Potassium Chloride (Potassium Chloride) 20 Meq Tablet.er 20 Meq PO TID 30 Days Reported Procardia Xl (Nifedipine) 30 Mg Tab.er.24 1 Tab PO DAILY Plavix (Clopidogrel Bisulfate) 75 Mg Tablet 75 Mg PO HS Hydralazine Hcl 25 Mg Tablet 1 Tab PO BID PRN for sbp >160 Pepcid Ac (Famotidine) 10 Mg Tablet 10 Mg PO HS Miralax (Polyethylene Glycol 3350) 17 Gm Powd.pack 1 Packet PO BID Colace (Docusate Sodium) 100 Mg Capsule 1 Cap PO BID Catapres-Tts 2 (Clonidine) 1 Each Patch.tdwk 1 Each TD QWE Centrum Silver Men Tablet (Multivit-Min/FA/Lycopen/Lutein) 1 Each Tablet 1 Each PO DAILY Bisacodyl 10 Mg Supp.rect 10 Mg RC PRN DAILY PRN Baclofen 10 Mg Tablet 1 Tab PO TID Atorvastatin Calcium 20 Mg Tablet 20 Mg PO HS Vitals/I & O Vital Sign - Last 24 Hours 10/12/21 10/12/21 10/12/21 10/12/21 11:31 12:33 15:00 16:24 Temp 98.0 98.0 Pulse 80 Resp 18 16 18 B/P (MAP) 114/66 (82) Pulse Ox 96 96 94 O2 Delivery Room Air Room Air Room Air Room Air 10/12/21 10/12/21 10/12/21 10/13/21 19:00 20:00 23:30 03:00 Temp 98.5 98.5 98.5 98.5 Pulse 85 97 82 Resp 18 18 16 B/P (MAP) 120/70 (87) 126/81 (96) 170/101 (124) Pulse Ox 95 95 96 O2 Delivery Room Air Room Air Room Air Room Air 10/13/21 10/13/21 10/13/21 10/13/21 03:39 04:09 04:44 07:00 Temp 98.5 98.5 Pulse 76 Resp 18 B/P (MAP) 158/77 (104) 128/93 (105) Pulse Ox 95 95 96 O2 Delivery Room Air Room Air Room Air 10/13/21 08:00 O2 Delivery Room Air Intake and Output 10/12/21 10/12/21 10/13/21 15:00 23:00 07:00 Intake Total 100 ml Output Total 1650 ml 1351 ml 950 ml Balance -1550 ml -1351 ml -950 ml Justifications for Admission Other Justification TAMMY TOM MD October 13, 2021 10:44
[2021-10-13] MEDS ORDERED: PROPOFOL 10 MG/ML (20ML) VIAL. IV ONE (11:18)
[2021-10-13] MEDS ORDERED: LIDOCAINE 2% PF 5 ML VIAL. ONE (11:18)
[2021-10-13] MEDS: IV RINGERS,LACTATED 1000ML 1,000 ML IV SCH ×2 (11:35→12:26)
--- NOTE | 2021-10-13 12:26 | PDOC4 ---
Operative Note Operative Note Flex sig Meds propofol per anesthesia Pre-op dx megacolon s/p prior sigmoid colectomy for volvulus post-op dx extent mid transverse colon with megacolon internal hemorrhoids Plan resume diet/medications recommend permanent diverting colostomy with persistent megacolon TAMMY DO MD October 13, 2021 12:26
[2021-10-14 03:00] VITALS: BP 150/60
[2021-10-14] MEDS: POTASSIUM CL 40MEQ IN 0.9%NACL 1,000 ML IV SCH (05:38)
[2021-10-14 07:30] VITALS: BP 122/74
[2021-10-14] MEDS: IV RINGERS,LACTATED 1000ML 1,000 ML IV SCH (07:45)
--- NOTE | 2021-10-14 08:18 | PDOC ---
SURGICAL PROGRESS NOTE DATE: 10/14/21 TIME: 08:17 Subjective Patient resting comfortably appears to be in no distress Vital Signs Vital Signs Date Time Temp Pulse Resp B/P (MAP) Pulse Ox O2 Delivery O2 Flow Rate FiO2 10/14/21 07:30 98.1 77 16 122/74 (90) 98 Room Air 98.1 10/13/21 12:24 3.0 I&O Intake and Output 10/14/21 07:00 Output Total 2101 ml Balance -2101 ml Output Urine Total 2101 ml General: Cooperative, No acute distress Abdomen: Normal bowel sounds, Soft, No tenderness, Other (Mildly distended) Labs Laboratory Tests Test 10/12/21 08:26 10/12/21 15:33 10/13/21 06:05 Influenza Type A Antigen Negative (NEGATIVE) Influenza Type B Antigen Negative (NEGATIVE) SARS-CoV-2 Antigen (Rapid) Negative (NEGATIVE) Sodium Level 142 mmol/L (136-145) 145 mmol/L (136-145) Potassium Level 4.1 mmol/L (3.5-5.1) 3.4 mmol/L (3.5-5.1) Chloride Level 110 mmol/L (98-107) 108 mmol/L (98-107) Carbon Dioxide Level 21 mmol/L (21-32) 27 mmol/L (21-32) Anion Gap 11 (6-14) 10 (6-14) Blood Urea Nitrogen 44 mg/dL (8-26) 24 mg/dL (8-26) Creatinine 1.9 mg/dL (0.7-1.3) 1.1 mg/dL (0.7-1.3) Estimated GFR (Cockcroft-Gault) 43.5 81.8 Glucose Level 134 mg/dL (70-99) 110 mg/dL (70-99) Calcium Level 8.9 mg/dL (8.5-10.1) 8.7 mg/dL (8.5-10.1) White Blood Count 6.7 x10^3/uL (4.0-11.0) Red Blood Count 4.04 x10^6/uL (4.30-5.70) Hemoglobin 12.3 g/dL (13.0-17.5) Hematocrit 35.4 % (39.0-53.0) Mean Corpuscular Volume 88 fL (79-100) Mean Corpuscular Hemoglobin 30 pg (25-35) Mean Corpuscular Hemoglobin Concent 35 g/dL (31-37) Red Cell Distribution Width 14.4 % (11.5-14.5) Platelet Count 260 x10^3/uL (140-400) BUN/Creatinine Ratio 22 (6-20) Total Bilirubin 0.6 mg/dL (0.2-1.0) Aspartate Amino Transf (AST/SGOT) 31 U/L (15-37) Alanine Aminotransferase (ALT/SGPT) 42 U/L (16-63) Alkaline Phosphatase 72 U/L (46-116) Total Protein 6.7 g/dL (6.4-8.2) Albumin 2.6 g/dL (3.4-5.0) Albumin/Globulin Ratio 0.6 (1.0-1.7) Problem List Problems Medical Problems: (1) Acute kidney injury Status: Acute (2) Acute urinary retention Status: Acute (3) Constipation Status: Acute Assessment/Plan Colonic pseudoobstruction with megacolon. Off his Plavix tentatively scheduled for colectomy Sunday next week Will obtain consent from DPOA Would benefit from parenteral nutrition Justicifation of Admission Dx: Justifications for Admission: Justification of Admission Dx: Yes SHALONDA HAWKINS MD October 14, 2021 08:18
[2021-10-14] MEDS: PANTOPRAZOLE IV PUSH 40 MG VIAL. IVP SCH (09:53)
--- NOTE | 2021-10-14 10:14 | PDOC ---
G I PROGRESS NOTE Reason for Follow-up Abd distention Subjective No new complaints Physical Exam Lungs clear CV S1 S2 ABD +BS, distended Review of Relevant I have reviewed the following items danilo (where applicable) has been applied. Labs Laboratory Tests Test 10/12/21 15:33 10/13/21 06:05 Sodium Level 142 mmol/L (136-145) 145 mmol/L (136-145) Potassium Level 4.1 mmol/L (3.5-5.1) 3.4 mmol/L (3.5-5.1) Chloride Level 110 mmol/L (98-107) 108 mmol/L (98-107) Carbon Dioxide Level 21 mmol/L (21-32) 27 mmol/L (21-32) Anion Gap 11 (6-14) 10 (6-14) Blood Urea Nitrogen 44 mg/dL (8-26) 24 mg/dL (8-26) Creatinine 1.9 mg/dL (0.7-1.3) 1.1 mg/dL (0.7-1.3) Estimated GFR (Cockcroft-Gault) 43.5 81.8 Glucose Level 134 mg/dL (70-99) 110 mg/dL (70-99) Calcium Level 8.9 mg/dL (8.5-10.1) 8.7 mg/dL (8.5-10.1) White Blood Count 6.7 x10^3/uL (4.0-11.0) Red Blood Count 4.04 x10^6/uL (4.30-5.70) Hemoglobin 12.3 g/dL (13.0-17.5) Hematocrit 35.4 % (39.0-53.0) Mean Corpuscular Volume 88 fL (79-100) Mean Corpuscular Hemoglobin 30 pg (25-35) Mean Corpuscular Hemoglobin Concent 35 g/dL (31-37) Red Cell Distribution Width 14.4 % (11.5-14.5) Platelet Count 260 x10^3/uL (140-400) BUN/Creatinine Ratio 22 (6-20) Total Bilirubin 0.6 mg/dL (0.2-1.0) Aspartate Amino Transf (AST/SGOT) 31 U/L (15-37) Alanine Aminotransferase (ALT/SGPT) 42 U/L (16-63) Alkaline Phosphatase 72 U/L (46-116) Total Protein 6.7 g/dL (6.4-8.2) Albumin 2.6 g/dL (3.4-5.0) Albumin/Globulin Ratio 0.6 (1.0-1.7) Microbiology 10/12/21 Blood Culture - Preliminary, Resulted NO GROWTH AFTER 2 DAYS Medications Current Medications Piperacillin Sod/ Tazobactam Sod 4.5 gm/Dextrose 100 ml @ 200 mls/hr 1X ONCE IV Last administered on 10/12/21at 07:15; Start 10/12/21 at 07:00; Stop 10/12/21 at 07:29; Status DC Sodium Chloride 1,000 ml @ 1,000 mls/hr 1X ONCE IV Last administered on 10/12/21at 08:09; Start 10/12/21 at 07:30; Stop 10/12/21 at 08:29; Status DC Ondansetron HCl (Zofran) 4 mg PRN Q8HRS PRN IVP NAUSEA/VOMITING Last administered on 10/12/21at 11:31; Start 10/12/21 at 08:45; Stop 10/13/21 at 08:44; Status DC Clonidine HCl (Catapres Tts-2) 1 patch QWE TD Last administered on 10/12/21at 17:33; Start 10/12/21 at 16:00 Dextrose/Sodium Chloride 1,000 ml @ 150 mls/hr Q6H40M IV Last administered on 10/13/21at 07:00; Start 10/12/21 at 11:00; Stop 10/13/21 at 08:33; Status DC Pantoprazole Sodium (PROTONIX VIAL for IV PUSH) 40 mg 1X ONCE IVP Last administered on 10/12/21at 11:29; Start 10/12/21 at 11:00; Stop 10/12/21 at 11:01; Status DC Pantoprazole Sodium (PROTONIX VIAL for IV PUSH) 40 mg DAILYAC IVP Last administered on 10/14/21at 09:53; Start 10/13/21 at 07:30 Enoxaparin Sodium (Lovenox 80mg Syringe) 70 mg DAILY SQ Last administered on 10/14/21at 09:58; Start 10/12/21 at 11:00 Fentanyl Citrate (Fentanyl 2ml Vial) 25 mcg PRN Q4HRS PRN IVP PAIN Last administered on 10/13/21at 03:39; Start 10/12/21 at 10:15 Ondansetron HCl (Zofran) 4 mg PRN Q4HRS PRN IVP NAUSEA/VOMITING; Start 10/12/21 at 10:15 Potassium Chloride/Sodium Chloride 1,000 ml @ 100 mls/hr Q10H IV Last administered on 10/14/21at 05:38; Start 10/13/21 at 09:00 Propofol (Diprivan) 200 mg STK-MED ONCE IV ; Start 10/13/21 at 11:18; Stop 10/13/21 at 11:19; Status DC Lidocaine HCl (Lidocaine Pf 2% Vial) 5 ml STK-MED ONCE .ROUTE ; Start 10/13/21 at 11:18; Stop 10/13/21 at 11:19; Status DC Ringer's Solution 1,000 ml @ 100 mls/hr Q10H IV Last administered on 10/13/21at 12:26; Start 10/13/21 at 11:45 Info (Tpn Per Pharmacy) 1 each PRN DAILY PRN MC SEE COMMENTS; Start 10/14/21 at 10:15 Active Scripts Active Potassium Chloride (Potassium Chloride) 20 Meq Tablet.er 20 Meq PO TID 30 Days Reported Procardia Xl (Nifedipine) 30 Mg Tab.er.24 1 Tab PO DAILY Plavix (Clopidogrel Bisulfate) 75 Mg Tablet 75 Mg PO HS Hydralazine Hcl 25 Mg Tablet 1 Tab PO BID PRN for sbp >160 Pepcid Ac (Famotidine) 10 Mg Tablet 10 Mg PO HS Miralax (Polyethylene Glycol 3350) 17 Gm Powd.pack 1 Packet PO BID Colace (Docusate Sodium) 100 Mg Capsule 1 Cap PO BID Catapres-Tts 2 (Clonidine) 1 Each Patch.tdwk 1 Each TD QWE Centrum Silver Men Tablet (Multivit-Min/FA/Lycopen/Lutein) 1 Each Tablet 1 Each PO DAILY Bisacodyl 10 Mg Supp.rect 10 Mg RC PRN DAILY PRN Baclofen 10 Mg Tablet 1 Tab PO TID Atorvastatin Calcium 20 Mg Tablet 20 Mg PO HS Vitals/I & O Vital Sign - Last 24 Hours 10/13/21 10/13/21 10/13/21 10/13/21 11:00 11:31 11:33 12:24 Temp 98.2 97.7 98.4 98.2 97.7 98.4 Pulse 82 84 73 Resp 18 18 16 B/P (MAP) 125/69 (87) 132/65 Pulse Ox 96 97 100 O2 Delivery Room Air Room Air Nasal Cannula O2 Flow Rate 3.0 10/13/21 10/13/21 10/13/21 10/13/21 12:40 13:00 13:15 13:30 Temp 98.2 98.2 98.0 98.2 98.2 98.0 Pulse 96 78 80 78 Resp 20 18 18 18 B/P (MAP) 155/68 154/74 (100) 154/75 (101) 154/75 (101) Pulse Ox 95 98 98 99 O2 Delivery Room Air Room Air Room Air Room Air 10/13/21 10/13/21 10/13/21 10/13/21 15:00 19:00 20:00 22:32 Temp 98.1 97.7 98.0 98.1 97.7 98.0 Pulse 78 66 61 Resp 18 18 18 B/P (MAP) 158/93 (114) 105/51 (69) 130/70 (90) Pulse Ox 99 97 97 O2 Delivery Room Air Room Air Room Air Room Air 10/14/21 10/14/21 10/14/21 03:00 07:30 08:00 Temp 97.4 98.1 97.4 98.1 Pulse 95 77 Resp 18 16 B/P (MAP) 150/60 (90) 122/74 (90) Pulse Ox 95 98 O2 Delivery Room Air Room Air Room Air Intake and Output 10/13/21 10/13/21 10/14/21 15:00 23:00 07:00 Output Total 1400 ml 701 ml Balance -1400 ml -701 ml Problem List Problems Medical Problems: (1) Acute kidney injury Status: Acute (2) Acute urinary retention Status: Acute (3) Constipation Status: Acute Assessment 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 Justicifation of Admission Dx: Justifications for Admission: Justification of Admission Dx: Yes TAMMY DO MD October 14, 2021 10:14
[2021-10-14 10:43] VITALS: BP 102/61
[2021-10-14 11:20] LABS: HEMATOCRIT 37.5 % (39.0-53.0); HEMOGLOBIN 12.7 g/dL (13.0-17.5); RED BLOOD COUNT 4.25 x10^6/uL (4.30-5.70); RED CELL DISTRIBUTION WIDTH 13.8 % (11.5-14.5); WHITE BLOOD COUNT 5.7 x10^3/uL (4.0-11.0)
[2021-10-14 11:26] LABS: CALCIUM 8.6 mg/dL (8.5-10.1); CREATININE 0.9 mg/dL (0.7-1.3); GFR 103.1; POTASSIUM 4.7 mmol/L (3.5-5.1)
--- NOTE | 2021-10-14 12:29 | NUR ---
Call to [facility] Jaure[facility], advised of need for PICC line and TPN. Verbal consent received and verified by Elaina BUTT.
[2021-10-14 14:50] VITALS: BP 182/85
[2021-10-14] MEDS ORDERED: LIDOCAINE WITH 8.4% SOD BICARB 3 ML DISP.SYRIN. ONE (15:00)
[2021-10-14] MEDS: AA 4.25 %/CALCIUM/LYTES/D5W 1,000 ML IV SCH (15:00)
--- NOTE | 2021-10-14 15:58 | RAD ---
Date: 10/14/2021 Exam: Fluoroscopic and ultrasound guided peripheral central venous catheter placement. Indication: Consent: The procedure was explained in its entirety to the patient or the patients designated repres entative by a member of the treatment team, including a discussion of the risks, benefits and commonl y accepted alternatives to the procedure, as well as the expected consequences of no therapy whatsoev er. Discussion of the risks included, but was not limited to, those that are most frequent and thos e that are rare but possibly severe or life-threatening, as well as the possibility of unforeseen com plications. Discussion: A timeout procedure was performed. The patient was prepped and draped using maximum sterile techniq ue, including the use of: Current guideline approved cutaneous antisepsis, a large sterile sheet to e stablish a sterile field. Additionally the vortex operator wore a hat, mask, sterile gloves, a sterile gown during the procedure as well as practiced acceptable hand hygiene prior to placing the line. 1% lidoc naheed was administered for local anesthesia. Ultrasound evaluation demonstrates a patent right basilic vein. Reference images were saved in the edical record. The selected vein was accessed using micropuncture technique. A guidewire was advanced centrally. The PICC line was cut to length, and advanced through a peel-away sheath such that it's tip resides at the cavoatrial junction. The peel-away sheath a sheath was removed. The catheter was s ecured in place. The catheter was found to flush and aspirate normally.. Sterile dressings were appli ed. No immediate complications were identified. Fluoroscopy time: 1.2 minutes Dose area product: 1 Gycm2 Impression: Successful placement of a right upper extremity PICC line Electronically signed by: Artie Genao MD (10/14/2021 3:56 PM) [id number]
[2021-10-14 19:15] VITALS: BP 136/75
[2021-10-14 23:11] VITALS: BP 125/74
[2021-10-15 03:01] VITALS: BP 137/84
[2021-10-15] MEDS: AA 4.25 %/CALCIUM/LYTES/D5W 1,000 ML IV SCH ×2 (03:40→16:22)
[2021-10-15 05:05] LABS: CALCIUM 8.4 mg/dL (8.5-10.1); CREATININE 0.8 mg/dL (0.7-1.3); GFR 118.1; MAGNESIUM 1.4 mg/dL (1.8-2.4); PHOSPHORUS 3.5 mg/dL (2.6-4.7); POTASSIUM 4.1 mmol/L (3.5-5.1)
[2021-10-15 07:00] VITALS: BP 126/71
[2021-10-15] MEDS: PANTOPRAZOLE IV PUSH 40 MG VIAL. IVP SCH (08:33)
--- NOTE | 2021-10-15 10:21 | PN ---
DATE: 10/15/2021 SUBJECTIVE: The patient is resting, slightly up in bed, in no apparent respiratory distress. He is awake, alert. On questioning him, he denied any complaint. The nursing staff did not voice any concern, states that he had an uneventful night. He is scheduled for diverting colostomy on Sunday. He is now n.p.o. and has had a PICC line placed and supposed to be on TPN. PHYSICAL EXAMINATION: GENERAL: When I examined him, there was no pallor, jaundice, cyanosis. No lymphadenopathy, no thyromegaly, no jugular venous distention. No limb edema. VITAL SIGNS: His heart rate was 71, blood pressure was 126/71, temperature 97.7, respiratory rate was 17 and oxygen saturation was 94% on room air. HEAD, EYES, EARS, NOSE, AND THROAT: Normocephalic, atraumatic. NECK: Supple. HEART: Normal first and second heart sounds. No gallop, rub or murmur. CHEST: Clear to auscultation. No crepitation or rhonchi. ABDOMEN: Distended, soft with tympanitic percussion noted. No guarding or rigidity. No organomegaly. All hernial orifice intact. Bowel sounds normal. NEUROLOGIC: He has right-sided hemiplegia, aphasia and dysphagia. His intake was incompletely recorded, output was 2100. LABORATORY DATA: As of yesterday, his white cell count was 5.7, hemoglobin 13, hematocrit 38, MCV 88 and platelet count 286,000. His chemistry showed a serum sodium 137, potassium 4.1, chloride 103, bicarbonate 27, anion gap of 7, BUN 17, creatinine 0.8. Estimated GFR was 118 mL per minute. His glucose 110, calcium was 8.4, phosphorus 3.5 and magnesium was 1.4. ASSESSMENT: 1. Marked abdominal distention due to colonic ileus versus partial obstruction. He apparently underwent flexible sigmoidoscopy and was found to have megacolon with a plan for diverting colostomy on Sunday. 2. Urinary retention requiring indwelling Cronin catheter. 3. Acute kidney injury, likely due to obstructive nephropathy, resolved. 4. He has left lower extremity deep vein thrombosis for which he was treated initially with Lovenox and was discharged on Eliquis. He is now back on Eliquis. 5. Left middle cerebral artery territory infarct with right-sided hemiplegia, aphasia and dysphagia. 6. Hypertension. PLAN: To continue with IV Protonix. Continue with Lovenox. He has PICC line and was supposed to be on TPN. He has hypomagnesemia, for which I will start him on 2 grams IV magnesium sulfate. ARASH DR: Teresita TID: [id number]
[2021-10-15] MEDS: TPN PER PHARMACY MC PRN (10:42)
--- NOTE | 2021-10-15 10:52 | NUR ---
Pharmacy TPN Dosing Note S: JADA RITCHIE is a 61 year old M Currently receiving Central Continuous TPN started 10/15/21 B:Pertinent PMH: ILEUS Height: 5 feet, 9 inches Weight: 58.4 kg Current diet: NPO LABS: Sodium: 137 Potassium: 4.1 Chloride: 103 Calcium: 8.4 Corrected Calcium: 9.52 Magnesium: 1.4 CO2: 27 SCr: 0.8 Glucose: 110 Albumin: 2.6 AST: 31 ALT: 42 TPN FORMULA: TPN TYPE: Central Continuous AMINO ACIDS: 60 gm DEXTROSE: 195 gm LIPIDS: 20 gm SODIUM CHLORIDE: 90 mEq POTASSIUM CHLORIDE: 50 mEq POTASSIUM PHOSPHATE: 13.6 mmol MAGNESIUM: 15 mEq MULTIPLE VITAMIN: 10 ml TRACE ELEMENTS: 1 ml(s) TPN PLAN: Initiate house formula TPN with extra magnesium. Patient to receive 2g IVPB magnesium sulfate today as well. Labs in am R: Begin TPN per plan and ordered formula Will monitor electrolytes, glucose, and tolerance to TPN. Ana Mohamud RPH, 10/15/21 [id number]
--- NOTE | 2021-10-15 10:59 | PDOC ---
PROGRESS NOTES Date of Service DATE: 10/15/21 TIME: 10:57 Subjective Subjective having stools, one earlier today, feels well Objective Objective Vital Signs Date Time Temp Pulse Resp B/P (MAP) Pulse Ox O2 Delivery O2 Flow Rate FiO2 10/15/21 07:00 97.7 71 17 126/71 (89) 94 Room Air 97.7 10/13/21 12:24 3.0 Intake and Output 10/15/21 07:00 Output Total 4350 ml Balance -4350 ml Output Urine Total 4350 ml # Bowel Movements 1 Physical Exam Abdomen: Soft, No tenderness Heart: Regular rate Extremities: No clubbing General: Alert, Oriented X3 HEENT: Atraumatic Assessment Assessment Problems Medical Problems: (1) Acute kidney injury Status: Acute (2) Acute urinary retention Status: Acute (3) Constipation Status: Acute Plan Plan of Care Abdomen significantly softer; bowels working; will check KUB; if improved may hold off on surgery and try po; continue to hold plavix as surgery still a possibility Comment Review of Relevant I have reviewed the following items danilo (where applicable) has been applied. Labs Laboratory Tests Test 10/14/21 10:50 10/15/21 04:28 White Blood Count 5.7 x10^3/uL (4.0-11.0) Red Blood Count 4.25 x10^6/uL (4.30-5.70) Hemoglobin 12.7 g/dL (13.0-17.5) Hematocrit 37.5 % (39.0-53.0) Mean Corpuscular Volume 88 fL (79-100) Mean Corpuscular Hemoglobin 30 pg (25-35) Mean Corpuscular Hemoglobin Concent 34 g/dL (31-37) Red Cell Distribution Width 13.8 % (11.5-14.5) Platelet Count 286 x10^3/uL (140-400) Sodium Level 141 mmol/L (136-145) 137 mmol/L (136-145) Potassium Level 4.7 mmol/L (3.5-5.1) 4.1 mmol/L (3.5-5.1) Chloride Level 109 mmol/L (98-107) 103 mmol/L (98-107) Carbon Dioxide Level 23 mmol/L (21-32) 27 mmol/L (21-32) Anion Gap 9 (6-14) 7 (6-14) Blood Urea Nitrogen 14 mg/dL (8-26) 17 mg/dL (8-26) Creatinine 0.9 mg/dL (0.7-1.3) 0.8 mg/dL (0.7-1.3) Estimated GFR (Cockcroft-Gault) 103.1 118.1 Glucose Level 81 mg/dL (70-99) 110 mg/dL (70-99) Calcium Level 8.6 mg/dL (8.5-10.1) 8.4 mg/dL (8.5-10.1) Phosphorus Level 3.5 mg/dL (2.6-4.7) Magnesium Level 1.4 mg/dL (1.8-2.4) Laboratory Tests Test 10/15/21 04:28 Sodium Level 137 mmol/L (136-145) Potassium Level 4.1 mmol/L (3.5-5.1) Chloride Level 103 mmol/L (98-107) Carbon Dioxide Level 27 mmol/L (21-32) Anion Gap 7 (6-14) Blood Urea Nitrogen 17 mg/dL (8-26) Creatinine 0.8 mg/dL (0.7-1.3) Estimated GFR (Cockcroft-Gault) 118.1 Glucose Level 110 mg/dL (70-99) Calcium Level 8.4 mg/dL (8.5-10.1) Phosphorus Level 3.5 mg/dL (2.6-4.7) Magnesium Level 1.4 mg/dL (1.8-2.4) Microbiology 10/12/21 Blood Culture - Preliminary, Resulted NO GROWTH AFTER 3 DAYS Medications Current Medications Piperacillin Sod/ Tazobactam Sod 4.5 gm/Dextrose 100 ml @ 200 mls/hr 1X ONCE IV Last administered on 10/12/21at 07:15; Start 10/12/21 at 07:00; Stop 10/12/21 at 07:29; Status DC Sodium Chloride 1,000 ml @ 1,000 mls/hr 1X ONCE IV Last administered on 10/12/21at 08:09; Start 10/12/21 at 07:30; Stop 10/12/21 at 08:29; Status DC Ondansetron HCl (Zofran) 4 mg PRN Q8HRS PRN IVP NAUSEA/VOMITING Last administered on 10/12/21at 11:31; Start 10/12/21 at 08:45; Stop 10/13/21 at 08:44; Status DC Clonidine HCl (Catapres Tts-2) 1 patch QWE TD Last administered on 10/12/21at 17:33; Start 10/12/21 at 16:00 Dextrose/Sodium Chloride 1,000 ml @ 150 mls/hr Q6H40M IV Last administered on 10/13/21at 07:00; Start 10/12/21 at 11:00; Stop 10/13/21 at 08:33; Status DC Pantoprazole Sodium (PROTONIX VIAL for IV PUSH) 40 mg 1X ONCE IVP Last administered on 10/12/21at 11:29; Start 10/12/21 at 11:00; Stop 10/12/21 at 11:01; Status DC Pantoprazole Sodium (PROTONIX VIAL for IV PUSH) 40 mg DAILYAC IVP Last administered on 10/15/21at 08:33; Start 10/13/21 at 07:30 Enoxaparin Sodium (Lovenox 80mg Syringe) 70 mg DAILY SQ Last administered on 10/15/21at 08:34; Start 10/12/21 at 11:00; Stop 10/15/21 at 10:53; Status DC Fentanyl Citrate (Fentanyl 2ml Vial) 25 mcg PRN Q4HRS PRN IVP PAIN Last administered on 10/13/21at 03:39; Start 10/12/21 at 10:15 Ondansetron HCl (Zofran) 4 mg PRN Q4HRS PRN IVP NAUSEA/VOMITING; Start 10/12/21 at 10:15 Potassium Chloride/Sodium Chloride 1,000 ml @ 100 mls/hr Q10H IV Last adminis tered on 10/14/21at 05:38; Start 10/13/21 at 09:00; Stop 10/14/21 at 14:17; Status DC Propofol (Diprivan) 200 mg STK-MED ONCE IV ; Start 10/13/21 at 11:18; Stop 10/13/21 at 11:19; Status DC Lidocaine HCl (Lidocaine Pf 2% Vial) 5 ml STK-MED ONCE .ROUTE ; Start 10/13/21 at 11:18; Stop 10/13/21 at 11:19; Status DC Ringer's Solution 1,000 ml @ 100 mls/hr Q10H IV Last administered on 10/13/21at 12:26; Start 10/13/21 at 11:45; Stop 10/14/21 at 18:16; Status DC Info (Tpn Per Pharmacy) 1 each PRN DAILY PRN MC SEE COMMENTS Last administered on 10/15/21at 10:42; Start 10/14/21 at 10:15 Amino Acids/ Electrolytes/ Dextrose 1,000 ml @ 80 mls/hr [id number] IV Last administered on 10/15/21at 03:40; Start 10/14/21 at 15:00; Stop 10/15/21 at 21:59 Lidocaine HCl (Buffered Lidocaine 1%) 3 ml STK-MED ONCE .ROUTE ; Start 10/14/21 at 15:00; Stop 10/14/21 at 15:00; Status DC Magnesium Sulfate 50 ml @ 25 mls/hr 1X ONCE IV ; Start 10/15/21 at 11:00; Stop 10/15/21 at 12:59 Sodium Chloride 90 meq/Potassium Chloride 50 meq/ Potassium Phosphate 13.6 mmol/Magnesium Sulfate 15 meq/ Multivitamins 10 ml/Zinc/Copper/ Manganese/ Selenium 1 ml/ Total Parenteral Nutrition/Amino Acids/Dextrose/ Fat Emulsion Intravenous 1,512 ml @ 63 mls/hr TPN CONT IV ; Start 10/15/21 at 22:00; Stop 10/16/21 at 21:59 Enoxaparin Sodium (Lovenox 60mg Syringe) 60 mg Q12HR SQ ; Start 10/15/21 at 21:00 Active Scripts Active Potassium Chloride (Potassium Chloride) 20 Meq Tablet.er 20 Meq PO TID 30 Days Reported Procardia Xl (Nifedipine) 30 Mg Tab.er.24 1 Tab PO DAILY Plavix (Clopidogrel Bisulfate) 75 Mg Tablet 75 Mg PO HS Hydralazine Hcl 25 Mg Tablet 1 Tab PO BID PRN for sbp >160 Pepcid Ac (Famotidine) 10 Mg Tablet 10 Mg PO HS Miralax (Polyethylene Glycol 3350) 17 Gm Powd.pack 1 Packet PO BID Colace (Docusate Sodium) 100 Mg Capsule 1 Cap PO BID Catapres-Tts 2 (Clonidine) 1 Each Patch.tdwk 1 Each TD QWE Centrum Silver Men Tablet (Multivit-Min/FA/Lycopen/Lutein) 1 Each Tablet 1 Each PO DAILY Bisacodyl 10 Mg Supp.rect 10 Mg RC PRN DAILY PRN Baclofen 10 Mg Tablet 1 Tab PO TID Atorvastatin Calcium 20 Mg Tablet 20 Mg PO HS Vitals/I & O Vital Sign - Last 24 Hours 10/14/21 10/14/21 10/14/21 10/14/21 14:50 19:15 20:00 23:11 Temp 97.3 98.6 97.9 97.3 98.6 97.9 Pulse 64 76 71 Resp 16 18 20 B/P (MAP) 182/85 (117) 136/75 (95) 125/74 (91) Pulse Ox 96 96 97 O2 Delivery Room Air Room Air Room Air Room Air 10/15/21 10/15/21 03:01 07:00 Temp 97.8 97.7 97.8 97.7 Pulse 74 71 Resp 18 17 B/P (MAP) 137/84 (101) 126/71 (89) Pulse Ox 95 94 O2 Delivery Room Air Room Air Intake and Output 10/14/21 10/14/21 10/15/21 15:00 23:00 07:00 Output Total 3200 ml 1150 ml Balance -3200 ml -1150 ml Justifications for Admission Other Justification TAMMY TOM MD October 15, 2021 10:59
[2021-10-15 11:00] VITALS: BP 165/82
[2021-10-15] MEDS ORDERED: MAGNESIUM SULFATE 2GM 50 ML IV ONE (11:00)
[2021-10-15 15:00] VITALS: BP 149/87
--- NOTE | 2021-10-15 15:15 | RAD ---
Three-view acute abdominal series. HISTORY: Colonic ileus 3 views were taken for an acute abdominal series. 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 Lungs are free of infiltrates. Patient rotated to the right. There is a right PICC line extending to the superior vena cava in good position. There are no acute infiltrates. Upright view the abdomen shows persistent bowel distention without fluid levels. There is no free air . Supine view the abdomen shows persistent diffuse bowel distention. There is distention of the colon a nd small bowel. Pattern has changed little. IMPRESSION: 1. No acute infiltrates. 2. Persistent bowel distention with little change. Electronically signed by: Andry Deluca MD (10/15/2021 3:13 PM) [id number]
[2021-10-15 19:00] VITALS: BP 145/80
[2021-10-15] MEDS ORDERED: TOTAL PARENTERAL NUTRITION IV SCH (22:00)
[2021-10-15] MEDS ORDERED: [UNRECOGNIZED DRUG - OTHER] IV SCH (22:00)
[2021-10-15] MEDS ORDERED: AMINO ACID IV SCH (22:00)
[2021-10-15] MEDS ORDERED: DEXTROSE 70% IV SCH (22:00)
[2021-10-15 23:09] VITALS: BP 154/83
[2021-10-16 03:22] VITALS: BP 132/78
[2021-10-16] MEDS ORDERED: IV RINGERS,LACTATED 1000ML 1,000 ML IV SCH (06:00)
[2021-10-16] MEDS ORDERED: PROCHLORPERAZINE 10 MG/2 ML VIAL. IVP PRN (06:00)
[2021-10-16] MEDS ORDERED: fentaNYL PF VIAL 100 MCG/2 ML VIAL IVP PRN ×2 (06:00)
[2021-10-16 06:58] LABS: CALCIUM 7.9 mg/dL (8.5-10.1); CREATININE 0.8 mg/dL (0.7-1.3); GFR 118.1; MAGNESIUM 1.9 mg/dL (1.8-2.4); PHOSPHORUS 3.3 mg/dL (2.6-4.7)
[2021-10-16 07:00] VITALS: BP 123/50
[2021-10-16] MEDS ORDERED: MIDAZOLAM HCL/PF 2 MG/2 ML VIAL. ONE (07:22)
[2021-10-16] MEDS ORDERED: GLYCOPYRROLATE 1 MG/5 ML VIAL. ONE (07:22)
[2021-10-16] MEDS ORDERED: ROCURONIUM 100 MG/10 ML VIAL. ONE (07:22)
[2021-10-16] MEDS ORDERED: NEOSTIGMINE METHYLSULFATE 5 MG/5 ML SYRINGE. ONE (07:22)
[2021-10-16] MEDS ORDERED: fentaNYL PF VIAL 250 MCG/5 ML VIAL ONE (07:23)
[2021-10-16] MEDS ORDERED: PROPOFOL 10 MG/ML (20ML) VIAL. IV ONE (07:25)
[2021-10-16] MEDS ORDERED: LIDOCAINE 2% PF 5 ML VIAL. ONE ×2 (07:25)
[2021-10-16] MEDS ORDERED: DEXAMETHASONE SOD PHOS 4 MG/ML VIAL ONE (07:25)
[2021-10-16] MEDS ORDERED: PHENYLEPHRINE in 0.9% NACL PF 1 MG/10 ML SYRINGE. IV ONE (07:25)
[2021-10-16] MEDS ORDERED: ONDANSETRON PF 4 MG/2 ML VIAL. ONE (07:25)
[2021-10-16] MEDS: PANTOPRAZOLE IV PUSH 40 MG VIAL. IVP SCH (07:30)
--- NOTE | 2021-10-16 08:05 | PN ---
DATE: 10/14/2021 SUBJECTIVE: The patient is resting, slightly up in bed, in no apparent distress. On questioning him, he denied any nausea or vomiting. Denied any abdominal pain. Has not had any bowel movement, but he said he was able to pass gas. His abdomen continued to be markedly distended with tympanitic percussion note. PHYSICAL EXAMINATION: GENERAL: When I examined him, he looked well and was clearly in no apparent respiratory distress. No pallor, jaundice, cyanosis or thyromegaly. No jugular venous distention. No limb edema. VITAL SIGNS: His heart rate was 77, blood pressure was 122/74, temperature was 98.1, respiratory rate was 16 and oxygen saturation was 98%. The rest of clinical exam is stable. LABORATORY DATA: This morning is still pending at the time of this dictation. ASSESSMENT AND PLAN: He apparently has had a flexible sigmoidoscopy yesterday and Dr. Mena recommended permanent diverting colostomy with resistant megacolon, the surgery is planned for next Sunday given that he is on Plavix. I ordered a PICC line and TPN. We will obviously hold his Plavix and continue with Lovenox until Sunday. AARON/JASPREET/GREGG DR: AARON/wendy TID: [id number]
[2021-10-16] MEDS ORDERED: VASOPRESSIN 20 UNIT/ML VIAL. ONE (09:10)
[2021-10-16] MEDS ORDERED: fentaNYL PF VIAL 100 MCG/2 ML VIAL ONE (10:54)
--- NOTE | 2021-10-16 11:16 | PDOC4 ---
Operative Note Operative Note Operative Note: Preoperative Diagnosis: Colonic inertia Postoperative Diagnosis: Same Procedure: Total colectomy with end ileostomy Surgeon: Dallin Computer Systems Architect: GEN [place] Anesthesia: General EBL: 20 mL Specimen: Colon to pathology Drains: [place] drain to subcutaneous tissue Complications: None Indication: The patient is a 61-year-old male who is been diagnosed with colonic inertia and subsequent megacolon. Despite medical management he has not improved. The plan is to proceed with a total colectomy and end ileostomy. The details and risks of surgery were discussed with the patient and his family. The risks include bleeding, infection, visceral injury, pain, anesthetic risk bowel obstruction, hernia formation, potential need for additional surgery or procedure. They understand and would like to proceed. Description: The patient was taken to the operating room and placed supine on the operating table. General anesthesia was performed. The abdomen was prepped with ChloraPrep and draped in a standard surgical manner. Vertical midline incision was made the skin with a scalpel. Cautery dissection was carried down to the fascia. The fascia and peritoneum were divided. The Omni retractor was used for the remainder of the case to facilitate exposure. As noted before the patient had marked dilation of his entire colon with gaseous distention consistent with colonic inertia. The colon was decompressed with insertion of a 14-gauge needle and suction in three different segments. These were each oversewn with 3-0 Vicryl. We then began mobilizing the colon. The lateral attachments of both the right and left colon were divided. The terminal ileum was divided with a NIMCO-75 stapling device. The mesentery of the entire colon was then dissected. Blood vessels were ligated with 2-0 Vicryl and divided. Both the splenic and hepatic flexures were taken down using the harmonic scalpel. The bowel was then divided at the level of the rectum distal to a prior anastomosis using a NIMCO-75 stapling device. The rectal stump was oversewn with 3-0 Vicryl. The colon was then sent off to pathology for evaluation. A small circular incision was made in the right lower quadrant in the rectus musculature. Cautery dissection was carried down through the muscle and fascia. The stapled end of the ileum was delivered through this for planned ileostomy. Hemostasis was good and no other intra-abdominal abnormalities were identified. The fascia was approximated with 1 PDS. The ileostomy was matured to the skin with interrupted 3-0 Vicryl. A [place] drain was left in subcutaneous space which exited inferiorly. This was secured to the skin with 3-0 Vicryl. Subcutaneous tissue was closed with 3-0 Vicryl and skin approximated with 4 Monocryl. A sterile dressing and ostomy appliance were applied. The patient tolerated the procedure well and was sent to the recovery room in stable condition. At the end of the case all counts were correct. TAMMY TOM MD October 16, 2021 11:16
[2021-10-16] MEDS ORDERED: HYDROmorphone 2 MG/ML INJ. IVP PRN ×3 (11:30)
[2021-10-16] MEDS ORDERED: PROCHLORPERAZINE 10 MG/2 ML VIAL. ONE (11:53)
[2021-10-16] MEDS ORDERED: MORPHINE SULFATE 2 MG/ML INJ. ONE (11:53)
[2021-10-16] MEDS: MORPHINE SULFATE 2 MG/ML INJ. IVP PRN ×2 (11:57→12:17)
[2021-10-16] MEDS ORDERED: HYDROmorphone 2 MG/ML INJ. ONE (12:24)
[2021-10-16] MEDS: HYDROmorphone 2 MG/ML INJ. IVP PRN ×2 (12:27→13:48)
[2021-10-16] MEDS: TPN PER PHARMACY MC PRN ×2 (12:28→12:32)
--- NOTE | 2021-10-16 12:30 | NUR ---
Pharmacy TPN Dosing Note S: JADA RITCHIE is a 61 year old M Currently receiving Central Continuous TPN started 10/15/21 B:Pertinent PMH: ILEUS Height: 5 feet, 9 inches Weight: 58.4 kg Current diet: NPO LABS: Sodium: 135 Potassium: 1.0 Chloride: 103 Calcium: 7.9 Corrected Calcium: 9.02 Magnesium: 1.9 CO2: 25 SCr: 0.8 Glucose: 119 Albumin: 2.6 AST: 31 ALT: 42 TPN FORMULA: TPN TYPE: Central Continuous AMINO ACIDS: 60 gm DEXTROSE: 195 gm LIPIDS: 20 gm SODIUM CHLORIDE: 90 mEq POTASSIUM CHLORIDE: 50 mEq POTASSIUM PHOSPHATE: 13.6 mmol MAGNESIUM: 15 mEq MULTIPLE VITAMIN: 10 ml TRACE ELEMENTS: 1 ml(s) TPN PLAN: Continue same TPN. R: Continue TPN Will monitor electrolytes, glucose, and tolerance to TPN. Fernando Garrido [facility], 10/16/21 [id number]
--- NOTE | 2021-10-16 13:03 | PN ---
DATE: 10/16/2021 SUBJECTIVE: The patient was apparently evaluated yesterday by the surgical team. The acute abdomen series showed that the patient continued to have persistent bowel distention with little change and therefore, a decision was made to pursue the surgical option and he was taken to OR this morning for a total colectomy and ileostomy. OBJECTIVE: GENERAL: On examining him earlier this morning, he looked well and was clearly in no apparent respiratory distress. VITAL SIGNS: His heart rate was 96, blood pressure is 132/78, temperature was 98.9, respiratory rate was 19 and oxygen saturation was 98%. The rest of clinical exam is stable in particular, his abdomen is distended, soft, nontender. His intake over the last 24 hours was incompletely recorded, output was 4350. LABORATORY DATA: As of this morning, his serum sodium was 135, potassium 4, chloride 103, bicarbonate 25, anion gap of 7, BUN 14, creatinine 0.8. Estimated GFR was 118 mL per minute. His glucose 119, calcium was 7.9, phosphorus 3.3 and magnesium was 1.9. His most recent white cell count was 5.7, hemoglobin 12.7, hematocrit 37.5, MCV 88 and platelet count 286,000. His coronavirus by rapid antigen testing was negative. ASSESSMENT: Persistent small bowel distention with little change for which he was taken to the OR for total colectomy and ileostomy. Meanwhile, we will continue obviously with TPN. Continue with pain management. AARON/JASPREET/SHALA DR: Teresita TID: [id number]
[2021-10-16] MEDS: ONDANSETRON PF 4 MG/2 ML VIAL. IVP PRN (13:48)
[2021-10-16 15:00] VITALS: BP 95/60
[2021-10-16 19:00] VITALS: BP 105/56
[2021-10-16] MEDS ORDERED: TOTAL PARENTERAL NUTRITION IV SCH (22:00)
[2021-10-16] MEDS ORDERED: [UNRECOGNIZED DRUG - OTHER] IV SCH (22:00)
[2021-10-16] MEDS ORDERED: AMINO ACID IV SCH (22:00)
[2021-10-16] MEDS ORDERED: DEXTROSE 70% IV SCH (22:00)
[2021-10-16 23:00] VITALS: BP 108/52
[2021-10-17 03:00] VITALS: BP 121/78
[2021-10-17] MEDS: HYDROmorphone 2 MG/ML INJ. IVP PRN ×3 (04:07→20:29)
[2021-10-17 05:01] LABS: HEMATOCRIT 31.2 % (39.0-53.0); HEMOGLOBIN 10.4 g/dL (13.0-17.5); RED BLOOD COUNT 3.56 x10^6/uL (4.30-5.70); RED CELL DISTRIBUTION WIDTH 13.7 % (11.5-14.5); WHITE BLOOD COUNT 11.8 x10^3/uL (4.0-11.0)
[2021-10-17 05:27] LABS: CALCIUM 7.8 mg/dL (8.5-10.1); CREATININE 0.9 mg/dL (0.7-1.3); GFR 103.1; PHOSPHORUS 2.3 mg/dL (2.6-4.7); POTASSIUM 4.4 mmol/L (3.5-5.1)
[2021-10-17 07:00] VITALS: BP 111/68
[2021-10-17] MEDS: PANTOPRAZOLE IV PUSH 40 MG VIAL. IVP SCH (08:48)
--- NOTE | 2021-10-17 09:16 | PN ---
DATE: 10/17/2021 SUBJECTIVE: The patient is resting almost flat in bed, in no apparent distress, awake, alert. On questioning him, he denied any complaint. The nursing staff did not voice any concern. He underwent total colectomy and ileostomy successfully yesterday. PHYSICAL EXAMINATION: GENERAL: When I examined him, he was pale, not jaundiced, cyanosed or thyromegaly. No jugular venous distention. No lower limb edema. VITAL SIGNS: His heart rate was 80, blood pressure is 111/68, temperature was 97.9, respiratory rate was 18 and oxygen saturation was 96%. HEAD, EYES, EARS, NOSE, AND THROAT: Normocephalic, atraumatic. NECK: Supple. HEART: Showed normal first and second heart sounds. No gallop, rub or murmur. CHEST: Shows central trachea, equal bilateral expansion, air entry, vesicular breath sounds. No crepitation or rhonchi. ABDOMEN: Scaphoid, soft. The midline surgical incision covered with dressing. He has an ileostomy in the right lower quadrant. Bowel sounds are sluggish. NEUROLOGIC: He has right-sided hemiplegia and aphasia. His intake was 650, output was 1950. LABORATORY DATA: His lab work showed a white cell count of 11.8, hemoglobin 10, hematocrit 31, MCV 88 and platelet count 251,000. Serum sodium was 137, potassium 4.4, chloride 106, bicarbonate 27, anion gap of 4, BUN 15, creatinine 0.9. Estimated GFR was 103 mL per minute. His glucose 138, calcium was 7.8, phosphorus 2.3, magnesium was 2. ASSESSMENT: 1. Pseudoobstruction syndrome, status post total colectomy and an ileostomy. 2. Urinary retention requiring indwelling Cronin catheter. 3. Acute kidney injury due to obstructive uropathy, resolved. His serum creatinine this morning was 0.9 mg/dL. 4. Left lower extremity deep vein thrombosis for which he was treated initially with Lovenox, was discharged on Eliquis. He is now back on Eliquis that was put on hold. 5. Left middle cerebral artery territory infarct, right-sided hemiplegia and aphasia. 6. Hypertension. PLAN: To continue with IV Protonix. Continue with subcutaneous Lovenox. Continue with TPN. His hypomagnesemia, resolved. His serum magnesium is now 2 mg/dL. Once his bowels started moving, we will start him on his diet and hopefully discharge him back some time this week. CRISTY DR: Teresita TID: [id number]
[2021-10-17 11:08] VITALS: BP 121/77
[2021-10-17] MEDS: TPN PER PHARMACY MC PRN (11:35)
--- NOTE | 2021-10-17 11:37 | NUR ---
Pharmacy TPN Dosing Note S: JADA RITCHIE is a 61 year old M Currently receiving Central Continuous TPN started 10/15/21 B:Pertinent PMH: ILEUS Height: 5 feet, 9 inches Weight: 58.4 kg Current diet: NPO LABS: Sodium: 137 Potassium: 4.4 Chloride: 106 Calcium: 7.8 Corrected Calcium: 8.92 Magnesium: 2.0 CO2: 27 SCr: 0.9 Glucose: 138 Albumin: 2.6 AST: 31 ALT: 42 TPN FORMULA: TPN TYPE: Central Continuous AMINO ACIDS: 60 gm DEXTROSE: 195 gm LIPIDS: 20 gm SODIUM CHLORIDE: 90 mEq SODIUM PHOSPHATE: 6 mmol POTASSIUM CHLORIDE: 50 mEq POTASSIUM PHOSPHATE: 13.6 mmol MAGNESIUM: 15 mEq MULTIPLE VITAMIN: 10 ml TRACE ELEMENTS: 1 ml(s) TPN PLAN: Add 6mMol of Sodium Phosphate to TPN due to low phosphorus level. R: Change TPN as noted above. Will monitor electrolytes, glucose, and tolerance to TPN. Fernando Garrido [facility], 10/17/21 [id number]
[2021-10-17] MEDS: ONDANSETRON PF 4 MG/2 ML VIAL. IVP PRN ×2 (13:02→20:28)
--- NOTE | 2021-10-17 13:38 | PDOC ---
PROGRESS NOTES Date of Service DATE: 10/17/21 TIME: 13:37 Subjective Subjective doing "ok", not ready to take po Objective Objective Vital Signs Date Time Temp Pulse Resp B/P (MAP) Pulse Ox O2 Delivery O2 Flow Rate FiO2 10/17/21 11:08 98.6 81 18 121/77 (92) 94 Room Air 98.6 10/13/21 12:24 3.0 Intake and Output 10/17/21 07:00 Intake Total 1500 ml Output Total 1820 ml Balance -320 ml Intake Oral 0 ml IV Total 1500 ml Output Urine Total 1800 ml Estimated Blood Loss 20 ml Physical Exam Abdomen: Soft Assessment Assessment Problems Medical Problems: (1) Acute kidney injury Status: Acute (2) Acute urinary retention Status: Acute (3) Constipation Status: Acute Plan Plan of Care S/P colectomy, postop care Comment Review of Relevant I have reviewed the following items danilo (where applicable) has been applied. Labs Laboratory Tests Test 10/16/21 06:27 10/17/21 04:35 Sodium Level 135 mmol/L (136-145) 137 mmol/L (136-145) Potassium Level 4.0 mmol/L (3.5-5.1) 4.4 mmol/L (3.5-5.1) Chloride Level 103 mmol/L (98-107) 106 mmol/L (98-107) Carbon Dioxide Level 25 mmol/L (21-32) 27 mmol/L (21-32) Anion Gap 7 (6-14) 4 (6-14) Blood Urea Nitrogen 14 mg/dL (8-26) 15 mg/dL (8-26) Creatinine 0.8 mg/dL (0.7-1.3) 0.9 mg/dL (0.7-1.3) Estimated GFR (Cockcroft-Gault) 118.1 103.1 Glucose Level 119 mg/dL (70-99) 138 mg/dL (70-99) Calcium Level 7.9 mg/dL (8.5-10.1) 7.8 mg/dL (8.5-10.1) Phosphorus Level 3.3 mg/dL (2.6-4.7) 2.3 mg/dL (2.6-4.7) Magnesium Level 1.9 mg/dL (1.8-2.4) 2.0 mg/dL (1.8-2.4) Triglycerides Level 74 mg/dL (0-150) White Blood Count 11.8 x10^3/uL (4.0-11.0) Red Blood Count 3.56 x10^6/uL (4.30-5.70) Hemoglobin 10.4 g/dL (13.0-17.5) Hematocrit 31.2 % (39.0-53.0) Mean Corpuscular Volume 88 fL (79-100) Mean Corpuscular Hemoglobin 29 pg (25-35) Mean Corpuscular Hemoglobin Concent 34 g/dL (31-37) Red Cell Distribution Width 13.7 % (11.5-14.5) Platelet Count 251 x10^3/uL (140-400) Laboratory Tests Test 10/17/21 04:35 White Blood Count 11.8 x10^3/uL (4.0-11.0) Red Blood Count 3.56 x10^6/uL (4.30-5.70) Hemoglobin 10.4 g/dL (13.0-17.5) Hematocrit 31.2 % (39.0-53.0) Mean Corpuscular Volume 88 fL (79-100) Mean Corpuscular Hemoglobin 29 pg (25-35) Mean Corpuscular Hemoglobin Concent 34 g/dL (31-37) Red Cell Distribution Width 13.7 % (11.5-14.5) Platelet Count 251 x10^3/uL (140-400) Sodium Level 137 mmol/L (136-145) Potassium Level 4.4 mmol/L (3.5-5.1) Chloride Level 106 mmol/L (98-107) Carbon Dioxide Level 27 mmol/L (21-32) Anion Gap 4 (6-14) Blood Urea Nitrogen 15 mg/dL (8-26) Creatinine 0.9 mg/dL (0.7-1.3) Estimated GFR (Cockcroft-Gault) 103.1 Glucose Level 138 mg/dL (70-99) Calcium Level 7.8 mg/dL (8.5-10.1) Phosphorus Level 2.3 mg/dL (2.6-4.7) Magnesium Level 2.0 mg/dL (1.8-2.4) Microbiology 10/12/21 Blood Culture - Final, Complete NO GROWTH AFTER 5 DAYS Medications Current Medications Piperacillin Sod/ Tazobactam Sod 4.5 gm/Dextrose 100 ml @ 200 mls/hr 1X ONCE IV Last administered on 10/12/21at 07:15; Start 10/12/21 at 07:00; Stop 10/12/21 at 07:29; Status DC Sodium Chloride 1,000 ml @ 1,000 mls/hr 1X ONCE IV Last administered on 10/12/21at 08:09; Start 10/12/21 at 07:30; Stop 10/12/21 at 08:29; Status DC Ondansetron HCl (Zofran) 4 mg PRN Q8HRS PRN IVP NAUSEA/VOMITING Last administered on 10/12/21at 11:31; Start 10/12/21 at 08:45; Stop 10/13/21 at 08:44; Status DC Clonidine HCl (Catapres Tts-2) 1 patch QWE TD Last administered on 10/12/21at 17:33; Start 10/12/21 at 16:00 Dextrose/Sodium Chloride 1,000 ml @ 150 mls/hr Q6H40M IV Last administered on 10/13/21at 07:00; Start 10/12/21 at 11:00; Stop 10/13/21 at 08:33; Status DC Pantoprazole Sodium (PROTONIX VIAL for IV PUSH) 40 mg 1X ONCE IVP Last administered on 10/12/21at 11:29; Start 10/12/21 at 11:00; Stop 10/12/21 at 11:01; Status DC Pantoprazole Sodium (PROTONIX VIAL for IV PUSH) 40 mg DAILYAC IVP Last administered on 10/17/21at 08:48; Start 10/13/21 at 07:30 Enoxaparin Sodium (Lovenox 80mg Syringe) 70 mg DAILY SQ Last administered on 10/15/21at 08:34; Start 10/12/21 at 11:00; Stop 10/15/21 at 10:53; Status DC Fentanyl Citrate (Fentanyl 2ml Vial) 25 mcg PRN Q4HRS PRN IVP PAIN Last administered on 10/13/21at 03:39; Start 10/12/21 at 10:15 Ondansetron HCl (Zofran) 4 mg PRN Q4HRS PRN IVP NAUSEA/VOMITING Last administered on 10/17/21at 13:02; Start 10/12/21 at 10:15 Potassium Chloride/Sodium Chloride 1,000 ml @ 100 mls/hr Q10H IV Last administered on 10/14/21at 05:38; Start 10/13/21 at 09:00; Stop 10/14/21 at 14:17; Status DC Propofol (Diprivan) 200 mg STK-MED ONCE IV ; Start 10/13/21 at 11:18; Stop at 11:19; Status DC Lidocaine HCl (Lidocaine Pf 2% Vial) 5 ml STK-MED ONCE .ROUTE ; Start 10/13/21 at 11:18; Stop 10/13/21 at 11:19; Status DC Ringer's Solution 1,000 ml @ 100 mls/hr Q10H IV Last administered on 10/13/21at 12:26; Start 10/13/21 at 11:45; Stop 10/14/21 at 18:16; Status DC Info (Tpn Per Pharmacy) 1 each PRN DAILY PRN MC SEE COMMENTS Last administered on 10/17/21at 11:35; Start 10/14/21 at 10:15 Amino Acids/ Electrolytes/ Dextrose 1,000 ml @ 80 mls/hr [id number] IV Last administered on 10/15/21at 16:22; Start 10/14/21 at 15:00; Stop 10/15/21 at 21:59; Status DC Lidocaine HCl (Buffered Lidocaine 1%) 3 ml STK-MED ONCE .ROUTE ; Start 10/14/21 at 15:00; Stop 10/14/21 at 15:00; Status DC Magnesium Sulfate 50 ml @ 25 mls/hr 1X ONCE IV Last administered on 10/15/21at 11:25; Start 10/15/21 at 11:00; Stop 10/15/21 at 12:59; Status DC Sodium Chloride 90 meq/Potassium Chloride 50 meq/ Potassium Phosphate 13.6 mmol/Magnesium Sulfate 15 meq/ Multivitamins 10 ml/Zinc/Copper/ Manganese/ Selenium 1 ml/ Total Parenteral Nutrition/Amino Acids/Dextrose/ Fat Emulsion Intravenous 1,512 ml @ 63 mls/hr TPN CONT IV Last administered on 10/15/21at 21:27; Start 10/15/21 at 22:00; Stop 10/16/21 at 21:59; Status DC Enoxaparin Sodium (Lovenox 60mg Syringe) 60 mg Q12HR SQ ; Start 10/15/21 at 21:00; Stop 10/15/21 at 18:36; Status DC Fentanyl Citrate (Fentanyl 2ml Vial) 25 mcg PRN Q5MIN PRN IVP MILD PAIN 1-3; Start 10/16/21 at 06:00; Stop 10/16/21 at 16:26; Status DC Fentanyl Citrate (Fentanyl 2ml Vial) 50 mcg PRN Q5MIN PRN IVP MODERATE PAIN 4- 6; Start 10/16/21 at 06:00; Stop 10/16/21 at 16:26; Status DC Morphine Sulfate (Morphine Sulfate) 1 mg PRN Q10MIN PRN IVP SEVERE PAIN 7-10 Last administered on 10/16/21at 12:17; Start 10/16/21 at 06:00; Stop 10/16/21 at 16:26; Status DC Ringer's Solution 1,000 ml @ 30 mls/hr Q24H IV Last administered on 10/16/21at 06:09; Start 10/16/21 at 06:00; Stop 10/16/21 at 16:26; Status DC Hydromorphone HCl (Dilaudid) 0.5 mg PRN Q10MIN PRN IVP SEVERE PAIN 7-10, 2nd CHOICE Last administered on 10/16/21at 13:48; Start 10/16/21 at 06:00; Stop 10/16/21 at 16:26; Status DC Prochlorperazine Edisylate (Compazine) 5 mg PACU PRN PRN IVP NAUSEA, MRX1 Last administered on 10/16/21at 11:57; Start 10/16/21 at 06:00; Stop 10/16/21 at 16:26; Status DC Rocuronium [place] (Zemuron) 100 mg STK-MED ONCE .ROUTE ; Start 10/16/21 at 07:22; Stop 10/16/21 at 07:22; Status DC Neostigmine [place] (Neostigmine Methylsulfate) 5 mg STK-MED ONCE .ROUTE ; Start 10/16/21 at 07:22; Stop 10/16/21 at 07:23; Status DC Midazolam HCl (Versed) 2 mg STK-MED ONCE .ROUTE ; Start 10/16/21 at 07:22; Stop 10/16/21 at 07:23; Status DC Glycopyrrolate (Robinul) 1 mg STK-MED ONCE .ROUTE ; Start 10/16/21 at 07:22; Stop 10/16/21 at 07:23; Status DC Fentanyl Citrate (Fentanyl 5ml Vial) 250 mcg STK-MED ONCE .ROUTE ; Start 10/16/21 at 07:23; Stop 10/16/21 at 07:23; Status DC Dexamethasone Sodium Phosphate (Decadron) 4 mg STK-MED ONCE .ROUTE ; Start 10/16/21 at 07:25; Stop 10/16/21 at 07:26; Status DC Ondansetron HCl (Zofran) 4 mg STK-MED ONCE .ROUTE ; Start 10/16/21 at 07:25; Stop 10/16/21 at 07:26; Status DC Phenylephrine HCl (PHENYLEPHRINE in 0.9% NACL PF) 1 mg STK-MED ONCE IV ; Start 10/16/21 at 07:25; Stop 10/16/21 at 07:26; Status DC Lidocaine HCl (Lidocaine Pf 2% Vial) 5 ml STK-MED ONCE .ROUTE ; Start 10/16/21 at 07:25; Stop 10/16/21 at 07:26; Status DC Lidocaine HCl (Lidocaine Pf 2% Vial) 5 ml STK-MED ONCE .ROUTE ; Start 10/16/21 at 07:25; Stop 10/16/21 at 07:26; Status DC Propofol (Diprivan) 200 mg STK-MED ONCE IV ; Start 10/16/21 at 07:25; Stop 10/16/21 at 07:26; Status DC Cefazolin Sodium/ Dextrose 50 ml @ As Directed STK-MED ONCE IV ; Start 10/16/21 at 08:13; Stop 10/16/21 at 08:13; Status DC Ephedrine Sulfate (Akovaz) 50 mg STK-MED ONCE .ROUTE ; Start 10/16/21 at 08:39; Stop 10/16/21 at 08:39; Status DC Vasopressin (Vasostrict) 20 unit STK-MED ONCE .ROUTE ; Start 10/16/21 at 09:10; Stop 10/16/21 at 09:10; Status DC Fentanyl Citrate (Fentanyl 2ml Vial) 100 mcg STK-MED ONCE .ROUTE ; Start 10/16/21 at 10:54; Stop 10/16/21 at 10:54; Status DC Hydromorphone HCl (Dilaudid) 0.2 mg PRN Q4HRS PRN IVP MODERATE TO SEVERE PAIN; Start 10/16/21 at 11:30 Hydromorphone HCl (Dilaudid) 0.5 mg PRN Q4HRS PRN IVP MODERATE TO SEVERE PAIN Last administered on 10/17/21at 13:03; Start 10/16/21 at 11:30 Hydromorphone HCl (Dilaudid) 0.3 mg PRN Q4HRS PRN IVP MODERATE TO SEVERE PAIN; Start 10/16/21 at 11:30 Hydromorphone HCl (Dilaudid) 0.4 mg PRN Q4HRS PRN IVP MODERATE TO SEVERE PAIN; Start 10/16/21 at 11:30 Morphine Sulfate (Morphine Sulfate) 2 mg STK-MED ONCE .ROUTE ; Start 10/16/21 at 11:53; Stop 10/16/21 at 11:53; Status DC Prochlorperazine Edisylate (Compazine) 10 mg STK-MED ONCE .ROUTE ; Start 10/16/21 at 11:53; Stop 10/16/21 at 11:53; Status DC Cefazolin Sodium/ Dextrose 50 ml @ 100 mls/hr 1X ONCE IV Last administered on 10/16/21at 08:15; Start 10/16/21 at 12:00; Stop 10/16/21 at 12:29; Status DC Hydromorphone HCl (Dilaudid) 2 mg STK-MED ONCE .ROUTE ; Start 10/16/21 at 12:24; Stop 10/16/21 at 12:24; Status DC Sodium Chloride 90 meq/Potassium Chloride 50 meq/ Potassium Phosphate 13.6 mmol/Magnesium Sulfate 15 meq/ Multivitamins 10 ml/Zinc/Copper/ Manganese/ Selenium 1 ml/ Total Parenteral Nutrition/Amino Acids/Dextrose/ Fat Emulsion Intravenous 1,512 ml @ 63 mls/hr TPN CONT IV Last administered on 10/16/21at 21:13; Start 10/16/21 at 22:00; Stop 10/17/21 at 21:59 Sodium Chloride 90 meq/Potassium Chloride 50 meq/ Potassium Phosphate 13.6 mmol/Magnesium Sulfate 15 meq/ Multivitamins 10 ml/Zinc/Copper/ Manganese/ Selenium 1 ml/ Sodium Phosphate 6 mmol/Total Parenteral Nutrition/Amino Acids/Dextrose/ Fat Emulsion Intravenous 1,512 ml @ 63 mls/hr TPN CONT IV ; Start 10/17/21 at 22:00; Stop 10/18/21 at 21:59 Active Scripts Active Potassium Chloride (Potassium Chloride) 20 Meq Tablet.er 20 Meq PO TID 30 Days Reported Procardia Xl (Nifedipine) 30 Mg Tab.er.24 1 Tab PO DAILY Plavix (Clopidogrel Bisulfate) 75 Mg Tablet 75 Mg PO HS Hydralazine Hcl 25 Mg Tablet 1 Tab PO BID PRN for sbp >160 Pepcid Ac (Famotidine) 10 Mg Tablet 10 Mg PO HS Miralax (Polyethylene Glycol 3350) 17 Gm Powd.pack 1 Packet PO BID Colace (Docusate Sodium) 100 Mg Capsule 1 Cap PO BID Catapres-Tts 2 (Clonidine) 1 Each Patch.tdwk 1 Each TD QWE Centrum Silver Men Tablet (Multivit-Min/FA/Lycopen/Lutein) 1 Each Tablet 1 Each PO DAILY Bisacodyl 10 Mg Supp.rect 10 Mg RC PRN DAILY PRN Baclofen 10 Mg Tablet 1 Tab PO TID Atorvastatin Calcium 20 Mg Tablet 20 Mg PO HS Vitals/I & O Vital Sign - Last 24 Hours 10/16/21 10/16/21 10/16/21 10/16/21 15:00 19:00 20:00 23:00 Temp 97.5 98.1 99.1 97.5 98.1 99.1 Pulse 110 76 81 Resp 17 18 18 B/P (MAP) 95/60 (72) 105/56 (72) 108/52 (70) Pulse Ox 95 93 98 O2 Delivery Room Air Room Air Room Air Room Air 10/17/21 10/17/21 10/17/21 10/17/21 03:00 04:07 04:39 07:00 Temp 97.9 97.9 97.9 97.9 Pulse 90 80 Resp 18 16 16 18 B/P (MAP) 121/78 (92) 111/68 (82) Pulse Ox 95 96 O2 Delivery Room Air Room Air Room Air 10/17/21 10/17/21 07:20 11:08 Temp 98.6 98.6 Pulse 81 Resp 18 B/P (MAP) 121/77 (92) Pulse Ox 94 O2 Delivery Room Air Room Air Intake and Output 10/16/21 10/16/21 10/17/21 15:00 23:00 07:00 Intake Total 1500 ml Output Total 720 ml 200 ml 900 ml Balance 780 ml -200 ml -900 ml Justifications for Admission Other Justification TAMMY TOM MD October 17, 2021 13:38
[2021-10-17 15:00] VITALS: BP 122/73
[2021-10-17] MEDS ORDERED: FLUO40CA2 PO ×3 (16:27→16:29)
[2021-10-17] MEDS ORDERED: PHEN37.53 PO (16:31)
[2021-10-17 19:00] VITALS: BP 125/60
[2021-10-17] MEDS ORDERED: [UNRECOGNIZED DRUG - OTHER] IV SCH (22:00)
[2021-10-17] MEDS ORDERED: TOTAL PARENTERAL NUTRITION IV SCH (22:00)
[2021-10-17] MEDS ORDERED: AMINO ACID IV SCH (22:00)
[2021-10-17] MEDS ORDERED: DEXTROSE 70% IV SCH (22:00)
[2021-10-17 22:56] VITALS: BP 124/78
[2021-10-18 02:58] VITALS: BP 108/70
[2021-10-18] MEDS: HYDROmorphone 2 MG/ML INJ. IVP PRN ×2 (03:27→14:58)
[2021-10-18] MEDS: ONDANSETRON PF 4 MG/2 ML VIAL. IVP PRN (03:27)
[2021-10-18 07:00] VITALS: BP 195/93
[2021-10-18 07:01] LABS: CREATININE 0.8 mg/dL (0.7-1.3); GFR 118.1; MAGNESIUM 1.8 mg/dL (1.8-2.4); PHOSPHORUS 2.2 mg/dL (2.6-4.7); POTASSIUM 4.4 mmol/L (3.5-5.1)
[2021-10-18] MEDS: PANTOPRAZOLE IV PUSH 40 MG VIAL. IVP SCH (08:26)
[2021-10-18] MEDS ORDERED: LABETALOL 20 MG/4 ML DISP.SYRIN. IVP PRN (09:30)
--- NOTE | 2021-10-18 10:47 | PDOC ---
Date of Service: DATE: 10/18/21 TIME: 10:44 Subjective: Subjective: Says "okay." Objective: Objective: On TPN, NPO. Vital Signs: Vital Signs Date Time Temp Pulse Resp B/P (MAP) Pulse Ox O2 Delivery O2 Flow Rate FiO2 10/18/21 10:10 100 195/93 10/18/21 08:00 Room Air 10/18/21 07:00 98.4 20 93 98.4 Labs: Laboratory Tests Test 10/18/21 06:20 Sodium Level 135 mmol/L Potassium Level 4.4 mmol/L Chloride Level 103 mmol/L Carbon Dioxide Level 26 mmol/L Anion Gap 6 Blood Urea Nitrogen 9 mg/dL Creatinine 0.8 mg/dL Estimated GFR (Cockcroft-Gault) 118.1 Glucose Level 100 mg/dL Calcium Level 8.0 mg/dL Phosphorus Level 2.2 mg/dL Magnesium Level 1.8 mg/dL PE: GEN: NAD LUNGS: CTAB HEART: RRR ABD: much less distended compared to pre-op, dressing intact, some liquid output in ostomy NEURO/PSYCH: A & O A/P: S/p total colectomy w/ end ileostomy H/o dysphagia -- Continue per surgery/primary. Justicifation of Admission Dx: Justifications for Admission: Justification of Admission Dx: Yes RANDOLPH TYSON October 18, 2021 10:47
--- NOTE | 2021-10-18 10:58 | PDOC ---
SURGICAL PROGRESS NOTE DATE: 10/18/21 TIME: 10:57 Subjective doing ok no appetite Vital Signs Vital Signs Date Time Temp Pulse Resp B/P (MAP) Pulse Ox O2 Delivery O2 Flow Rate FiO2 10/18/21 10:10 100 195/93 10/18/21 08:00 Room Air 10/18/21 07:00 98.4 20 93 98.4 I&O Intake and Output 10/18/21 07:00 Intake Total 1512 ml Output Total 2245 ml Balance -733 ml IV Total 1512 ml Output Urine Total 2225 ml Stool Total 20 ml General: Alert, Cooperative Abdomen: Soft, Other (dressing dry, ostomy small amount of stool) Labs Laboratory Tests Test 10/17/21 04:35 10/18/21 06:20 White Blood Count 11.8 x10^3/uL (4.0-11.0) Red Blood Count 3.56 x10^6/uL (4.30-5.70) Hemoglobin 10.4 g/dL (13.0-17.5) Hematocrit 31.2 % (39.0-53.0) Mean Corpuscular Volume 88 fL (79-100) Mean Corpuscular Hemoglobin 29 pg (25-35) Mean Corpuscular Hemoglobin Concent 34 g/dL (31-37) Red Cell Distribution Width 13.7 % (11.5-14.5) Platelet Count 251 x10^3/uL (140-400) Sodium Level 137 mmol/L (136-145) 135 mmol/L (136-145) Potassium Level 4.4 mmol/L (3.5-5.1) 4.4 mmol/L (3.5-5.1) Chloride Level 106 mmol/L (98-107) 103 mmol/L (98-107) Carbon Dioxide Level 27 mmol/L (21-32) 26 mmol/L (21-32) Anion Gap 4 (6-14) 6 (6-14) Blood Urea Nitrogen 15 mg/dL (8-26) 9 mg/dL (8-26) Creatinine 0.9 mg/dL (0.7-1.3) 0.8 mg/dL (0.7-1.3) Estimated GFR (Cockcroft-Gault) 103.1 118.1 Glucose Level 138 mg/dL (70-99) 100 mg/dL (70-99) Calcium Level 7.8 mg/dL (8.5-10.1) 8.0 mg/dL (8.5-10.1) Phosphorus Level 2.3 mg/dL (2.6-4.7) 2.2 mg/dL (2.6-4.7) Magnesium Level 2.0 mg/dL (1.8-2.4) 1.8 mg/dL (1.8-2.4) Laboratory Tests Test 10/18/21 06:20 Sodium Level 135 mmol/L (136-145) Potassium Level 4.4 mmol/L (3.5-5.1) Chloride Level 103 mmol/L (98-107) Carbon Dioxide Level 26 mmol/L (21-32) Anion Gap 6 (6-14) Blood Urea Nitrogen 9 mg/dL (8-26) Creatinine 0.8 mg/dL (0.7-1.3) Estimated GFR (Cockcroft-Gault) 118.1 Glucose Level 100 mg/dL (70-99) Calcium Level 8.0 mg/dL (8.5-10.1) Phosphorus Level 2.2 mg/dL (2.6-4.7) Magnesium Level 1.8 mg/dL (1.8-2.4) Problem List Problems Medical Problems: (1) Acute kidney injury Status: Acute (2) Acute urinary retention Status: Acute (3) Constipation Status: Acute Assessment/Plan sips, ice chips. go slow Justicifation of Admission Dx: Justifications for Admission: Justification of Admission Dx: Yes TENNILLE GUTIÉRREZ APRN October 18, 2021 10:58
[2021-10-18 11:00] VITALS: BP 153/75
[2021-10-18] MEDS: TPN PER PHARMACY MC PRN (11:05)
--- NOTE | 2021-10-18 11:07 | NUR ---
Pharmacy TPN Dosing Note S: JADA RITCHIE is a 61 year old M Currently receiving Central Continuous TPN started 10/15/21 B:Pertinent PMH: ILEUS Height: 5 feet, 9 inches Weight: 59.3 kg Current diet: NPO LABS: Sodium: 135 Potassium: 4.4 Chloride: 103 Calcium: 8.0 Corrected Calcium: 9.12 Magnesium: 2.0 CO2: 26 SCr: 0.8 Glucose: 100 Albumin: 2.6 AST: 31 ALT: 42 TPN FORMULA: TPN TYPE: Central Continuous AMINO ACIDS: 60 gm DEXTROSE: 195 gm LIPIDS: 20 gm SODIUM CHLORIDE: 90 mEq SODIUM PHOSPHATE: 12 mmol POTASSIUM CHLORIDE: 50 mEq POTASSIUM PHOSPHATE: 13.6 mmol MAGNESIUM: 15 mEq MULTIPLE VITAMIN: 10 ml TRACE ELEMENTS: 1 ml(s) TPN PLAN: Increase Sodium Phosphate to 12mMol in TPN due to low phosphorus level. R: Change TPN Will monitor electrolytes, glucose, and tolerance to TPN. Fernando Garrido [facility], 10/18/21 1107
--- NOTE | 2021-10-18 14:50 | PN ---
DATE: 10/18/2021 SUBJECTIVE: The patient is resting, slightly propped up in bed, in no apparent respiratory distress, sleepy, but arousable. On questioning him, he denied any complaint, in particular, denied any abdominal pain. Denied any nausea or vomiting. PHYSICAL EXAMINATION: GENERAL: When I examined him, he looked pale, but not jaundiced, cyanosed, no lymphadenopathy, no thyromegaly, no jugular venous distention. No lower limb edema. VITAL SIGNS: His heart rate was 100, blood pressure was 195/93, temperature was 98.4, respiratory rate was 20 and oxygen saturation was 93% on room air. HEAD, EYES, EARS, NOSE, AND THROAT: Normocephalic, atraumatic. NECK: Supple. HEART: Normal first and second heart sounds. No gallop, rub or murmur. CHEST: Showed central trachea, equal bilateral chest expansion, air entry, vesicular breath sounds. No crepitation or rhonchi. ABDOMEN: Scaphoid, soft with midline surgical incision covered with dressing that is dry and intact. He has also an ileostomy bag in the right lower quadrant with a small amount of liquid stool. There is no tenderness, no guarding; however, bowel sounds continued to be sluggish. NEUROLOGIC: He has right-sided hemiplegia, aphasia and dysphagia. His intake over the last 24 hours was 1500, output was 1820. LABORATORY DATA: As of yesterday, his white cell count was 11.8, hemoglobin 10, hematocrit 31, MCV 88 and platelet count 251,000. His chemistry this morning showed a serum sodium 135, potassium 4.4, chloride 103, bicarbonate 26, anion gap of 6, BUN 9, creatinine 0.8. Estimated GFR was 118 mL per minute. His glucose 100, calcium was 8, phosphorus 2.2, and magnesium was 1.8. ASSESSMENT: 1. Pseudoobstruction syndrome, status post total colectomy and ileostomy. 2. Urinary retention requiring indwelling Cronin catheter. 3. Acute kidney injury due to obstructive uropathy, resolved. His serum creatinine is down to 0.8 mg/dL. 4. Left lower extremity deep vein thrombosis for which he was treated initially with Lovenox and was discharged on Eliquis. He is now back on Eliquis that was put on hold. 5. Left middle cerebral artery territory infarct, right-sided hemiplegia, aphasia and dysphagia. 6. Hypertension. PLAN: To continue with IV Protonix. Continue with subcutaneous Lovenox. Continue with TPN. Continue to monitor his electrolytes, adjust as needed. Once his bowel start moving, we will start him on a pureed diet and discontinue the TPN. AARON/MARGARET/CHELSEY DR: Teresita TID: [id number]
[2021-10-18 15:00] VITALS: BP 149/83
[2021-10-18 19:00] VITALS: BP 104/84
[2021-10-18 20:53] VITALS: BP 107/84
[2021-10-18] MEDS ORDERED: AMINO ACID IV SCH (22:00)
[2021-10-18] MEDS ORDERED: TOTAL PARENTERAL NUTRITION IV SCH (22:00)
[2021-10-18] MEDS ORDERED: [UNRECOGNIZED DRUG - OTHER] IV SCH (22:00)
[2021-10-18] MEDS ORDERED: DEXTROSE 70% IV SCH (22:00)
== END 2021-10-19 | DRG 329 ==
LOC: ER 06:37 → 4 NORTH 08:30
PROVIDERS: ADMIT Internal Medicine; ATTEND Internal Medicine
PROC: 0D9670Z Drainage of Stomach with Drainage Device, Via Natural or Artificial Opening (ICD-10-PCS; 2021-10-12)
PROC: 0DJD8ZZ Inspection of Lower Intestinal Tract, Via Natural or Artificial Opening Endoscopic (ICD-10-PCS; principal; 2021-10-13 12:00)
PROC: 02HV33Z Insertion of Infusion Device into Superior Vena Cava, Percutaneous Approach (ICD-10-PCS; 2021-10-14)
PROC: B5181ZA Fluoroscopy of Superior Vena Cava using Low Osmolar Contrast, Guidance (ICD-10-PCS; 2021-10-14)
PROC: B548ZZA Ultrasonography of Superior Vena Cava, Guidance (ICD-10-PCS; 2021-10-14)
PROC: 0DTE0ZZ Resection of Large Intestine, Open Approach (ICD-10-PCS; 2021-10-16)
PROC: 0D1B0Z4 Bypass Ileum to Cutaneous, Open Approach (ICD-10-PCS; 2021-10-16)
DX: K59.81 Ogilvie syndrome (principal); N17.0 Acute kidney failure with tubular necrosis; A41.50 Gram-negative sepsis, unspecified; R65.21 Severe sepsis with septic shock; J96.01 Acute respiratory failure with hypoxia; J69.0 Pneumonitis due to inhalation of food and vomit; I69.351 Hemiplegia and hemiparesis following cerebral infarction affecting right dominant side; J98.11 Atelectasis; N13.30 Unspecified hydronephrosis; N13.8 Other obstructive and reflux uropathy; K56.7 Ileus, unspecified; E87.1 Hypo-osmolality and hyponatremia; D62 Acute posthemorrhagic anemia; K56.609 Unspecified intestinal obstruction, unspecified as to partial versus complete obstruction; N39.0 Urinary tract infection, site not specified; G93.40 Encephalopathy, unspecified; R33.9 Retention of urine, unspecified; K59.01 Slow transit constipation; D72.829 Elevated white blood cell count, unspecified; E78.00 Pure hypercholesterolemia, unspecified; G89.4 Chronic pain syndrome; I10 Essential (primary) hypertension; I69.320 Aphasia following cerebral infarction; K59.39 Other megacolon; K62.89 Other specified diseases of anus and rectum; Z87.891 Personal history of nicotine dependence; Z93.3 Colostomy status; F32.A Depression, unspecified; F41.9 Anxiety disorder, unspecified; K21.9 Gastro-esophageal reflux disease without esophagitis; Z20.822 Contact with and (suspected) exposure to COVID-19; Z86.718 Personal history of other venous thrombosis and embolism; Z79.01 Long term (current) use of anticoagulants; E87.6 Hypokalemia; I73.9 Peripheral vascular disease, unspecified; N40.1 Benign prostatic hyperplasia with lower urinary tract symptoms; I69.391 Dysphagia following cerebral infarction; B96.1 Klebsiella pneumoniae [K. pneumoniae] as the cause of diseases classified elsewhere; E83.42 Hypomagnesemia
CPT/HCPCS: 36415; 36573; 45331; 74022; 74176; 80048; 80053; 81001; 83605; 83690; 83735; 84100; 84478; 84484; 85025; 85027; 87040; 87426; 87804; 88307; 88309; 93005; 96365; A4222; A4223; A4364; A4421; A4452; A4930; A5061; A6253; A6402; C1751; C1892; C9113; J0690; J0780; J1100; J1170; J1650; J2250; J2270; J2370; J2405; J2543; J2704; J2710; J3010; J3475; J3480; J3490; J7030; J7042; J7060; J7120; 99285-25; G0378